=== PATIENT | female | born 1965 | race Caucasian/White ===

== ENCOUNTER → 2024-09-19 | Outpatient (CLI) | payer OTHER, SELFPAY ==
[2024-09-19 18:44] LABS: Mono Screen Negative (Negative)
[2024-09-20 13:54] LABS: Cocci Serology, IgM Negative (Negative)
[2024-09-21 14:43] LABS: Cocci Serology, IgG Negative (Negative)
[2024-09-27 19:48] LABS: West Nile Virus Ab. IgG, Serum <1.30
[2024-09-28 06:30] LABS: West Nile Virus Ab. IgM, Serum <0.90
== END | disposition home or self-care (01) ==
LOC: CDIM 13:59 → COPL 14:27
PROVIDERS: PCP Family Medicine; Referring Provider Registered Nurse; Visit Provider Registered Nurse
DX: R06.02 Shortness of breath (principal)
CPT/HCPCS: 36415; 86308; 86331; 86635; 86788; 86789

== ENCOUNTER → 2024-10-24 | Outpatient (CLI) | payer OTHER, SELFPAY ==
--- NOTE | 2024-10-24 10:30 | XR_ITS ---
Examination: Renal arteriography, renal Doppler sonographic evaluation renal arteries Exam date and time: October 24, 2024 1040 hours INDICATIONS: Hypertension 31 years TECHNIQUE AND FINDINGS: Right kidney 10.0 x 5.6 x 5.7 cm No elevation of peak systolic velocities No significant elevation resistive indices Normal renal aortic ratio Left kidney 10.7 x 4.7 x 5.4 cm No elevation of peak systolic velocities No significant elevation resistive indices Normal renal aortic ratios IMPRESSION: No sonographic Doppler findings of renal artery stenosis
== END | disposition home or self-care (01) ==
LOC: CDIM 10:17
PROVIDERS: PCP Family Medicine; Referring Provider Family Medicine; Visit Provider Family Medicine
DX: I10 Essential (primary) hypertension (principal)
CPT/HCPCS: 93975

== ENCOUNTER → 2024-11-22 | Outpatient (CLI) | payer OTHER, SELFPAY ==
--- NOTE | 2024-11-22 15:45 | XR_ITS ---
Examination: Screening digital mammography, bilateral Computer aided detection 3-D breast Tomosynthesis, bilateral Date and time of exam: November 22, 2024 1543 hours Compared to February 22, 2016 Indication: Screening Technique: Nonmagnified MLO, CC views of the breasts to been obtained, reconstructed from 3-D Tomosynthesis images. R2 computer aided detection program utilized for evaluation of suspicious masses and/or abnormal calcifications. 3-D Tomosynthesis images obtained. Findings: The breasts are heterogeneously dense, which may obscure small masses Benign calcifications. No interval suspicious masses Impression: BI-RADS category II: Benign Findings. Recommend 1 year follow-up mammogram.
== END | disposition home or self-care (01) ==
LOC: CDIM 15:23
PROVIDERS: PCP Registered Nurse; Referring Provider Registered Nurse; Visit Provider Registered Nurse
DX: Z12.31 Encounter for screening mammogram for malignant neoplasm of breast (principal); R92.323 Mammographic fibroglandular density, bilateral breasts; R92.1 Mammographic calcification found on diagnostic imaging of breast
CPT/HCPCS: 77063; 77067

== ENCOUNTER → 2025-02-14 | Outpatient (CLI) | payer OTHER, SELFPAY ==
[2025-02-14 17:35] LABS: Basophils # (Auto) 0.1 Thou/mm3 (0.0-0.2); Basophils % (Auto) 1 % (0-2.5); Eosinophils # (Auto) 0.1 Thou/mm3 (0.0-0.5); Eosinophils % (Auto) 1 % (0-10); Hematocrit 42.8 % (36.0-46.0); Hemoglobin 13.6 g/dL (12.0-16.0); Immature Granulocytes % (Auto) 1 % (0-0); Immature Granulocytes Auto 0.06 Thou/mm3 (0.00-0.00); Lymphocytes # (Auto) 2.4 Thou/mm3 (1.0-4.8); Lymphocytes % (Auto) 18 % (10-50); Mean Corpuscular HGB Conc 31.8 g/dl (31.0-37.0); Mean Corpuscular Hemoglobin 25.9 pg (25.0-35.0); Mean Corpuscular Volume 81 fL (80-100); Monocytes % (Auto) 7 % (0-12); Neutrophils # (Auto) 9.5 Thou/mm3 (1.8-7.7); Neutrophils % (Auto) 73 % (37-80); Nucleated Red Blood Cell % 0 /100 WBC (0); Platelet Count 209 Thou/mm3 (140-440); RDW Standard Deviation 44.1 fL (36.4-46.3); Red Blood Count 5.26 Miln/mm3 (4.00-5.20); White Blood Count 13.1 Thou/mm3 (3.6-11.0)
[2025-02-14 17:54] LABS: Parathyroid Hormone Intact 62.9 pg/ml (18.5-88.0)
[2025-02-14 17:55] LABS: Sed Rate (ESR) 17 mm/hr (0-30)
[2025-02-14 17:56] LABS: Alanine Aminotransferase 19 U/L (10-49); Albumin, Serum 4.1 gm/dL (3.5-5.0); Alkaline Phosphatase 107 U/L (46-116); Anion Gap 8 (7-16); Aspartate Amino Transferase 19 U/L (0-34); BUN/Creatinine Ratio 13 Ratio (12-20); Bilirubin,Direct 0.2 mg/dL (0.0-0.3); Bilirubin,Total 0.8 mg/dL (0.3-1.2); Blood Urea Nitrogen 10 mg/dL (9-23); C-Reactive Protein 0.8 mg/dL (0.0-0.9); Calcium 9.1 mg/dL (8.3-10.6); Carbon Dioxide 32.4 mMol/L (20.0-31.0); Chloride 101 mMol/L (98-107); Creatinine (Component) 0.8 mg/dL (0.6-1.3); Glucose 84 mg/dL (74-106); Magnesium 1.9 mg/dL (1.6-2.6); Osmolality,Calculated 279 (275-295); Phosphorous 5.2 mg/dL (2.4-5.1); Potassium 3.6 mMol/L (3.4-5.1); Sodium 141 mMol/L (136-145); eGFR > 60 See Note
[2025-02-14 17:57] LABS: Ferritin 14 ng/mL (7.3-270.7)
[2025-02-14 18:05] LABS: Vitamin B12 > 2000 pg/mL (211-911)
[2025-02-14 21:20] LABS: RA Screen Negative (Negative)
== END | disposition home or self-care (01) ==
LOC: COPL 16:18
PROVIDERS: PCP Family Medicine; Referring Provider Anesthesiology Pain Medicine; Visit Provider Anesthesiology Pain Medicine
DX: M79.7 Fibromyalgia (principal)
CPT/HCPCS: 36415; 80048; 80076; 82525; 82607; 82728; 83735; 83970; 84100; 84425; 84590; 84630; 85025; 85652; 86038; 86140; 86200; 86430

== ENCOUNTER → 2025-03-20 | Outpatient (CLI) | payer OTHER, SELFPAY ==
--- NOTE | 2025-03-20 12:00 | XR_ITS ---
Examination: MRI brain without intravenous contrast. Date and time of exam: March 20, 2025 1227 hours COMPARISON: 08/04/2019 INDICATIONS: Episodes of slurred speech tremors in the left hand beginning 3 months ago Technique: Multiple axial and sagittal images of the brain obtained. Siemens high-resolution 1.5 [place] short bore scanners utilized. Sagittal sections, T1-weighted, TR 500, TE 14, are performed. Axial sections proton-density and T2-weighted have been obtained. Inversion recovery axial images, TR 9, 260, TE 111, TI 2500. Diffusion weighted images, axial sections, TR 4800, TE 128, B value 1000 Axial sections, ADC map, TR 4800, TE 128 Findings: Enlargement of the sella turcica is not present. The optic chiasm and infundibular are not remarkable. Prepontine and interpeduncular cisterns are not enlarged. There is no localized enlargement of the medulla or hollie. Fourth ventricle and cerebellar tonsils appear normal in position. No subacute area of hemorrhage density is seen. Mass in the cerebellopontine angle region is not evident. Globes symmetrical. Orbital musculature including medial lateral rectus muscles do not exhibit abnormality. Diffusion-weighted images demonstrate no focus of restricted diffusion. Increased white matter signal scattered punctate foci increased signal in the white matter, including right parietal lobe FLAIR image 15 and 16 Mass effect upon the ventricular system is not identified. Impression: Scattered punctate foci increased signal in the cerebral white matter, consider demyelinating disease
== END | disposition home or self-care (01) ==
PROVIDERS: PCP Registered Nurse; Referring Provider Registered Nurse; Visit Provider Registered Nurse
DX: R90.82 White matter disease, unspecified (principal)
CPT/HCPCS: 70551

== ENCOUNTER → 2025-06-14 | Outpatient (CLI) | payer OTHER, SELFPAY ==
[2025-06-14 16:25] LABS: Amphetamine/Methamp Scrn,U Negative (Negative); Barbiturate Screen,Urine Negative (Negative); Benzodiazepines Screen,Urine Negative (Negative); Benzoylecgonine Screen, Ur Negative (Negative); Fentanyl Screen,Urine Negative (Negative); Opiate Screen,Urine Negative (Negative); THC Screen,Urine Negative (Negative)
== END | disposition home or self-care (01) ==
LOC: SLDO 15:04
PROVIDERS: PCP Registered Nurse; Referring Provider Registered Nurse; Visit Provider Registered Nurse
DX: Z02.89 Encounter for other administrative examinations (principal); M54.15 Radiculopathy, thoracolumbar region
CPT/HCPCS: 80307

== ENCOUNTER → 2025-08-08 | Outpatient (CLI) | payer OTHER, SELFPAY ==
--- NOTE | 2025-08-08 14:50 | XR_ITS ---
Examination: PA lateral chest 2 views TECHNIQUE: Upright PA lateral chest 2 views Date and time: August 08, 2025 1515 hours, comparison August 15, 2024 INDICATIONS: History pneumonia 10 days FINDINGS: Normal heart size Mild elevation right hemidiaphragm. No current lobar pneumonia or pulmonary edema IMPRESSION: No current lobar pneumonia or pulmonary edema
[2025-08-08 15:32] LABS: Coccid Serology, CF (UCD)* See Sep Rpt
[2025-08-08 16:34] LABS: Basophils # (Auto) 0.1 Thou/mm3 (0.0-0.2); Basophils % (Auto) 1 % (0-2.5); Eosinophils # (Auto) 0.1 Thou/mm3 (0.0-0.5); Eosinophils % (Auto) 2 % (0-10); Hematocrit 48.6 % (36.0-46.0); Hemoglobin 15.1 g/dL (12.0-16.0); Immature Granulocytes Auto 0.02 Thou/mm3 (0.00-0.00); Lymphocytes # (Auto) 3.1 Thou/mm3 (1.0-4.8); Lymphocytes % (Auto) 39 % (10-50); Mean Corpuscular HGB Conc 31.1 g/dl (31.0-37.0); Mean Corpuscular Hemoglobin 24.6 pg (25.0-35.0); Mean Corpuscular Volume 79 fL (80-100); Monocytes # (Auto) 0.6 Thou/mm3 (0.0-0.8); Monocytes % (Auto) 8 % (0-12); Neutrophils # (Auto) 4.2 Thou/mm3 (1.8-7.7); Neutrophils % (Auto) 51 % (37-80); Nucleated Red Blood Cell # 0.00 Thou/mm3 (0.00-0.00); Nucleated Red Blood Cell % 0 /100 WBC (0); Platelet Count 446 Thou/mm3 (140-440); RDW Standard Deviation 44.5 fL (36.4-46.3); Red Blood Count 6.15 Miln/mm3 (4.00-5.20); White Blood Count 8.2 Thou/mm3 (3.6-11.0)
[2025-08-08 17:15] LABS: Alanine Aminotransferase 24 U/L (10-49); Albumin, Serum 4.5 gm/dL (3.5-5.0); Albumin/Globulin Ratio 2.1 (1.2-2.2); Alkaline Phosphatase 98 U/L (46-116); Anion Gap 12 (7-16); Aspartate Amino Transferase 25 U/L (0-34); BUN/Creatinine Ratio 10 Ratio (12-20); Bilirubin,Total 0.4 mg/dL (0.3-1.2); Blood Urea Nitrogen 12 mg/dL (9-23); Calcium 10.1 mg/dL (8.3-10.6); Calcium (Corrected) 10.1 mg/dL (8.5-10.1); Carbon Dioxide 28.9 mMol/L (20.0-31.0); Chloride 100 mMol/L (98-107); Creatinine (Component) 1.2 mg/dL (0.6-1.3); Globulin 2.1 gm/dL (2.3-3.5); Glucose 111 mg/dL (74-106); Osmolality,Calculated 281 (275-295); Potassium 4.2 mMol/L (3.4-5.1); Sodium 141 mMol/L (136-145); Total Protein 6.6 gm/dL (5.7-8.2); eGFR 52 See Note
== END | disposition home or self-care (01) ==
LOC: COPL 14:26
PROVIDERS: PCP Nurse Practitioner Family; Referring Provider Nurse Practitioner Family; Visit Provider Radiology Diagnostic Radiology
DX: J20.9 Acute bronchitis, unspecified (principal); R04.2 Hemoptysis
CPT/HCPCS: 36415; 71046; 80053; 85025; 86171

== ENCOUNTER → 2025-08-29 | Outpatient (CLI) | payer OTHER, SELFPAY ==
[2025-08-29 16:45] LABS: B-Type Natriuretic Peptide 142 pg/mL (0-100)
[2025-08-30 09:36] LABS: Mono Screen Negative (Negative)
[2025-09-02 17:51] LABS: West Nile Virus Ab. IgG, Serum <1.30
[2025-09-04 06:38] LABS: West Nile Virus Ab. IgM, Serum <0.90
== END | disposition home or self-care (01) ==
LOC: COPL 15:41
PROVIDERS: PCP Registered Nurse; Referring Provider Registered Nurse; Visit Provider Registered Nurse
DX: R50.9 Fever, unspecified (principal)
CPT/HCPCS: 36415; 83880; 86308; 86788; 86789

== ENCOUNTER → 2025-09-06 | Outpatient (CLI) | payer OTHER, SELFPAY ==
--- NOTE | 2025-09-06 14:38 | XR_ITS ---
Examination: CT chest, without intravenous contrast. Sagittal and coronal 2-D reconstructions. Exam date and time: September 06, 2025, 1446 hours INDICATIONS: Chronic coughing chest pain fever 2 months COMPARISON: December 07, 2023 CTDI:vol (mGy) 14.2 DLP: (mGycm) 512 Technique: Multiple 3.0 mm axial sections of the chest to been obtained. Bone and lung density settings are obtained. Sagittal and coronal 2-D reconstructions have been obtained. Low dose protocols were performed. One or more of the following dose reduction techniques were used; automated exposure control, adjustment of the mA and/or KV according to patient size, use of iterative reconstruction technique. Findings: No thoracic aortic aneurysm dilatation Pulmonary artery segments are not enlarged Mild enlargement cardiac contour No paratracheal or tracheobronchial or bronchopulmonary adenopathy. No pneumonia or pulmonary edema or pleural disease No visualized liver or splenic lesion Gastric sutures Absent gallbladder No pancreatic or adrenal mass No hydronephrosis IMPRESSION: No mediastinal lymphadenopathy No pneumonia, pulmonary edema, pleural disease or pulmonary nodules
== END | disposition home or self-care (01) ==
PROVIDERS: PCP Family Medicine; Referring Provider Registered Nurse; Visit Provider Registered Nurse
DX: R05.3 Chronic cough (principal)
CPT/HCPCS: 71250

== ENCOUNTER 2025-09-19 13:57 | Emergency (ER) | payer MEDICAID, SELFPAY ==
[2025-09-19] VITALS (7 sets, daily range): BP systolic 172–210; BP diastolic 93–126; PULSE 57–100; RESP 16–20; TEMP 36.8–37.1; O2SAT 94–99; BMI 36.6
--- NOTE | 2025-09-19 14:13 | EKG_ITS ---
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
--- NOTE | 2025-09-19 14:14 | XR_ITS ---
CLINICAL INDICATION: SOB TECHNIQUE: XR chest 1V portable Exam date and time: 09/19/2025, 2:19 p.m. COMPARISON: Chest radiographs 08/08/2025 FINDINGS: The cardiomediastinal silhouette is within normal limits. Redemonstration of very mildly elevated right hemidiaphragm. No airspace opacities suggestive of pneumonia. No mass detected. No pleural effusion or pneumothorax. Degenerative changes of the skeletal structures. No apparent acute osseous abnormality. IMPRESSION: No radiographic evidence for acute cardiopulmonary abnormality. No significant interval change since the comparison study. - This report was generated utilizing speech recognition software. -
--- NOTE | 2025-09-19 15:03 | EDNOTE_ITS ---
<Statement entered by Nadine Piedra MD - 09/20/25 09:34> As co-signing physician, I was present and available for consult prn. I concur with the plan and care as documented by the midlevel provider. ED Weakness RME/HPI General Chief complaint: Weakness Stated complaint: SHAKING Arrival date/time: 09/19/25 13:57 RME / HPI RME / HPI Narrative: cc: Dizziness Patient is a 53-year-old female with a past medical history of hypertension, hyperlipidemia, possible history of fibromyalgia history of kidney stone, previous catheter in [address] Mireles showed nonobstructive coronary artery disease who presented to the emergency room. Patient presented via EMS with a chief complaints increased respiration and dizziness, denied syncope. Patient reports difficulties controlling blood pressure medication despite multiple antihypertensive medication. Patient denied any recent sick contacts. Patient denied history of seizures or seizure-like activity. Denied recent sick contacts. Patient's follows with Dr. Mireles and Dr. Santos as primary care. CBC, CMP, EKG, Tropoinin, flu and covid Patient requesting Metoprolol succinate refill Related Data Home Medications ?Medication ?Instructions ?Recorded ?Confirmed amlodipine 5 mg tablet 5 mg PO QDAY 08/05/19 gabapentin 400 mg capsule 400 mg PO BID 08/05/1908/31 hydrocodone 7.5 mg-acetaminophen 1 tab PO Q6H PRN Pain (Scale Score 08/05/19 08/31/23 325 mg tablet 7-10) meclizine 12.5 mg tablet 12.5 mg PO BID PRN Vertigo 0 08/05/19 08/31/23 metoprolol succinate 100 mg 100 mg PO BID 08/05/19 tablet,extended release 24 hr amitriptyline 25 mg tablet 150 mg PO HS 08/31/2308/31 aspirin 81 mg tablet,delayed 81 mg PO QDAY 08/31/23 release clonidine HCl 0.2 mg tablet 0.2 mg PO QDAY 08/31/23 duloxetine 60 mg capsule,delayed 60 mg PO QDAY 3 08/31/23 release (Cymbalta) estradiol 0.5 mg tablet 0.5 mg PO QDAY 08/31/2308/16 ibuprofen 600 mg tablet 200 mg PO Q6H pain 08/31/23 08/31/23 metformin 500 mg tablet 500 mg PO QDAY 08/31/2308/16 Held on 08/31/23. Instructions: Resume on 09/03/23. please hold metformin for 48 hrs. may resume 09/03/2023 omeprazole 20 mg capsule,delayed 20 mg PO QDAY 3 08/31/23 release Previous Rx's ?Medication ?Instructions ?Recorded enalapril maleate 2.5 mg tablet 2.5 mg PO QDAY #30 tab s 01/08/23 (Vasotec) Allergies Allergy/AdvReac Type Severity Reaction Status Date / Time bupropion (From Wellbutrin) Allergy Severe Swelling Verified 08/31/23 11:17 of Lip/Tongue/Throat sumatriptan (From Imitrex) Allergy Severe Swelling Verified 08/31/23 11:17 of Lip/Tongue/Throat atenolol Allergy Intermediate Rash Verified 08/31/23 11:17 latex Allergy Rash Verified 08/31/23 11:17 Review of Systems Review of Systems Narrative Review of Systems: General appearance: NO weight change, NO fatigue, NO weakness, NO fever, Yes chills, Yes perspiration, NO night sweats, No cough, Increased fatigue Skin: NO rash, NO itching, NO sores, NO moles HEENT: NO Trauma, NO nausea, NO vomiting, NO visual changes, NO blurry vision, NO double vision, NO tinnitus, NO vertigo, NO ear discharge, NO rhinorrhea, NO stuffiness, NO sneezing, NO allergy, NO epistaxis. NO Hoarseness, NO sore throat, NO swollen neck. Cardiac: NO Palpitations, NO dyspnea on exertion, NO orthopnea, NO paroxysmal nocturnal dyspnea, NO edema Respiratory: NO Shortness of Breath, NO Wheezing, NO Cough, NO Sputum, NO hemoptysis GI:NO appetite, NO nausea, NO vomiting, NO dysphagia, NO changes in bowel frequency, NO stool color, NO diarrhea, NO constipation, NO hemetemesis, NO hemorrhoids, NO melena, NO hematechezia, NO abdominal pain, NO jaundice Renal: NO frequency, NO hesitancy, NO urgency, NO hematuria, NO nocturia, NO incontinence MSK: NO muscle weakness, NO gout, NO arthritis, NO muscle stiffness Neuro: NO headaches, NO tremors, Yes weakness, NO paralysis, NO seizures, NO loss of consciousness, NO numbness. Hem: NO anemia, NO easy bruising/bleeding, NO petechiae, NO purpura Endo: NO heat/cold intolerance, NO excessive sweating, NO polyuria, NO po lydipsia, NO polyphagia, NO thyroid problems, yes diabetes Pysch: NO mood, NO anxiety, NO depression ED Exam Narrative Physical exam: General Appearance: Alert & Oriented X3, well-nourished female who is lying in bed in mild distress HEENT: Skull symmetrical and atraumatic. Conjunctivae pink and moist. Pupils equal, round, reactive to light and accommodation (PERRL). External ear without lesion or discharge. Straight, nares patient, mucosa pink, no discharge. Cardio: Normal Rate and Rhythm with S1 and S2 heart sounds. No murmurs or extra heart sounds auscultated. No bruits on carotid auscultation. No peripheral edema or cyanosis. Lungs: Symmetric with good expansion. Chest and back non-tender. Breath sounds vesicular without crackles, wheezing or rhonchi Abdomen: Non-tender, Non-distended, Normal Reactive Bowel Sounds Neuro: Alert, cooperative, oriented to person, place, and time. Speech clear. CN grossly intact. Upper motor strength 5/5 and Lower motor strength 5/5. Sensation intact. NO facial drop. Course Course Course Narrative: Patient has a past medical history of HTN, HLD, fibromyalgia, and hx of kidney stones with chief complain shaking and increase perspiration and noted to have uncontrolled hypertension. Patient denied chest pain or pyrexia. CBC unremarkable, no leukocytosis. Generalized fatigue unlikely secondary to infectious process as UA, flu, covid, and chest x-ray all negative. No focal deficits on physical exam. Patient stated she ran out of her metoprolol and requires refill. Goal reduction of SBP by 15%. Quality Measures none Orders Category Date Time Status Bedside Blood Glucose NOW Care 09/19/25 14:13 Active Bedside COVID-19 Antigen Test NOW Care 09/19/25 16:21 Active Bedside Influenza A&B Antigen Test NOW Care 09/19/25 16:22 Completed [facility] Q4H START 00 Care 09/19/25 14:13 Active Continuous Pulse Oximetry NOW Care 09/19/25 14:13 Active EKG (ED ONLY) *Do not use* NOW Care 09/19/25 14:14 Completed Orthostatic Vitals X1 Care 09/19/25 14:13 Active EKG (ED Only) Stat Exams 09/19/25 14:13 Draft XR chest 1V portable Stat Exams 09/19/25 14:14 Completed Alcohol, Urine Stat Lab 09/19/25 16:30 Completed CBC Stat Lab 09/19/25 14:40 Completed CMP [Comprehensive Metabolic Panel] Stat Lab 09/19/25 14:40 Completed Drug Screen,Urine Stat Lab 09/19/25 16:30 Completed Troponin I Stat Lab 09/19/25 14:40 Completed Urinalysis, C/S if Indicated Stat Lab 09/19/25 16:30 Completed Labetalol IV [Trandate IV] Med 09/19/25 14:16 Discontinued 10 mg IVP X1 ONE POTASSIUM CHL 10% Liq 15 ML Med 09/19/25 16:02 Discontinued 40 meq PO X1 ONE cloNIDine HCL [Catapres] Med 09/19/25 14:46 Discontinued 0.2 mg PO X1 ONE cloNIDine HCL [Catapres] Med 09/19/25 16:04 Discontinued 0.2 mg PO X1 ONE same as above Vital Signs Vital signs: Vital Signs Temperature 98.7 F 09/19/25 14:05 Pulse Rate 70 09/19/25 14:05 Respiratory Rate 18 09/19/25 14:05 Blood Pressure 193/114 H 09/19/25 14:05 Pulse Oximetry (%) 99 09/19/25 14:05 Oxygen Delivery Method Room Air 09/19/25 14:05 Weakness Patient data External records reviewed:: [facility] previous records Clinical information provided by:: patient and EMS Social determinants that could affect healthcare access:: none Patient has the following chronic illnesses:: HTN and HLD How is presenting disease/condition affected by chronic disease/condition?: exacerbated by (HTN ) Evaluation data The following diagnostics were reviewed and interpreted by me:: lab results, radiology exam(s) and EKG tracing(s) Lab and/or radiology exams considered but not ordered:: none Interpretation Summary: Patient has a past medical history of HTN, HLD, fibromyalgia, and hx of kidney stones with chief complain shaking and increase perspiration and noted to have uncontrolled hypertension. Patient denied chest pain or pyrexia. CBC unremarkable, no leukocytosis. Generalized fatigue unlikely secondary to infecti ous process as UA, flu, covid, and chest x-ray all negative. No focal deficits on physical exam. Patient stated she ran out of her metoprolol and requires refill. Goal reduction of SBP by 15%. - The patient's plan was discussed with attending Dr. Dorothea Uriarte MD PGY2 Internal Medicine Medications / Prescriptions Medications or Prescriptions considered but not ordered:: none Medication administrations:: Medication Administration History Discontinued Medications Clonidine (Clonidine Hcl 0.1 Mg Tablet) 0.2 mg PO X1 ONE Stop: 09/19/25 14:47 Last Admin: 09/19/25 15:12 Dose: 0.2 mg Documented By: Clonidine (Clonidine Hcl 0.1 Mg Tablet) 0.2 mg PO X1 ONE Stop: 09/19/25 16:05 Last Admin: 09/19/25 18:44 Dose: 0.2 mg Documented By: VG Labetalol HCl (Labetalol Inj 5 Mg/Ml Vial 20 Ml) 10 mg IVP X1 ONE Stop: 09/19/25 14:17 Last Admin: 09/19/25 15:13 Dose: Not Given Documented By: Non-Admin Reason: Cancelled by Provider Potassium Chloride (Potassium Chloride 10% 20 Meq/15 Ml Udc) 40 meq PO X1 ONE Stop: 09/19/25 16:03 Last Admin: 09/19/25 17:36 Dose: 40 meq Documented By: same as above Consultations Consultation(s) initiated? (list below): No Diagnosis Weakness Differential Diagnosis: acute myocardial infarction, dehydration and other (uncontrolled HTN ) Most likely diagnosis given after review of the tests above:: Uncontrolled HTN Admission Indicated Admission indicated?: not indicated Explain why admission is indicated or not indicated:: Likely uncontrolled htn as other labs unremarkable Admission Request Was there a request for admission?: No Disposition Plan Disposition Plan: other (specify) (Patient signed off to night team ) Discharge Plan Plan Patient Disposition: HOME (Self Care) Prescriptions/Referrals Prescriptions/Med Rec: No Action metoprolol succinate 100 mg Tablet Extended Release 24 Hr 100 mg PO BID meclizine 12.5 mg Tablet 12.5 mg PO BID PRN (Reason: Vertigo) hydrocodone-acetaminophen 7.5-325 mg Tablet 1 tab PO Q6H PRN (Reason: Pain (Scale Score 7-10)) gabapentin 400 mg Capsule 400 mg PO BID amlodipine 5 mg Tablet 5 mg PO QDAY enalapril maleate [Vasotec] 2.5 mg tablet 2.5 mg PO QDAY Qty: 30 0RF metformin 500 mg Tablet 500 mg PO QDAY aspirin 81 mg Tablet,Delayed Release (Dr/Ec) 81 mg PO QDAY clonidine HCl 0.2 mg tablet 0.2 mg PO QDAY omeprazole 20 mg Capsule,Delayed Release(Dr/Ec) 20 mg PO QDAY estradiol 0.5 mg Tablet 0.5 mg PO QDAY Rx Instructions: off 5 days; repeat cycle duloxetine [Cymbalta] 60 mg Capsule,Delayed Release(Dr/Ec) 60 mg PO QDAY amitriptyline 25 mg tablet 150 mg PO HS ibuprofen 600 mg tablet 200 mg PO Q6H Referrals: Ara Bal MD [Primary Care Provider, Family Practice] - In 1 week Problem List Clinical Impression: Hypertension, uncontrolled Patient/Caregiver Discharge Instructions Print Language: Hebrew Stand Alone Forms: Janay Award Info., Patient Portal Info Letter
[2025-09-19 15:07] LABS: Basophils # (Auto) 0.1 Thou/mm3 (0.0-0.2); Basophils % (Auto) 1 % (0-2.5); Eosinophils # (Auto) 0.1 Thou/mm3 (0.0-0.5); Eosinophils % (Auto) 2 % (0-10); Hematocrit 46.3 % (36.0-46.0); Hemoglobin 15.2 g/dL (12.0-16.0); Immature Granulocytes Auto 0.02 Thou/mm3 (0.00-0.00); Lymphocytes # (Auto) 2.5 Thou/mm3 (1.0-4.8); Lymphocytes % (Auto) 28 % (10-50); Mean Corpuscular HGB Conc 32.8 g/dl (31.0-37.0); Mean Corpuscular Hemoglobin 26.1 pg (25.0-35.0); Mean Corpuscular Volume 80 fL (80-100); Monocytes # (Auto) 0.6 Thou/mm3 (0.0-0.8); Monocytes % (Auto) 6 % (0-12); Neutrophils # (Auto) 5.7 Thou/mm3 (1.8-7.7); Neutrophils % (Auto) 64 % (37-80); Nucleated Red Blood Cell # 0.00 Thou/mm3 (0.00-0.00); Nucleated Red Blood Cell % 0 /100 WBC (0); Platelet Count 227 Thou/mm3 (140-440); RDW Standard Deviation 48.6 fL (36.4-46.3); Red Blood Count 5.82 Miln/mm3 (4.00-5.20); White Blood Count 8.9 Thou/mm3 (3.6-11.0)
[2025-09-19 15:26] LABS: Alanine Aminotransferase 15 U/L (10-49); Albumin, Serum 4.9 gm/dL (3.5-5.0); Albumin/Globulin Ratio 2.6 (1.2-2.2); Alkaline Phosphatase 113 U/L (46-116); Anion Gap 11 (7-16); Aspartate Amino Transferase 22 U/L (0-34); BUN/Creatinine Ratio 14 Ratio (12-20); Bilirubin,Total 0.7 mg/dL (0.3-1.2); Blood Urea Nitrogen 14 mg/dL (9-23); Calcium 10.2 mg/dL (8.3-10.6); Calcium (Corrected) 10.2 mg/dL (8.5-10.1); Carbon Dioxide 33.8 mMol/L (20.0-31.0); Chloride 95 mMol/L (98-107); Creatinine (Component) 1.0 mg/dL (0.6-1.3); Estimated Creatinine Clearance 63.4 mL/min (>60); Globulin 1.9 gm/dL (2.3-3.5); Glucose 139 mg/dL (74-106); Osmolality,Calculated 281 (275-295); Potassium 2.8 mMol/L (3.4-5.1); Sodium 140 mMol/L (136-145); Total Protein 6.8 gm/dL (5.7-8.2); Troponin I < 0.020 ng/mL (0.0-0.045); eGFR > 60 See Note
[2025-09-19 17:02] LABS: Collection Type, Urine Clean Catch
[2025-09-19 17:13] LABS: Bacteria,Urine Rare; Bilirubin,Urine 1+ (Negative); Blood,Urine Negative (Negative); Clarity,Urine Clear (Clear/Hazy); Color,Urine Yellow (Lt Yel-Yel); Culture Indicated,Urine Not Indicated; Glucose, Urine Negative (Negative); Hyaline Casts,Urine 1 /hpf (0-1); Ketones,Urine Trace (Negative); Leukocyte Esterase,Urine Negative (Negative); Nitrite,Urine Negative (Negative); PH,Urine 7.0 (5.0-7.0); Protein,Urine 1+ (Neg - Trace); RBC,Urine 5 /hpf (0-3); Specific Gravity,Urine 1.033 (1.001-1.035); Squamous Epithelial Cell,Urine 3 /hpf (0-5); Urobilinogen,Urine 2.0 mg/dL (0.0-1.0); WBC,Urine 1 /hpf (0-5)
[2025-09-19 17:26] LABS: Alcohol, Urine Negative (Negative); Amphetamine/Methamp Scrn,U Negative (Negative); Barbiturate Screen,Urine Negative (Negative); Benzodiazepines Screen,Urine Negative (Negative); Benzoylecgonine Screen, Ur Negative (Negative); Fentanyl Screen,Urine Negative (Negative); Opiate Screen,Urine Positive (Negative); THC Screen,Urine Negative (Negative)
[2025-09-19] MEDS: POTASSIUM CHLORIDE 10% 20 MEQ/15 ML UDC 40 MEQ PO (17:36)
--- NOTE | 2025-09-19 18:39 | PD.EDADDENDU ---
Emergency Room Addendum <Binta Linares - Last Filed: 09/19/25 18:39> Addendum Narrative: 1800: Care assumed from Dr. Uriarte, attending Dr. Piedra. Past medical, surgical, social and family history reviewed. Vitals and home medications reviewed. Results and treatment plan discussed. I will assume the care of the patient at this time and will follow the patient. Please refer to the emergency department record for history and examination from initial visit. <Ra Jami DO Jesús - Last Filed: 09/19/25 21:30> Addendum Narrative: 1800: Care assumed from Dr. Uriarte, attending Dr. Piedra. Past medical, surgical, social and family history reviewed. Vitals and home medications reviewed. Results and treatment plan discussed. I will assume the care of the patient at this time and will follow the patient. Please refer to the emergency department record for history and examination from initial visit. Patient was signed out to me awaiting workup. I reviewed the workup which was essentially unremarkable with the exception of a potassium of 2.8. Patient received potassium chloride 60 mill equivalents p.o. Patient is on multiple blood pressure lowering agents and does have a primary care physician taking care of those medications. At this time she feels better and wishes to go home. Blood pressure has come down spontaneously. She denies any headache chest pain or shortness of breath. EKG was nonischemic. Kidney function was normal. Patient will be discharged in stable condition to follow-up with primary care for further treatment and evaluation.
== END 2025-09-19 21:55 | disposition home or self-care (01) ==
PROVIDERS: Emergency Provider Emergency Medicine; PCP Family Medicine
DX: E86.0 Dehydration (principal); I10 Essential (primary) hypertension; I25.10 Atherosclerotic heart disease of native coronary artery without angina pectoris; E78.5 Hyperlipidemia, unspecified; Z91.148 Patient's other noncompliance with medication regimen for other reason
CPT/HCPCS: 36415; 71045; 80053; 80307; 80320; 81001; 84484; 85025; 87502; 87635; 93005; 99283; A9270; G0480

== ENCOUNTER 2025-09-23 22:15 | Inpatient (IN) | payer MEDICAID, SELFPAY ==
[2025-09-23] VITALS (9 sets, daily range): BP systolic 139–148; BP diastolic 78–111; PULSE 107–160; RESP 18–39; TEMP 37.2; O2SAT 75–97; BMI 34.7
--- NOTE | 2025-09-23 22:30 | PD.EDSYNC ---
ED Syncope RME/HPI General Chief Complaint: Weakness Stated Complaint: WEAKNESS Time Seen by Provider: 09/23/25 22:22 Arrival date/time: 09/23/25 22:15 RME / HPI RME / HPI narrative: DR. HARO MAIN ED EVALUATION: Patient with Hx of HTN, Non-obstructive CAD, HLD, and Fibromyalgia recently seen for episode of HTN now presenting after collapse at home, remained on floor for approximately 3 hours. Paramedics were summoned and patient was found to be initially in sinus tachycardia with rate in the 130's, hypoxic with O2 saturation of 84% corrected on high-flow non-rebreather mask. Patient reports ongoing diarrhea in excess of 10 episodes throughout the day with diffuse lower abdominal pain. No recent fever or chills, vomiting, chest pain or SOB. PMH: Transient Ischemic Attacks, Migraine, Heart Murmur, Coronary Artery Disease, Hypercholesterolemia, Hypertension, Gastroesophageal Reflux Disease, Obesity, Kidney Stones, Osteoporosis, Fibromyalgia, Diabetes Mellitus Type 2, Depression and Anxiety PSH: Tonsillectomy, Adenoidectomy, Gastric Bypass Surgery, and Hysterectomy Allergies: Bupropion, Sumatriptan, Atenolol, Latex Social: Non-smoker, Non-drinker, No illicit drug abuse Related Data Home Medications ?Medication ?Instructions ?Recorded ?Confirmed amlodipine 5 mg tablet 5 mg PO QDAY 08/05/19 08/31/23 gabapentin 400 mg capsule 400 mg PO BID 08/05/19 08/31/23 hydrocodone 7.5 mg-acetaminophen 1 tab PO Q6H PRN Pain (Scale Score 08/05/19 08/31/23 325 mg tablet 7-10) meclizine 12.5 mg tablet 12.5 mg PO BID PRN Vertigo 08/05/19 08/31/23 metoprolol succinate 100 mg 100 mg PO BID 08/05/19 08/31/23 tablet,extended release 24 hr amitriptyline 25 mg tablet 150 mg PO HS 08/31/23 08/31/23 aspirin 81 mg tablet,delayed 81 mg PO QDAY 08/31/23 08/31/23 release clonidine HCl 0.2 mg tablet 0.2 mg PO QDAY 08/31/23 08/31/23 duloxetine 60 mg capsule,delayed 60 mg PO QDAY 08/31/23 08/31/23 release (Cymbalta) estradiol 0.5 mg tablet 0.5 mg PO QDAY 08/31/23 08/31/23 ibuprofen 600 mg tablet 200 mg PO Q6H pain 08/31/23 08/31/23 metformin 500 mg tablet 500 mg PO QDAY 08/31/23 08/31/23 Held on 08/31/23. Instructions: Resume on 09/03/23. please hold metformin for 48 hrs. may resume 09/03/2023 omeprazole 20 mg capsule,delayed 20 mg PO QDAY 08/31/23 08/31/23 release Previous Rx's ?Medication ?Instructions ?Recorded enalapril maleate 2.5 mg tablet 2.5 mg PO QDAY #30 tabs 01/08/23 (Vasotec) Allergies Allergy/AdvReac Type Severity Reaction Status Date / Time bupropion (From Wellbutrin) Allergy Severe Swelling Verified 08/31/23 11:17 of Lip/Tongue/Throat sumatriptan (From Imitrex) Allergy Severe Swelling Verified 08/31/23 11:17 of Lip/Tongue/Throat atenolol Allergy Intermediate Rash Verified 08/31/23 11:17 latex Allergy Rash Verified 08/31/23 11:17 Review of Systems Review of Systems Systems Reviewed: All systems reviewed, normal except as documented Past Medical History Past Medical History NEUROLOGIC: Positive Neurological Disorders, Transient Ischemic Attacks (TIA) and Migraine CARDIAC: Positive Cardiac Disorders, Heart Murmur, Coronary Artery Disease, Hypercholesterolemia and Hypertension GASTROINTESTINAL: Positive Gastrointestinal Disorders, Gastroesophageal Reflux Disease and Obesity GENITOURINARY: Positive Genitourinary Disorders and Kidney Stones MUSCULOSKELETAL: Positive Musculoskeletal Disorders, Osteoporosis and Fibromyalgia ENDOCRINE: Positive Endocrine Disorders and Diabetes Mellitus Type 2 PSYCHO/SOCIAL: Positive Depression and Anxiety OTHER HISTORY: Positive Chicken Pox and Mumps Family History FAMILY HISTORY: Positive Family Neurologic Problems (patient's mother had hx of seizures.) and Family Cardiac Disorders Surgical History SURGICAL: Positive Tonsillectomy, Adenoidectomy, Throat Surgery, Abdominal Surgery, Gastric Bypass Surgery and Hysterectomy ED Exam Narrative Physical exam: GEN. APPEARANCE: The patient is alert awake oriented X-3 notably tachycardic, tremulous, appears quite anxious, lying down comfortably, does not look ill/toxic. Patient has good eye contact. Patient is cooperative. VITALS: All vitals were reviewed and the pulse ox is 96% on 10 L/min via oxygen mask, which is normal according to my interpretation HEENT: Normocephalic, atraumatic and nontender. Pupils are equal and reactive. Oral mucosa is moist. NECK: Supple, nontender, no meningismus, no JVD. There is no thyromegaly and no lymphadenopathy. CHEST: Nontender on palpation no deformity and no crepitus. CARDIOVASCULAR: Rapid irregular irregular, no murmur or gallop rub or extra beats. LUNGS: Clear to auscultation bilaterally with symmetrical chest rise. No laboring tachypnea or wheezing. No intercostal subcostal retraction. No rales and no rhonchi. ABDOMEN: Soft, flat, diffusely tender at lower abdominal region with slight guarding, no rebound tenderness. There are no abnormal masses palpated. No pulsatile masses or bruits. Active and normal bowel sounds. EXTREMITIES: Normal inspection and palpation. Trace edema. No cyanosis. Patient is able to move all 4 extremities well SKIN: Warm and dry, no rashes noted. MUSCULOSKELETAL: No lumbar or midline bony tenderness. There is no CVA tenderness. No paraspinal muscle spasm or tenderness. NEURO: Cranial nerves II through XII grossly intact. There are no focal neurologic deficits noted. GCS is 15 PSYCHIATRIC: Patient is in normal mood and affect, cooperative. LYMPHATICS: No major lymphadenopathy noted. Course Quality Measures none Orders Category Date Time Status EKG (ED ONLY) *Do not use* NOW Care 09/23/25 22:46 Completed CA echo doppler complete Stat Exams 09/24/25 02:[address] abdomen pelvis wo con Stat Exams 09/23/25 23:47 Taken EKG (ED Only) Stat Exams 09/23/25 22:46 Ordered XR chest 1V portable Stat Exams 09/23/25 22:46 Taken B-Type Natriuretic Peptide Stat Lab 09/23/25 22:50 Completed Blood Culture (Lab) Stat Lab 09/23/25 22:50 Received CBC Stat Lab 09/23/25 22:50 Completed Clostridium Difficile PCR Routine Lab 09/24/25 Ordered Comprehensive Metabolic Panel Stat Lab 09/23/25 23:38 Completed Creatine Kinase Stat Lab 09/23/25 23:38 Completed Drug Screen,Urine Stat Lab 09/23/25 22:50 Completed LDH (Lactate Dehydrogenase) Stat Lab 09/23/25 23:38 Completed Lactic Acid [Lactate (Lactic Acid)] Stat Lab 09/24/25 00:00 Completed Magnesium Stat Lab 09/23/25 23:38 Completed Partial Thromboplastin Time Stat Lab 09/23/25 23:38 Completed Prothrombin Time with INR Stat Lab 09/23/25 23:38 Completed Stool Culture Stat Lab 09/23/25 23:47 Ordered Troponin I Stat Lab 09/23/25 23:38 Completed Urinalysis, C/S if Indicated Stat Lab 09/23/25 22:50 Completed Urinalysis, C/S if Indicated Stat Lab 09/23/25 23:45 Ordered Urine Culture Stat Lab 09/24/25 02:45 Ordered Apixaban [Eliquis] Med 09/24/25 09:00 Active 5 mg PO BID Apixaban [Eliquis] Med 09/24/25 00:27 Discontinued 5 mg PO X1 ONE DILTIAZEM in NS 100 MG Med 09/24/25 00:28 Active 100 mg in 100 ml IV 5 mg/hr Diltiazem Inj [Cardizem Inj] Med 09/23/25 23:10 Discontinued 10 mg IV Q15MIN PRN Doxycycline Inj [Vibramycin Inj] 100 mg Med 09/24/25 09:00 Pending Sodium Chloride 0.9% (Pop) [NS 0.9% mini bag] 100 ml IV BID Magnesium Sulfate 2 GM Ivpb [Magnesium Sulfate Ivpb] Med 09/24/25 02:34 Active 2 gm in 50 ml IV X1 Metoclopramide Inj [Reglan Inj] Med 09/24/25 02:34 Discontinued 5 mg IVP X1 ONE Morphine* Inj Med 09/23/25 23:53 Discontinued 4 mg IVP X1 ONE Ondansetron Inj [Zofran Inj] Med 09/23/25 23:53 Discontinued 4 mg IVP X1 ONE POTASSIUM CHL 10 mEq IVPB [Kcl Ivpb] Med 09/24/25 02:45 Active 10 meq in 100 ml IV Q1H Sodium Chloride 0.9% 1000 ml [Ns] 1,000 ml Med 09/23/25 22:47 Discontinued IV 999 mls/hr Sodium Chloride 0.9% 1000 ml [Ns] 1,000 ml Med 09/24/25 02:41 Discontinued IV 999 mls/hr Sodium Chloride 0.9% 1000 ml [Ns] 1,000 ml Med 09/24/25 02:42 Discontinued IV 999 mls/hr Sodium Chloride 0.9% 500 ml [Ns] 500 ml Med 09/24/25 02:43 Discontinued IV 999 mls/hr cefTRIAXone/D5w 1gm IV premix [Rocephin/D5w 1gm IV Med 09/24/25 09:00 Pending premix] 1 gm in 50 ml IV QDAY cefTRIAXone/D5w 1gm IV premix [Rocephin/D5w 1gm IV Med 09/23/25 23:57 Discontinued premix] 1 gm in 50 ml IV X1 fentaNYL INJ [Sublimaze Inj] Med 09/23/25 23:56 Discontinued 25 mcg IVP X1 ONE metroNIDAZOLE/NS 500 MG IVPB [Flagyl 500 mg IV] Med 09/24/25 02:40 Pending 500 mg in 100 ml IV Q8HR metroNIDAZOLE/NS 500 MG IVPB [Flagyl 500 mg IV] Med 09/23/25 23:57 Discontinued 500 mg in 100 ml IV X1 EKG (RT) Routine RT 09/24/25 07:00 Ordered Vital Signs Vital signs: Vital Signs Pulse Rate 129 H 09/23/25 22:23 Respiratory Rate 39 H 09/23/25 22:23 Pulse Oximetry (%) 96 09/23/25 22:23 Oxygen Delivery Method Oxy Mask 09/23/25 22:23 Oxygen Flow Rate 10 09/23/25 22:23 Syncope MDM Narrative MDM Narrative:: Scribe Attestation: Iona Dyer am scribing for and in the presence of Dr. Wallace. Provider Notation: Although this document has been carefully reviewed, there may still be some phonetic and other typographical errors. These errors are purely grammatical due to imperfections in the software program and should not be construed in any way to compromise the substance of the patient's medical care during this visit. Patient with Hx of HTN, Non-obstructive CAD, HLD, and Fibromyalgia recently seen for episode of HTN now presenting after collapse at home, remained on floor for approximately 3 hours. Paramedics were summoned and patient was found to be initially in sinus tachycardia with rate in the 130's, hypoxic with O2 saturation of 84% corrected on high-flow non-rebreather mask. Please see PE findings. Laboratory markers, including CBC demonstrated markedly elevated WBC of 21.9 and hemoconcentration with hemoglobin of 19. Elevated platelet count of 417 with no left shift or associated bandemia. Serum chemistries demonstrated low Potassium of 2.5 and mildly diminished renal function. Troponin I at 0.600. Elevated transaminases, Total bilirubin of 3.5 and CK of 981. CXR without evidence of infiltrates. Abdomen/pelvis CT suggests possible colitis. Patient was hydrated with NS to correct volume deficit and administered incremental doses of channel rahul with gradual reduction in HR and BP. Began on Cardizem infusion and also received dual-antibiotics for colitis. Eliquis administered to prevent CVA. Hospitalist consulted and agrees to admit. Final new onset A Fib RVR, near-syncope, colitis, and dehydration. Patient data External records reviewed:: [facility] previous records (Reviewed prior ED records from 09/19/25. Patient was seen for Hypertension, uncontrolled.) and EMS form Clinical information provided by:: patient and EMS Social determinants that could affect healthcare access:: none Patient has the following chronic illnesses:: Transient Ischemic Attacks, Migraine, Heart Murmur, Coronary Artery Disease, Hypercholesterolemia, Hypertension, Gastroesophageal Reflux Disease, Obesity, Kidney Stones, Osteoporosis, Fibromyalgia, Diabetes Mellitus Type 2, Depression and Anxiety How is presenting disease/condition affected by chronic disease/condition?: exacerbated by Evaluation data The following diagnostics were reviewed and interpreted by me:: lab results, radiology exam(s) and EKG tracing(s) (EKG demonstrates Atrial fibrillation with RVR and rate of 148 bpm, ST segment lateral depressions, axis leftward, per my interpretation.) Lab and/or radiology exams considered but not ordered:: None Interpretation Summary: RADIOLOGY Chest X-Ray: Pending official radiology report. Abdomen/Pelvis CT: Findings: The lung bases are clear. Fatty infiltration of the liver is noted. There is a calcification in the left lobe of liver, likely benign. The gallbladder is surgically absent. There is a 2 mm left nonobstructing renal calculus. Fatty replacement/atrophy of the pancreas is noted. The spleen adrenals are unremarkable on this noncontrast study. There are postoperative changes of gastric bypass. No evidence of bowel obstruction. The appendix is within normal limits. There is thickening versus underdistention of the ascending colon, transverse colon and descending colon. The urinary bladder is unremarkable. There is no free fluid or free air. Mild degenerative changes are identified in the spine. There is a small central disc osteophyte complex at T8-T9 with mild to moderate spinal canal narrowing. Impression: Thickening versus underdistention of the ascending colon, transverse colon and descending colon, mild colitis cannot be excluded. Other findings as described above. Medications / Prescriptions Medications or Prescriptions considered but not ordered:: None Medication administrations:: Medication Administration History Acetaminophen (Acetaminophen 325 Mg Tablet) 650 mg PO Q6H PRN PRN Reason: PAIN SCALE 1-3 (mild Stop: 10/24/25 02:44 Acetaminophen (Acetaminophen 325 Mg Tablet) 650 mg PO Q6H PRN PRN Reason: Fever >100.4 Stop: 10/24/25 02:44 Hydrocodone Bitart/Acetaminophen (Hydrocodone/Apap 10/325 Tab) 1 tab PO Q4HR PRN PRN Reason: PAIN SCALE 7-10 (Severe Stop: 09/29/25 02:44 Amlodipine Besylate (Amlodipine Besylate 5 Mg Tablet) 5 mg PO QDAY [facility] Stop: 10/24/25 08:59 Apixaban (Apixaban 2.5 Mg Tablet) 5 mg PO BID [facility] Stop: 10/24/25 08:59 Aspirin (Aspirin Ec 81 Mg Tabec) 81 mg PO QDAY [facility] Stop: 10/24/25 08:59 Clonidine (Clonidine Hcl 0.1 Mg Tablet) 0.2 mg PO QDAY [facility] Stop: 10/24/25 08:59 Dextrose (Dextrose 50%-Water Inj 50 Ml Syringe) 25 ml IV Q15MIN PRN PRN Reason: BG 50-70 responsive npo pt Stop: 10/24/25 02:48 Dextrose (Dextrose 50%-Water Inj 50 Ml Syringe) 50 ml IV Q15MIN PRN PRN Reason: BG <50 OR BG <70 & pt unresponsive Stop: 10/24/25 02:48 Diltiazem HCl (Diltiazem Er 90 Mg Er Capsule) 120 mg PO X1 ONE Stop: 09/24/25 02:52 Duloxetine HCl (Duloxetine Hcl 30 Mg Capsule) 60 mg PO QDAY [facility] Stop: 10/24/25 08:59 Enalapril Maleate (Enalapril Maleate 2.5 Mg Tablet) 2.5 mg PO QDAY [facility] Stop: 10/24/25 08:59 Gabapentin (Gabapentin 100 Mg Capsule) 400 mg PO BID [facility] Stop: 10/24/25 08:59 Glucagon (Glucagon Inj 1 Mg Vial) 1 mg IM Q15MIN PRN PRN Reason: BG <70, and no IV access Diltiazem/Sodium Chloride (Diltiazem In Ns 100 Mg) 100 mg in 100 mls @ 5 mls/hr IV .Q20H [facility] Stop: 10/24/25 04:00 Last Admin: 09/24/25 01:34 Dose: 5 mg/hr, 5 mls/hr Documented By: EE Potassium Chloride (Kcl Ivpb) 10 meq in 100 mls @ 100 mls/hr IV Q1H [facility] Stop: 09/24/25 06:44 Magnesium Sulfate (Magnesium Sulfate Ivpb) 2 gm in 50 mls @ 25 mls/hr IV X1 ONE Stop: 09/24/25 04:33 Last Admin: 09/24/25 03:29 Dose: 25 mls/hr Documented By: CCT Ceftriaxone Sodium/Dextrose (Rocephin/D5w 1gm Iv Premix) 1 gm in 50 mls @ 100 mls/hr IV QDAY [facility] Stop: 10/01/25 08:59 Doxycycline Hyclate 100 mg/ (Sodium Chloride) 100 mls @ 100 mls/hr IV BID [facility] Stop: 10/01/25 08:59 Metronidazole (Flagyl 500 Mg Iv) 500 mg in 100 mls @ 200 mls/hr IV Q8HR [facility] Stop: 10/01/25 02:39 Sodium Chloride (Ns) 1,000 mls @ 250 mls/hr IV .Q4H [facility] Stop: 10/24/25 02:59 Insulin Human Lispro (Insulin Lispro (Admelog) 1 Unit/0.01 Ml Unit) 0 unit SC ACHS [facility]; Protocol Stop: 10/24/25 07:29 Meclizine HCl (Meclizine Hcl 25 Mg Tablet) 12.5 mg PO BID PRN PRN Reason: Vertigo Stop: 10/24/25 03:00 Metoprolol Succinate (Metoprolol Succinate Xl 25 Mg Tabcr) 100 mg PO BID [facility] Stop: 10/24/25 08:59 Ondansetron HCl (Ondansetron Inj 2 Mg/Ml Inj 2 Ml) 4 mg IVP Q6HR PRN; Protocol PRN Reason: NAUSEA OR VOMITING Stop: 10/24/25 02:44 Oxycodone/Acetaminophen (Oxycodone/Apap 5/325 Tablet) 1 tab PO Q6H PRN PRN Reason: PAIN SCALE 4-6 (Moderate Stop: 09/29/25 02:44 Pantoprazole Sodium (Pantoprazole Inj 40 Mg Vial) 40 mg IVP QDAY [facility] Stop: 10/24/25 08:59 Discontinued Medications Apixaban (Apixaban 2.5 Mg Tablet) 5 mg PO X1 ONE Stop: 09/24/25 00:28 Last Admin: 09/24/25 01:33 Dose: 5 mg Documented By: HASMUKH Diltiazem HCl (Diltiazem Inj 5 Mg/Ml Vial 5 Ml) 10 mg IV Q15MIN PRN PRN Reason: A fib RVR Stop: 10/23/25 23:09 Last Admin: 09/24/25 01:33 Dose: 10 mg Documented By: Admin: 09/23/25 23:49 Dose: 10 mg Documented By: HAYDEE Fentanyl Citrate (Fentanyl Cit Inj 50 Mcg/Ml Amp 2ml) 25 mcg IVP X1 ONE Stop: 09/23/25 23:57 Last Admin: 09/24/25 00:24 Dose: 25 mcg Documented By: HASMUKH Sodium Chloride (Ns) 1,000 mls @ 999 mls/hr IV .Q1H1M ONE Stop: 09/23/25 23:47 Last Infusion: 09/24/25 00:11 Dose: Infused Documented By: Admin: 09/23/25 22:53 Dose: 999 mls/hr Documented By: HASMUKH Ceftriaxone Sodium/Dextrose (Rocephin/D5w 1gm Iv Premix) 1 gm in 50 mls @ 100 mls/hr IV X1 ONE Stop: 09/24/25 00:26 Last Infusion: 09/24/25 00:54 Dose: Infused Documented By: Admin: 09/24/25 00:24 Dose: 100 mls/hr Documented By: EE Metronidazole (Flagyl 500 Mg Iv) 500 mg in 100 mls @ 100 mls/hr IV X1 ONE Stop: 09/24/25 00:56 Last Infusion: 09/24/25 01:43 Dose: Infused Documented By: Admin: 09/24/25 00:33 Dose: 100 mls/hr Documented By: EE Sodium Chloride (Ns) 1,000 mls @ 999 mls/hr IV .Q1H1M ONE Stop: 09/24/25 03:41 Sodium Chloride (Ns) 1,000 mls @ 999 mls/hr IV .Q1H1M ONE Stop: 09/24/25 03:42 Sodium Chloride (Ns) 500 mls @ 999 mls/hr IV .Q31M ONE Stop: 09/24/25 03:13 Metoclopramide HCl (Metoclopramide Inj 5 Mg/Ml Vial 2 Ml) 5 mg IVP X1 ONE; Protocol Stop: 09/24/25 02:35 Last Admin: 09/24/25 03:28 Dose: 5 mg Documented By: MONICA Morphine Sulfate (Morphine Sulf Inj 4 Mg/Ml Vial) 4 mg IVP X1 ONE Stop: 09/23/25 23:54 Last Admin: 09/23/25 23:57 Dose: Not Given Documented By: HASMUKH Non-Admin Reason: Cancelled by Provider Ondansetron HCl (Ondansetron Inj 2 Mg/Ml Inj 2 Ml) 4 mg IVP X1 ONE; Protocol Stop: 09/23/25 23:54 Last Admin: 09/24/25 00:30 Dose: 4 mg Documented By: HASMUKH See above if any Consultations Consultation(s) initiated? (list below): Yes Consultation #1 (Physician, Specialty, Details): Discussed with resident physician Dr. Loomis for admission. Reviewed the patient?s HPI, PMHx, lab and/or radiology results. Discussed treatment plan. Will consult an admission to the hospitalist. Time: 02:30 Diagnosis Syncope Differential Diagnosis: syncope due to orthostatic hypotension, vasovagal syncope, complete atrioventricular block, subarachnoid hemorrhage, pulmonary embolism and dehydration Most likely diagnosis given after review of the tests above:: New onset A Fib RVR, near-syncope, colitis, and dehydration. Admission Indicated Admission indicated?: indicated Explain why admission is indicated or not indicated:: New onset A Fib RVR, near-syncope, colitis, and dehydration. Admission Request Was there a request for admission?: Yes Admission Attestation Admission request attestation: Discussed case with [] from Hospitalist service regarding admission. Discussed patients ED course, exam findings, labs, and radiology results. The Hospitalist [agrees,declines] to accept the patient for admission. Disposition Plan Disposition Plan: Admit Critical Care Time Critical Care Time Critical Care Time: Yes Total Critical Care Time (min.): 45 Attestation: The high probability of sudden, clinically significant deterioration in the patient?s condition required the highest level of my preparedness to intervene urgently. The services I provided to this patient were to treat and/or prevent clinically significant deterioration. Services included the following: chart data review, reviewing nursing notes and/or old charts, documentation time, mainframe consultant collaboration regarding findings and treatment options, medication orders and management, direct patient care, vital sign assessments and ordering, interpreting and reviewing diagnostic studies and lab tests. Aggregate critical care time includes only time during which I was engaged in work directly related to the patient?s care, as described above, whether at bedside or elsewhere in the Emergency Department. It did not include time spent performing other reported procedures or the services of residents, students, nurses or physician assistants. Discharge Plan Plan Patient Disposition: Admit Acute Care w/in Hospital Problem List Clinical Impression: Atrial fibrillation with RVR, Near syncope, Colitis, Dehydration
--- NOTE | 2025-09-23 22:46 | XR_ITS ---
EXAMINATION: AP chest single view TECHNIQUE: AP portable semiupright chest single view Date and time: September 23, 2025, 11:04 p.m., comparison September 19, 2025 INDICATIONS: Chest pain shortness of breath today. FINDINGS: Normal heart size The lungs are clear. The osseous structures are intact IMPRESSION: No pneumonia or pulmonary edema
[2025-09-23] MEDS: SODIUM CHLORIDE 0.9% 1000 ML 1,000 ML 999 ML IV (22:53)
[2025-09-23 22:58] LABS: Collection Type, Urine Clean Catch
[2025-09-23 23:05] LABS: Basophils # (Auto) 0.1 Thou/mm3 (0.0-0.2); Basophils % (Auto) 0 % (0-2.5); Eosinophils # (Auto) 0.0 Thou/mm3 (0.0-0.5); Eosinophils % (Auto) 0 % (0-10); Hematocrit 57.1 % (36.0-46.0); Hemoglobin 19.9 g/dL (12.0-16.0); Immature Granulocytes Auto 0.35 Thou/mm3 (0.00-0.00); Lymphocytes # (Auto) 2.4 Thou/mm3 (1.0-4.8); Lymphocytes % (Auto) 11 % (10-50); Mean Corpuscular HGB Conc 34.9 g/dl (31.0-37.0); Mean Corpuscular Hemoglobin 26.6 pg (25.0-35.0); Mean Corpuscular Volume 76 fL (80-100); Monocytes # (Auto) 2.1 Thou/mm3 (0.0-0.8); Monocytes % (Auto) 9 % (0-12); Neutrophils # (Auto) 17.0 Thou/mm3 (1.8-7.7); Neutrophils % (Auto) 78 % (37-80); Nucleated Red Blood Cell # 0.00 Thou/mm3 (0.00-0.00); Nucleated Red Blood Cell % 0 /100 WBC (0); Platelet Count 417 Thou/mm3 (140-440); RDW Standard Deviation 48.5 fL (36.4-46.3); Red Blood Count 7.47 Miln/mm3 (4.00-5.20); White Blood Count 21.9 Thou/mm3 (3.6-11.0)
[2025-09-23 23:12] LABS: Bilirubin,Urine Negative (Negative); Blood,Urine 1+ (Negative); Clarity,Urine Turbid (Clear/Hazy); Color,Urine Yellow (Lt Yel-Yel); Culture Indicated,Urine Not Indicated; Glucose, Urine Negative (Negative); Ketones,Urine 1+ (Negative); Leukocyte Esterase,Urine Negative (Negative); Nitrite,Urine Negative (Negative); PH,Urine 6.0 (5.0-7.0); Protein,Urine 2+ (Neg - Trace); RBC,Urine < 1 /hpf (0-3); Specific Gravity,Urine 1.010 (1.001-1.035); Squamous Epithelial Cell,Urine 57 /hpf (0-5); Urobilinogen,Urine Negative mg/dL (0.0-1.0); WBC,Urine 1 /hpf (0-5)
[2025-09-23 23:29] LABS: B-Type Natriuretic Peptide 351 pg/mL (0-100)
--- NOTE | 2025-09-23 23:47 | XR_ITS ---
Examination: CT abdomen and pelvis without contrast. Coronal 3-D reconstructions. Sagittal 2-D reconstructions. Date and time of exam: September 24, 2025, 0044 hours INDICATIONS: Weakness abdominal pain beginning 3 days ago CTDI: vol (mGy): 10.21 DLP: (mGycm): 585 Technique: Axial images of the abdomen have been obtained, 3 mm slice thickness Intravenous contrast material has not been administered. Low dose protocols were performed. One or more of the following dose reduction techniques were used; automated exposure control, adjustment of the mA and/or KV according to patient size, use of iterative reconstruction technique. Findings: Fatty infiltration throughout the liver no focal liver or splenic lesions Gastric sutures Absent gallbladder No pancreatic or adrenal mass Moderate renal scar formation, 2 mm lower pole left renal calculus, no hydronephrosis or ureteral calculi No pericecal inflammatory change No bowel obstruction Absent uterus Urinary bladder intact No pericecal inflammatory change IMPRESSION: Limited noncontrast study which limits assessment for colitis 2 mm nonobstructing left renal calculus
[2025-09-23] MEDS: DILTIAZEM INJ 5 MG/ML VIAL 5 ML 10 MG IV (23:49)
[2025-09-23 23:51] LABS: Amphetamine/Methamp Scrn,U Negative (Negative); Barbiturate Screen,Urine Negative (Negative); Benzodiazepines Screen,Urine Negative (Negative); Benzoylecgonine Screen, Ur Negative (Negative); Fentanyl Screen,Urine Negative (Negative); Opiate Screen,Urine Positive (Negative); THC Screen,Urine Negative (Negative)
[2025-09-24] VITALS (41 sets, daily range): BP systolic 119–186; BP diastolic 68–130; PULSE 68–115; RESP 0–36; TEMP 35.7–36.7; O2SAT 93–100
[2025-09-24 00:05] LABS: INR 1.2 (0.9-1.3); Partial Thromboplastin Time 27.0 Seconds (22.0-36.0); Prothrombin Time 12.2 Seconds (9.0-12.2)
[2025-09-24] MEDS: fentaNYL CIT INJ 50 mCg/ML AMP 2ML 25 MCG IVP (00:24)
[2025-09-24] MEDS: cefTRIAXone/D5w 1gm IV premix 1 GM/50 ML BAG IV ×2 (00:24→20:40)
[2025-09-24 00:30] LABS: Alanine Aminotransferase 41 U/L (10-49); Albumin, Serum 5.0 gm/dL (3.5-5.0); Albumin/Globulin Ratio 2.4 (1.2-2.2); Alkaline Phosphatase 123 U/L (46-116); Anion Gap 18 (7-16); Aspartate Amino Transferase 121 U/L (0-34); BUN/Creatinine Ratio 28 Ratio (12-20); Bilirubin,Total 3.5 mg/dL (0.3-1.2); Blood Urea Nitrogen 39 mg/dL (9-23); Calcium 9.8 mg/dL (8.3-10.6); Calcium (Corrected) 9.8 mg/dL (8.5-10.1); Carbon Dioxide 17.9 mMol/L (20.0-31.0); Chloride 86 mMol/L (98-107); Creatine Kinase 981 U/L (34-171); Creatinine (Component) 1.4 mg/dL (0.6-1.3); Estimated Creatinine Clearance 44.1 mL/min (>60); Globulin 2.1 gm/dL (2.3-3.5); Glucose 222 mg/dL (74-106); Magnesium 1.9 mg/dL (1.6-2.6); Osmolality,Calculated 262 (275-295); Sodium 122 mMol/L (136-145); Total Protein 7.1 gm/dL (5.7-8.2); eGFR 43 See Note
[2025-09-24] MEDS: ONDANSETRON INJ 2 MG/ML INJ 2 ML 4 MG IVP ×3 (00:30→17:58)
[2025-09-24 00:31] LABS: Lactate (Lactic Acid) 3.9 mMol/L (0.4-2.0)
[2025-09-24] MEDS: metroNIDAZOLE/NS 500 MG IVPB 500 MG/100 ML BAG 100 MG IV (00:33)
[2025-09-24 00:39] LABS: Potassium 2.5 mMol/L (3.4-5.1); Troponin I 0.600 ng/mL (0.0-0.045)
[2025-09-24 00:49] LABS: LDH (Lactate Dehydrogenase) 492 U/L (120-246)
[2025-09-24] MEDS: APIXABAN 2.5 MG TABLET 5 MG PO (01:33)
[2025-09-24] MEDS: DILTIAZEM INJ 5 MG/ML VIAL 5 ML 10 MG IV (01:33)
--- NOTE | 2025-09-24 01:33 | PRELIM_ITS ---
CT scan of the abdomen and pelvis without intravenous contrast (axial sections with sagittal and coronal reformats) September 24, 2025 0044 hours Clinical History: r/o colitis No prior study is available for comparison. Findings: The lung bases are clear. Fatty infiltration of the liver is noted. There is a calcification in the left lobe of liver, likely benign. The gallbladder is surgically absent. There is a 2 mm left nonobstructing renal calculus. Fatty replacement/atrophy of the pancreas is noted. The spleen adrenals are unremarkable on this noncontrast study. There are postoperative changes of gastric bypass. No evidence of bowel obstruction. The appendix is within normal limits. There is thickening versus underdistention of the ascending colon, transverse colon and descending colon. The urinary bladder is unremarkable. There is no free fluid or free air. Mild degenerative changes are identified in the spine. There is a small central disc osteophyte complex at T8-T9 with mild to moderate spinal canal narrowing. Impression: Thickening versus underdistention of the ascending colon, transverse colon and descending colon, mild colitis cannot be excluded. Other findings as described above. Report Electronically Signed By: Alexis Henson 09/24/2025 1:33:27 AM [EST]
[2025-09-24] MEDS: DILTIAZEM in NS 100 MG 100 MG/100 ML BAG IV (01:34)
--- NOTE | 2025-09-24 02:36 | PD.RESHP ---
Documentation for date of: 09/24/25 HPI History of Present Illness History of present illness: This is a 53-year-old female PMHx of HTN, HLD, CVA, and fibromyalgia presents to the ED following a syncopal episode. 3 days ago, she began experiencing diffuse abdominal pain associated with chills and fever as well as profuse watery, nonbloody diarrhea (more than 5 episodes). Diarrhea appears to have subsided on the following day, but she continued to have abdominal pain. Earlier this morning she began having worsening chills and sweats and multiple episodes of vomiting mainly stomach content. Reports unable to keep food or liquids down. Importantly, she reports losing balance while she was walking to the restroom. States she felt dizzy and couldn't stand up and remembers getting herself down to the ground safely, and reports no significant fall or head trauma. She believes she was down for more than 5 hours after which she was too weak to get herself up however was able to call ambulance for help. She also reported episode of palpitation preceding her fall. On further questioning, appears that she has been having above abdominal symptoms for over a year, and reports no changes in her medications or dietary habits. Reports no food allergies currently or in the past, including lactose intolerance. However, she states her symptoms are usually milder than this and often don't last as long. As further dizziness and lightheadedness, this also appears to be a chronic problem, preceded her CVA 3 years ago for which she has overall generalized weakness, dizziness and slight vision problem in her right eye. She does follow-up with Dr. Flowers in [facility] and currently she is on ASPIRIN therapy which she takes daily. She has chronic poorly controlled hypertension and follows up with Dr. Mireles regularly. She had extensive workup for hypertensive which has been presumably negative. She had an EKG done recently without evidence of arrhythmias. 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, reports no recent travel or sick exposure. She mainly eats at home, reports no fast food or dining out recently. Denies headaches, chest pain, shortness of breath, cough, dysuria, hematuria, urinary urgency or frequency. Past Medical History: As above. Past Surgical History: Gastric bypass 20 years ago. Medications: METOPROLOL succinate 100 mg BID, AMLODIPINE 5 mg, CLONIDINE 0.2 mg, ENALAPRIL 2.5 mg, ASPIRIN 81 mg, DULOXETINE 60 mg, OMEPRAZOLE, GABAPENTIN 400 mg BID, METFORMIN 500 mg daily. Allergies: BUPROPION, SUMATRIPTAN, TYLENOL, latex. Family History: None relevant. Social History: Denies alcohol, drug, or tobacco use. ED Course: On presentation, afebrile, BP 186/12, HR 129, RR in the 30s, satting 96% on room air. Subsequently, she was found tachycardic and confirmed A-fib with RVR, HR 148 on EKG for which DILTIAZEM drip was started with improvement in heart rate. Her labs showed WBC 21.9, Hgb 19.9, MCV 76, PLT 417, normal coag studies, sodium 122, potassium 2.5, chloride 86, CO2 17.9, anion gap 18, GLUCOSE 222, BUN 39, creatinine 1.4, GFR 43, LA 3.9, TB 3.5, AST 121, ALT 41, ALP 123, LD 492, CK 981, Troponin 0.600. UA negative for UTI. CXR no evidence of active cardiopulmonary disease. Prelim CT abdomen suggested proctitis. Head CT pending. Reason for admission: New onset AFIB in setting of sepsis. Exam Vital Signs Pulse Resp BP Pulse Ox O2 Del Method O2 Flow Rate 112 H 12 179/130 H 99 Oxy Mask 10 09/24/25 01:33 09/24/25 00:00 09/24/25 01:33 09/24/25 00:00 09/24/25 00:00 09/24/25 00:00 Narrative Exam GENERAL Ill-appearing female, appears in mild distress secondary to abdominal pain and nausea. HEENT NCAT.?SHELBIE. Oral mucosa is dry. Patent Nares NECK Supple, nontender, no JVD. CHEST Irregular rhythm, no m/g/r CTAB, no w/r/r, symmetrical expansion. ABDOMEN Soft, mildly distended, mildly tender throughout. Guarding present, no rebound tenderness or mass noted. Bowel sounds presents EXTREMITIES No edema/cyanosis.? SKIN Warm and dry, no jaundice/rashes. NEUROMUSCULAR No lumbar or midline, no CVA, no paraspinal muscle spasm or tenderness. Moves all 4 extremities well, with full ROM and good CSM. RIOS x4, CN II-XII grossly intact. No focal neurologic deficits. PSYCHIATRY Normal mood and affect, cooperative, no SI or HI or hallucinations. Results: Labs 09/25/25 04:56 09/25/25 04:56 Labs: Short CBC 09/23/25 Range/Units 22:50 WBC 21.9 H D (3.6-11.0) Thou/mm3 Hgb 19.9 H D (12.0-16.0) g/dL Hct 57.1 H D (36.0-46.0) % Plt Count 417 D (140-440) Thou/mm3 BMP 09/23/25 23:38 Sodium 122 L Potassium 2.5 L* Chloride 86 L Carbon Dioxide 17.9 L BUN 39 H Creatinine 1.4 H Glucose 222 H Calcium 9.8 Cardiac Enzymes 09/23/25 Range/Units 23:38 Total Creatine Kinase 981 H (34-171) U/L Troponin I 0.600 H* (0.0-0.045) ng/mL Liver Function 09/23/25 Range/Units 23:38 Total Bilirubin 3.5 H (0.3-1.2) mg/dL AST 121 H (0-34) U/L ALT 41 (10-49) U/L Alkaline Phosphatase 123 H (46-116) U/L Albumin 5.0 (3.5-5.0) gm/dL Urine 09/23/25 Range/Units 22:50 Urine Color Yellow (Lt Yel-Yel) Urine Clarity Turbid A (Clear/Hazy) Urine pH 6.0 (5.0-7.0) Ur Specific [place] 1.010 (1.001-1.035) Urine Protein 2+ A (Neg - Trace) Urine Glucose (UA) Negative (Negative) Quality Measures Quality Measures VTE prophylaxis Medications Home Medications and Allergies Home Medications ?Medication ?Instructions ?Recorded ?Confirmed ?Type amlodipine 5 mg tablet 10 mg PO QDAY 08/05/19 09/24/25 History hydrocodone 7.5 mg-acetaminophen 1 tab PO Q6H PRN Pain (Scale Score 08/05/19 09/24/25 History 325 mg tablet 7-10) meclizine 12.5 mg tablet 25 mg PO BID PRN Vertigo 08/05/19 09/24/25 History metoprolol succinate 100 mg 100 mg PO BID 08/05/19 09/24/25 History tablet,extended release 24 hr aspirin 81 mg tablet,delayed 81 mg PO QDAY 08/31/23 09/24/25 History release clonidine HCl 0.2 mg tablet 0.2 mg PO Q12H 08/31/23 09/24/25 History duloxetine 60 mg capsule,delayed 60 mg PO QDAY 08/31/23 09/24/25 History release (Cymbalta) estradiol 0.5 mg tablet 1 mg PO QDAY 08/31/23 09/24/25 History metformin 500 mg tablet 500 mg PO QDAY 08/31/23 09/24/25 History omeprazole 20 mg capsule,delayed 20 mg PO QDAY 08/31/23 09/24/25 History release chlorthalidone 12.5 mg tablet 12.5 mg PO QDAY 09/24/25 09/24/25 History (Hemiclor) hydralazine 50 mg tablet 50 mg PO 4XD 09/24/25 09/24/25 History multivitamin (Daily Multi-Vitamin 1 tab PO QDAY 09/24/25 09/24/25 History tablet) tizanidine 4 mg tablet 4 mg PO TID 09/24/25 09/24/25 History zolpidem 10 mg tablet 10 mg PO QHSPRN PRN insomnia 09/24/25 09/24/25 History Allergies Allergy/AdvReac Type Severity Reaction Status Date / Time bupropion (From Wellbutrin) Allergy Severe Swelling Verified 08/31/23 11:17 of Lip/Tongue/Throat sumatriptan (From Imitrex) Allergy Severe Swelling Verified 08/31/23 11:17 of Lip/Tongue/Throat atenolol Allergy Intermediate Rash Verified 08/31/23 11:17 latex Allergy Rash Verified 08/31/23 11:17 Visit Medications Diltiazem HCl (Diltiazem Inj 5 Mg/Ml Vial 5 Ml) 10 mg IV Q15MIN PRN PRN Reason: A fib RVR Stop: 10/23/25 23:09 Last Admin: 09/24/25 01:33 Dose: 10 mg Diltiazem/Sodium Chloride (Diltiazem In Ns 100 Mg) 100 mg in 100 mls @ 5 mls/hr IV .Q20H AMITA Stop: 10/24/25 00:27 Last Admin: 09/24/25 01:34 Dose: 5 mg/hr, 5 mls/hr Potassium Chloride (Kcl Ivpb) 10 meq in 100 mls @ 100 mls/hr IV Q1H AMITA Stop: 09/24/25 06:44 Magnesium Sulfate (Magnesium Sulfate Ivpb) 2 gm in 50 mls @ 25 mls/hr IV X1 ONE Stop: 09/24/25 04:33 Metoclopramide HCl (Metoclopramide Inj 5 Mg/Ml Vial 2 Ml) 5 mg IVP X1 ONE; Protocol Stop: 09/24/25 02:35 Discontinued Medications Apixaban (Apixaban 2.5 Mg Tablet) 5 mg PO X1 ONE Stop: 09/24/25 00:28 Last Admin: 09/24/25 01:33 Dose: 5 mg Fentanyl Citrate (Fentanyl Cit Inj 50 Mcg/Ml Amp 2ml) 25 mcg IVP X1 ONE Stop: 09/23/25 23:57 Last Admin: 09/24/25 00:24 Dose: 25 mcg Sodium Chloride (Ns) 1,000 mls @ 999 mls/hr IV .Q1H1M ONE Stop: 09/23/25 23:47 Last Infusion: 09/24/25 00:11 Dose: Infused Ceftriaxone Sodium/Dextrose (Rocephin/D5w 1gm Iv Premix) 1 gm in 50 mls @ 100 mls/hr IV X1 ONE Stop: 09/24/25 00:26 Last Infusion: 09/24/25 00:54 Dose: Infused Metronidazole (Flagyl 500 Mg Iv) 500 mg in 100 mls @ 100 mls/hr IV X1 ONE Stop: 09/24/25 00:56 Last Infusion: 09/24/25 01:43 Dose: Infused Morphine Sulfate (Morphine Sulf Inj 4 Mg/Ml Vial) 4 mg IVP X1 ONE Stop: 09/23/25 23:54 Last Admin: 09/23/25 23:57 Dose: Not Given Ondansetron HCl (Ondansetron Inj 2 Mg/Ml Inj 2 Ml) 4 mg IVP X1 ONE; Protocol Stop: 09/23/25 23:54 Last Admin: 09/24/25 00:30 Dose: 4 mg Assessment & Plan Plan This is a 53-year-old female PMHx HTN, HLD, CVA, fibromyalgia, admitted for syncopal episode, new onset A-fib with RVR likely in settings of sepsis. Syncope New Onset AFIB W/RVR Presented with a syncopal episode that occurred on the morning admission. She reports symptoms of palpitations are true with the episode, evidently she was out for more than 6 hours and was unable to pick her self up. She also endorses chronic dizziness and lightheadedness which has worsened over the last several days, given her diarrhea/vomiting and decreased oral intake. She denied head trauma. She follows up with Dr. Mireles, she is unaware of having any sort of arrhythmia in the past. She is on multiple ANTIHYPERTENSIVE for resistant hypertension as listed below as well as METOPROLOL XL which she takes regularly. She had a normal cath showing nonischemic findings recently. EKG on admission shows A-fib with RVR, HR 148 for which DILTIAZEM was started with improvement in heart rate. A-fib likely in settings of acute illness, electrolyte abnormalities, and fluid losses as described elsewhere. ? Discontinued DILTIAZEM ? Continue METOPROLOL 100 mg XL ? Continue ELIQUIS 5 mg BID ? Pending echocardiogram ? Pending cardiology recommendations ? Pending orthostatics ? Treating underlying cause ? Pending lipid panel ? Consider carotid ultrasound if symptoms persist or worsen ? Pending TSH Sepsis Proctitis versus colitis Lactic acidosis (resolved) She has complained of 3 days of severe watery diarrhea and abdominal pain, followed by persistent/intractable nausea and vomiting of mainly stomach content. Also reported symptoms of fever and chills over the last [address] abdomen showed possible mild colitis, and she had significant abdominal tenderness to palpation on exam throughout. No history of recent ANTIBIOTICS use, no history of C. difficile. No recent travel or sick exposure, no known food allergies or triggers. She met sepsis criteria with tachycardia, tachypnea, significant leukocytosis and presence of endorgan damage i.e. NHUNG, lactic acidosis, troponinemia, and others. Received adequate fluid resuscitation, lactic acid resolved, tachycardia resolved. ? Pending stool cultures, ova, parasite, C. difficile ? Continue CEFTRIAXONE, FLAGYL, and DOXYCYCLINE ? Continue IV hydration ? Continue ANTIEMETICS PRN Erythrocytosis Hyperbilirubinemia, likely transient Acute transaminitis, likely transient Admission Hgb 19.9, improved to 16.6 with IVF's. TB 3.5.5, AST 121, likely in settings of dehydration, low suspicion for biliary pathology, but will keep monitoring and consider ultrasound if needed. ? Daily labs ? Continue IV fluids NHUNG, likely prerenal Elevated creatinine kinase Mild hyponatremia Hypokalemia Anion gap metabolic acidosis, likely 2/2 lactic acid Creatinine 1.4, GFR 43, BUN 39 with previously normal renal function. Likely she had NHUNG in settings of hypoperfusion. CK elevated in setting of her fall, low the threshold for rhabdomyolysis. Hyponatremia of 122 and potassium 2.5, likely in settings of GI losses and poor oral intake. She also had an anion gap of 18, likely in setting of lactic acidosis above. ? Anticipate AG improvement with correction of lactic acid ? Repleted potassium 40 mEq and magnesium 2 mg ? Renally dose meds, avoid overdiuresis and NEPHROTOXINS ? Daily CMP ? Continue NS maintenance ? Replete electrolyte as needed NSTEMI Type I vs type II Troponin 0.600 on admission, likely demand ischemia. She denies chest pain. No relevant EKG changes. ? Trending troponin ? Treating underlying cause Resistant hypertension On multiple medications including AMLODIPINE, CLONIDINE, ENALAPRIL and METOPROLOL. BP elevated on presentation, however she hasn't been able to take her pills given her nausea and vomiting. Reports her blood pressure overall not greatly controlled. ? Continue home meds ? Adjust medications as needed History of CVA 2021 She had a history of CVA with residual right-sided deafness and unsteady gait. Currently she is on ASPIRIN daily and follows up with Dr. Flowers. ? Pending head CT to rule out intracranial bleed given ASPIRIN therapy Fibromyalgia ? Continue home DULOXETINE ? Continue home GABAPENTIN 40 mg BID Health maintenance Diet: NPO GI prophylaxis: PROTONIX DVT prophylaxis: ELIQUIS Antibiotics: CEFTRIAXONE, FLAGYL, DOXYCYCLINE CODE STATUS: DNR Disposition: Admitted for new onset A-fib Case was discussed with attending physician. Malaika Loomis DO PGY II This document was transcribed using voice recognition technology. Minor inaccuracies may be present. Attending Provider Attestation/Addendum After examination of the patient and review of the clinical data I feel that this patient needs admission to the hospital for further treatment/evaluation. Plan of care discussed with patient and is in agreement. I Tuan Riddle MD, attest that I was physically present for boone portions of evaluation, and examined patient, labs and imagings and plan of care were discussed with IM residents team, and I agree with the findings and plans documented above.
--- NOTE | 2025-09-24 02:43 | ECHO_ITS ---
Patient Info Name: Domenica Alexis Age: 59 years : 1965 Gender: Female Ht: 157 cm Wt: 86 kg BSA: 1.98 m2 BP: 161 / 89 mmHg Heart Rhythm: Sinus Rhythm Exam Date: 09/24/2025 8:19 AM Admit Date: 09/24/2025 Site: [facility] Patient Status: I Technical Quality: Fair Exam Type: CA echo doppler complete Agronomist: Qi Renteria Ordering Physician: Malaika Loomis Study Info Indications New onset AFIB - Primary Location: [id number] Left Ventricular Outflow Tract Name Value Normal LVOT 2D LVOT Diameter 1.7 cm LVOT Doppler LVOT Peak Velocity 144 cm/s LVOT Mean Gradient 4 mmHg LVOT VTI 27 cm LVOT VTI/AV VTI Ratio 1.0 LVOT Stroke Volume 61 ml Pulmonic Valve Name Value Normal PV Doppler PV Peak Velocity 134 cm/s Mitral Valve Name Value Normal MV Doppler MV Decel [place] 351 cm/s2 MV PHT 50 ms MV Area (PHT) 4.4 cm2 4.0-5.0 MV Diastolic Function MV E Peak Velocity 61 cm/s MV A Peak Velocity 79 cm/s MV E/A 0.8 MV Annular TDI MV Septal e' Velocity 6.4 cm/s MV E/e' (Septal) 9.4 MV Lateral e' Velocity 6.4 cm/s MV E/e' (Lateral) 9.4 MV e' Average 6.42 cm/s MV E/e' (Average) 9.4 Tricuspid Valve Name Value Normal Estimated PAP/RSVP RA Pressure 5 mmHg <=5 TV Annular TDI TV Lateral Genoveva s' Velocity 17.1 cm/s >=9.5 Aorta Name Value Normal Ascending Aorta Ao Root Diameter (MM) 2.7 cm Ao Root Diam Index (MM) 1.4 cm/m2 Aortic Valve Name Value Normal AV 2D/MM AV Cusp Sep (MM) 2.0 cm AV Doppler AV Peak Velocity 176 cm/s AV Mean Gradient 6 mmHg AV VTI 28 cm AV Area (Cont Eq VTI) 2.2 cm2 >=3.0 AV Area (Cont Eq Caesar) 1.9 cm2 AV DI (Caesar) 0.82 AV Regurgitation 2D LVOT Area 2.3 cm2 Ventricles Name Value Normal LV Dimensions 2D/MM IVS Diastolic Thickness (2D) 0.9 cm 0.6-0.9 LVID Diastole (2D) 4.3 cm 3.8-5.2 LVIW Diastolic Thickness (2D) 1.1 cm 0.6-0.9 LVID Systole (2D) 2.5 cm 2.2-3.5 LVOT Diameter 1.7 cm LV Mass (2D Cubed) 142.49 g 67.00-162.00 LV Mass Index (2D Cubed) 72 g/m2 43-95 Relative Wall Thickness (2D) 0.51 <=0.42 IVS/LVIW Diastolic Thickness (2D) 0.82 0.00-1.50 LV Fractional Shortening/Ejection Fraction 2D/MM LV Fractional Shortening (2D) 42 % 27-45 LV EF (2D Teichholz) 73 % LV Diastolic Volume (4C MOD) 98 ml LV EF (4C MOD) 64 % LV Diastolic Volume (2C MOD) 109 ml LV EF (2C MOD) 65 % LV Diastolic Volume (BP MOD) 104 ml 46-106 LV Diastolic Volume Index (BP MOD) 53 ml/m2 29-61 LV Systolic Volume (BP MOD) 38 ml 14-42 LV Systolic Volume Index (BP MOD) 19 ml/m2 8-24 LV EF (BP MOD) 64 % 54-74 LV Diastolic Length (4C) 7.7 cm LV Systolic Length (4C) 6.2 cm LV Stroke Volume (4C MOD) 63 ml RV Dimensions 2D/MM TV Lateral Genoveva s' Velocity 17.1 cm/s >=9.5 Atria Name Value Normal LA Dimensions LA Dimension (MM) 3.5 cm 2.7-3.8 LA Volume (4C A-L) 40 ml LA Volume (BP A-L) 47 ml Left Ventricle Left ventricular chamber dimension is normal. Left ventricular systolic function is normal with an ejection fraction by Biplane Method of Discs of 64 %. There is mild concentric hypertrophy noted in the left ventricle. Left ventricular segmental wall motion is normal. There is grade I diastolic dysfunction in the left ventricle. Right Ventricle Right ventricular chamber dimension is normal. Right ventricular systolic function is normal. Left Atrium Left atrial chamber dimension is normal. Right Atrium Right atrial chamber dimension is normal. Aortic Valve The aortic valve is trileaflet. There is no aortic valve sclerosis. There is no aortic valve stenosis with a peak velocity of 176 cm/s, mean gradient of 6 mmHg, and aortic valve area of 2.2 cm2. There is no aortic valve regurgitation. Pulmonic Valve The pulmonic valve is normal. There is no pulmonic valve stenosis. There is no pulmonic regurgitation. Mitral Valve The mitral valve has normal leaflets. There is no mitral valve stenosis. There is no mitral valve regurgitation. Tricuspid Valve The tricuspid valve leaflets are normal. There is no tricuspid valve stenosis. There is trace tricuspid valve regurgitation. Unable to estimate pulmonary artery systolic pressure due to inadequate tricuspid regurgitant envelope. Pericardium/Pleural The pericardium appears normal. There is no pericardial effusion. No pleural effusion visualized. Inferior Vena Cava Normal inferior vena cava with >50% collapse upon inspiration consistent with normal right atrial pressure, 5 mmHg. Aorta The aortic measurements are indexed to age and body surface area. Summary 1. Left ventricle size is normal and systolic function is normal. Estimated ejection fraction is 65-70%. There is grade I diastolic dysfunction. There is mild concentric hypertrophy noted. 2. Right ventricle chamber size is normal and systolic function is normal. 3. There is trace tricuspid valve regurgitation. Report Signatures Finalized by Benjamin Mireles on 09/24/2025 10:55 AM
--- NOTE | 2025-09-24 02:57 | XR_ITS ---
Examination: CT brain head without contrast. 2-D sagittal coronal reconstructions Date and time of exam: September 24, 2025, 0348 hours Weakness head pain beginning 3 days ago COMPARISON: 08/15/2024 CTDI: vol (mGy): 45.90 DLP: (mGycm): 903 Technique: Multiple CT axial sections of the brain have been obtained, 5 mm slice thickness. Contrast has not been administered. 2-D sagittal, coronal reconstructions have been obtained Low dose protocols were performed. One or more of the following dose reduction techniques were used; automated exposure control, adjustment of the mA and/or KV according to patient size, use of iterative reconstruction technique. Findings: No significant ventricular enlargement. Intra-axial or extra-axial hemorrhage density is not seen. No mass effect or midline shift Basal cisterns are not remarkable. Fourth ventricle is midline. Cranial vault intact. Impression: Negative for acute hemorrhage, mass effect or midline shift
[2025-09-24] MEDS: METOCLOPRAMIDE INJ 5 MG/ML VIAL 2 ML IVP (03:28)
[2025-09-24] MEDS: Magnesium Sulfate 2 GM Ivpb 2 GM/50 ML BAG IV (03:29)
[2025-09-24 03:30] LABS: Reflex Lactate? Y
[2025-09-24] MEDS: POTASSIUM CHL 10 mEq IVPB 10 MEQ/100 ML BAG 100 MEQ IV ×3 (04:00→06:26)
[2025-09-24] MEDS: SODIUM CHLORIDE 0.9% 1000 ML 1,000 ML 999 ML IV (04:21)
[2025-09-24] MEDS: SODIUM CHLORIDE 0.9% 500 ML 500 ML 999 ML IV (04:24)
[2025-09-24 05:47] LABS: Lactic Acid, 3 HR 1.5 mMol/L (0.4-2.0)
[2025-09-24 05:49] LABS: Basophils # (Auto) 0.1 Thou/mm3 (0.0-0.2); Basophils % (Auto) 0 % (0-2.5); Eosinophils # (Auto) 0.0 Thou/mm3 (0.0-0.5); Eosinophils % (Auto) 0 % (0-10); Hematocrit 48.3 % (36.0-46.0); Hemoglobin 16.6 g/dL (12.0-16.0); Immature Granulocytes Auto 0.16 Thou/mm3 (0.00-0.00); Lymphocytes # (Auto) 2.2 Thou/mm3 (1.0-4.8); Lymphocytes % (Auto) 9 % (10-50); Mean Corpuscular HGB Conc 34.4 g/dl (31.0-37.0); Mean Corpuscular Hemoglobin 26.9 pg (25.0-35.0); Mean Corpuscular Volume 78 fL (80-100); Monocytes # (Auto) 2.1 Thou/mm3 (0.0-0.8); Monocytes % (Auto) 8 % (0-12); Neutrophils # (Auto) 20.6 Thou/mm3 (1.8-7.7); Neutrophils % (Auto) 82 % (37-80); Nucleated Red Blood Cell # 0.00 Thou/mm3 (0.00-0.00); Nucleated Red Blood Cell % 0 /100 WBC (0); Platelet Count 319 Thou/mm3 (140-440); RDW Standard Deviation 49.0 fL (36.4-46.3); Red Blood Count 6.18 Miln/mm3 (4.00-5.20); White Blood Count 25.1 Thou/mm3 (3.6-11.0)
[2025-09-24] MEDS: DOXYCYCLINE INJ 100 MG in SODIUM CHLORIDE 0.9% (POP) 100 ML IV (06:32)
[2025-09-24] MEDS: SODIUM CHLORIDE 0.9% 1000 ML 1,000 ML 250 ML IV ×4 (07:30→21:01)
[2025-09-24] MEDS: DILTIAZEM ER 90 MG ER CAPSULE PO (07:49)
[2025-09-24 08:06] LABS: Alanine Aminotransferase 36 U/L (10-49); Albumin, Serum 4.5 gm/dL (3.5-5.0); Albumin/Globulin Ratio 2.6 (1.2-2.2); Alkaline Phosphatase 97 U/L (46-116); Anion Gap 15 (7-16); Aspartate Amino Transferase 111 U/L (0-34); BUN/Creatinine Ratio 23 Ratio (12-20); Bilirubin,Total 1.6 mg/dL (0.3-1.2); Blood Urea Nitrogen 32 mg/dL (9-23); Calcium 8.8 mg/dL (8.3-10.6); Calcium (Corrected) 8.8 mg/dL (8.5-10.1); Carbon Dioxide 26.4 mMol/L (20.0-31.0); Cardiac Risk Estimate 4.0 RATIO (3.7-5.6); Chloride 95 mMol/L (98-107); Cholesterol 188 mg/dL (132-200); Creatinine (Component) 1.4 mg/dL (0.6-1.3); Estimated Creatinine Clearance 44.1 mL/min (>60); Globulin 1.7 gm/dL (2.3-3.5); Glucose 159 mg/dL (74-106); HDL Cholesterol 47 mg/dL (40-60); LDL Cholesterol,Calculated 107 mg/dL (0-130); Magnesium 2.8 mg/dL (1.6-2.6); Osmolality,Calculated 281 (275-295); Phosphorous 3.1 mg/dL (2.4-5.1); Sodium 136 mMol/L (136-145); Total Protein 6.2 gm/dL (5.7-8.2); Triglycerides 169 mg/dL (30-150); eGFR 43 See Note
[2025-09-24 08:10] LABS: Potassium 2.4 mMol/L (3.4-5.1); Troponin I 4.826 ng/mL (0.0-0.045)
[2025-09-24] MEDS: POTASSIUM CHL 10 mEq IVPB 10 MEQ/100 ML BAG 60 MEQ IV ×5 (08:28→15:48)
[2025-09-24] MEDS: metroNIDAZOLE/NS 500 MG IVPB 500 MG/100 ML BAG 200 MG IV ×3 (08:34→21:00)
[2025-09-24] MEDS: ASPIRIN EC 81 MG TABEC PO (08:35)
[2025-09-24] MEDS: GABAPENTIN 100 MG CAPSULE 400 MG PO ×2 (08:36→20:40)
[2025-09-24] MEDS: METOPROLOL SUCCINATE XL 25 MG TABCR 100 MG PO ×2 (08:36→20:40)
[2025-09-24] MEDS: DULoxetine HCL 30 MG CAPSULE 60 MG PO (08:36)
--- NOTE | 2025-09-24 08:47 | ESCONSULT_ITS ---
<Statement entered by Benjamin Mireles MD - 09/26/25 17:17> I personally examined evaluated the patient with resident physician PGY 1 Dr. Luis Enrique Coffey, patient is known to me has a history of negative cardiac workup including negative coronary angiogram came to the hospital with sepsis atrial fibrillation rapid rates mild troponin elevation type II troponin not have any chest pain mostly nausea vomiting GI symptoms. Evaluation resident physician A- fib is now controlled well back to normal sinus rhythm 1 episode only electrolyte imbalance severe hypokalemia secondary to above being corrected. The patient to be treated as one-time episode of A-fib no need for anticoagulation. Will continue to monitor the patient closely. Agree with treatment plan recommendation as documented by resident physician will monitor the patient closely HPI Data of Consult Patient: known to practice within the last 3 years Consult date: 09/24/25 Requesting Physician: Tuan Riddle MD Admitting Provider: Tuan Riddle MD Attending Provider: Tuan Riddle MD Primary Care Provider: Physician No Primary/Family Consult Narrative Reason for consult: New-onset Afib in the setting of sepsis History of present illness: History of present illness: Had severe nausea/vomiting/abdominal pain for past 3 days, to the point of vomiting blood due to retching. Yesterday, got up to go to bathroom, felt dizzy and fell to the ground; had to crawl to bed to call ambulance. Still having nausea/vomiting, but less; abdominal discomfort the same. Having subjective fever episodes that occur about every [address] Mireles for hypertension, which is poorly controlled. 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 Exam Vital Signs Temp Pulse Resp BP Pulse Ox O2 Del Method O2 Flow Rate 98.1 F 105 H 10 L 161/89 H 97 Oxy Mask 6 09/24/25 04:00 09/24/25 08:36 09/24/25 04:00 09/24/25 08:36 09/24/25 04:00 09/24/25 04:00 09/24/25 04:00 Narrative Exam General: A/O x3, no acute distress, well-nourished, well-developed Eyes: PERRL, EOMI. Anicteric, vision grossly intact. Ears: No ear pain, no ear discharge, Hearing grossly intact. Nose: No nasal discharge. Mouth/Throat: Moist mucous membranes, no redness, no lesions. Neck: Neck supple, non-tender, no cervical lymphadenopathy. Lungs: Clear BAO to auscultation and percussion, No accessory muscle use. Cardio: Normal S1/S2, regular rhythm, no murmurs, no JVD or carotid bruits. Abdomen: abdomen tender to palpation, no palpable masses, peristalsis present, no guarding or rebound. Extremities: Symmetrical, no significant deformities, no peripheral edema , non-tender, peripheral pulses present. Skin: No rashes, no lesions, warm to touch. Neuro: No focal neurological deficits. Psych: Cooperative, appropriate mood and effect. Results Labs 09/24/25 05:35 09/24/25 14:17 Labs: Short CBC 09/23/25 09/24/25 Range/Units 22:50 05:35 WBC 21.9 H D 25.1 H (3.6-11.0) Thou/mm3 Hgb 19.9 H D 16.6 H D (12.0-16.0) g/dL Hct 57.1 H D 48.3 H (36.0-46.0) % Plt Count 417 D 319 D (140-440) Thou/mm3 BMP 09/23/25 09/24/25 23:38 05:35 Sodium 122 L 136 D Potassium 2.5 L* 2.4 L* Chloride 86 L 95 L Carbon Dioxide 17.9 L 26.4 BUN 39 H 32 H Creatinine 1.4 H 1.4 H Glucose 222 H 159 H D Calcium 9.8 8.8 Cardiac Enzymes 09/23/25 09/24/25 Range/Units 23:38 05:35 Total Creatine Kinase 981 H (34-171) U/L Troponin I 0.600 H* 4.826 H* D (0.0-0.045) ng/mL Liver Function 09/23/25 09/24/25 Range/Units 23:38 05:35 Total Bilirubin 3.5 H 1.6 H D (0.3-1.2) mg/dL AST 121 H 111 H (0-34) U/L ALT 41 36 (10-49) U/L Alkaline Phosphatase 123 H 97 D (46-116) U/L Albumin 5.0 4.5 D (3.5-5.0) gm/dL Urine 09/23/25 Range/Units 22:50 Urine Color Yellow (Lt Yel-Yel) Urine Clarity Turbid A (Clear/Hazy) Urine pH 6.0 (5.0-7.0) Ur Specific [place] 1.010 (1.001-1.035) Urine Protein 2+ A (Neg - Trace) Urine Glucose (UA) Negative (Negative) Quality Measures Quality Measures none Medications Home Medications and Allergies Home Medications ?Medication ?Instructions ?Recorded ?Confirmed ?Type amlodipine 5 mg tablet 10 mg PO QDAY 08/05/1909/24 History hydrocodone 7.5 mg-acetaminophen 1 tab PO Q6H PRN Pain (Scale Score 08/05/19 09/24/25 History 325 mg tablet 7-10) meclizine 12.5 mg tablet 25 mg PO BID PRN Vertigo 09/24/25 History metoprolol succinate 100 mg 100 mg PO BID 08/05/1908/10 History tablet,extended release 24 hr aspirin 81 mg tablet,delayed 81 mg PO QDAY 08/31/23 History release clonidine HCl 0.2 mg tablet 0.2 mg PO Q12H 08/31/23 History duloxetine 60 mg capsule,delayed 60 mg PO QDAY 3 09/24/25 History release (Cymbalta) estradiol 0.5 mg tablet 1 mg PO QDAY 08/31/23 History metformin 500 mg tablet 500 mg PO QDAY 08/31/2308/10 History omeprazole 20 mg capsule,delayed 20 mg PO QDAY 3 09/24/25 History release chlorthalidone 12.5 mg tablet 12.5 mg PO QDAY 09/24/25 09/24/25 History (Hemiclor) hydralazine 50 mg tablet 50 mg PO 4XD 09/24/25 History multivitamin (Daily Multi-Vitamin 1 tab PO QDAY 09/24/25 History tablet) tizanidine 4 mg tablet 4 mg PO TID 09/24/25 5 History zolpidem 10 mg tablet 10 mg PO QHSPRN PRN insomnia 09/24/25 09/24/25 History Allergies Allergy/AdvReac Type Severity Reaction Status Date / Time bupropion (From Wellbutrin) Allergy Severe Swelling Verified 08/31/23 11:17 of Lip/Tongue/Throat sumatriptan (From Imitrex) Allergy Severe Swelling Verified 08/31/23 11:17 of Lip/Tongue/Throat atenolol Allergy Intermediate Rash Verified 08/31/23 11:17 latex Allergy Rash Verified 08/31/23 11:17 Visit Medications Acetaminophen (Acetaminophen 325 Mg Tablet) 650 mg PO Q6H PRN PRN Reason: PAIN SCALE 1-3 (mild Stop: 10/24/25 02:44 Acetaminophen (Acetaminophen 325 Mg Tablet) 650 mg PO Q6H PRN PRN Reason: Fever >100.4 Stop: 10/24/25 02:44 Hydrocodone Bitart/Acetaminophen (Hydrocodone/Apap 10/325 Tab) 1 tab PO Q4HR PRN PRN Reason: PAIN SCALE 7-10 (Severe Stop: 09/29/25 02:44 Last Admin: 09/24/25 08:37 Dose: 1 tab Amlodipine Besylate (Amlodipine Besylate 5 Mg Tablet) 5 mg PO QDAY [facility] Stop: 10/24/25 08:59 Last Admin: 09/24/25 08:35 Dose: 5 mg Aspirin (Aspirin Ec 81 Mg Tabec) 81 mg PO QDAY [facility] Stop: 10/24/25 08:59 Last Admin: 09/24/25 08:35 Dose: 81 mg Clonidine (Clonidine Hcl 0.1 Mg Tablet) 0.2 mg PO QDAY [facility] Stop: 10/24/25 08:59 Last Admin: 09/24/25 08:35 Dose: 0.2 mg Dextrose (Dextrose 50%-Water Inj 50 Ml Syringe) 25 ml IV Q15MIN PRN PRN Reason: BG 50-70 responsive npo pt Stop: 10/24/25 02:48 Dextrose (Dextrose 50%-Water Inj 50 Ml Syringe) 50 ml IV Q15MIN PRN PRN Reason: BG <50 OR BG <70 & pt unresponsive Stop: 10/24/25 02:48 Duloxetine HCl (Duloxetine Hcl 30 Mg Capsule) 60 mg PO QDAY [facility] Stop: 10/24/25 08:59 Last Admin: 09/24/25 08:36 Dose: 60 mg Gabapentin (Gabapentin 100 Mg Capsule) 400 mg PO BID [facility] Stop: 10/24/25 08:59 Last Admin: 09/24/25 08:36 Dose: 400 mg Glucagon (Glucagon Inj 1 Mg Vial) 1 mg IM Q15MIN PRN PRN Reason: BG <70, and no IV access Heparin Sodium (Porcine) (Heparin Sod Inj 5000 Unit/Ml Vial) 4,000 unit IV X1 ONE Stop: 09/24/25 09:01 Diltiazem/Sodium Chloride (Diltiazem In Ns 100 Mg) 100 mg in 100 mls @ 5 mls/hr IV .Q20H [facility] Last Admin: 09/24/25 01:34 Dose: 5 mg/hr, 5 mls/hr Ceftriaxone Sodium/Dextrose (Rocephin/D5w 1gm Iv Premix) 1 gm in 50 mls @ 100 mls/hr IV QPM [facility] Stop: 10/01/25 20:59 Doxycycline Hyclate 100 mg/ (Sodium Chloride) 100 mls @ 100 mls/hr IV BID [facility] Stop: 10/01/25 06:14 Last Admin: 09/24/25 06:32 Dose: 100 mls/hr Metronidazole (Flagyl 500 Mg Iv) 500 mg in 100 mls @ 200 mls/hr IV Q8HR [facility] Stop: 10/01/25 06:14 Last Admin: 09/24/25 08:34 Dose: 200 mls/hr Sodium Chloride (Ns) 1,000 mls @ 250 mls/hr IV .Q4H [facility] Stop: 10/24/25 02:59 Last Admin: 09/24/25 07:30 Dose: 250 mls/hr Potassium Chloride (Kcl Ivpb) 10 meq in 100 mls @ 100 mls/hr IV Q1H [facility] Stop: 09/24/25 12:12 Heparin Sodium/Dextrose (Heparin In D5w Ivpb) 25,000 unit in 250 mls @ 10 mls/hr IV .Q24H [facility]; Protocol Stop: 10/08/25 08:14 Insulin Human Lispro (Insulin Lispro (Admelog) 1 Unit/0.01 Ml Unit) 0 unit SC Q6HR [facility]; Protocol Stop: 10/24/25 06:14 Last Admin: 09/24/25 06:38 Dose: Not Given Meclizine HCl (Meclizine Hcl 25 Mg Tablet) 12.5 mg PO BID PRN PRN Reason: Vertigo Stop: 10/24/25 03:00 Metoprolol Succinate (Metoprolol Succinate Xl 25 Mg Tabcr) 100 mg PO BID [facility] Stop: 10/24/25 08:59 Last Admin: 09/24/25 08:36 Dose: 100 mg Ondansetron HCl (Ondansetron Inj 2 Mg/Ml Inj 2 Ml) 4 mg IVP Q6HR PRN; Protocol PRN Reason: NAUSEA OR VOMITING Stop: 10/24/25 02:44 Last Admin: 09/24/25 08:37 Dose: 4 mg Oxycodone/Acetaminophen (Oxycodone/Apap 5/325 Tablet) 1 tab PO Q6H PRN PRN Reason: PAIN SCALE 4-6 (Moderate Stop: 09/29/25 02:44 Last Admin: 09/24/25 05:03 Dose: 1 tab Pantoprazole Sodium (Pantoprazole Inj 40 Mg Vial) 40 mg IVP QDAY [facility] Stop: 10/24/25 08:59 Last Admin: 09/24/25 08:36 Dose: 40 mg Discontinued Medications Apixaban (Apixaban 2.5 Mg Tablet) 5 mg PO X1 ONE Stop: 09/24/25 00:28 Last Admin: 09/24/25 01:33 Dose: 5 mg Apixaban (Apixaban 2.5 Mg Tablet) 5 mg PO BID [facility] Stop: 10/24/25 08:59 Diltiazem HCl (Diltiazem Inj 5 Mg/Ml Vial 5 Ml) 10 mg IV Q15MIN PRN PRN Reason: A fib RVR Stop: 10/23/25 23:09 Last Admin: 09/24/25 01:33 Dose: 10 mg Diltiazem HCl (Diltiazem Er 90 Mg Er Capsule) 120 mg PO X1 ONE Stop: 09/24/25 02:52 Last Admin: 09/24/25 04:30 Dose: Not Given Diltiazem HCl (Diltiazem Er 90 Mg Er Capsule) 90 mg PO X1 ONE Stop: 09/24/25 02:52 Last Admin: 09/24/25 07:49 Dose: 90 mg Enalapril Maleate (Enalapril Maleate 2.5 Mg Tablet) 2.5 mg PO QDAY [facility] Stop: 10/24/25 08:59 Fentanyl Citrate (Fentanyl Cit Inj 50 Mcg/Ml Amp 2ml) 25 mcg IVP X1 ONE Stop: 09/23/25 23:57 Last Admin: 09/24/25 00:24 Dose: 25 mcg Glucagon (Glucagon Inj 1 Mg Vial) 1 mg IM Q15MIN PRN PRN Reason: BG <70, and no IV access Sodium Chloride (Ns) 1,000 mls @ 999 mls/hr IV .Q1H1M ONE Stop: 09/23/25 23:47 Last Infusion: 09/24/25 00:11 Dose: Infused Ceftriaxone Sodium/Dextrose (Rocephin/D5w 1gm Iv Premix) 1 gm in 50 mls @ 100 mls/hr IV X1 ONE Stop: 09/24/25 00:26 Last Infusion: 09/24/25 00:54 Dose: Infused Metronidazole (Flagyl 500 Mg Iv) 500 mg in 100 mls @ 100 mls/hr IV X1 ONE Stop: 09/24/25 00:56 Last Infusion: 09/24/25 01:43 Dose: Infused Potassium Chloride (Kcl Ivpb) 10 meq in 100 mls @ 100 mls/hr IV Q1H [facility] Stop: 09/24/25 06:44 Last Admin: 09/24/25 08:28 Dose: 60 mls/hr Magnesium Sulfate (Magnesium Sulfate Ivpb) 2 gm in 50 mls @ 25 mls/hr IV X1 ONE Stop: 09/24/25 04:33 Last Admin: 09/24/25 03:29 Dose: 25 mls/hr Sodium Chloride (Ns) 1,000 mls @ 999 mls/hr IV .Q1H1M ONE Stop: 09/24/25 03:41 Last Admin: 09/24/25 04:22 Dose: Not Given Sodium Chloride (Ns) 1,000 mls @ 999 mls/hr IV .Q1H1M ONE Stop: 09/24/25 03:42 Last Admin: 09/24/25 04:21 Dose: 999 mls/hr Sodium Chloride (Ns) 500 mls @ 999 mls/hr IV .Q31M ONE Stop: 09/24/25 03:13 Last Admin: 09/24/25 04:24 Dose: 999 mls/hr Influenza Virus Vaccine Quadrival (Influenza Virus 0.5 Ml Syringe ) 0.5 ml IMi .ONCE ONE Stop: 09/24/25 04:57 Insulin Human Lispro (Insulin Lispro (Admelog) 1 Unit/0.01 Ml Unit) 0 unit SC ACHS [facility]; Protocol Stop: 10/24/25 07:29 Metoclopramide HCl (Metoclopramide Inj 5 Mg/Ml Vial 2 Ml) 5 mg IVP X1 ONE; Protocol Stop: 09/24/25 02:35 Last Admin: 09/24/25 03:28 Dose: 5 mg Morphine Sulfate (Morphine Sulf Inj 4 Mg/Ml Vial) 4 mg IVP X1 ONE Stop: 09/23/25 23:54 Last Admin: 09/23/25 23:57 Dose: Not Given Ondansetron HCl (Ondansetron Inj 2 Mg/Ml Inj 2 Ml) 4 mg IVP X1 ONE; Protocol Stop: 09/23/25 23:54 Last Admin: 09/24/25 00:30 Dose: 4 mg Potassium Chloride (Potassium Chloride 10% 20 Meq/15 Ml Udc) 40 meq PO X1 ONE Stop: 09/24/25 08:13 Assessment & Plan Plan Patient is a 53-year-old female PMHx HTN, HLD, CVA, fibromyalgia, admitted for syncopal episode, new onset A-fib with RVR likely in settings of sepsis. #New Onset AFIB W/RVR causing #NSTEMI type II Afib most likely due to sepsis picture; resolved after diltiazem. Troponin elevation likely due to Afib. Plan: - Stop heparin - No anticoagulation needed #Hypertension Plan: ? Continue home meds, adjust as needed #Syncope #Sepsis #Proctitis versus colitis #Lactic acidosis (resolved) #Erythrocytosis #Hyperbilirubinemia #Acute transaminitis #NHUNG, likely prerenal #Elevated creatinine kinase #hyponatremia #Hypokalemia #Anion gap metabolic acidosis, likely 2/2 lactic acid #Fibromyalgia #History of CVA Per primary team. This case was discussed with my attending physician, Dr. Mireles.. Duy Coffey, PGY1
[2025-09-24] MEDS: POTASSIUM CHLORIDE 10% 20 MEQ/15 ML UDC 40 MEQ PO (08:58)
--- NOTE | 2025-09-24 10:45 | PD.RESPRO ---
Documentation for date of: 09/24/25 Subjective Subjective Interval history: No overnight events. Patient was examined at bedside; they appear A&Ox3 and in NAD. Vitals/labs today significant for . Physical exam notable for but was otherwise benign and unremarkable. has resulted and showed . Current plan is to . Plan Updates: - Exam Vital Signs Temp Pulse Resp BP Pulse Ox O2 Del Method O2 Flow Rate 97.3 F 107 H 24 H 144/91 H 95 Oxy Mask 10 09/24/25 08:00 09/24/25 09:25 09/24/25 08:00 09/24/25 09:25 09/24/25 08:00 09/24/25 08:00 09/24/25 08:00 Narrative Exam GENERAL Ill-appearing female, appears in mild distress secondary to abdominal pain and nausea. HEENT NCAT.?SHELBIE. Oral mucosa is dry. Patent Nares NECK Supple, nontender, no JVD. CHEST Irregular rhythm, no m/g/r CTAB, no w/r/r, symmetrical expansion. ABDOMEN Soft, mildly distended, mildly tender throughout. Guarding present, no rebound tenderness or mass noted. Bowel sounds presents EXTREMITIES No edema/cyanosis.? SKIN Warm and dry, no jaundice/rashes. NEUROMUSCULAR No lumbar or midline, no CVA, no paraspinal muscle spasm or tenderness. Moves all 4 extremities well, with full ROM and good CSM. RIOS x4, CN II-XII grossly intact. No focal neurologic deficits. PSYCHIATRY Normal mood and affect, cooperative, no SI or HI or hallucinations. Objective Labs 09/24/25 05:35 09/24/25 05:35 Labs: Laboratory Results - last 24 hr 09/23/25 09/23/25 09/24/25 22:50 23:38 00:00 WBC 21.9 H D RBC 7.47 H Hgb 19.9 H D Hct 57.1 H D MCV 76 L MCH 26.6 MCHC 34.9 RDW Std Deviation 48.5 H Plt Count 417 D Neut % (Auto) 78 Lymph % (Auto) 11 [place] % (Auto) 9 Eos % (Auto) 0 Baso % (Auto) 0 Neut # (Auto) 17.0 H Lymph # (Auto) 2.4 [place] # (Auto) 2.1 H Eos # (Auto) 0.0 Baso # (Auto) 0.1 Immature Gran # (Auto) 0.35 H Absolute Nucleated RBC 0.00 Immature Gran % 2 H Nucleated RBC % 0 PT 12.2 INR 1.2 APTT 27.0 Sodium 122 L Potassium 2.5 L* Chloride 86 L Carbon Dioxide 17.9 L Anion Gap 18 H BUN 39 H Creatinine 1.4 H Estim Creat Clear Calc 44.1 L eGFR 43 L BUN/Creatinine Ratio 28 H Glucose 222 H Calculated Osmolality 262 L Lactic Acid 3.9 H Calcium 9.8 Corrected Calcium 9.8 Phosphorus Magnesium 1.9 Total Bilirubin 3.5 H AST 121 H ALT 41 Alkaline Phosphatase 123 H Lactate Dehydrogenase 492 H Total Creatine Kinase 981 H Troponin I 0.600 H* B-Natriuretic Peptide 351 H Total Protein 7.1 Albumin 5.0 Globulin 2.1 L Albumin/Globulin Ratio 2.4 H Triglycerides Cholesterol LDL Cholesterol, Calc HDL Cholesterol Cholesterol/HDL Ratio Ur Collection Type Clean Catch Urine Color Yellow Urine Clarity Turbid A Urine pH 6.0 Ur Specific [place] 1.010 Urine Protein 2+ A Urine Glucose (UA) Negative Urine Ketones 1+ A Urine Blood 1+ A Urine Nitrite Negative Urine Bilirubin Negative Urine Urobilinogen (Auto) Negative Ur Leukocyte Esterase Negative Urine RBC < 1 Urine WBC 1 Ur Squamous Epith Cells 57 H Urine Bacteria None Ur Culture Indicated? Not Indicated Urine Opiates Screen Positive A Urine Fentanyl Screen Negative Ur Barbiturates Screen Negative U Amphetamin/Meth Scrn Negative U Benzodiazepines Scrn Negative U Cocaine Metab Screen Negative U Marijuana (THC) Screen Negative 09/24/25 05:35 WBC 25.1 H RBC 6.18 H Hgb 16.6 H D Hct 48.3 H MCV 78 L MCH 26.9 MCHC 34.4 RDW Std Deviation 49.0 H Plt Count 319 D Neut % (Auto) 82 H Lymph % (Auto) 9 L [place] % (Auto) 8 Eos % (Auto) 0 Baso % (Auto) 0 Neut # (Auto) 20.6 H Lymph # (Auto) 2.2 [place] # (Auto) 2.1 H Eos # (Auto) 0.0 Baso # (Auto) 0.1 Immature Gran # (Auto) 0.16 H Absolute Nucleated RBC 0.00 Immature Gran % 1 H Nucleated RBC % 0 PT INR APTT Sodium 136 D Potassium 2.4 L* Chloride 95 L Carbon Dioxide 26.4 Anion Gap 15 BUN 32 H Creatinine 1.4 H Estim Creat Clear Calc 44.1 L eGFR 43 L BUN/Creatinine Ratio 23 H Glucose 159 H D Calculated Osmolality 281 Lactic Acid 1.5 Calcium 8.8 Corrected Calcium 8.8 Phosphorus 3.1 Magnesium 2.8 H Total Bilirubin 1.6 H D AST 111 H ALT 36 Alkaline Phosphatase 97 D Lactate Dehydrogenase Total Creatine Kinase Troponin I 4.826 H* D B-Natriuretic Peptide Total Protein 6.2 Albumin 4.5 D Globulin 1.7 L Albumin/Globulin Ratio 2.6 H Triglycerides 169 H Cholesterol 188 LDL Cholesterol, Calc 107 HDL Cholesterol 47 Cholesterol/HDL Ratio 4.0 Ur Collection Type Urine Color Urine Clarity Urine pH Ur Specific [place] Urine Protein Urine Glucose (UA) Urine Ketones Urine Blood Urine Nitrite Urine Bilirubin Urine Urobilinogen (Auto) Ur Leukocyte Esterase Urine RBC Urine WBC Ur Squamous Epith Cells Urine Bacteria Ur Culture Indicated? Urine Opiates Screen Urine Fentanyl Screen Ur Barbiturates Screen U Amphetamin/Meth Scrn U Benzodiazepines Scrn U Cocaine Metab Screen U Marijuana (THC) Screen Quality Measures Quality Measures none Assessment & Plan Assessment Current Active Medications: Generic Name Dose Route Start Last Admin Trade Name Freq PRN Reason Stop Dose Admin Acetaminophen 650 mg 09/24/25 02:45 Acetaminophen 325 Mg Tablet PO 10/24/25 02:44 Q6H PRN PAIN SCALE 1-3 (mild Acetaminophen 650 mg 09/24/25 02:45 Acetaminophen 325 Mg Tablet PO 10/24/25 02:44 Q6H PRN Fever >100.4 Hydrocodone Bitart/Acetaminophen 1 tab 09/24/25 02:45 09/24/25 08:37 Hydrocodone/Apap 10/325 Tab PO 09/29/25 02:44 1 tab Q4HR PRN Administration PAIN SCALE 7-10 (Severe Amlodipine Besylate 5 mg 09/24/25 09:00 09/24/25 08:35 Amlodipine Besylate 5 Mg Tablet PO 10/24/25 08:59 5 mg QDAY AMITA Administration Aspirin 81 mg 09/24/25 09:00 09/24/25 08:35 Aspirin Ec 81 Mg Tabec PO 10/24/25 08:59 81 mg QDAY AMITA Administration Clonidine 0.2 mg 09/24/25 09:00 09/24/25 08:35 Clonidine Hcl 0.1 Mg Tablet PO 10/24/25 08:59 0.2 mg QDAY AMITA Administration Dextrose 25 ml 09/24/25 02:49 Dextrose 50%-Water Inj 50 Ml Syringe IV 10/24/25 02:48 Q15MIN PRN BG 50-70 responsive npo pt Dextrose 50 ml 09/24/25 02:49 Dextrose 50%-Water Inj 50 Ml Syringe IV 10/24/25 02:48 Q15MIN PRN BG <50 OR BG <70 & pt unresponsive Duloxetine HCl 60 mg 09/24/25 09:00 09/24/25 08:36 Duloxetine Hcl 30 Mg Capsule PO 10/24/25 08:59 60 mg QDAY AMITA Administration Gabapentin 400 mg 09/24/25 09:00 09/24/25 08:36 Gabapentin 100 Mg Capsule PO 10/24/25 08:59 400 mg BID AMITA Administration Glucagon 1 mg 09/24/25 02:49 Glucagon Inj 1 Mg Vial IM Q15MIN PRN BG <70, and no IV access Diltiazem/Sodium Chloride 100 mg in 100 mls @ 5 mls/hr 09/24/25 00:28 09/24/25 01:34 Diltiazem In Ns 100 Mg IV 5 mg/hr .Q20H AMITA 5 mls/hr 5 MG/HR Administration Ceftriaxone Sodium/Dextrose 1 gm in 50 mls @ 100 mls/hr 09/24/25 21:00 Rocephin/D5w 1gm Iv Premix IV 10/01/25 20:59 QPM AMITA Metronidazole 500 mg in 100 mls @ 200 mls/hr 09/24/25 06:15 09/24/25 08:34 Flagyl 500 Mg Iv IV 10/01/25 06:14 200 mls/hr Q8HR AMITA Administration Sodium Chloride 1,000 mls @ 250 mls/hr 09/24/25 03:00 09/24/25 07:30 Ns IV 10/24/25 02:59 250 mls/hr .Q4H AMITA Administration Potassium Chloride 10 meq in 100 mls @ 100 mls/hr 09/24/25 08:13 09/24/25 10:35 Kcl Ivpb IV 09/24/25 12:12 60 mls/hr Q1H AMITA Administration Heparin Sodium/Dextrose 25,000 unit in 250 mls @ 10 mls/hr 09/24/25 08:15 Heparin In D5w Ivpb IV 10/08/25 08:14 .Q24H AMITA Protocol 11.603 UNITS/KG/HR Insulin Human Lispro 0 unit 09/24/25 06:15 09/24/25 06:38 Insulin Lispro (Admelog) 1 Unit/0.01 Ml Unit SC 10/24/25 06:14 Not Given Q6HR AMITA Protocol Meclizine HCl 12.5 mg 09/24/25 03:01 Meclizine Hcl 25 Mg Tablet PO 10/24/25 03:00 BID PRN Vertigo Metoprolol Succinate 100 mg 09/24/25 09:00 09/24/25 08:36 Metoprolol Succinate Xl 25 Mg Tabcr PO 10/24/25 08:59 100 mg BID AMITA Administration Ondansetron HCl 4 mg 09/24/25 02:45 09/24/25 08:37 Ondansetron Inj 2 Mg/Ml Inj 2 Ml IVP 10/24/25 02:44 4 mg Q6HR PRN Administration NAUSEA OR VOMITING Protocol Oxycodone/Acetaminophen 1 tab 09/24/25 02:45 09/24/25 05:03 Oxycodone/Apap 5/325 Tablet PO 09/29/25 02:44 1 tab Q6H PRN Administration PAIN SCALE 4-6 (Moderate Pantoprazole Sodium 40 mg 09/24/25 09:00 09/24/25 08:36 Pantoprazole Inj 40 Mg Vial IVP 10/24/25 08:59 40 mg QDAY AMITA Administration Plan This is a 53-year-old female PMHx HTN, HLD, CVA, fibromyalgia, admitted for syncopal episode, new onset A-fib with RVR likely in settings of sepsis. Syncope New Onset AFIB W/RVR Presented with a syncopal episode that occurred on the morning admission. She reports symptoms of palpitations are true with the episode, evidently she was out for more than 6 hours and was unable to pick her self up. She also endorses chronic dizziness and lightheadedness which has worsened over the last several days, given her diarrhea/vomiting and decreased oral intake. She denied head trauma. She follows up with Dr. Mireles, she is unaware of having any sort of arrhythmia in the past. She is on multiple ANTIHYPERTENSIVE for resistant hypertension as listed below as well as METOPROLOL XL which she takes regularly. She had a normal cath showing nonischemic findings recently. EKG on admission shows A-fib with RVR, HR 148 for which DILTIAZEM was started with improvement in heart rate. A-fib likely in settings of acute illness, electrolyte abnormalities, and fluid losses as described elsewhere. ? Discontinued DILTIAZEM ? Continue METOPROLOL 100 mg XL ? Continue ELIQUIS 5 mg BID ? Pending echocardiogram ? Pending cardiology recommendations ? Pending orthostatics ? Treating underlying cause ? Pending lipid panel ? Consider carotid ultrasound if symptoms persist or worsen ? Pending TSH Sepsis Proctitis versus colitis Lactic acidosis (resolved) She has complained of 3 days of severe watery diarrhea and abdominal pain, followed by persistent/intractable nausea and vomiting of mainly stomach content. Also reported symptoms of fever and chills over the last [address] abdomen showed possible mild colitis, and she had significant abdominal tenderness to palpation on exam throughout. No history of recent ANTIBIOTICS use, no history of C. difficile. No recent travel or sick exposure, no known food allergies or triggers. She met sepsis criteria with tachycardia, tachypnea, significant leukocytosis and presence of endorgan damage i.e. NHUNG, lactic acidosis, troponinemia, and others. Received adequate fluid resuscitation, lactic acid resolved, tachycardia resolved. ? Pending stool cultures, ova, parasite, C. difficile ? Continue CEFTRIAXONE, FLAGYL, and DOXYCYCLINE ? Continue IV hydration ? Continue ANTIEMETICS PRN Erythrocytosis Hyperbilirubinemia, likely transient Acute transaminitis, likely transient Admission Hgb 19.9, improved to 16.6 with IVF's. TB 3.5.5, AST 121, likely in settings of dehydration, low suspicion for biliary pathology, but will keep monitoring and consider ultrasound if needed. ? Daily labs ? Continue IV fluids NHUNG, likely prerenal Elevated creatinine kinase Mild hyponatremia Hypokalemia Anion gap metabolic acidosis, likely 2/2 lactic acid Creatinine 1.4, GFR 43, BUN 39 with previously normal renal function. Likely she had NHUNG in settings of hypoperfusion. CK elevated in setting of her fall, low the threshold for rhabdomyolysis. Hyponatremia of 122 and potassium 2.5, likely in settings of GI losses and poor oral intake. She also had an anion gap of 18, likely in setting of lactic acidosis above. ? Anticipate AG improvement with correction of lactic acid ? Repleted potassium 40 mEq and magnesium 2 mg ? Renally dose meds, avoid overdiuresis and NEPHROTOXINS ? Daily CMP ? Continue NS maintenance ? Replete electrolyte as needed NSTEMI type II Troponin 0.600 on admission, likely demand ischemia. She denies chest pain. No relevant EKG changes. ? Trending troponin ? Treating underlying cause Resistant hypertension On multiple medications including AMLODIPINE, CLONIDINE, ENALAPRIL and METOPROLOL. BP elevated on presentation, however she hasn't been able to take her pills given her nausea and vomiting. Reports her blood pressure overall not greatly controlled. ? Continue home meds ? Adjust medications as needed History of CVA 2021 She had a history of CVA with residual right-sided deafness and unsteady gait. Currently she is on ASPIRIN daily and follows up with Dr. Flowers. ? Pending head CT to rule out intracranial bleed given ASPIRIN therapy Fibromyalgia ? Continue home DULOXETINE ? Continue home GABAPENTIN 40 mg BID Health maintenance Diet: NPO GI prophylaxis: PROTONIX DVT prophylaxis: ELIQUIS Antibiotics: CEFTRIAXONE, FLAGYL, DOXYCYCLINE CODE STATUS: DNR Disposition: Admitted for new onset A-fib Case was discussed with attending physician. Malaika Loomis, DO PGY II
--- NOTE | 2025-09-24 11:00 | XR_ITS ---
Examination: Abdomen sonogram, Limited Date and time of exam: September 24, 2025, 11:14 a.m. INDICATIONS: Elevated liver function tests on laboratory examination September 24, 2025. Generalized abdominal pain beginning 3 days ago. Technique: Real-time fr[place] scale transabdominal sonographic images of the upper abdomen obtained. Findings: Minimal fluid in the gallbladder fossa Common bile duct normal 0.4 cm no stones Pancreatic head 2.2 cm Liver 15.9 cm fatty infiltration no focal liver lesions Normal hepatopetal portal venous send Patent IVC IMPRESSION: Normal common bile duct Liver normal size fatty infiltration no focal liver lesions
[2025-09-24 11:04] LABS: Partial Thromboplastin Time 31.1 Seconds (22.0-36.0)
[2025-09-24] MEDS: HEPARIN SOD INJ 5000 UNIT/ML VIAL 4000 UNIT IV (11:18)
[2025-09-24] MEDS: Heparin/D5w 25K 250 ML Ivpb 25,000 UNIT/250 ML BAG 10 UNIT IV (11:20)
--- NOTE | 2025-09-24 11:45 | PC.SS ---
Dog Obedience Instructor (RICK Harris met with the patient at the bedside to complete an initial assessment and discuss a discharge plan. Patient is alert and oriented to person, place, time, and situation; patient provided verbal consent to participate in the assessment. The patient has a past medical hx of HTN, HLD, CVA, and fibromyalgia; the patient presented to the ED following a syncopal episode. Patient is Domenica Alexis, [address], [facility] [address], [place], [place]. Patient designated her uncle, Silvestre Cheney, , as his surrogate medical decision maker. Patient is employed by [employer], currently on medical leave. Patient reports that at baseline, she is independent with no DME. The patient goes to [facility]. Surrogate medical decision maker: Uncle, Silvestre Cheney, Discharge plan: Home
--- NOTE | 2025-09-24 13:37 | ESPR_ITS ---
<Statement entered by Daniel Malone MD - 10/05/25 08:05> I reviewed above note and agree with findings and plans. I have also personally examined the patient with medicine team and went over assessment and plan with medical team including hospitality internship and resident physician. Documentation for date of: 09/24/25 Subjective Subjective Interval history: Patient is seen and examined at bedside. Admitted as the patient is noted to have continuous vomiting since 2 days and on the day of admission, patient was trying to get up from the toilet seat and felt dizziness following which she had a syncopal episode and fell on the floor. She lied down on the floor for couple of hours as she lives alone and later somehow managed to crawl on the floor and called the EMS following which she was brought to the hospital. Denies fever, diarrheal episodes, recent sick contacts, travel. In the hospital, patient is noted to be tested positive for orthostatic vitals and noted to have new onset A-fib with RVR secondary to severe electrolyte imbalances. Patient denies any other complaints as of today. Labs done this morning showed improvement in the list except for low potassium for which potassium was repleted. Will continue IV fluids for now. Acid Bleacher, Dr. iMreles is following the patient and recommended no need of heparin drip and diltiazem drip as patient likely had A-fib with RVR and NSTEMI in the setting of severe electrolyte imbalance. Exam Vital Signs Temp Pulse Resp BP Pulse Ox O2 Del Method O2 Flow Rate 96.2 F L 81 22 H 169/88 H 95 Oxy Mask 10 09/24/25 12:30 09/24/25 12:30 09/24/25 12:30 09/24/25 12:30 09/24/25 12:30 09/24/25 12:30 09/24/25 12:30 Narrative Exam General: Awake. HEENT: Normocephalic, atraumatic, mucous membranes moist. Heart: Regular rate and rhythm, no murmurs. Lungs: Clear to auscultation with no wheezing or crackles. Abdomen: Soft, nondistended, nontender, positive bowel sounds. ?No guarding or rebound tenderness. Neurologic: Alert and oriented x3, no gross neurological deficit, and patient able to move all 4 extremities. Extremities: Noted 1+ pitting bilateral pedal edema and redness on right lower extremity. Skin: No rash or ecchymoses. Objective Labs 09/24/25 05:35 09/24/25 05:35 Labs: Laboratory Results - last 24 hr 09/23/25 09/23/25 09/24/25 22:50 23:38 00:00 WBC 21.9 H D RBC 7.47 H Hgb 19.9 H D Hct 57.1 H D MCV 76 L MCH 26.6 MCHC 34.9 RDW Std Deviation 48.5 H Plt Count 417 D Neut % (Auto) 78 Lymph % (Auto) 11 [place] % (Auto) 9 Eos % (Auto) 0 Baso % (Auto) 0 Neut # (Auto) 17.0 H Lymph # (Auto) 2.4 [place] # (Auto) 2.1 H Eos # (Auto) 0.0 Baso # (Auto) 0.1 Immature Gran # (Auto) 0.35 H Absolute Nucleated RBC 0.00 Immature Gran % 2 H Nucleated RBC % 0 PT 12.2 INR 1.2 APTT 27.0 Sodium 122 L Potassium 2.5 L* Chloride 86 L Carbon Dioxide 17.9 L Anion Gap 18 H BUN 39 H Creatinine 1.4 H Estim Creat Clear Calc 44.1 L eGFR 43 L BUN/Creatinine Ratio 28 H Glucose 222 H Calculated Osmolality 262 L Lactic Acid 3.9 H Calcium 9.8 Corrected Calcium 9.8 Phosphorus Magnesium 1.9 Total Bilirubin 3.5 H AST 121 H ALT 41 Alkaline Phosphatase 123 H Lactate Dehydrogenase 492 H Total Creatine Kinase 981 H Troponin I 0.600 H* B-Natriuretic Peptide 351 H Total Protein 7.1 Albumin 5.0 Globulin 2.1 L Albumin/Globulin Ratio 2.4 H Triglycerides Cholesterol LDL Cholesterol, Calc HDL Cholesterol Cholesterol/HDL Ratio Ur Collection Type Clean Catch Urine Color Yellow Urine Clarity Turbid A Urine pH 6.0 Ur Specific [place] 1.010 Urine Protein 2+ A Urine Glucose (UA) Negative Urine Ketones 1+ A Urine Blood 1+ A Urine Nitrite Negative Urine Bilirubin Negative Urine Urobilinogen (Auto) Negative Ur Leukocyte Esterase Negative Urine RBC < 1 Urine WBC 1 Ur Squamous Epith Cells 57 H Urine Bacteria None Ur Culture Indicated? Not Indicated Urine Opiates Screen Positive A Urine Fentanyl Screen Negative Ur Barbiturates Screen Negative U Amphetamin/Meth Scrn Negative U Benzodiazepines Scrn Negative U Cocaine Metab Screen Negative U Marijuana (THC) Screen Negative 09/24/25 09/24/25 05:33 05:35 WBC 25.1 H RBC 6.18 H Hgb 16.6 H D Hct 48.3 H MCV 78 L MCH 26.9 MCHC 34.4 RDW Std Deviation 49.0 H Plt Count 319 D Neut % (Auto) 82 H Lymph % (Auto) 9 L [place] % (Auto) 8 Eos % (Auto) 0 Baso % (Auto) 0 Neut # (Auto) 20.6 H Lymph # (Auto) 2.2 [place] # (Auto) 2.1 H Eos # (Auto) 0.0 Baso # (Auto) 0.1 Immature Gran # (Auto) 0.16 H Absolute Nucleated RBC 0.00 Immature Gran % 1 H Nucleated RBC % 0 PT INR APTT 31.1 Sodium 136 D Potassium 2.4 L* Chloride 95 L Carbon Dioxide 26.4 Anion Gap 15 BUN 32 H Creatinine 1.4 H Estim Creat Clear Calc 44.1 L eGFR 43 L BUN/Creatinine Ratio 23 H Glucose 159 H D Calculated Osmolality 281 Lactic Acid 1.5 Calcium 8.8 Corrected Calcium 8.8 Phosphorus 3.1 Magnesium 2.8 H Total Bilirubin 1.6 H D AST 111 H ALT 36 Alkaline Phosphatase 97 D Lactate Dehydrogenase Total Creatine Kinase Troponin I 4.826 H* D B-Natriuretic Peptide Total Protein 6.2 Albumin 4.5 D Globulin 1.7 L Albumin/Globulin Ratio 2.6 H Triglycerides 169 H Cholesterol 188 LDL Cholesterol, Calc 107 HDL Cholesterol 47 Cholesterol/HDL Ratio 4.0 Ur Collection Type Urine Color Urine Clarity Urine pH Ur Specific [place] Urine Protein Urine Glucose (UA) Urine Ketones Urine Blood Urine Nitrite Urine Bilirubin Urine Urobilinogen (Auto) Ur Leukocyte Esterase Urine RBC Urine WBC Ur Squamous Epith Cells Urine Bacteria Ur Culture Indicated? Urine Opiates Screen Urine Fentanyl Screen Ur Barbiturates Screen U Amphetamin/Meth Scrn U Benzodiazepines Scrn U Cocaine Metab Screen U Marijuana (THC) Screen Quality Measures Quality Measures none Assessment & Plan Assessment Current Active Medications: Generic Name Dose Route Start Last Admin Trade Name Freq PRN Reason Stop Dose Admin Acetaminophen 650 mg 09/24/25 02:45 Acetaminophen 325 Mg Tablet PO 10/24/25 02:44 Q6H PRN PAIN SCALE 1-3 (mild Acetaminophen 650 mg 09/24/25 02:45 Acetaminophen 325 Mg Tablet PO 10/24/25 02:44 Q6H PRN Fever >100.4 Hydrocodone Bitart/Acetaminophen 1 tab 09/24/25 02:45 09/24/25 08:37 Hydrocodone/Apap 10/325 Tab PO 09/29/25 02:44 1 tab Q4HR PRN Administration PAIN SCALE 7-10 (Severe Amlodipine Besylate 5 mg 09/24/25 09:00 09/24/25 08:35 Amlodipine Besylate 5 Mg Tablet PO 10/24/25 08:59 5 mg QDAY AMITA Administration Aspirin 81 mg 09/24/25 09:00 09/24/25 08:35 Aspirin Ec 81 Mg Tabec PO 10/24/25 08:59 81 mg QDAY AMITA Administration Clonidine 0.2 mg 09/24/25 09:00 09/24/25 08:35 Clonidine Hcl 0.1 Mg Tablet PO 10/24/25 08:59 0.2 mg QDAY AMITA Administration Dextrose 25 ml 09/24/25 02:49 Dextrose 50%-Water Inj 50 Ml Syringe IV 10/24/25 02:48 Q15MIN PRN BG 50-70 responsive npo pt Dextrose 50 ml 09/24/25 02:49 Dextrose 50%-Water Inj 50 Ml Syringe IV 10/24/25 02:48 Q15MIN PRN BG <50 OR BG <70 & pt unresponsive Duloxetine HCl 60 mg 09/24/25 09:00 09/24/25 08:36 Duloxetine Hcl 30 Mg Capsule PO 10/24/25 08:59 60 mg QDAY AMITA Administration Gabapentin 400 mg 09/24/25 09:00 09/24/25 08:36 Gabapentin 100 Mg Capsule PO 10/24/25 08:59 400 mg BID AMITA Administration Glucagon 1 mg 09/24/25 02:49 Glucagon Inj 1 Mg Vial IM Q15MIN PRN BG <70, and no IV access Diltiazem/Sodium Chloride 100 mg in 100 mls @ 5 mls/hr 09/24/25 00:28 09/24/25 01:34 Diltiazem In Ns 100 Mg IV 5 mg/hr .Q20H AMITA 5 mls/hr 5 MG/HR Administration Ceftriaxone Sodium/Dextrose 1 gm in 50 mls @ 100 mls/hr 09/24/25 21:00 Rocephin/D5w 1gm Iv Premix IV 10/01/25 20:59 QPM AMITA Metronidazole 500 mg in 100 mls @ 200 mls/hr 09/24/25 06:15 09/24/25 08:34 Flagyl 500 Mg Iv IV 10/01/25 06:14 200 mls/hr Q8HR AMITA Administration Sodium Chloride 1,000 mls @ 250 mls/hr 09/24/25 03:00 09/24/25 12:14 Ns IV 10/24/25 02:59 250 mls/hr .Q4H AMITA Administration Heparin Sodium/Dextrose 25,000 unit in 250 mls @ 10 mls/hr 09/24/25 08:15 09/24/25 11:20 Heparin In D5w Ivpb IV 10/08/25 08:14 11.603 units/kg/hr .Q24H AMITA 10 mls/hr Protocol Administration 11.603 UNITS/KG/HR Insulin Human Lispro 0 unit 09/24/25 17:00 Insulin Lispro (Admelog) 1 Unit/0.01 Ml Unit SC 10/24/25 16:59 ACHS AMITA Protocol Meclizine HCl 12.5 mg 09/24/25 03:01 Meclizine Hcl 25 Mg Tablet PO 10/24/25 03:00 BID PRN Vertigo Metoprolol Succinate 100 mg 09/24/25 09:00 09/24/25 08:36 Metoprolol Succinate Xl 25 Mg Tabcr PO 10/24/25 08:59 100 mg BID AMITA Administration Ondansetron HCl 4 mg 09/24/25 02:45 09/24/25 08:37 Ondansetron Inj 2 Mg/Ml Inj 2 Ml IVP 10/24/25 02:44 4 mg Q6HR PRN Administration NAUSEA OR VOMITING Protocol Oxycodone/Acetaminophen 1 tab 09/24/25 02:45 09/24/25 05:03 Oxycodone/Apap 5/325 Tablet PO 09/29/25 02:44 1 tab Q6H PRN Administration PAIN SCALE 4-6 (Moderate Pantoprazole Sodium 40 mg 09/24/25 09:00 09/24/25 08:36 Pantoprazole Inj 40 Mg Vial IVP 10/24/25 08:59 40 mg QDAY AMITA Administration Plan This is a 53-year-old female PMHx HTN, HLD, CVA, fibromyalgia, admitted for syncopal episode, new onset A-fib with RVR likely in settings of sepsis. #Syncope and Fall - Orthostatic Hypotension #New Onset Paroxysmal AFIB W/RVR in the setting of severe electrolyte imbalance, Hypokalemia - resolved -Presented with a syncopal episode that occurred on the day of admission. -She reports symptoms of palpitations are true with the episode, evidently she was out for more than 6 hours and was unable to pick her self up. -She also endorses chronic dizziness and lightheadedness which has worsened over the last several days, given her vomiting and decreased oral intake. She denied head trauma. -She follows up with Dr. Mireles, she is unaware of having any sort of arrhythmia in the past. She is on multiple ANTIHYPERTENSIVE for resistant hypertension as listed below as well as METOPROLOL XL which she takes regularly. -She had a normal cath showing nonischemic findings recently. -Potassium at the time of admission is 2.4 -EKG on admission shows A-fib with RVR, HR 148 for which DILTIAZEM was started with improvement in heart rate. A-fib likely in settings of acute illness, electrolyte abnormalities, and fluid losses as described elsewhere. -ECHO - Left ventricle size is normal and systolic function is normal. Estimated ejection fraction is 65-70%. There is grade I diastolic dysfunction. There is mild concentric hypertrophy noted. Right ventricle chamber size is normal and systolic function is normal. There is trace tricuspid valve regurgitation. Plan - Discontinued DILTIAZEM - Continue METOPROLOL 100 mg XL BID, home medication - Will continue IV fluids - Will monitor renal functions and electrolytes - Replete as needed - Will repeat orthostatic vitals as needed - Acid Bleacher, Dr. Mireles is consulted and will appreciate his recommendations - Telemetry monitoring #NSTEMI, likely type II Troponin 0.600 on admission, likely demand ischemia. She denies chest pain. No relevant EKG changes. Repeat troponin up trended to 4.826 ? Trending troponin ? Treating underlying cause - Acid Bleacher, Dr. Mireles is consulted and recommended to discontinue Heparin drip as it is likely Type II and patient underwent extensive cardiac workup in the last three months #NHUNG, likely prerenal vs ATN #Elevated creatinine kinase #Mild hyponatremia, resolved #Hypokalemia #Anion gap metabolic acidosis, likely 2/2 lactic acid, resolved At the time of admission, Creatinine 1.4, GFR 43, BUN 39 with previously normal renal function. Likely she had NHUNG in settings of hypoperfusion. CK elevated in setting of her fall, low the threshold for rhabdomyolysis. At the time of admission, Hyponatremia of 122 and potassium 2.5, likely in settings of GI losses and poor oral intake. She also had an anion gap of 18, likely in setting of lactic acidosis above. 09/24, Potassium is 2.5 and Na 136, Lactate 1.5 Plan ? Repleted potassium 40 mEq of oral and IV potassium ? Renally dose meds, avoid overdiuresis and NEPHROTOXINS ? Daily CMP ? Continue NS maintenance ? Replete electrolyte as needed #Lactic acidosis (resolved) -Lactate at the time of admission is 3.9, after giving fluids downtrending to 1.5 #Erythrocytosis #Hyperbilirubinemia, likely transient #Acute transaminitis, likely transient Admission Hgb 19.9, improved to 16.6 with IVF's. TB 3.5.5, AST 121, likely in settings of dehydration, low suspicion for biliary pathology Liver USD did not show any significant abnormality ? Daily labs ? Continue IV fluids #Resistant hypertension On multiple medications including AMLODIPINE, CLONIDINE, ENALAPRIL and METOPROLOL. BP elevated on presentation, however she hasn't been able to take her pills given her nausea and vomiting. Reports her blood pressure overall not greatly controlled. ? Continue home meds ? 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 Currently she is on ASPIRIN daily and follows up with Dr. Flowers. ? Head CT - No e/o acute infarct or bleed #Fibromyalgia ? Continue home DULOXETINE ? Continue home GABAPENTIN 40 mg BID Health maintenance Diet: Cardiac GI prophylaxis: PROTONIX DVT prophylaxis: Lovenox Antibiotics: CEFTRIAXONE, FLAGYL CODE STATUS: DNR Disposition: Admitted for new onset A-fib, NHUNG Patient plan of care was discussed with the attending physician, Dr. Kira Romano, PGY2
[2025-09-24 14:24] LABS: Collection Type, Urine Clean Catch
--- NOTE | 2025-09-24 14:31 | PC.SS ---
Discharge rounds: Patient is on IV fluids.
[2025-09-24 14:40] LABS: Bilirubin,Urine Negative (Negative); Blood,Urine Trace (Negative); Clarity,Urine Clear (Clear/Hazy); Color,Urine Lt-Yellow (Lt Yel-Yel); Culture Indicated,Urine Not Indicated; Glucose, Urine Negative (Negative); Hyaline Casts,Urine < 1 /hpf (0-1); Ketones,Urine Negative (Negative); Leukocyte Esterase,Urine Negative (Negative); Nitrite,Urine Negative (Negative); PH,Urine 6.0 (5.0-7.0); Protein,Urine Negative (Neg - Trace); RBC,Urine 1 /hpf (0-3); Specific Gravity,Urine 1.007 (1.001-1.035); Squamous Epithelial Cell,Urine 5 /hpf (0-5); Urobilinogen,Urine Negative mg/dL (0.0-1.0); WBC,Urine 1 /hpf (0-5)
[2025-09-24 14:51] LABS: Albumin, Serum 3.4 gm/dL (3.5-5.0); Anion Gap 9 (7-16); BUN/Creatinine Ratio 20 Ratio (12-20); Blood Urea Nitrogen 20 mg/dL (9-23); Calcium (Corrected) 7.3 mg/dL (8.5-10.1); Carbon Dioxide 22.8 mMol/L (20.0-31.0); Chloride 106 mMol/L (98-107); Creatinine (Component) 1.0 mg/dL (0.6-1.3); Estimated Creatinine Clearance 61.7 mL/min (>60); Glucose 149 mg/dL (74-106); Osmolality,Calculated 281 (275-295); Phosphorous 3.2 mg/dL (2.4-5.1); Sodium 138 mMol/L (136-145); eGFR > 60 See Note
[2025-09-24 14:55] LABS: Potassium 2.6 mMol/L (3.4-5.1)
[2025-09-24 14:56] LABS: Calcium 6.8 mg/dL (8.3-10.6); Troponin I 2.991 ng/mL (0.0-0.045)
[2025-09-24] MEDS: hydrALAZINE INJ 20 MG/ML VIAL 10 MG IVP (15:48)
[2025-09-24 18:08] LABS: Troponin I 2.834 ng/mL (0.0-0.045)
[2025-09-24 19:13] LABS: Anion Gap 9 (7-16); Carbon Dioxide 23.8 mMol/L (20.0-31.0); Chloride 104 mMol/L (98-107); Potassium 3.3 mMol/L (3.4-5.1); Sodium 137 mMol/L (136-145)
[2025-09-24] MEDS: CALCIUM CARBONATE 600 MG TABLET PO (20:40)
[2025-09-24] MEDS: INSULIN LISPRO (AdmeLOG) 1 UNIT/0.01 ML UNIT SC (21:00)
[2025-09-24] MEDS: ZOLPIDEM 5 MG TABLET 10 MG PO (22:17)
[2025-09-24] MEDS: SCOPOLAMINE 1 MG TDSY TOP (22:21)
[2025-09-25] VITALS (13 sets, daily range): BP systolic 143–183; BP diastolic 68–96; PULSE 73–98; RESP 14–25; TEMP 36.1–36.7; O2SAT 92–97; BMI 37.0
[2025-09-25] MEDS: SODIUM CHLORIDE 0.9% 1000 ML 1,000 ML 250 ML IV ×2 (00:50→05:04)
[2025-09-25] MEDS: metroNIDAZOLE/NS 500 MG IVPB 500 MG/100 ML BAG 200 MG IV ×3 (05:01→21:21)
[2025-09-25 05:59] LABS: Basophils # (Auto) 0.0 Thou/mm3 (0.0-0.2); Basophils % (Auto) 0 % (0-2.5); Eosinophils # (Auto) 0.0 Thou/mm3 (0.0-0.5); Eosinophils % (Auto) 0 % (0-10); Hematocrit 43.1 % (36.0-46.0); Hemoglobin 14.3 g/dL (12.0-16.0); Immature Granulocytes Auto 0.07 Thou/mm3 (0.00-0.00); Lymphocytes # (Auto) 2.8 Thou/mm3 (1.0-4.8); Lymphocytes % (Auto) 21 % (10-50); Mean Corpuscular HGB Conc 33.2 g/dl (31.0-37.0); Mean Corpuscular Hemoglobin 26.7 pg (25.0-35.0); Mean Corpuscular Volume 81 fL (80-100); Monocytes # (Auto) 1.1 Thou/mm3 (0.0-0.8); Monocytes % (Auto) 8 % (0-12); Neutrophils # (Auto) 9.3 Thou/mm3 (1.8-7.7); Neutrophils % (Auto) 70 % (37-80); Nucleated Red Blood Cell # 0.00 Thou/mm3 (0.00-0.00); Nucleated Red Blood Cell % 0 /100 WBC (0); Platelet Count 288 Thou/mm3 (140-440); RDW Standard Deviation 53.2 fL (36.4-46.3); Red Blood Count 5.35 Miln/mm3 (4.00-5.20); White Blood Count 13.3 Thou/mm3 (3.6-11.0)
[2025-09-25 06:49] LABS: Alanine Aminotransferase 32 U/L (10-49); Albumin, Serum 3.9 gm/dL (3.5-5.0); Albumin/Globulin Ratio 2.8 (1.2-2.2); Alkaline Phosphatase 75 U/L (46-116); Anion Gap 10 (7-16); Aspartate Amino Transferase 56 U/L (0-34); BUN/Creatinine Ratio 20 Ratio (12-20); Bilirubin,Total 0.7 mg/dL (0.3-1.2); Blood Urea Nitrogen 16 mg/dL (9-23); Calcium 8.2 mg/dL (8.3-10.6); Calcium (Corrected) 8.3 mg/dL (8.5-10.1); Carbon Dioxide 26.4 mMol/L (20.0-31.0); Chloride 106 mMol/L (98-107); Creatinine (Component) 0.8 mg/dL (0.6-1.3); Estimated Creatinine Clearance 79.5 mL/min (>60); Free T4 (Free Thyroxine) 1.22 ng/dL (0.89-1.76); Globulin 1.4 gm/dL (2.3-3.5); Glucose 133 mg/dL (74-106); Magnesium 2.0 mg/dL (1.6-2.6); Osmolality,Calculated 286 (275-295); Phosphorous 1.5 mg/dL (2.4-5.1); Potassium 3.2 mMol/L (3.4-5.1); Sodium 142 mMol/L (136-145); Thyroid Stimulating Hormone 0.91 uIU/mL (0.55-4.78); Total Protein 5.3 gm/dL (5.7-8.2); eGFR > 60 See Note
[2025-09-25] MEDS: ONDANSETRON INJ 2 MG/ML INJ 2 ML 4 MG IVP ×2 (08:17→20:49)
--- NOTE | 2025-09-25 08:35 | ESPR_ITS ---
<Statement entered by Benjamin Mireles MD - 09/26/25 17:29> Patient examined and evaluated by me and telemetry floor patient remains in sinus rhythm initially relatively A-fib RVR electrolyte imbalance due to nausea vomiting and other issues patient's clinically doing well blood pressure still elevated started back on her medications. Not have any further episodes of A- fib evaluated patient with resident physician PGY [address] DR[address] GORDON, agree with the treatment plan and agrees as documented Documentation for date of: 09/25/25 Subjective Subjective Interval history: Patient seen and assessed in hospital bed denies having any concerning cardiac symptoms such as chest pain, shortness of breath, palpitations, orthopnea or PND. Patient is currently sinus rhythm and likely spontaneously converted back with treatment of her underlying metabolic derangements which are much improved. Will continue monitoring the patient on telemetry but she will likely not require any medications for atrial fibrillation. Stop trending patient's troponin as elevated troponins likely secondary to acutely ill status, NSTEMI type II. Exam Vital Signs Temp Pulse Resp BP Pulse Ox O2 Del Method O2 Flow Rate 97.8 F 80 25 H 170/85 H 92 L Room Air 6 09/25/25 07:47 09/25/25 07:47 09/25/25 07:47 09/25/25 07:47 09/25/25 07:47 09/25/25 07:47 09/24/25 04:00 Narrative Exam General: Awake, answering questions appropriately, appears stated age Eyes: PERRL, EOMI. Anicteric, vision grossly intact. Ears: No ear pain, no ear discharge, Hearing grossly intact. Nose: No nasal discharge. Mouth/Throat: Moist mucous membranes, no redness, no lesions. Neck: Neck supple, non-tender, no cervical lymphadenopathy. Lungs: Clear BAO to auscultation and percussion, No accessory muscle use. Cardio: Normal S1/S2, regular rhythm, no murmurs, no JVD or carotid bruits. Abdomen: abdomen tender to palpation, no palpable masses, peristalsis present, no guarding or rebound. Extremities: Symmetrical, no significant deformities, no peripheral edema , non-tender, peripheral pulses present. Neuro: A/O x3, No focal neurological deficits. Objective Labs 09/25/25 04:56 09/25/25 04:56 Labs: Laboratory Results - last 24 hr 09/24/25 09/24/25 09/24/25 05:33 14:12 14:17 WBC RBC Hgb Hct MCV MCH MCHC RDW Std Deviation Plt Count Neut % (Auto) Lymph % (Auto) [place] % (Auto) Eos % (Auto) Baso % (Auto) Neut # (Auto) Lymph # (Auto) [place] # (Auto) Eos # (Auto) Baso # (Auto) Immature Gran # (Auto) Absolute Nucleated RBC Immature Gran % Nucleated RBC % APTT 31.1 Sodium 138 Potassium 2.6 L* Chloride 106 Carbon Dioxide 22.8 Anion Gap 9 BUN 20 Creatinine 1.0 Estim Creat Clear Calc 61.7 eGFR > 60 BUN/Creatinine Ratio 20 Glucose 149 H Calculated Osmolality 281 Calcium 6.8 L* D Corrected Calcium 7.3 L D Phosphorus 3.2 Magnesium Total Bilirubin AST ALT Alkaline Phosphatase Troponin I 2.991 H* D Total Protein Albumin 3.4 L D Globulin Albumin/Globulin Ratio TSH Free T4 Ur Collection Type Clean Catch Urine Color Lt-Yellow Urine Clarity Clear Urine pH 6.0 Ur Specific [place] 1.007 Urine Protein Negative Urine Glucose (UA) Negative Urine Ketones Negative Urine Blood Trace Urine Nitrite Negative Urine Bilirubin Negative Urine Urobilinogen (Auto) Negative Ur Leukocyte Esterase Negative Urine RBC 1 Urine WBC 1 Ur Squamous Epith Cells 5 Urine Bacteria None Hyaline Casts < 1 Ur Culture Indicated? Not Indicated 09/24/25 09/24/25 09/25/25 17:00 18:40 04:56 WBC 13.3 H D RBC 5.35 H Hgb 14.3 D Hct 43.1 MCV 81 MCH 26.7 MCHC 33.2 RDW Std Deviation 53.2 H Plt Count 288 D Neut % (Auto) 70 Lymph % (Auto) 21 [place] % (Auto) 8 Eos % (Auto) 0 Baso % (Auto) 0 Neut # (Auto) 9.3 H Lymph # (Auto) 2.8 [place] # (Auto) 1.1 H Eos # (Auto) 0.0 Baso # (Auto) 0.0 Immature Gran # (Auto) 0.07 H Absolute Nucleated RBC 0.00 Immature Gran % 1 H Nucleated RBC % 0 APTT Sodium 137 142 Potassium 3.3 L D 3.2 L Chloride 104 106 Carbon Dioxide 23.8 26.4 Anion Gap 9 10 BUN 16 Creatinine 0.8 Estim Creat Clear Calc 79.5 eGFR > 60 BUN/Creatinine Ratio 20 Glucose 133 H Calculated Osmolality 286 Calcium 8.2 L Corrected Calcium 8.3 L Phosphorus 1.5 L Magnesium 2.0 Total Bilirubin 0.7 D AST 56 H ALT 32 Alkaline Phosphatase 75 D Troponin I 2.834 H* Total Protein 5.3 L Albumin 3.9 D Globulin 1.4 L Albumin/Globulin Ratio 2.8 H TSH 0.91 Free T4 1.22 Ur Collection Type Urine Color Urine Clarity Urine pH Ur Specific [place] Urine Protein Urine Glucose (UA) Urine Ketones Urine Blood Urine Nitrite Urine Bilirubin Urine Urobilinogen (Auto) Ur Leukocyte Esterase Urine RBC Urine WBC Ur Squamous Epith Cells Urine Bacteria Hyaline Casts Ur Culture Indicated? Quality Measures Quality Measures none Assessment & Plan Assessment Current Active Medications: Generic Name Dose Route Start Last Admin Trade Name Freq PRN Reason Stop Dose Admin Acetaminophen 650 mg 09/24/25 02:45 Acetaminophen 325 Mg Tablet PO 10/24/25 02:44 Q6H PRN PAIN SCALE 1-3 (mild Acetaminophen 650 mg 09/24/25 02:45 Acetaminophen 325 Mg Tablet PO 10/24/25 02:44 Q6H PRN Fever >100.4 Hydrocodone Bitart/Acetaminophen 1 tab 09/24/25 02:45 09/25/25 04:57 Hydrocodone/Apap 10/325 Tab PO 09/29/25 02:44 1 tab Q4HR PRN Administration PAIN SCALE 7-10 (Severe Amlodipine Besylate 10 mg 09/25/25 09:00 Amlodipine Besylate 5 Mg Tablet PO 10/25/25 08:59 QDAY AMITA Aspirin 81 mg 09/24/25 09:00 09/24/25 08:35 Aspirin Ec 81 Mg Tabec PO 10/24/25 08:59 81 mg QDAY AMITA Administration Clonidine 0.2 mg 09/24/25 09:00 09/24/25 08:35 Clonidine Hcl 0.1 Mg Tablet PO 10/24/25 08:59 0.2 mg QDAY AMITA Administration Dextrose 25 ml 09/24/25 02:49 Dextrose 50%-Water Inj 50 Ml Syringe IV 10/24/25 02:48 Q15MIN PRN BG 50-70 responsive npo pt Dextrose 50 ml 09/24/25 02:49 Dextrose 50%-Water Inj 50 Ml Syringe IV 10/24/25 02:48 Q15MIN PRN BG <50 OR BG <70 & pt unresponsive Duloxetine HCl 60 mg 09/24/25 09:00 09/24/25 08:36 Duloxetine Hcl 30 Mg Capsule PO 10/24/25 08:59 60 mg QDAY AMITA Administration Gabapentin 400 mg 09/24/25 09:00 09/24/25 20:40 Gabapentin 100 Mg Capsule PO 10/24/25 08:59 400 mg BID AMITA Administration Glucagon 1 mg 09/24/25 02:49 Glucagon Inj 1 Mg Vial IM Q15MIN PRN BG <70, and no IV access Hydralazine HCl 50 mg 09/24/25 17:00 09/25/25 05:00 Hydralazine Hcl 25 Mg Tablet PO 10/24/25 16:59 50 mg QID AMITA Administration Ceftriaxone Sodium/Dextrose 1 gm in 50 mls @ 100 mls/hr 09/24/25 21:00 09/24/25 20:40 Rocephin/D5w 1gm Iv Premix IV 10/01/25 20:59 100 mls/hr QPM AMITA Administration Metronidazole 500 mg in 100 mls @ 200 mls/hr 09/24/25 06:15 09/25/25 05:01 Flagyl 500 Mg Iv IV 10/01/25 06:14 200 mls/hr Q8HR AMITA Administration Insulin Human Lispro 0 unit 09/24/25 17:00 09/25/25 07:45 Insulin Lispro (Admelog) 1 Unit/0.01 Ml Unit SC 10/24/25 16:59 Not Given ACHS AMITA Protocol Meclizine HCl 12.5 mg 09/24/25 03:01 Meclizine Hcl 25 Mg Tablet PO 10/24/25 03:00 BID PRN Vertigo Metoprolol Succinate 100 mg 09/24/25 09:00 09/24/25 20:40 Metoprolol Succinate Xl 25 Mg Tabcr PO 10/24/25 08:59 100 mg BID AMITA Administration Ondansetron HCl 4 mg 09/24/25 02:45 09/25/25 08:17 Ondansetron Inj 2 Mg/Ml Inj 2 Ml IVP 10/24/25 02:44 4 mg Q6HR PRN Administration NAUSEA OR VOMITING Protocol Oxycodone/Acetaminophen 1 tab 09/24/25 02:45 09/24/25 16:48 Oxycodone/Apap 5/325 Tablet PO 09/29/25 02:44 1 tab Q6H PRN Administration PAIN SCALE 4-6 (Moderate Pantoprazole Sodium 40 mg 09/24/25 09:00 09/24/25 08:36 Pantoprazole Inj 40 Mg Vial IVP 10/24/25 08:59 40 mg QDAY AMITA Administration Zolpidem Tartrate 10 mg 09/24/25 22:01 09/24/25 22:17 Zolpidem 5 Mg Tablet PO 10/24/25 22:00 10 mg HS PRN Administration INSOMNIA Plan 53-year-old female PMHx HTN, HLD, CVA, fibromyalgia, admitted for syncopal episode, new onset A-fib with RVR likely in settings of metabolic and infectious derangements. #New Onset AFIB W/RVR, resolved #NSTEMI type II, peaked and downtrending 2?points (hypertension, DM) [id number] Score HAS-BLED score of 1 (hypertension) Atrial fibrillation likely secondary to metabolic derangements Minor elevation in troponin likely secondary to atrial fibrillation ECHO 09/24/25 shows: Left ventricle size is normal and systolic function is normal. Estimated ejection fraction is 65-70%. There is grade I diastolic dysfunction. There is mild concentric hypertrophy noted. Right ventricle chamber size is normal and systolic function is normal. There is trace tricuspid valve regurgitation. Plan: Treat underlying cause No need for anticoagulation or rate/rhythm control medications Monitor patient's electrolytes and replete as necessary Telemetry monitoring for any recurrent A-fib Follow-up with outpatient cardiology clinic if symptoms of shortness of breath, palpitations or chest pain arise #Hypertension, resistant Longstanding history of hypertension Patient on home amlodipine 10 mg p.o. daily, chlorthalidone 12.5 mg p.o. daily, clonidine 0.2 mg p.o. twice daily, hydralazine 50 mg p.o. 4 times daily and metoprolol succinate 100 mg p.o. twice daily Plan: Continue home meds, adjust as needed #Syncope #Sepsis #Proctitis versus colitis #Lactic acidosis (resolved) #Erythrocytosis #Hyperbilirubinemia #Acute transaminitis #NHUNG, likely prerenal #Elevated creatinine kinase #hyponatremia #Hypokalemia #Anion gap metabolic acidosis, likely 2/2 lactic acid #Fibromyalgia #History of CVA Rest of medical problems to be managed by hospitalist team Patient seen and assessed with attending Dr. Chi Gordon, DO PGY-2 Internal Medicine - [facility]
[2025-09-25] MEDS: NAPH,KPH MBDB 1 PACKET (1.5 GM) PO (09:32)
[2025-09-25] MEDS: METOPROLOL SUCCINATE XL 25 MG TABCR 100 MG PO ×2 (09:35→20:36)
[2025-09-25] MEDS: ASPIRIN EC 81 MG TABEC PO (09:36)
[2025-09-25] MEDS: GABAPENTIN 100 MG CAPSULE 400 MG PO ×2 (09:36→20:36)
[2025-09-25] MEDS: DULoxetine HCL 30 MG CAPSULE 60 MG PO (09:37)
--- NOTE | 2025-09-25 09:39 | PC.SS ---
Rounding: On IV ABX, DC plan home when stable
[2025-09-25] MEDS: INSULIN LISPRO (AdmeLOG) 1 UNIT/0.01 ML UNIT SC (11:59)
[2025-09-25] MEDS: POTASSIUM CHLORIDE 10% 20 MEQ/15 ML UDC 40 MEQ PO (12:00)
--- NOTE | 2025-09-25 14:12 | PD.RESCONSUL ---
HPI Data of Consult Consult date: 09/25/25 Requesting Physician: Daniel Malone MD Admitting Provider: Tuan Riddle MD Attending Provider: Daniel Malone MD Primary Care Provider: Physician No Primary/Family Consult Narrative Reason for consult: chronic diarrhea History of present illness: The patient is a 59-year-old female with a past medical history of hypertension, cerebrovascular accident (CVA), hyperlipidemia, and fibromyalgia, who presented to the ED on 09/23/2025 following a syncopal episode. She was admitted with a diagnosis of a syncopal event, new-onset atrial fibrillation with RVR, and sepsis. The patient has a one-year history of chronic diarrhea, which is characterized by one episode of diarrhea per week, with the remaining days marked by constipation. She reports that her last bowel movement was today, which was diarrhea and foamy in nature. Prior to admission, she had not had a bowel movement for approximately one week. Yesterday, she experienced diarrhea associated with diffuse crampy abdominal pain, more pronounced in the lower quadrants. She noted minimal improvement in her abdominal discomfort after bowel movements. Additionally, the patient reports nausea, but no vomiting prior to admission. When vomiting did occur, it consisted of regular food contents. The patient states that she generally adheres to a regular diet but prefers softer, soupy meals. She has difficulty tolerating spicy foods and hard meals. She denies any history of celiac disease, lactose intolerance, irritable bowel syndrome (IBS), or inflammatory bowel disease (IBD). Her most recent colonoscopy, performed approximately 8 years ago, was reported as normal. She denies any history of fever, chills, recent sick contacts, recent antibiotic use, or NSAID use. Review of Systems: Gastrointestinal: Chronic diarrhea, crampy lower abdominal pain, nausea, no vomiting prior to admission. Denies arthritis, rashes, fever, chills, weight loss, or blood in stools. Denies any recent changes in diet or travel history. Family History: Mother breast cancer Surgical History: Hysterectomy, gastric bypass 20 years ago, cholecystectomy. cc:: cc: Daniel Malone MD Exam Vital Signs Temp Pulse Resp BP Pulse Ox O2 Del Method O2 Flow Rate 98.1 F 79 20 149/76 H 97 Room Air 6 09/25/25 12:00 09/25/25 12:00 09/25/25 12:00 09/25/25 12:00 09/25/25 12:00 09/25/25 12:00 09/24/25 04:00 Narrative Exam General: Alert, no acute distress.Conversational and non-toxic appearing. Skin: Warm, dry, intact. No rash or ecchymoses. Head: Normocephalic, atraumatic. Eye: Normal conjunctiva, PERRL. Throat: Oral mucosa moist. No obvious lesions in oropharynx. Cardiovascular: Regular rate and rhythm, no murmur, +S1/S2. Respiratory: Lungs are clear to auscultation, respirations unlabored, no crackles, no wheezing. Gastrointestinal: Soft, nontender, distended. Bowel sound present no guarding or rebound tenderness. Extremities: trace edema, no cyanosis, no clubbing. Neuro: Alert and oriented x3.No focal deficits observed. Conversant, moving all extremities. No overt cerebellar signs/incoordination. Psychiatric: Cooperative, appropriate affect Results Labs 09/26/25 05:38 09/26/25 05:38 Labs: Short CBC 09/25/25 Range/Units 04:56 WBC 13.3 H D (3.6-11.0) Thou/mm3 Hgb 14.3 D (12.0-16.0) g/dL Hct 43.1 (36.0-46.0) % Plt Count 288 D (140-440) Thou/mm3 BMP 09/24/25 09/24/25 09/25/25 14:17 18:40 04:56 Sodium 138 137 142 Potassium 2.6 L* 3.3 L D 3.2 L Chloride 106 104 106 Carbon Dioxide 22.8 23.8 26.4 BUN 20 16 Creatinine 1.0 0.8 Glucose 149 H 133 H Calcium 6.8 L* D 8.2 L Cardiac Enzymes 09/24/25 09/24/25 Range/Units 14:17 17:00 Troponin I 2.991 H* D 2.834 H* (0.0-0.045) ng/mL Liver Function 09/24/25 09/25/25 Range/Units 14:17 04:56 Total Bilirubin 0.7 D (0.3-1.2) mg/dL AST 56 H (0-34) U/L ALT 32 (10-49) U/L Alkaline Phosphatase 75 D (46-116) U/L Albumin 3.4 L D 3.9 D (3.5-5.0) gm/dL Urine 09/24/25 Range/Units 14:12 Urine Color Lt-Yellow (Lt Yel-Yel) Urine Clarity Clear (Clear/Hazy) Urine pH 6.0 (5.0-7.0) Ur Specific Alder 1.007 (1.001-1.035) Urine Protein Negative (Neg - Trace) Urine Glucose (UA) Negative (Negative) Quality Measures Quality Measures none Medications Home Medications and Allergies Home Medications ?Medication ?Instructions ?Recorded ?Confirmed ?Type amlodipine 5 mg tablet 10 mg PO QDAY 08/05/19 09/24/25 History hydrocodone 7.5 mg-acetaminophen 1 tab PO Q6H PRN Pain (Scale Score 08/05/19 09/24/25 History 325 mg tablet 7-10) meclizine 12.5 mg tablet 25 mg PO BID PRN Vertigo 08/05/19 09/24/25 History metoprolol succinate 100 mg 100 mg PO BID 08/05/19 09/24/25 History tablet,extended release 24 hr aspirin 81 mg tablet,delayed 81 mg PO QDAY 08/31/23 09/24/25 History release clonidine HCl 0.2 mg tablet 0.2 mg PO Q12H 08/31/23 09/24/25 History duloxetine 60 mg capsule,delayed 60 mg PO QDAY 08/31/23 09/24/25 History release (Cymbalta) estradiol 0.5 mg tablet 1 mg PO QDAY 08/31/23 09/24/25 History metformin 500 mg tablet 500 mg PO QDAY 08/31/23 09/24/25 History omeprazole 20 mg capsule,delayed 20 mg PO QDAY 08/31/23 09/24/25 History release chlorthalidone 12.5 mg tablet 12.5 mg PO QDAY 09/24/25 09/24/25 History (Hemiclor) hydralazine 50 mg tablet 50 mg PO 4XD 09/24/25 09/24/25 History multivitamin (Daily Multi-Vitamin 1 tab PO QDAY 09/24/25 09/24/25 History tablet) tizanidine 4 mg tablet 4 mg PO TID 09/24/25 09/24/25 History zolpidem 10 mg tablet 10 mg PO QHSPRN PRN insomnia 09/24/25 09/24/25 History Allergies Allergy/AdvReac Type Severity Reaction Status Date / Time bupropion (From Wellbutrin) Allergy Severe Swelling Verified 08/31/23 11:17 of Lip/Tongue/Throat sumatriptan (From Imitrex) Allergy Severe Swelling Verified 08/31/23 11:17 of Lip/Tongue/Throat atenolol Allergy Intermediate Rash Verified 08/31/23 11:17 latex Allergy Rash Verified 08/31/23 11:17 Visit Medications Acetaminophen (Acetaminophen 325 Mg Tablet) 650 mg PO Q6H PRN PRN Reason: PAIN SCALE 1-3 (mild Stop: 10/24/25 02:44 Acetaminophen (Acetaminophen 325 Mg Tablet) 650 mg PO Q6H PRN PRN Reason: Fever >100.4 Stop: 10/24/25 02:44 Hydrocodone Bitart/Acetaminophen (Hydrocodone/Apap 10/325 Tab) 1 tab PO Q4HR PRN PRN Reason: PAIN SCALE 7-10 (Severe Stop: 09/29/25 02:44 Last Admin: 09/25/25 04:57 Dose: 1 tab Amlodipine Besylate (Amlodipine Besylate 5 Mg Tablet) 10 mg PO QDAY [facility] Stop: 10/25/25 08:59 Last Admin: 09/25/25 09:36 Dose: 10 mg Aspirin (Aspirin Ec 81 Mg Tabec) 81 mg PO QDAY [facility] Stop: 10/24/25 08:59 Last Admin: 09/25/25 09:36 Dose: 81 mg Clonidine (Clonidine Hcl 0.1 Mg Tablet) 0.2 mg PO QDAY [facility] Stop: 10/24/25 08:59 Last Admin: 09/25/25 09:36 Dose: 0.2 mg Dextrose (Dextrose 50%-Water Inj 50 Ml Syringe) 25 ml IV Q15MIN PRN PRN Reason: BG 50-70 responsive npo pt Stop: 10/24/25 02:48 Dextrose (Dextrose 50%-Water Inj 50 Ml Syringe) 50 ml IV Q15MIN PRN PRN Reason: BG <50 OR BG <70 & pt unresponsive Stop: 10/24/25 02:48 Duloxetine HCl (Duloxetine Hcl 30 Mg Capsule) 60 mg PO QDAY [facility] Stop: 10/24/25 08:59 Last Admin: 09/25/25 09:37 Dose: 60 mg Gabapentin (Gabapentin 100 Mg Capsule) 400 mg PO BID [facility] Stop: 10/24/25 08:59 Last Admin: 09/25/25 09:36 Dose: 400 mg Glucagon (Glucagon Inj 1 Mg Vial) 1 mg IM Q15MIN PRN PRN Reason: BG <70, and no IV access Hydralazine HCl (Hydralazine Hcl 25 Mg Tablet) 50 mg PO QID [facility] Stop: 10/24/25 16:59 Last Admin: 09/25/25 12:00 Dose: 50 mg Ceftriaxone Sodium/Dextrose (Rocephin/D5w 1gm Iv Premix) 1 gm in 50 mls @ 100 mls/hr IV QPM [facility] Stop: 10/01/25 20:59 Last Admin: 09/24/25 20:40 Dose: 100 mls/hr Metronidazole (Flagyl 500 Mg Iv) 500 mg in 100 mls @ 200 mls/hr IV Q8HR [facility] Stop: 10/01/25 06:14 Last Admin: 09/25/25 13:55 Dose: 200 mls/hr Insulin Human Lispro (Insulin Lispro (Admelog) 1 Unit/0.01 Ml Unit) 0 unit SC [facility]; Protocol Stop: 10/24/25 16:59 Last Admin: 09/25/25 11:59 Dose: 1 unit Meclizine HCl (Meclizine Hcl 25 Mg Tablet) 12.5 mg PO BID PRN PRN Reason: Vertigo Stop: 10/24/25 03:00 Metoprolol Succinate (Metoprolol Succinate Xl 25 Mg Tabcr) 100 mg PO BID [facility] Stop: 10/24/25 08:59 Last Admin: 09/25/25 09:35 Dose: 100 mg Ondansetron HCl (Ondansetron Inj 2 Mg/Ml Inj 2 Ml) 4 mg IVP Q6HR PRN; Protocol PRN Reason: NAUSEA OR VOMITING Stop: 10/24/25 02:44 Last Admin: 09/25/25 08:17 Dose: 4 mg Oxycodone/Acetaminophen (Oxycodone/Apap 5/325 Tablet) 1 tab PO Q6H PRN PRN Reason: PAIN SCALE 4-6 (Moderate Stop: 09/29/25 02:44 Last Admin: 09/24/25 16:48 Dose: 1 tab Pantoprazole Sodium (Pantoprazole 40 Mg Tablet) 40 mg PO QDAY [facility] Stop: 10/26/25 08:59 Zolpidem Tartrate (Zolpidem 5 Mg Tablet) 10 mg PO HS PRN PRN Reason: INSOMNIA Stop: 10/24/25 22:00 Last Admin: 09/24/25 22:17 Dose: 10 mg Discontinued Medications Amlodipine Besylate (Amlodipine Besylate 5 Mg Tablet) 5 mg PO QDAY [facility] Stop: 10/24/25 08:59 Last Admin: 09/24/25 08:35 Dose: 5 mg Apixaban (Apixaban 2.5 Mg Tablet) 5 mg PO X1 ONE Stop: 09/24/25 00:28 Last Admin: 09/24/25 01:33 Dose: 5 mg Apixaban (Apixaban 2.5 Mg Tablet) 5 mg PO BID [facility] Stop: 10/24/25 08:59 Calcium Carbonate (Calcium Carbonate 600 Mg Tablet) 600 mg PO BID [facility] Stop: 10/24/25 20:59 Last Admin: 09/24/25 20:40 Dose: 600 mg Diltiazem HCl (Diltiazem Inj 5 Mg/Ml Vial 5 Ml) 10 mg IV Q15MIN PRN PRN Reason: A fib RVR Stop: 10/23/25 23:09 Last Admin: 09/24/25 01:33 Dose: 10 mg Diltiazem HCl (Diltiazem Er 90 Mg Er Capsule) 120 mg PO X1 ONE Stop: 09/24/25 02:52 Last Admin: 09/24/25 04:30 Dose: Not Given Diltiazem HCl (Diltiazem Er 90 Mg Er Capsule) 90 mg PO X1 ONE Stop: 09/24/25 02:52 Last Admin: 09/24/25 07:49 Dose: 90 mg Enalapril Maleate (Enalapril Maleate 2.5 Mg Tablet) 2.5 mg PO QDAY [facility] Stop: 10/24/25 08:59 Fentanyl Citrate (Fentanyl Cit Inj 50 Mcg/Ml Amp 2ml) 25 mcg IVP X1 ONE Stop: 09/23/25 23:57 Last Admin: 09/24/25 00:24 Dose: 25 mcg Glucagon (Glucagon Inj 1 Mg Vial) 1 mg IM Q15MIN PRN PRN Reason: BG <70, and no IV access Heparin Sodium (Porcine) (Heparin Sod Inj 5000 Unit/Ml Vial) 4,000 unit IV X1 ONE Stop: 09/24/25 09:01 Last Admin: 09/24/25 11:18 Dose: 4,000 unit Hydralazine HCl (Hydralazine Inj 20 Mg/Ml Vial) 10 mg IVP X1 ONE Stop: 09/24/25 15:29 Last Admin: 09/24/25 15:48 Dose: 10 mg Sodium Chloride (Ns) 1,000 mls @ 999 mls/hr IV .Q1H1M ONE Stop: 09/23/25 23:47 Last Infusion: 09/24/25 00:11 Dose: Infused Ceftriaxone Sodium/Dextrose (Rocephin/D5w 1gm Iv Premix) 1 gm in 50 mls @ 100 mls/hr IV X1 ONE Stop: 09/24/25 00:26 Last Infusion: 09/24/25 00:54 Dose: Infused Metronidazole (Flagyl 500 Mg Iv) 500 mg in 100 mls @ 100 mls/hr IV X1 ONE Stop: 09/24/25 00:56 Last Infusion: 09/24/25 01:43 Dose: Infused Diltiazem/Sodium Chloride (Diltiazem In Ns 100 Mg) 100 mg in 100 mls @ 5 mls/hr IV .Q20H [facility] Last Admin: 09/24/25 01:34 Dose: 5 mg/hr, 5 mls/hr Potassium Chloride (Kcl Ivpb) 10 meq in 100 mls @ 100 mls/hr IV Q1H [facility] Stop: 09/24/25 06:44 Last Admin: 09/24/25 08:28 Dose: 60 mls/hr Magnesium Sulfate (Magnesium Sulfate Ivpb) 2 gm in 50 mls @ 25 mls/hr IV X1 ONE Stop: 09/24/25 04:33 Last Admin: 09/24/25 03:29 Dose: 25 mls/hr Doxycycline Hyclate 100 mg/ (Sodium Chloride) 100 mls @ 100 mls/hr IV BID [facility] Stop: 10/01/25 06:14 Last Admin: 09/24/25 06:32 Dose: 100 mls/hr Sodium Chloride (Ns) 1,000 mls @ 999 mls/hr IV .Q1H1M ONE Stop: 09/24/25 03:41 Last Admin: 09/24/25 04:22 Dose: Not Given Sodium Chloride (Ns) 1,000 mls @ 999 mls/hr IV .Q1H1M ONE Stop: 09/24/25 03:42 Last Admin: 09/24/25 04:21 Dose: 999 mls/hr Sodium Chloride (Ns) 500 mls @ 999 mls/hr IV .Q31M ONE Stop: 09/24/25 03:13 Last Admin: 09/24/25 04:24 Dose: 999 mls/hr Sodium Chloride (Ns) 1,000 mls @ 250 mls/hr IV .Q4H [facility] Stop: 10/24/25 02:59 Last Admin: 09/25/25 05:04 Dose: 250 mls/hr Potassium Chloride (Kcl Ivpb) 10 meq in 100 mls @ 100 mls/hr IV Q1H [facility] Stop: 09/24/25 12:12 Last Admin: 09/24/25 15:48 Dose: 60 mls/hr Heparin Sodium/Dextrose (Heparin In D5w Ivpb) 25,000 unit in 250 mls @ 10 mls/hr IV .Q24H [facility]; Protocol Stop: 10/08/25 08:14 Last Titration: 09/24/25 14:00 Dose: 0 units/kg/hr, 0 mls/hr Influenza Virus Vaccine Quadrival (Influenza Virus 0.5 Ml Syringe 5-) 0.5 ml IMi .ONCE ONE Stop: 09/24/25 04:57 Insulin Human Lispro (Insulin Lispro (Admelog) 1 Unit/0.01 Ml Unit) 0 unit SC [facility]; Protocol Stop: 10/24/25 07:29 Insulin Human Lispro (Insulin Lispro (Admelog) 1 Unit/0.01 Ml Unit) 0 unit SC Q6HR [facility]; Protocol Stop: 10/24/25 06:14 Last Admin: 09/24/25 06:38 Dose: Not Given Metoclopramide HCl (Metoclopramide Inj 5 Mg/Ml Vial 2 Ml) 5 mg IVP X1 ONE; Protocol Stop: 09/24/25 02:35 Last Admin: 09/24/25 03:28 Dose: 5 mg Morphine Sulfate (Morphine Sulf Inj 4 Mg/Ml Vial) 4 mg IVP X1 ONE Stop: 09/23/25 23:54 Last Admin: 09/23/25 23:57 Dose: Not Given Ondansetron HCl (Ondansetron Inj 2 Mg/Ml Inj 2 Ml) 4 mg IVP X1 ONE; Protocol Stop: 09/23/25 23:54 Last Admin: 09/24/25 00:30 Dose: 4 mg Pantoprazole Sodium (Pantoprazole Inj 40 Mg Vial) 40 mg IVP QDAY [facility] Stop: 10/24/25 08:59 Last Admin: 09/25/25 09:33 Dose: 40 mg Potassium Chloride (Potassium Chloride 10% 20 Meq/15 Ml Udc) 40 meq PO X1 ONE Stop: 09/24/25 08:13 Last Admin: 09/24/25 08:58 Dose: 40 meq Potassium Chloride (Potassium Chloride 20 Meq Tabcr) 40 meq PO X1 ONE Stop: 09/24/25 16:47 Last Admin: 09/24/25 17:31 Dose: 40 meq Potassium Chloride (Potassium Chloride 20 Meq Tabcr) 40 meq PO X1 ONE Stop: 09/24/25 19:51 Last Admin: 09/24/25 21:01 Dose: 40 meq Potassium Chloride (Potassium Chloride 20 Meq Tabcr) 40 meq PO X1 ONE Stop: 09/25/25 07:58 Last Admin: 09/25/25 09:36 Dose: 40 meq Potassium Chloride (Potassium Chloride 10% 20 Meq/15 Ml Udc) 40 meq PO X1 ONE Stop: 09/25/25 12:01 Last Admin: 09/25/25 12:00 Dose: 40 meq Potassium Phos/Sodium Phos ([facility] Mbdb 1 Packet (1.5 Gm)) 1 packet PO X1 ONE Stop: 09/25/25 07:59 Last Admin: 09/25/25 09:32 Dose: 1 packet Scopolamine (Scopolamine 1.5 Mg Patch.Td.3) 1.5 mg TD X1 ONE Stop: 09/24/25 21:47 Scopolamine (Scopolamine 1 Mg Tdsy) 1 mg TOP Q3D ONE Stop: 09/24/25 22:16 Last Admin: 09/24/25 22:21 Dose: 1 mg Assessment & Plan Plan This is a 53-year-old female PMHx HTN, HLD, CVA, fibromyalgia, admitted for syncopal episode, new onset A-fib with RVR likely in settings of sepsis. GI consulted for evaluation chronic diarrhea Chronic diarrhea with alternating constipation Overflow incontinence ?Inflammatory bowel syndrome, mixed DDX: IBD vs celiac disease vs lactose intolerance vs Patient presented with a 1 year history of chronic diarrhea once per week and the remainder of the days constipation. Suspicion for mixed inflammatory bowel syndrome given the abdominal pain described as crampy lower quadrant discomfort with alternating bowel habits of diarrhea (loose stools with mucus per pt) and constipation, and worsening trigger with spicy food. Patient denies autoimmune disorder and history of lactose intolerance, she says she can tolerate milk and dairy food, for which it does not exacerbate her symptoms - KUB ordered, pending result - Consider further stool studies if symptoms persist or worsen - Plan for colonoscopy outpatient, however depending on KUB findings colonoscopy may be done inpatient - Recommend low FODMAP soft easy digestible diet given the preference for supplements and intolerance to spicy/hard foods #Syncope and Fall - Orthostatic Hypotension #New Onset Paroxysmal AFIB W/RVR in the setting of severe electrolyte imbalance, Hypokalemia - resolved #NSTEMI, likely type II #NHUNG, likely prerenal vs ATN #Elevated creatinine kinase #Mild hyponatremia, resolved #Hypokalemia #Anion gap metabolic acidosis, likely 2/2 lactic acid, resolved #Erythrocytosis #Hyperbilirubinemia, likely transient #Acute transaminitis, likely transient #History of CVA 2021 #Resistant hypertension #Fibromyalgia -Continue management per primary team recommendation Patient seen and assessed under supervision of attending physician Dr.Kumar Marilu Cabezas MD PGY-1, Internal Medicine Please note: this document was transcribed using voice recognition technology; minor inaccuracies may be present. Attending Provider Attestation/Addendum Patient personally examined by me went over laboratory data as well as the imaging studies Case discussed in detail with the internal medicine resident Care plan formulated And the plan is to get a KUB to make sure there is no stool impaction We will consider doing a fiberoptic colonoscopy prior to discharge once the cardiac status is stabilized Thank you for the opportunity to participate in the care of this patient
--- NOTE | 2025-09-25 14:28 | XR_ITS ---
Examination: Abdomen AP single view Technique: AP portable supine abdomen, single view Exam date and time: September 25, 2025, 1435 hours INDICATIONS: Chronic diarrhea FINDINGS: Nonobstructive bowel gas pattern Surgical clips central upper abdomen No free air The osseous structures intact IMPRESSION: Nonobstructive bowel gas pattern
--- NOTE | 2025-09-25 15:47 | ESPR_ITS ---
<Statement entered by Daniel Malone MD - 10/09/25 15:17> I reviewed above note and agree with findings and plans. I have also personally examined the patient with medicine team and went over assessment and plan with medical team including hospitality internship and resident physician. Documentation for date of: 09/25/25 Subjective Subjective Interval history: Patient is seen and examined at bedside. No acute overnight event. No further episodes of A-fib noted. Patient reported that she is feeling more weak as of today otherwise complaining of nausea and dry heaves without any vomitings as of now Labs done this morning showed potassium of 3.2 which was repleted with 40 mill equivalents of potassium in the morning and 40 more milliequivalents of potassium in the afternoon Consulted developer relations manager, Dr. Galdamez for intractable nausea and vomiting Exam Vital Signs Temp Pulse Resp BP Pulse Ox O2 Del Method O2 Flow Rate 98.1 F 79 20 149/76 H 97 Room Air 6 09/25/25 12:00 09/25/25 12:00 09/25/25 12:00 09/25/25 12:00 09/25/25 12:00 09/25/25 12:00 09/24/25 04:00 Narrative Exam General: Awake. HEENT: Normocephalic, atraumatic, mucous membranes moist. Heart: Regular rate and rhythm, no murmurs. Lungs: Clear to auscultation with no wheezing or crackles. Abdomen: Soft, nondistended, nontender, positive bowel sounds. ?No guarding or rebound tenderness. Neurologic: Alert and oriented x3, no gross neurological deficit, and patient able to move all 4 extremities. Extremities: Noted 1+ pitting bilateral pedal edema and redness on right lower extremity. Skin: No rash or ecchymoses. Objective Labs 09/25/25 04:56 09/25/25 04:56 Labs: Laboratory Results - last 24 hr 09/24/25 09/24/25 09/25/25 17:00 18:40 04:56 WBC 13.3 H D RBC 5.35 H Hgb 14.3 D Hct 43.1 MCV 81 MCH 26.7 MCHC 33.2 RDW Std Deviation 53.2 H Plt Count 288 D Neut % (Auto) 70 Lymph % (Auto) 21 [place] % (Auto) 8 Eos % (Auto) 0 Baso % (Auto) 0 Neut # (Auto) 9.3 H Lymph # (Auto) 2.8 [place] # (Auto) 1.1 H Eos # (Auto) 0.0 Baso # (Auto) 0.0 Immature Gran # (Auto) 0.07 H Absolute Nucleated RBC 0.00 Immature Gran % 1 H Nucleated RBC % 0 Sodium 137 142 Potassium 3.3 L D 3.2 L Chloride 104 106 Carbon Dioxide 23.8 26.4 Anion Gap 9 10 BUN 16 Creatinine 0.8 Estim Creat Clear Calc 79.5 eGFR > 60 BUN/Creatinine Ratio 20 Glucose 133 H Calculated Osmolality 286 Calcium 8.2 L Corrected Calcium 8.3 L Phosphorus 1.5 L Magnesium 2.0 Total Bilirubin 0.7 D AST 56 H ALT 32 Alkaline Phosphatase 75 D Troponin I 2.834 H* Total Protein 5.3 L Albumin 3.9 D Globulin 1.4 L Albumin/Globulin Ratio 2.8 H TSH 0.91 Free T4 1.22 Quality Measures Quality Measures none Assessment & Plan Assessment Current Active Medications: Generic Name Dose Route Start Last Admin Trade Name Freq PRN Reason Stop Dose Admin Acetaminophen 650 mg 09/24/25 02:45 Acetaminophen 325 Mg Tablet PO 10/24/25 02:44 Q6H PRN PAIN SCALE 1-3 (mild Acetaminophen 650 mg 09/24/25 02:45 Acetaminophen 325 Mg Tablet PO 10/24/25 02:44 Q6H PRN Fever >100.4 Hydrocodone Bitart/Acetaminophen 1 tab 09/24/25 02:45 09/25/25 04:57 Hydrocodone/Apap 10/325 Tab PO 09/29/25 02:44 1 tab Q4HR PRN Administration PAIN SCALE 7-10 (Severe Amlodipine Besylate 10 mg 09/25/25 09:00 09/25/25 09:36 Amlodipine Besylate 5 Mg Tablet PO 10/25/25 08:59 10 mg QDAY AMITA Administration Aspirin 81 mg 09/24/25 09:00 09/25/25 09:36 Aspirin Ec 81 Mg Tabec PO 10/24/25 08:59 81 mg QDAY AMITA Administration Clonidine 0.2 mg 09/24/25 09:00 09/25/25 09:36 Clonidine Hcl 0.1 Mg Tablet PO 10/24/25 08:59 0.2 mg QDAY AMITA Administration Dextrose 25 ml 09/24/25 02:49 Dextrose 50%-Water Inj 50 Ml Syringe IV 10/24/25 02:48 Q15MIN PRN BG 50-70 responsive npo pt Dextrose 50 ml 09/24/25 02:49 Dextrose 50%-Water Inj 50 Ml Syringe IV 10/24/25 02:48 Q15MIN PRN BG <50 OR BG <70 & pt unresponsive Duloxetine HCl 60 mg 09/24/25 09:00 09/25/25 09:37 Duloxetine Hcl 30 Mg Capsule PO 10/24/25 08:59 60 mg QDAY AMITA Administration Gabapentin 400 mg 09/24/25 09:00 09/25/25 09:36 Gabapentin 100 Mg Capsule PO 10/24/25 08:59 400 mg BID AMITA Administration Glucagon 1 mg 09/24/25 02:49 Glucagon Inj 1 Mg Vial IM Q15MIN PRN BG <70, and no IV access Hydralazine HCl 50 mg 09/24/25 17:00 09/25/25 12:00 Hydralazine Hcl 25 Mg Tablet PO 10/24/25 16:59 50 mg QID AMITA Administration Ceftriaxone Sodium/Dextrose 1 gm in 50 mls @ 100 mls/hr 09/24/25 21:00 09/24/25 20:40 Rocephin/D5w 1gm Iv Premix IV 10/01/25 20:59 100 mls/hr QPM AMITA Administration Metronidazole 500 mg in 100 mls @ 200 mls/hr 09/24/25 06:15 09/25/25 13:55 Flagyl 500 Mg Iv IV 10/01/25 06:14 200 mls/hr Q8HR AMITA Administration Insulin Human Lispro 0 unit 09/24/25 17:00 09/25/25 11:59 Insulin Lispro (Admelog) 1 Unit/0.01 Ml Unit SC 10/24/25 16:59 1 unit ACHS AMITA Administration Protocol Meclizine HCl 12.5 mg 09/24/25 03:01 Meclizine Hcl 25 Mg Tablet PO 10/24/25 03:00 BID PRN Vertigo Metoprolol Succinate 100 mg 09/24/25 09:00 09/25/25 09:35 Metoprolol Succinate Xl 25 Mg Tabcr PO 10/24/25 08:59 100 mg BID AMITA Administration Ondansetron HCl 4 mg 09/24/25 02:45 09/25/25 08:17 Ondansetron Inj 2 Mg/Ml Inj 2 Ml IVP 10/24/25 02:44 4 mg Q6HR PRN Administration NAUSEA OR VOMITING Protocol Oxycodone/Acetaminophen 1 tab 09/24/25 02:45 09/24/25 16:48 Oxycodone/Apap 5/325 Tablet PO 09/29/25 02:44 1 tab Q6H PRN Administration PAIN SCALE 4-6 (Moderate Pantoprazole Sodium 40 mg 09/26/25 09:00 Pantoprazole 40 Mg Tablet PO 10/26/25 08:59 QDAY AMITA Zolpidem Tartrate 10 mg 09/24/25 22:01 09/24/25 22:17 Zolpidem 5 Mg Tablet PO 10/24/25 22:00 10 mg HS PRN Administration INSOMNIA Plan This is a 53-year-old female PMHx HTN, HLD, CVA, fibromyalgia, admitted for syncopal episode, new onset A-fib with RVR likely in settings of sepsis. #Syncope and Fall - Orthostatic Hypotension #New Onset Paroxysmal AFIB W/RVR in the setting of severe electrolyte imbalance, Hypokalemia - resolved #2/2 Intractable nausea and vomiting -Presented with a syncopal episode that occurred on the day of admission. -She reports symptoms of palpitations are true with the episode, evidently she was out for more than 6 hours and was unable to pick her self up. -She also endorses chronic dizziness and lightheadedness which has worsened over the last several days, given her vomiting and decreased oral intake. She denied head trauma. -She follows up with Dr. Mireles, she is unaware of having any sort of arrhythmia in the past. She is on multiple ANTIHYPERTENSIVE for resistant hypertension as listed below as well as METOPROLOL XL which she takes regularly. -She had a normal cath showing nonischemic findings recently. -Potassium at the time of admission is 2.4 -EKG on admission shows A-fib with RVR, HR 148 for which DILTIAZEM was started with improvement in heart rate. A-fib likely in settings of acute illness, electrolyte abnormalities, and fluid losses as described elsewhere. -ECHO - Left ventricle size is normal and systolic function is normal. Estimated ejection fraction is 65-70%. There is grade I diastolic dysfunction. There is mild concentric hypertrophy noted. Right ventricle chamber size is normal and systolic function is normal. There is trace tricuspid valve regurgitation. Plan - Discontinued DILTIAZEM - Continue METOPROLOL 100 mg XL BID, home medication - Will monitor renal functions and electrolytes - Replete as needed - Will repeat orthostatic vitals as needed - Chief Of Internal Medicine, Dr. Mireles is consulted and will appreciate his recommendations - Telemetry monitoring #NSTEMI, likely type II Troponin 0.600 on admission, likely demand ischemia. She denies chest pain. No relevant EKG changes. Repeat troponin up trended to 4.826 ? Trending troponin ? Treating underlying cause - Chief Of Internal Medicine, Dr. Mireles is consulted and recommended to discontinue Heparin drip as it is likely Type II and patient underwent extensive cardiac workup in the last three months #NHUNG, likely prerenal in the setting of Dehydration due to vomitings, resolved #Elevated creatinine kinase #Mild hyponatremia, resolved #Hypokalemia, resolving #Anion gap metabolic acidosis, likely 2/2 lactic acid, resolved At the time of admission, Creatinine 1.4, GFR 43, BUN 39 with previously normal renal function. Likely she had NHUNG in settings of hypoperfusion. CK elevated in setting of her fall, low the threshold for rhabdomyolysis. At the time of admission, Hyponatremia of 122 and potassium 2.5, likely in settings of GI losses and poor oral intake. She also had an anion gap of 18, likely in setting of lactic acidosis above. 09/24, Potassium is 2.5 and Na 136, Lactate 1.5 ---> 11/10, K is 3.2, Na 142 Plan ? Repleted with potassium 80 mEq of oral potassium ? Renally dose meds, avoid overdiuresis and NEPHROTOXINS ? Daily CMP ? Continue NS maintenance ? Replete electrolyte as needed #Lactic acidosis (resolved) -Lactate at the time of admission is 3.9, after giving fluids downtrended to 1.5 #Hyperbilirubinemia, likely transient #Acute transaminitis, likely transient Admission Hgb 19.9, improved to 16.6 with IVF's. TB 3.5.5, AST 121, likely in settings of dehydration, low suspicion for biliary pathology Liver USD did not show any significant abnormality ? Daily labs #Resistant hypertension On multiple medications including AMLODIPINE, CLONIDINE, ENALAPRIL and METOPROLOL. BP elevated on presentation, however she hasn't been able to take her pills given her nausea and vomiting. Reports her blood pressure overall not greatly controlled. ? Continue home meds ? 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 Currently she is on ASPIRIN daily and follows up with Dr. Flowers. ? Head CT - No e/o acute infarct or bleed #Fibromyalgia ? Continue home DULOXETINE ? Continue home GABAPENTIN 40 mg BID Health maintenance Diet: Cardiac GI prophylaxis: PROTONIX DVT prophylaxis: Lovenox Antibiotics: CEFTRIAXONE, FLAGYL CODE STATUS: DNR Disposition: Admitted for new onset A-fib, NHUNG Patient plan of care was discussed with the attending physician, Dr. Kira Romano, PGY2
[2025-09-25] MEDS: cefTRIAXone/D5w 1gm IV premix 1 GM/50 ML BAG IV (20:37)
[2025-09-25] MEDS: ZOLPIDEM 5 MG TABLET 10 MG PO (23:49)
[2025-09-26] VITALS (14 sets, daily range): BP systolic 151–177; BP diastolic 70–98; PULSE 67–91; RESP 14–24; TEMP 36.1–37.1; O2SAT 94–98; BMI 37.9
[2025-09-26] MEDS: metroNIDAZOLE/NS 500 MG IVPB 500 MG/100 ML BAG 200 MG IV ×2 (05:33→13:50)
[2025-09-26 06:27] LABS: Basophils # (Auto) 0.0 Thou/mm3 (0.0-0.2); Basophils % (Auto) 0 % (0-2.5); Eosinophils # (Auto) 0.2 Thou/mm3 (0.0-0.5); Eosinophils % (Auto) 2 % (0-10); Hematocrit 40.2 % (36.0-46.0); Hemoglobin 13.4 g/dL (12.0-16.0); Immature Granulocytes Auto 0.05 Thou/mm3 (0.00-0.00); Lymphocytes # (Auto) 3.8 Thou/mm3 (1.0-4.8); Lymphocytes % (Auto) 35 % (10-50); Mean Corpuscular HGB Conc 33.3 g/dl (31.0-37.0); Mean Corpuscular Hemoglobin 26.9 pg (25.0-35.0); Mean Corpuscular Volume 81 fL (80-100); Monocytes # (Auto) 1.1 Thou/mm3 (0.0-0.8); Monocytes % (Auto) 10 % (0-12); Neutrophils # (Auto) 5.7 Thou/mm3 (1.8-7.7); Neutrophils % (Auto) 52 % (37-80); Nucleated Red Blood Cell # 0.00 Thou/mm3 (0.00-0.00); Nucleated Red Blood Cell % 0 /100 WBC (0); Platelet Count 306 Thou/mm3 (140-440); RDW Standard Deviation 53.1 fL (36.4-46.3); Red Blood Count 4.99 Miln/mm3 (4.00-5.20); White Blood Count 10.9 Thou/mm3 (3.6-11.0)
[2025-09-26 06:41] LABS: INR 1.0 (0.9-1.3); Partial Thromboplastin Time 25.3 Seconds (22.0-36.0); Prothrombin Time 10.3 Seconds (9.0-12.2)
[2025-09-26 06:46] LABS: Alanine Aminotransferase 27 U/L (10-49); Albumin, Serum 3.8 gm/dL (3.5-5.0); Albumin/Globulin Ratio 2.9 (1.2-2.2); Alkaline Phosphatase 67 U/L (46-116); Anion Gap 7 (7-16); Aspartate Amino Transferase 35 U/L (0-34); BUN/Creatinine Ratio 23 Ratio (12-20); Bilirubin,Total 0.5 mg/dL (0.3-1.2); Blood Urea Nitrogen 16 mg/dL (9-23); Calcium 8.9 mg/dL (8.3-10.6); Calcium (Corrected) 9.1 mg/dL (8.5-10.1); Carbon Dioxide 31.7 mMol/L (20.0-31.0); Chloride 101 mMol/L (98-107); Creatinine (Component) 0.7 mg/dL (0.6-1.3); Estimated Creatinine Clearance 90.2 mL/min (>60); Globulin 1.3 gm/dL (2.3-3.5); Glucose 133 mg/dL (74-106); Magnesium 1.4 mg/dL (1.6-2.6); Osmolality,Calculated 282 (275-295); Phosphorous 1.5 mg/dL (2.4-5.1); Potassium 3.8 mMol/L (3.4-5.1); Sodium 140 mMol/L (136-145); Total Protein 5.1 gm/dL (5.7-8.2); eGFR > 60 See Note
--- NOTE | 2025-09-26 08:22 | ESPR_ITS ---
<Statement entered by Benjamin Mireles MD - 09/26/25 17:10> I personally examined evaluated this patient who is admitted to hospital with multiple problems A-fib RVR due to sepsis and infection patient's had one-time episode A-fib RVR back to normal sinus rhythm no need for anticoagulation patient continues to feel well except blood pressure is slightly high multiple medications given except no MYKEL ARB patient would recommend continue medical management will continue to monitor for A-fib started on valsartan 160 mg twice daily for ARB no contraindication for this. Agree with the treatment plan recommendation as documented by PGY 1 Dr. Luis Enrique Coffey Documentation for date of: 09/26/25 Subjective Subjective Interval history: Patient seen and examined at bedside today; no acute events overnight. Still having nausea and abdominal pain. BP 177/87 today; not on MYKEL/ARB/ARNI currently. Exam Vital Signs Temp Pulse Resp BP Pulse Ox O2 Del Method O2 Flow Rate 98.7 F 80 14 177/87 H 95 Room Air 6 09/26/25 08:00 09/26/25 08:00 09/26/25 08:00 09/26/25 08:00 09/26/25 08:00 09/26/25 08:00 09/24/25 04:00 Narrative Exam General: Awake, answering questions appropriately, appears stated age Eyes: PERRL, EOMI. Anicteric, vision grossly intact. Ears: No ear pain, no ear discharge, Hearing grossly intact. Nose: No nasal discharge. Mouth/Throat: Moist mucous membranes, no redness, no lesions. Neck: Neck supple, non-tender, no cervical lymphadenopathy. Lungs: Clear BAO to auscultation and percussion, No accessory muscle use. Cardio: Normal S1/S2, regular rhythm, no murmurs, no JVD or carotid bruits. Abdomen: abdomen tender to palpation, no palpable masses, peristalsis present, no guarding or rebound. Extremities: Symmetrical, no significant deformities, no peripheral edema , non-tender, peripheral pulses present. Neuro: A/O x3, No focal neurological deficits. Objective Labs 09/26/25 05:38 09/26/25 05:38 Labs: Laboratory Results - last 24 hr 09/26/25 05:38 WBC 10.9 RBC 4.99 Hgb 13.4 Hct 40.2 MCV 81 MCH 26.9 MCHC 33.3 RDW Std Deviation 53.1 H Plt Count 306 Neut % (Auto) 52 Lymph % (Auto) 35 [place] % (Auto) 10 Eos % (Auto) 2 Baso % (Auto) 0 Neut # (Auto) 5.7 Lymph # (Auto) 3.8 [place] # (Auto) 1.1 H Eos # (Auto) 0.2 Baso # (Auto) 0.0 Immature Gran # (Auto) 0.05 H Absolute Nucleated RBC 0.00 Immature Gran % 1 H Nucleated RBC % 0 PT 10.3 INR 1.0 APTT 25.3 Sodium 140 Potassium 3.8 D Chloride 101 Carbon Dioxide 31.7 H Anion Gap 7 BUN 16 Creatinine 0.7 Estim Creat Clear Calc 90.2 eGFR > 60 BUN/Creatinine Ratio 23 H Glucose 133 H Calculated Osmolality 282 Calcium 8.9 Corrected Calcium 9.1 Phosphorus 1.5 L Magnesium 1.4 L Total Bilirubin 0.5 AST 35 H ALT 27 Alkaline Phosphatase 67 Total Protein 5.1 L Albumin 3.8 Globulin 1.3 L Albumin/Globulin Ratio 2.9 H Quality Measures Quality Measures VTE prophylaxis Assessment & Plan Assessment Current Active Medications: Generic Name Dose Route Start Last Admin Trade Name Freq PRN Reason Stop Dose Admin Acetaminophen 650 mg 09/24/25 02:45 Acetaminophen 325 Mg Tablet PO 10/24/25 02:44 Q6H PRN PAIN SCALE 1-3 (mild Acetaminophen 650 mg 09/24/25 02:45 Acetaminophen 325 Mg Tablet PO 10/24/25 02:44 Q6H PRN Fever >100.4 Hydrocodone Bitart/Acetaminophen 1 tab 09/24/25 02:45 09/26/25 06:15 Hydrocodone/Apap 10/325 Tab PO 09/29/25 02:44 1 tab Q4HR PRN Administration PAIN SCALE 7-10 (Severe Amlodipine Besylate 10 mg 09/25/25 09:00 09/25/25 09:36 Amlodipine Besylate 5 Mg Tablet PO 10/25/25 08:59 10 mg QDAY AMITA Administration Aspirin 81 mg 09/24/25 09:00 09/25/25 09:36 Aspirin Ec 81 Mg Tabec PO 10/24/25 08:59 81 mg QDAY AMITA Administration Clonidine 0.2 mg 09/26/25 09:00 Clonidine Hcl 0.1 Mg Tablet PO 10/26/25 08:59 BID AMITA Dextrose 25 ml 09/24/25 02:49 Dextrose 50%-Water Inj 50 Ml Syringe IV 10/24/25 02:48 Q15MIN PRN BG 50-70 responsive npo pt Dextrose 50 ml 09/24/25 02:49 Dextrose 50%-Water Inj 50 Ml Syringe IV 10/24/25 02:48 Q15MIN PRN BG <50 OR BG <70 & pt unresponsive Duloxetine HCl 60 mg 09/24/25 09:00 09/25/25 09:37 Duloxetine Hcl 30 Mg Capsule PO 10/24/25 08:59 60 mg QDAY AMITA Administration Gabapentin 400 mg 09/24/25 09:00 09/25/25 20:36 Gabapentin 100 Mg Capsule PO 10/24/25 08:59 400 mg BID AMITA Administration Glucagon 1 mg 09/24/25 02:49 Glucagon Inj 1 Mg Vial IM Q15MIN PRN BG <70, and no IV access Hydralazine HCl 50 mg 09/24/25 17:00 09/26/25 05:33 Hydralazine Hcl 25 Mg Tablet PO 10/24/25 16:59 50 mg QID AMITA Administration Ceftriaxone Sodium/Dextrose 1 gm in 50 mls @ 100 mls/hr 09/24/25 21:00 09/25/25 20:37 Rocephin/D5w 1gm Iv Premix IV 10/01/25 20:59 100 mls/hr QPM AMITA Administration Metronidazole 500 mg in 100 mls @ 200 mls/hr 09/24/25 06:15 09/26/25 05:33 Flagyl 500 Mg Iv IV 10/01/25 06:14 200 mls/hr Q8HR AMITA Administration Magnesium Sulfate 4 gm in 50 mls @ 12.5 mls/hr 09/26/25 07:32 Magnesium Sulfate Ivpb IV 09/26/25 11:31 X1 ONE Insulin Human Lispro 0 unit 09/24/25 17:00 09/25/25 20:37 Insulin Lispro (Admelog) 1 Unit/0.01 Ml Unit SC 10/24/25 16:59 Not Given ACHS AMITA Protocol Meclizine HCl 12.5 mg 09/24/25 03:01 Meclizine Hcl 25 Mg Tablet PO 10/24/25 03:00 BID PRN Vertigo Metoprolol Succinate 100 mg 09/24/25 09:00 09/25/25 20:36 Metoprolol Succinate Xl 25 Mg Tabcr PO 10/24/25 08:59 100 mg BID AMITA Administration Ondansetron HCl 4 mg 09/24/25 02:45 09/25/25 20:49 Ondansetron Inj 2 Mg/Ml Inj 2 Ml IVP 10/24/25 02:44 4 mg Q6HR PRN Administration NAUSEA OR VOMITING Protocol Oxycodone/Acetaminophen 1 tab 09/24/25 02:45 09/25/25 20:48 Oxycodone/Apap 5/325 Tablet PO 09/29/25 02:44 1 tab Q6H PRN Administration PAIN SCALE 4-6 (Moderate Pantoprazole Sodium 40 mg 09/26/25 09:00 Pantoprazole 40 Mg Tablet PO 10/26/25 08:59 QDAY AMITA Phenol/Menthol 1 ml 09/25/25 18:24 Phenol/Na Phenolate (Chloraseptic) [place] 180 Ml Btl PO 10/25/25 18:23 Q4H PRN SORE THROAT Potassium Phos/Sodium Phos 1 packet 09/26/25 09:00 [facility] 1 Packet (1.5 Gm) PO 09/27/25 21:01 BID AMITA Zolpidem Tartrate 10 mg 09/24/25 22:01 09/25/25 23:49 Zolpidem 5 Mg Tablet PO 10/24/25 22:00 10 mg HS PRN Administration INSOMNIA Plan 53-year-old female PMHx HTN, HLD, CVA, fibromyalgia, admitted for syncopal episode, new onset A-fib with RVR likely in settings of metabolic and infectious derangements. #New Onset AFIB W/RVR, resolved #NSTEMI type II, peaked and downtrending 2?points (hypertension, DM) [id number] Score HAS-BLED score of 1 (hypertension) Atrial fibrillation likely secondary to metabolic derangements Minor elevation in troponin likely secondary to atrial fibrillation ECHO 09/24/25 shows: Left ventricle size is normal and systolic function is normal. Estimated ejection fraction is 65-70%. There is grade I diastolic dysfunction. There is mild concentric hypertrophy noted. Right ventricle chamber size is normal and systolic function is normal. There is trace tricuspid valve regurgitation. Plan: Treat underlying cause No need for anticoagulation or rate/rhythm control medications Monitor patient's electrolytes and replete as necessary Telemetry monitoring for any recurrent A-fib Follow-up with outpatient cardiology clinic if symptoms of shortness of breath, palpitations or chest pain arise #Hypertension, resistant Longstanding history of hypertension Patient on home amlodipine 10 mg p.o. daily, chlorthalidone 12.5 mg p.o. daily, clonidine 0.2 mg p.o. twice daily, hydralazine 50 mg p.o. 4 times daily and metoprolol succinate 100 mg p.o. twice daily Plan: Continue home meds, adjust as needed Added valsartan 160 BID #Syncope #Sepsis #Proctitis versus colitis #Lactic acidosis (resolved) #Erythrocytosis #Hyperbilirubinemia #Acute transaminitis #NHUNG, likely prerenal #Elevated creatinine kinase #hyponatremia #Hypokalemia #Anion gap metabolic acidosis, likely 2/2 lactic acid #Fibromyalgia #History of CVA Rest of medical problems to be managed by hospitalist team Patient seen and assessed with attending Dr. Chi Coffey, PGY1
[2025-09-26] MEDS: INSULIN LISPRO (AdmeLOG) 1 UNIT/0.01 ML UNIT SC (09:09)
[2025-09-26] MEDS: ASPIRIN EC 81 MG TABEC PO (09:10)
[2025-09-26] MEDS: METOPROLOL SUCCINATE XL 25 MG TABCR 100 MG PO ×2 (09:10→20:33)
[2025-09-26] MEDS: Magnesium Sulfate 4 GM Ivpb 4 GM/50 ML BAG IV (09:10)
[2025-09-26] MEDS: GABAPENTIN 100 MG CAPSULE 400 MG PO ×2 (09:10→20:32)
[2025-09-26] MEDS: NAPH,KPH MBDB 1 PACKET (1.5 GM) PO ×2 (09:11→20:32)
[2025-09-26] MEDS: PANTOPRAZOLE 40 MG TABLET PO (09:11)
[2025-09-26] MEDS: DULoxetine HCL 30 MG CAPSULE 60 MG PO (09:12)
[2025-09-26] MEDS: ACETAMINOPHEN 325 MG TABLET 650 MG PO (09:20)
[2025-09-26] MEDS: MECLIZINE HCL 25 MG TABLET 12.5 MG PO (11:25)
[2025-09-26] MEDS: RINGERS LACTATED 500 ML 500 ML 999 ML IV (13:58)
[2025-09-26] MEDS: ONDANSETRON INJ 2 MG/ML INJ 2 ML 4 MG IVP (16:04)
--- NOTE | 2025-09-26 16:04 | PD.RESPRO ---
Documentation for date of: 09/26/25 Subjective Subjective Interval history: Patient is seen and examined at bedside. No acute overnight events. Still complaining of dizziness especially when standing up. Otherwise potassium is normal. Still noted to have mildly elevated blood pressures. Outreach Assistant, Dr. Mireles is following the patient and recommended to switch clonidine 0.2 mg twice daily to valsartan 160 mg twice daily. Repeat orthostatic vitals are ordered, will follow-up with that Exam Vital Signs Temp Pulse Resp BP Pulse Ox O2 Del Method O2 Flow Rate 97.8 F 86 20 151/83 H 96 Room Air 6 09/26/25 12:00 09/26/25 12:00 09/26/25 12:00 09/26/25 12:00 09/26/25 12:00 09/26/25 12:00 09/24/25 04:00 Narrative Exam General: Awake. HEENT: Normocephalic, atraumatic, mucous membranes moist. Heart: Regular rate and rhythm, no murmurs. Lungs: Clear to auscultation with no wheezing or crackles. Abdomen: Soft, nondistended, nontender, positive bowel sounds. ?No guarding or rebound tenderness. Neurologic: Alert and oriented x3, no gross neurological deficit, and patient able to move all 4 extremities. Extremities: No edema. Skin: No rash or ecchymoses. Objective Labs 09/27/25 04:40 09/27/25 04:40 Labs: Laboratory Results - last 24 hr 09/26/25 05:38 WBC 10.9 RBC 4.99 Hgb 13.4 Hct 40.2 MCV 81 MCH 26.9 MCHC 33.3 RDW Std Deviation 53.1 H Plt Count 306 Neut % (Auto) 52 Lymph % (Auto) 35 [place] % (Auto) 10 Eos % (Auto) 2 Baso % (Auto) 0 Neut # (Auto) 5.7 Lymph # (Auto) 3.8 [place] # (Auto) 1.1 H Eos # (Auto) 0.2 Baso # (Auto) 0.0 Immature Gran # (Auto) 0.05 H Absolute Nucleated RBC 0.00 Immature Gran % 1 H Nucleated RBC % 0 PT 10.3 INR 1.0 APTT 25.3 Sodium 140 Potassium 3.8 D Chloride 101 Carbon Dioxide 31.7 H Anion Gap 7 BUN 16 Creatinine 0.7 Estim Creat Clear Calc 90.2 eGFR > 60 BUN/Creatinine Ratio 23 H Glucose 133 H Calculated Osmolality 282 Calcium 8.9 Corrected Calcium 9.1 Phosphorus 1.5 L Magnesium 1.4 L Total Bilirubin 0.5 AST 35 H ALT 27 Alkaline Phosphatase 67 Total Protein 5.1 L Albumin 3.8 Globulin 1.3 L Albumin/Globulin Ratio 2.9 H Quality Measures Quality Measures VTE prophylaxis Assessment & Plan Assessment Current Active Medications: Generic Name Dose Route Start Last Admin Trade Name Freq PRN Reason Stop Dose Admin Acetaminophen 650 mg 09/24/25 02:45 09/26/25 09:20 Acetaminophen 325 Mg Tablet PO 10/24/25 02:44 650 mg Q6H PRN Administration PAIN SCALE 1-3 (mild Acetaminophen 650 mg 09/24/25 02:45 Acetaminophen 325 Mg Tablet PO 10/24/25 02:44 Q6H PRN Fever >100.4 Hydrocodone Bitart/Acetaminophen 1 tab 09/24/25 02:45 09/26/25 16:04 Hydrocodone/Apap 10/325 Tab PO 09/29/25 02:44 1 tab Q4HR PRN Administration PAIN SCALE 7-10 (Severe Amlodipine Besylate 10 mg 09/25/25 09:00 09/26/25 09:11 Amlodipine Besylate 5 Mg Tablet PO 10/25/25 08:59 10 mg QDAY AMITA Administration Aspirin 81 mg 09/24/25 09:00 09/26/25 09:10 Aspirin Ec 81 Mg Tabec PO 10/24/25 08:59 81 mg QDAY AMITA Administration Dextrose 25 ml 09/24/25 02:49 Dextrose 50%-Water Inj 50 Ml Syringe IV 10/24/25 02:48 Q15MIN PRN BG 50-70 responsive npo pt Dextrose 50 ml 09/24/25 02:49 Dextrose 50%-Water Inj 50 Ml Syringe IV 10/24/25 02:48 Q15MIN PRN BG <50 OR BG <70 & pt unresponsive Duloxetine HCl 60 mg 09/24/25 09:00 09/26/25 09:12 Duloxetine Hcl 30 Mg Capsule PO 10/24/25 08:59 60 mg QDAY AMITA Administration Gabapentin 400 mg 09/24/25 09:00 09/26/25 09:10 Gabapentin 100 Mg Capsule PO 10/24/25 08:59 400 mg BID AMITA Administration Glucagon 1 mg 09/24/25 02:49 Glucagon Inj 1 Mg Vial IM Q15MIN PRN BG <70, and no IV access Hydralazine HCl 50 mg 09/24/25 17:00 09/26/25 11:25 Hydralazine Hcl 25 Mg Tablet PO 10/24/25 16:59 50 mg QID AMITA Administration Ceftriaxone Sodium/Dextrose 1 gm in 50 mls @ 100 mls/hr 09/24/25 21:00 09/25/25 20:37 Rocephin/D5w 1gm Iv Premix IV 10/01/25 20:59 100 mls/hr QPM AMITA Administration Metronidazole 500 mg in 100 mls @ 200 mls/hr 09/24/25 06:15 09/26/25 13:50 Flagyl 500 Mg Iv IV 10/01/25 06:14 200 mls/hr Q8HR AMITA Administration Insulin Human Lispro 0 unit 09/24/25 17:00 09/26/25 11:24 Insulin Lispro (Admelog) 1 Unit/0.01 Ml Unit SC 10/24/25 16:59 Not Given ACHS AMITA Protocol Meclizine HCl 12.5 mg 09/24/25 03:01 09/26/25 11:25 Meclizine Hcl 25 Mg Tablet PO 10/24/25 03:00 12.5 mg BID PRN Administration Vertigo Metoprolol Succinate 100 mg 09/24/25 09:00 09/26/25 09:10 Metoprolol Succinate Xl 25 Mg Tabcr PO 10/24/25 08:59 100 mg BID AMITA Administration Ondansetron HCl 4 mg 09/24/25 02:45 09/26/25 16:04 Ondansetron Inj 2 Mg/Ml Inj 2 Ml IVP 10/24/25 02:44 4 mg Q6HR PRN Administration NAUSEA OR VOMITING Protocol Oxycodone/Acetaminophen 1 tab 09/24/25 02:45 09/25/25 20:48 Oxycodone/Apap 5/325 Tablet PO 09/29/25 02:44 1 tab Q6H PRN Administration PAIN SCALE 4-6 (Moderate Pantoprazole Sodium 40 mg 09/26/25 09:00 09/26/25 09:11 Pantoprazole 40 Mg Tablet PO 10/26/25 08:59 40 mg QDAY AMITA Administration Phenol/Menthol 1 ml 09/25/25 18:24 Phenol/Na Phenolate (Chloraseptic) [place] 180 Ml Btl PO 10/25/25 18:23 Q4H PRN SORE THROAT Potassium Phos/Sodium Phos 1 packet 09/26/25 09:00 09/26/25 09:11 Naph,[facility] Mbdb 1 Packet (1.5 Gm) PO 09/27/25 21:01 1 packet BID AMITA Administration Valsartan 160 mg 09/26/25 21:00 Valsartan 80 Mg Tablet PO 10/26/25 20:59 BID AMITA Zolpidem Tartrate 10 mg 09/24/25 22:01 09/25/25 23:49 Zolpidem 5 Mg Tablet PO 10/24/25 22:00 10 mg HS PRN Administration INSOMNIA Plan This is a 53-year-old female PMHx HTN, HLD, CVA, fibromyalgia, admitted for syncopal episode, new onset A-fib with RVR likely in settings of sepsis. #Syncope and Fall - Orthostatic Hypotension #New Onset Paroxysmal AFIB W/RVR in the setting of severe electrolyte imbalance, Hypokalemia - resolved #2/2 Intractable nausea and vomiting -Presented with a syncopal episode that occurred on the day of admission. -She reports symptoms of palpitations are true with the episode, evidently she was out for more than 6 hours and was unable to pick her self up. -She also endorses chronic dizziness and lightheadedness which has worsened over the last several days, given her vomiting and decreased oral intake. She denied head trauma. -She follows up with Dr. Mireles, she is unaware of having any sort of arrhythmia in the past. She is on multiple ANTIHYPERTENSIVE for resistant hypertension as listed below as well as METOPROLOL XL which she takes regularly. -She had a normal cath showing nonischemic findings recently. -Potassium at the time of admission is 2.4 -EKG on admission shows A-fib with RVR, HR 148 for which DILTIAZEM was started with improvement in heart rate. A-fib likely in settings of acute illness, electrolyte abnormalities, and fluid losses as described elsewhere. -ECHO - Left ventricle size is normal and systolic function is normal. Estimated ejection fraction is 65-70%. There is grade I diastolic dysfunction. There is mild concentric hypertrophy noted. Right ventricle chamber size is normal and systolic function is normal. There is trace tricuspid valve regurgitation. Plan - Discontinued DILTIAZEM - Continue METOPROLOL 100 mg XL BID, home medication - Will monitor renal functions and electrolytes - Replete as needed - Will repeat orthostatic vitals as needed - Outreach Assistant, Dr. Mireles is consulted and will appreciate his recommendations - Telemetry monitoring #NSTEMI, likely type II Troponin 0.600 on admission, likely demand ischemia. She denies chest pain. No relevant EKG changes. Repeat troponin up trended to 4.826 ? Trending troponin ? Treating underlying cause - Outreach Assistant, Dr. Mireles is consulted and recommended to discontinue Heparin drip as it is likely Type II and patient underwent extensive cardiac workup in the last three months #NHUNG, likely prerenal in the setting of Dehydration due to vomitings, resolved #Mild hyponatremia, resolved #Hypokalemia, resolved #Anion gap metabolic acidosis, likely 2/2 lactic acid, resolved At the time of admission, Creatinine 1.4, GFR 43, BUN 39 with previously normal renal function. Likely she had NHUNG in settings of hypoperfusion. CK elevated in setting of her fall, low the threshold for rhabdomyolysis. At the time of admission, Hyponatremia of 122 and potassium 2.5, likely in settings of GI losses and poor oral intake. She also had an anion gap of 18, likely in setting of lactic acidosis above. 09/24, Potassium is 2.5 and Na 136, Lactate 1.5 ---> 11/, K is 3.2, Na 142 Plan ? Repleted with potassium 80 mEq of oral potassium ? Renally dose meds, avoid overdiuresis and NEPHROTOXINS ? Daily CMP ? Continue NS maintenance ? Replete electrolyte as needed #Lactic acidosis (resolved) -Lactate at the time of admission is 3.9, after giving fluids downtrended to 1.5 #Hyperbilirubinemia, resolved #Acute transaminitis, resolved Admission Hgb 19.9, improved to 16.6 with IVF's. TB 3.5.5, AST 121, likely in settings of dehydration, low suspicion for biliary pathology Liver USD did not show any significant abnormality ? Daily labs #Resistant hypertension On multiple medications including AMLODIPINE, CLONIDINE, ENALAPRIL and METOPROLOL. BP elevated on presentation, however she hasn't been able to take her pills given her nausea and vomiting. Reports her blood pressure overall not greatly controlled. ? Continue home meds ? 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 Currently she is on ASPIRIN daily and follows up with Dr. Flowers. ? Head CT - No e/o acute infarct or bleed #Fibromyalgia ? Continue home DULOXETINE ? Continue home GABAPENTIN 40 mg BID Health maintenance Diet: Cardiac GI prophylaxis: PROTONIX DVT prophylaxis: Lovenox Antibiotics: CEFTRIAXONE, FLAGYL CODE STATUS: DNR Disposition: Admitted for new onset A-fib, NHUNG Patient plan of care was discussed with the attending physician, Dr. Juli Romano, PGY2 Attending Provider Attestation/Addendum I have examined the patient, reviewed labs and imaging findings, discussed the case with the resident(s), and reviewed entered orders. I agree with the plan of care as outlined in this note. Dr. Juli MD
[2025-09-26] MEDS: ACETAMIN/CAFF/BUTAL (Fioricet) 1 TAB PO (17:27)
--- NOTE | 2025-09-26 18:14 | PD.IMPROG ---
Documentation for date of: 09/26/25 Subjective Subjective Interval history: KUB shows KUB shows stool impaction the diarrhea abdominal cramping may be related to that Her diarrhea has actually resolved Will consider doing a GoLytely flush once patient's orthostatic hypotension and dizziness improves Exam Vital Signs Temp Pulse Resp BP Pulse Ox O2 Del Method O2 Flow Rate 98.7 F 88 24 H 160/88 H 94 L Room Air 6 09/26/25 16:00 09/26/25 16:14 09/26/25 16:00 09/26/25 16:14 09/26/25 16:00 09/26/25 16:00 09/24/25 04:00 Objective Labs 09/26/25 05:38 09/26/25 05:38 Labs: Laboratory Results - last 24 hr 09/26/25 05:38 WBC 10.9 RBC 4.99 Hgb 13.4 Hct 40.2 MCV 81 MCH 26.9 MCHC 33.3 RDW Std Deviation 53.1 H Plt Count 306 Neut % (Auto) 52 Lymph % (Auto) 35 [place] % (Auto) 10 Eos % (Auto) 2 Baso % (Auto) 0 Neut # (Auto) 5.7 Lymph # (Auto) 3.8 [place] # (Auto) 1.1 H Eos # (Auto) 0.2 Baso # (Auto) 0.0 Immature Gran # (Auto) 0.05 H Absolute Nucleated RBC 0.00 Immature Gran % 1 H Nucleated RBC % 0 PT 10.3 INR 1.0 APTT 25.3 Sodium 140 Potassium 3.8 D Chloride 101 Carbon Dioxide 31.7 H Anion Gap 7 BUN 16 Creatinine 0.7 Estim Creat Clear Calc 90.2 eGFR > 60 BUN/Creatinine Ratio 23 H Glucose 133 H Calculated Osmolality 282 Calcium 8.9 Corrected Calcium 9.1 Phosphorus 1.5 L Magnesium 1.4 L Total Bilirubin 0.5 AST 35 H ALT 27 Alkaline Phosphatase 67 Total Protein 5.1 L Albumin 3.8 Globulin 1.3 L Albumin/Globulin Ratio 2.9 H Impressions Impression: # Resolution of diarrhea due to stool impaction Once her cardiac issues are improved will like to flush the colon with GoLytely and do a colonoscopy prior to discharge Assessment & Plan Time Spent With Patient Time: Total time spent is greater than 50% in coordination of care (as documented) at patient's floor/unit and/or counseling patient:
[2025-09-26] MEDS: VALSARTAN 80 MG TABLET 160 MG PO (20:32)
[2025-09-26] MEDS: ZOLPIDEM 5 MG TABLET 10 MG PO (22:12)
[2025-09-27] VITALS (10 sets, daily range): BP systolic 128–186; BP diastolic 63–102; PULSE 67–88; RESP 16–23; TEMP 36.2–36.7; O2SAT 95–96
[2025-09-27 05:43] LABS: Basophils # (Auto) 0.1 Thou/mm3 (0.0-0.2); Basophils % (Auto) 1 % (0-2.5); Eosinophils # (Auto) 0.4 Thou/mm3 (0.0-0.5); Eosinophils % (Auto) 4 % (0-10); Hematocrit 42.0 % (36.0-46.0); Hemoglobin 13.8 g/dL (12.0-16.0); Immature Granulocytes Auto 0.04 Thou/mm3 (0.00-0.00); Lymphocytes # (Auto) 3.4 Thou/mm3 (1.0-4.8); Lymphocytes % (Auto) 32 % (10-50); Mean Corpuscular HGB Conc 32.9 g/dl (31.0-37.0); Mean Corpuscular Hemoglobin 26.6 pg (25.0-35.0); Mean Corpuscular Volume 81 fL (80-100); Monocytes # (Auto) 1.0 Thou/mm3 (0.0-0.8); Monocytes % (Auto) 10 % (0-12); Neutrophils # (Auto) 5.7 Thou/mm3 (1.8-7.7); Neutrophils % (Auto) 53 % (37-80); Nucleated Red Blood Cell # 0.00 Thou/mm3 (0.00-0.00); Nucleated Red Blood Cell % 0 /100 WBC (0); Platelet Count 312 Thou/mm3 (140-440); RDW Standard Deviation 52.9 fL (36.4-46.3); Red Blood Count 5.18 Miln/mm3 (4.00-5.20); White Blood Count 10.6 Thou/mm3 (3.6-11.0)
[2025-09-27 06:08] LABS: Alanine Aminotransferase 30 U/L (10-49); Albumin, Serum 4.0 gm/dL (3.5-5.0); Albumin/Globulin Ratio 3.3 (1.2-2.2); Alkaline Phosphatase 66 U/L (46-116); Anion Gap 10 (7-16); Aspartate Amino Transferase 35 U/L (0-34); BUN/Creatinine Ratio 21 Ratio (12-20); Bilirubin,Total 0.4 mg/dL (0.3-1.2); Blood Urea Nitrogen 15 mg/dL (9-23); Calcium 9.0 mg/dL (8.3-10.6); Calcium (Corrected) 9.0 mg/dL (8.5-10.1); Carbon Dioxide 32.4 mMol/L (20.0-31.0); Chloride 99 mMol/L (98-107); Creatinine (Component) 0.7 mg/dL (0.6-1.3); Estimated Creatinine Clearance 90.2 mL/min (>60); Globulin 1.2 gm/dL (2.3-3.5); Glucose 135 mg/dL (74-106); Magnesium 1.6 mg/dL (1.6-2.6); Osmolality,Calculated 284 (275-295); Phosphorous 3.3 mg/dL (2.4-5.1); Potassium 4.1 mMol/L (3.4-5.1); Sodium 141 mMol/L (136-145); Total Protein 5.2 gm/dL (5.7-8.2); eGFR > 60 See Note
[2025-09-27] MEDS: VALSARTAN 80 MG TABLET 160 MG PO (08:24)
[2025-09-27] MEDS: DULoxetine HCL 30 MG CAPSULE 60 MG PO (08:24)
[2025-09-27] MEDS: Magnesium Sulfate 4 GM Ivpb 4 GM/50 ML BAG IV (08:24)
[2025-09-27] MEDS: METOPROLOL SUCCINATE XL 25 MG TABCR 100 MG PO (08:24)
[2025-09-27] MEDS: PANTOPRAZOLE 40 MG TABLET PO (08:25)
[2025-09-27] MEDS: MECLIZINE HCL 25 MG TABLET 12.5 MG PO (08:25)
[2025-09-27] MEDS: NAPH,KPH MBDB 1 PACKET (1.5 GM) PO (08:25)
[2025-09-27] MEDS: GABAPENTIN 100 MG CAPSULE 400 MG PO (08:25)
[2025-09-27] MEDS: ASPIRIN EC 81 MG TABEC PO (08:26)
[2025-09-27] MEDS: NIFEdipine XL 30 MG TABCR 60 MG PO (08:30)
--- NOTE | 2025-09-27 09:00 | ESPR_ITS ---
<Statement entered by Benjamin Mireles MD - 09/30/25 18:16> The patient is evaluated personally examined the patient telemetry floor appears to be maintaining sinus rhythm not having shortness of breath chest pain slight troponin elevation initially was possibly type II troponin not due to myocardial infarction did have coronary angiogram in the past negative no further workup is necessary will sign off the case patient can be discharged patient when she is stable evaluated patient with resident physician PGY 1 and agree with treatment and recommendations as documented Documentation for date of: 09/27/25 Subjective Subjective Interval history: Patient seen and examined today; no acute events overnight. Reports improved nausea and abdominal pain, but it is still present. Exam Vital Signs Temp Pulse Resp BP Pulse Ox O2 Del Method O2 Flow Rate 98.1 F 88 19 186/102 H 95 Room Air 6 09/27/25 08:00 09/27/25 08:30 09/27/25 08:00 09/27/25 08:30 09/27/25 08:00 09/27/25 08:00 09/24/25 04:00 Narrative Exam General: Awake, answering questions appropriately, appears stated age Eyes: PERRL, EOMI. Anicteric, vision grossly intact. Ears: No ear pain, no ear discharge, Hearing grossly intact. Nose: No nasal discharge. Mouth/Throat: Moist mucous membranes, no redness, no lesions. Neck: Neck supple, non-tender, no cervical lymphadenopathy. Lungs: Clear BAO to auscultation and percussion, No accessory muscle use. Cardio: Normal S1/S2, regular rhythm, no murmurs, no JVD or carotid bruits. Abdomen: abdomen tender to palpation, no palpable masses, peristalsis present, no guarding or rebound. Extremities: Symmetrical, no significant deformities, no peripheral edema , non-tender, peripheral pulses present. Neuro: A/O x3, No focal neurological deficits. Objective Labs 09/27/25 04:40 09/27/25 04:40 Labs: Laboratory Results - last 24 hr 09/27/25 04:40 WBC 10.6 RBC 5.18 Hgb 13.8 Hct 42.0 MCV 81 MCH 26.6 MCHC 32.9 RDW Std Deviation 52.9 H Plt Count 312 Neut % (Auto) 53 Lymph % (Auto) 32 [place] % (Auto) 10 Eos % (Auto) 4 Baso % (Auto) 1 Neut # (Auto) 5.7 Lymph # (Auto) 3.4 [place] # (Auto) 1.0 H Eos # (Auto) 0.4 Baso # (Auto) 0.1 Immature Gran # (Auto) 0.04 H Absolute Nucleated RBC 0.00 Immature Gran % 0 Nucleated RBC % 0 Sodium 141 Potassium 4.1 Chloride 99 Carbon Dioxide 32.4 H Anion Gap 10 BUN 15 Creatinine 0.7 Estim Creat Clear Calc 90.2 eGFR > 60 BUN/Creatinine Ratio 21 H Glucose 135 H Calculated Osmolality 284 Calcium 9.0 Corrected Calcium 9.0 Phosphorus 3.3 Magnesium 1.6 Total Bilirubin 0.4 AST 35 H ALT 30 Alkaline Phosphatase 66 Total Protein 5.2 L Albumin 4.0 Globulin 1.2 L Albumin/Globulin Ratio 3.3 H Quality Measures Quality Measures VTE prophylaxis Assessment & Plan Assessment Current Active Medications: Generic Name Dose Route Start Last Admin Trade Name Freq PRN Reason Stop Dose Admin Acetaminophen 650 mg 09/24/25 02:45 09/26/25 09:20 Acetaminophen 325 Mg Tablet PO 10/24/25 02:44 650 mg Q6H PRN Administration PAIN SCALE 1-3 (mild Acetaminophen 650 mg 09/24/25 02:45 Acetaminophen 325 Mg Tablet PO 10/24/25 02:44 Q6H PRN Fever >100.4 Hydrocodone Bitart/Acetaminophen 1 tab 09/24/25 02:45 09/27/25 08:25 Hydrocodone/Apap 10/325 Tab PO 09/29/25 02:44 1 tab Q4HR PRN Administration PAIN SCALE 7-10 (Severe Aspirin 81 mg 09/24/25 09:00 09/27/25 08:26 Aspirin Ec 81 Mg Tabec PO 10/24/25 08:59 81 mg QDAY AMITA Administration Dextrose 25 ml 09/24/25 02:49 Dextrose 50%-Water Inj 50 Ml Syringe IV 10/24/25 02:48 Q15MIN PRN BG 50-70 responsive npo pt Dextrose 50 ml 09/24/25 02:49 Dextrose 50%-Water Inj 50 Ml Syringe IV 10/24/25 02:48 Q15MIN PRN BG <50 OR BG <70 & pt unresponsive Duloxetine HCl 60 mg 09/24/25 09:00 09/27/25 08:24 Duloxetine Hcl 30 Mg Capsule PO 10/24/25 08:59 60 mg QDAY AMITA Administration Gabapentin 400 mg 09/24/25 09:00 09/27/25 08:25 Gabapentin 100 Mg Capsule PO 10/24/25 08:59 400 mg BID AMITA Administration Glucagon 1 mg 09/24/25 02:49 Glucagon Inj 1 Mg Vial IM Q15MIN PRN BG <70, and no IV access Hydralazine HCl 100 mg 09/27/25 08:00 09/27/25 08:24 Hydralazine Hcl 25 Mg Tablet PO 10/27/25 07:59 100 mg TID AMITA Administration Magnesium Sulfate 4 gm in 50 mls @ 12.5 mls/hr 09/27/25 07:56 09/27/25 08:24 Magnesium Sulfate Ivpb IV 09/27/25 11:55 12.5 mls/hr X1 ONE Administration Insulin Human Lispro 0 unit 09/24/25 17:00 09/27/25 07:46 Insulin Lispro (Admelog) 1 Unit/0.01 Ml Unit SC 10/24/25 16:59 Not Given ACHS [facility] Protocol Meclizine HCl 12.5 mg 09/24/25 03:01 09/27/25 08:25 Meclizine Hcl 25 Mg Tablet PO 10/24/25 03:00 12.5 mg BID PRN Administration Vertigo Metoprolol Succinate 100 mg 09/24/25 09:00 09/27/25 08:24 Metoprolol Succinate Xl 25 Mg Tabcr PO 10/24/25 08:59 100 mg BID AMITA Administration Ondansetron HCl 4 mg 09/24/25 02:45 09/26/25 16:04 Ondansetron Inj 2 Mg/Ml Inj 2 Ml IVP 10/24/25 02:44 4 mg Q6HR PRN Administration NAUSEA OR VOMITING Protocol Oxycodone/Acetaminophen 1 tab 09/24/25 02:45 09/25/25 20:48 Oxycodone/Apap 5/325 Tablet PO 09/29/25 02:44 1 tab Q6H PRN Administration PAIN SCALE 4-6 (Moderate Pantoprazole Sodium 40 mg 09/26/25 09:00 09/27/25 08:25 Pantoprazole 40 Mg Tablet PO 10/26/25 08:59 40 mg QDAY AMITA Administration Phenol/Menthol 1 ml 09/25/25 18:24 Phenol/Na Phenolate (Chloraseptic) [place] 180 Ml Btl PO 10/25/25 18:23 Q4H PRN SORE THROAT Potassium Phos/Sodium Phos 1 packet 09/26/25 09:00 09/27/25 08:25 Naph,[facility] Mbdb 1 Packet (1.5 Gm) PO 09/27/25 21:01 1 packet BID AMITA Administration Valsartan 160 mg 09/26/25 21:00 09/27/25 08:24 Valsartan 80 Mg Tablet PO 10/26/25 20:59 160 mg BID AMITA Administration Zolpidem Tartrate 10 mg 09/24/25 22:01 09/26/25 22:12 Zolpidem 5 Mg Tablet PO 10/24/25 22:00 10 mg HS PRN Administration INSOMNIA Plan 53-year-old female PMHx HTN, HLD, CVA, fibromyalgia, admitted for syncopal episode, new onset A-fib with RVR likely in settings of metabolic and infectious derangements. #New Onset AFIB W/RVR, resolved #NSTEMI type II, peaked and downtrending 2?points (hypertension, DM) [id number] Score HAS-BLED score of 1 (hypertension) Atrial fibrillation likely secondary to metabolic derangements Minor elevation in troponin likely secondary to atrial fibrillation ECHO 09/24/25 shows: Left ventricle size is normal and systolic function is normal. Estimated ejection fraction is 65-70%. There is grade I diastolic dysfunction. There is mild concentric hypertrophy noted. Right ventricle chamber size is normal and systolic function is normal. There is trace tricuspid valve regurgitation. Plan: Treat underlying cause No need for anticoagulation or rate/rhythm control medications Monitor patient's electrolytes and replete as necessary Telemetry monitoring for any recurrent A-fib Follow-up with outpatient cardiology clinic if symptoms of shortness of breath, palpitations or chest pain arise #Hypertension, resistant Longstanding history of hypertension Patient on home amlodipine 10 mg p.o. daily, chlorthalidone 12.5 mg p.o. daily, clonidine 0.2 mg p.o. twice daily, hydralazine 50 mg p.o. 4 times daily and metoprolol succinate 100 mg p.o. twice daily Plan: Added valsartan 160 BID, hydralazine 100 TID, nifedipine 60 daily #Syncope #Sepsis #Proctitis versus colitis #Lactic acidosis (resolved) #Erythrocytosis #Hyperbilirubinemia #Acute transaminitis #NHUNG, likely prerenal #Elevated creatinine kinase #hyponatremia #Hypokalemia #Anion gap metabolic acidosis, likely 2/2 lactic acid #Fibromyalgia #History of CVA Rest of medical problems to be managed by hospitalist team Patient seen and assessed with attending Dr. Chi Coffey, PGY1
[2025-09-27] MEDS: guaiFENesin/DM TABLET 1 EACH PO (10:30)
--- NOTE | 2025-09-27 10:40 | ESDS_ITS ---
<Statement entered by Ricarda Benavides MD - 09/28/25 07:39> Patient was seen and examined by me personally. I have reviewed the below documentation by the team resident and agree with its findings with any exceptions as below. Discharge plan was discussed with the attending, Dr. Bustos. Ricarda Benavides, PGY-3 Planned Discharge Date 09/27/25 DS: Providers Provider Date of admission: 09/24/25 02:45 Primary care physician: Physician No Primary/Family Admitting Provider: Tuan Riddle MD Attending Provider on Admission: Daniel Malone MD Consults: 09/24/25 02:47 Consult to Cardiology Routine Comment: New Onset AFIB RVR Consulting Provider: Benjamin Mireles 09/24/25 05:19 Referral Infection Control Routine Comment: Reason for Infection Control Referral: Admitted with Diarrhea 09/24/25 05:20 Referral Registered Dietitian Routine Comment: 09/25/25 09:25 Consult to Gastroenterology Routine Comment: intractable vomiting Consulting Provider: Rivera Galdamez 09/26/25 09:31 Referral Physical Therapy Urgent Comment: Physician Instructions: Attending Provider on DC: Luis Bustos MD Discharging Provider: Kemar Young MD DS: Diagnosis Problem List Completed Was Problem List Reviewed/Reconciled?: Yes Hospital Course Hospital Course Hospital course: Summary: This is a 53-year-old female PMHx of HTN, HLD, CVA, and fibromyalgia presents to the ED following a syncopal episode. Hospital: During patient's hospital course, she was treated with metoprolol succinate XL PO and Eliquis PO for her new-onset AFib w/ RVR in the setting of severe electrolyte derangements thought to be 2/2 intractable vomiting. 09/24 echo showed EF 65-70% and grade I diastolic dysfunction. She was also treated with Rocephin IV, Flagyl IV (discontinued early on), doxycycline IV, and IV fluids for suspected sepsis (later ruled out) 2/2 proctitis. Orthostatic vitals were obtained due to patient's report of syncope and fall but these were negative. Patient was noted to have hypertension refractory to multiple antihypertensives including amlodipine, metoprolol, hydralazine, valsartan, and nifedipine. However, by 09/27, patient's BP was better controlled and she was deemed clinically stabilized for discharge home. Patient is safe to discharge. Further discharge instructions below. -Follow-up with PCP within 1 week of discharge. If you do not have appointment, please follow-up with the [facility] with Dr. Romano. Call [phone] to make an appointment. -Recommended to see meat and poultry inspector, Dr. Mireles within 1 week of discharge -Recommended to get workup for causes of resistant hypertension on outpatient basis -Recommended to repeat renal panel with electrolytes within 1 week of discharge to look for potassium levels. -Recommended to start nifedipine ER 60mg once daily, hydralazine 100 mg twice daily, valsartan 160 mg twice daily. -Recommended low-salt diet and regular physical activity -Recommended to stop amlodipine, hydralazine 4 times daily, clonidine. -Recommended to continue rest of the home medication -Return to ED if symptoms persist or return #Syncope #New Onset AFIB W/RVR #Sepsis #Proctitis versus colitis #Lactic acidosis (resolved) #Erythrocytosis #Hyperbilirubinemia, likely transient #Acute transaminitis, likely transient #NHUNG, likely prerenal #Elevated creatinine kinase #Mild hyponatremia #Hypokalemia #Anion gap metabolic acidosis, likely 2/2 lactic acid #NSTEMI Type I vs type II #Resistant hypertension #History of CVA 2021 #Fibromyalgia Status at Discharge Cognitive/Behavioral Status at Discharge: stable Functional Status at Discharge: independent ambulation Overall Status at Discharge: patient is back to baseline Patient's care plan was discussed with my attending, Dr. Bustos, and senior resident, Dr. Benavides. Kemar Young, DO Internal Medicine, PGY-1 Time Spent with Patient Time attestation: Total time spent providing and/or coordinating discharge services: Time spent: Greater than 30 minutes Exam Vital Signs Temp Pulse Resp BP Pulse Ox O2 Del Method O2 Flow Rate 98.1 F 88 19 186/102 H 95 Room Air 6 09/27/25 08:00 09/27/25 08:30 09/27/25 08:00 09/27/25 08:30 09/27/25 08:00 09/27/25 08:00 09/24/25 04:00 Narrative Exam General: Awake. HEENT: Normocephalic, atraumatic, mucous membranes moist. Heart: Regular rate and rhythm, no murmurs. Lungs: Clear to auscultation with no wheezing or crackles. Abdomen: Soft, nondistended, nontender, positive bowel sounds. ?No guarding or rebound tenderness. Neurologic: Alert and oriented x3, no gross neurological deficit, and patient able to move all 4 extremities. Extremities: No edema. Skin: No rash or ecchymoses. Discharge Plan Plan Patient Disposition: HOME (Self Care) Patient condition on transfer: Stable Care Plan Goals: -Follow-up with PCP within 1 week of discharge. If you do not have appointment, please follow-up with the [facility] with Dr. Romano. Call [phone] to make an appointment. -Recommended to see meat and poultry inspector, Dr. Mireles within 1 week of discharge -Recommended to get workup for causes of resistant hypertension on outpatient basis -Recommended to repeat renal panel with electrolytes within 1 week of discharge to look for potassium levels. -Recommended to start nifedipine ER 60mg once daily, hydralazine 100 mg twice daily, valsartan 160 mg twice daily. -Recommended low-salt diet and regular physical activity -Recommended to stop amlodipine, hydralazine 4 times daily, clonidine. -Recommended to continue rest of the home medication -Return to ED if symptoms persist or return Prescriptions/Referrals Prescriptions/Med Rec: New valsartan 160 mg tablet 160 mg PO BID Qty: 30 2RF nifedipine 60 mg tablet extended release 60 mg PO QDAY Qty: 30 2RF hydralazine 100 mg tablet 100 mg PO TID Qty: 30 2RF Continued metoprolol succinate 100 mg Tablet Extended Release 24 Hr 100 mg PO BID meclizine 12.5 mg Tablet 25 mg PO BID PRN (Reason: Vertigo) hydrocodone-acetaminophen 7.5-325 mg Tablet 1 tab PO Q6H PRN (Reason: Pain (Scale Score 7-10)) zolpidem 10 mg tablet 10 mg PO QHSPRN PRN (Reason: insomnia) Patient Comments: TAKE 1 TABLET BY MOUTH NIGHTLY AT BEDTIME NEEDED Hemiclor 12.5 mg tablet 12.5 mg PO QDAY multivitamin [Daily Multi-Vitamin] Tablet 1 tab PO QDAY tizanidine 4 mg tablet 4 mg PO TID Patient Comments: TAKE 1 TABLET BY MOUTH 3 TIMES A DAY metformin 500 mg Tablet 500 mg PO QDAY aspirin 81 mg Tablet,Delayed Release (/Ec) 81 mg PO QDAY omeprazole 20 mg Capsule,Delayed Release(Dr/Ec) 20 mg PO QDAY estradiol 0.5 mg Tablet 1 mg PO QDAY Rx Instructions: off 5 days; repeat cycle duloxetine [Cymbalta] 60 mg Capsule,Delayed Release(Dr/Ec) 60 mg PO QDAY Discontinued amlodipine 5 mg Tablet 10 mg PO QDAY hydralazine 50 mg tablet 50 mg PO 4XD Patient Comments: TAKE 1 TABLET BY MOUTH 4 TIMES A DAY clonidine HCl 0.2 mg tablet 0.2 mg PO Q12H Referrals: No Primary/Family,Physician [Primary Care Provider] Patient/Caregiver Discharge Instructions Education Materials: Controlling High Blood Pressure, Calcium Channel Blockers Dc, Blood Pressure Check Steps Print Language: Stateless Stand Alone Forms: Janay Award Info., Patient Portal Info Letter Discharge Order Discharge Orders: Discharge (Routine); Ordered 09/27/25 Ordered By: Daniel Romano Quality Discharge Quality Measures VTE prophylaxis MD Attestestation MD Attestation I have examined the patient, reviewed labs and imaging findings, discussed the case with the resident(s), and reviewed entered orders. I agree with the plan of care as outlined in this note. Time Spent: [address] Juli MD
[2025-09-27] MEDS: INSULIN LISPRO (AdmeLOG) 1 UNIT/0.01 ML UNIT SC (11:47)
--- NOTE | 2025-09-27 17:42 | ESPR_ITS ---
Documentation for date of: 09/27/25 Subjective Subjective Interval history: Patient being discharged She will go see her PCP and get a referral for a outpatient colonoscopy Exam Vital Signs Temp Pulse Resp BP Pulse Ox O2 Del Method O2 Flow Rate 97.1 F 71 23 H 128/91 H 95 Room Air 6 09/27/25 16:00 09/27/25 16:00 09/27/25 16:00 09/27/25 16:00 09/27/25 16:00 09/27/25 12:00 09/24/25 04:00 Objective Labs 09/27/25 04:40 09/27/25 04:40 Labs: Laboratory Results - last 24 hr 09/27/25 04:40 WBC 10.6 RBC 5.18 Hgb 13.8 Hct 42.0 MCV 81 MCH 26.6 MCHC 32.9 RDW Std Deviation 52.9 H Plt Count 312 Neut % (Auto) 53 Lymph % (Auto) 32 [place] % (Auto) 10 Eos % (Auto) 4 Baso % (Auto) 1 Neut # (Auto) 5.7 Lymph # (Auto) 3.4 [place] # (Auto) 1.0 H Eos # (Auto) 0.4 Baso # (Auto) 0.1 Immature Gran # (Auto) 0.04 H Absolute Nucleated RBC 0.00 Immature Gran % 0 Nucleated RBC % 0 Sodium 141 Potassium 4.1 Chloride 99 Carbon Dioxide 32.4 H Anion Gap 10 BUN 15 Creatinine 0.7 Estim Creat Clear Calc 90.2 eGFR > 60 BUN/Creatinine Ratio 21 H Glucose 135 H Calculated Osmolality 284 Calcium 9.0 Corrected Calcium 9.0 Phosphorus 3.3 Magnesium 1.6 Total Bilirubin 0.4 AST 35 H ALT 30 Alkaline Phosphatase 66 Total Protein 5.2 L Albumin 4.0 Globulin 1.2 L Albumin/Globulin Ratio 3.3 H Impressions Impression: Pain abdomen Stool impaction Overflow incontinent diarrhea Outpatient colonoscopy Assessment & Plan Time Spent With Patient Time: Total time spent is greater than 50% in coordination of care (as documented) at patient's floor/unit and/or counseling patient:
== END 2025-09-27 17:30 | disposition home or self-care (01) | DRG 720 ==
LOC: SERX 23:56 → SERHOLD 09-24 03:02 → S2NX 09-24 04:34
PROVIDERS: Admitting Provider Student in an Organized Health Care Education/Training Program; Emergency Provider Emergency Medicine; Visit Provider Student in an Organized Health Care Education/Training Program
DX: A41.9 Sepsis, unspecified organism (principal); I10 Essential (primary) hypertension; I48.0 Paroxysmal atrial fibrillation; N17.9 Acute kidney failure, unspecified; D75.1 Secondary polycythemia; R74.01 Elevation of levels of liver transaminase levels; E87.1 Hypo-osmolality and hyponatremia; E87.6 Hypokalemia; I21.A1 Myocardial infarction type 2; M79.7 Fibromyalgia; E87.20 Acidosis, unspecified; E86.0 Dehydration; Z66 Do not resuscitate; I95.1 Orthostatic hypotension; Z98.84 Bariatric surgery status; Z79.01 Long term (current) use of anticoagulants; Z88.8 Allergy status to other drugs, medicaments and biological substances; Z79.82 Long term (current) use of aspirin; K52.9 Noninfective gastroenteritis and colitis, unspecified; E80.6 Other disorders of bilirubin metabolism; I69.30 Unspecified sequelae of cerebral infarction; E11.9 Type 2 diabetes mellitus without complications; H91.91 Unspecified hearing loss, right ear; R09.02 Hypoxemia; I1A.0 Resistant hypertension; M62.82 Rhabdomyolysis; Z79.84 Long term (current) use of oral hypoglycemic drugs; K56.41 Fecal impaction; Z79.899 Other long term (current) drug therapy; Z90.710 Acquired absence of both cervix and uterus
CPT/HCPCS: 36415; 70450; 71045; 74018; 74176; 76705; 80051; 80053; 80061; 80069; 80307; 81001; 82550; 82705; 83605; 83615; 83735; 83880; 84100; 84439; 84443; 84484; 85025; 85610; 85730; 87015; 87040; 87045; 87046; 87077; 87086; 87177; 87186; 87209; 87493; 87899; 93005; 93306; 94762; 96361; 96365; 96366; 96375; 96376; 97162; 99284; J0360; J0696; J1644; J1815; J2405; J2470; J2765; J3010; J3475; J3480; J3490; J7030; J7120; J7999; A9270; J1836

== ENCOUNTER 2025-09-28 16:03 | Inpatient (IN) | payer MEDICAID, SELFPAY ==
[2025-09-28] VITALS (15 sets, daily range): BP systolic 146–260; BP diastolic 63–157; PULSE 91–111; RESP 18–28; TEMP 37–37.7; O2SAT 90–99; BMI 34.6
--- NOTE | 2025-09-28 16:15 | XR_ITS ---
Examination: CT brain head without contrast. 2-D sagittal coronal reconstructions Date and time of exam: October 15, 2025, 1909 hours, comparison September 24, 2025 INDICATIONS: Altered mental status beginning 2 days ago CTDI: vol (mGy): 45.4 DLP: (mGycm): 885 Technique: Multiple CT axial sections of the brain have been obtained, 5 mm slice thickness. Contrast has not been administered. 2-D sagittal, coronal reconstructions have been obtained Low dose protocols were performed. One or more of the following dose reduction techniques were used; automated exposure control, adjustment of the mA and/or KV according to patient size, use of iterative reconstruction technique. Findings: No significant ventricular enlargement. Intra-axial or extra-axial hemorrhage density is not seen. No mass effect or midline shift Basal cisterns are not remarkable. Fourth ventricle is midline. Cranial vault intact. Impression: Negative for acute hemorrhage, mass effect or midline shift As clinically warranted, brain MRI follow-up would best assess for acute ischemic change
--- NOTE | 2025-09-28 16:15 | XR_ITS ---
Examination: CT abdomen with intravenous contrast CT pelvis with intravenous contrast 2-D coronal reconstructions 2-D sagittal reconstructions Date and time of exam: September 28, 2025, 1908 hours INDICATIONS: Lower abdominal pain nausea vomiting beginning 2 days ago, 2 mm nonobstructing left renal calculus on CT study September 24, 2025 COMPARISON: September 24, 2025. CTDI: vol (mGy) 25.8 DLP: (mGycm) 1537 Technique: Multiple axial sections of the abdomen and pelvis have been obtained. 64 slice high-resolution scanner used. 3 mm axial sections have been obtained, post intravenous injection 60 cc [id number] 2-D sagittal, coronal reconstructions obtained. Low dose protocols were performed. One or more of the following dose reduction techniques were used; automated exposure control, adjustment of the mA and/or KV according to patient size, use of iterative reconstruction technique. Findings: No visualized liver or splenic lesion Absent gallbladder Gastric sutures No pancreatic or adrenal mass Moderate renal scar formation 2 mm nonobstructing left renal calculus No pericecal inflammatory change Mild wall thickening involving the left pelvicalyceal system and left ureter, urinary tract infection pattern Aorta normal size No bowel obstruction No bladder mass or bladder calculi Moderate disc narrowing L2-L3 IMPRESSION: 2 mm nonobstructing left renal calculus Left pyelonephritis pattern
--- NOTE | 2025-09-28 16:16 | XR_ITS ---
EXAMINATION: AP chest single view TECHNIQUE: AP portable upright chest single view Date and time: September 28, 2025, 1646 hours, comparison September 23, 2025 INDICATIONS: Sepsis chest pain today. FINDINGS: Minor prominence left ventricle No pneumonia or pulmonary edema. Moderate osteopenia IMPRESSION: No pneumonia identified
--- NOTE | 2025-09-28 16:16 | EKG_ITS ---
[facility] Test Date: 2025-09-28 Pat Name: SHASHA BUCKLEY Department: Room: - Gender: Female Fashion Intern: : 1965 Requested By: Marco Corral Order Number: [id number] Reading MD: Marco Corral Measurements Intervals [place] Rate: 97 P: 56 [place]: 163 QRS: -18 QRSD: 92 T: 54 QT: 380 QTc: 483 Interpretive Statements SINUS RHYTHM RIGHT ATRIAL ENLARGEMENT [0.3mV P-WAVE] Compared to ECG 09/19/2025 14:35:47 Sinus bradycardia no longer present T-wave abnormality no longer present /store/[id number]
--- NOTE | 2025-09-28 16:18 | PD.EDABDPN ---
ED Abdominal Pain RME/HPI General Chief Complaint: Abdominal Pain Stated complaint: AMS Time seen by provider: 09/28/25 16:06 Arrival date/time: 09/28/25 16:03 59-year-old female patient with significant history of hypertension, new diagnosis of A-fib with RVR, was recently discharged from this hospital last night, went home okay last well-known time 7 PM today today family went to visit her, this afternoon, and was noted to be laying in the bed confused. When the EMS arrived patient was noted to be GCS 13, and gagging a lot. On my initial evaluation patient is alert oriented x 2, complaining of lower abdominal pain. Patient told me that he been having constipation for the last 5 days, last poop was more than 5 days ago. Patient denies any other complaints. Patient was noted to be tachycardic having fever, sepsis alert was initiated right away. Related Data Home Medications ?Medication ?Instructions ?Recorded ?Confirmed hydrocodone 7.5 mg-acetaminophen 1 tab PO Q6H PRN Pain (Scale Score 08/05/19 09/24/25 325 mg tablet 7-10) meclizine 12.5 mg tablet 25 mg PO BID PRN Vertigo 08/05/19 09/24/25 metoprolol succinate 100 mg 100 mg PO BID 08/05/19 09/24/25 tablet,extended release 24 hr aspirin 81 mg tablet,delayed 81 mg PO QDAY 08/31/23 09/24/25 release duloxetine 60 mg capsule,delayed 60 mg PO QDAY 08/31/23 09/24/25 release (Cymbalta) estradiol 0.5 mg tablet 1 mg PO QDAY 08/31/23 09/24/25 metformin 500 mg tablet 500 mg PO QDAY 08/31/23 09/24/25 omeprazole 20 mg capsule,delayed 20 mg PO QDAY 08/31/23 09/24/25 release chlorthalidone 12.5 mg tablet 12.5 mg PO QDAY 09/24/25 09/24/25 (Hemiclor) multivitamin (Daily Multi-Vitamin 1 tab PO QDAY 09/24/25 09/24/25 tablet) tizanidine 4 mg tablet 4 mg PO TID 09/24/25 09/24/25 zolpidem 10 mg tablet 10 mg PO QHSPRN PRN insomnia 09/24/25 09/24/25 Previous Rx's ?Medication ?Instructions ?Recorded hydralazine 100 mg tablet 100 mg PO TID #30 tabs 09/27/25 nifedipine 60 mg tablet,extended 60 mg PO QDAY #30 tabs 09/27/25 release valsartan 160 mg tablet 160 mg PO BID #30 tabs 09/27/25 Allergies Allergy/AdvReac Type Severity Reaction Status Date / Time bupropion (From Wellbutrin) Allergy Severe Swelling Verified 08/31/23 11:17 of Lip/Tongue/Throat sumatriptan (From Imitrex) Allergy Severe Swelling Verified 08/31/23 11:17 of Lip/Tongue/Throat atenolol Allergy Intermediate Rash Verified 08/31/23 11:17 latex Allergy Rash Verified 08/31/23 11:17 Review of Systems Review of Systems Narrative Review of Systems: Review of system reviewed and within normal limits except mentioned in HPI ED Exam Narrative Physical exam: VITAL SIGNS: Reviewed. GENERAL APPEARANCE: Alert and interactive, follows commands, no acute distress, febrile, GCS 13 HEAD AND FACE: Non-traumatic. ENT: PERRL, pink conjunctivitis, eyelid no trauma, Mucous membrane moist. NECK: Supple, nontender, no nuchal rigidity. CHEST: No tenderness, no crepitus, no paradoxical movement, no retractions. LUNGS: Clear, well ventilated, symmetric, no rales, no wheezing, no ronchi, no stridor, good breath sounds bilaterally. HEART: Regular rate, regular rhythm, no murmur, no gallops. ABDOMEN: Soft, positive bowel sounds, nondistended, no guarding, lower abdominal tenderness, no rebound, no masses, RECTAL: Deferred. GENITAL: Deferred. NEUROLOGICAL: Gross motor function intact sensory function intact, Appropriate for age. MUSCULOSKELETAL: low back nontender, full range of motion. EXTREMITIES: Nontender, full range of motion. SKIN: Color pink, dry, no rash, no lacerations, no abrasions, no contusions. LYMPHATICS: Deferred. Course Quality Measures none Orders Category Date Time Status Admit to Inpatient Status Routine Admission 09/28/25 20:44 Active Patient Condition Routine Admission 09/28/25 20:44 Ordered Activity as Tolerated Routine Care 09/28/25 20:45 Ordered Bedside COVID-19 Antigen Test NOW Care 09/28/25 16:20 Active COVID-19 Screening Questionnaire NOW Care 09/28/25 20:[address] Screening NOW Care 09/28/25 16:15 Active Decision to Admit X1 Care 09/28/25 20:16 Active EKG (ED ONLY) *Do not use* NOW Care 09/28/25 16:16 Completed Jordan [Urinary Catheter] QS Care 09/28/25 19:29 Active Notify provider NEEDED Care 09/28/25 20:44 Active Obtain weight X1 Care 09/28/25 20:44 Active Strict Intake and Output Routine Care 09/28/25 20:45 Ordered Water [Enema Administration] NOW Care 09/28/25 20:[address] abdomen pelvis w con Stat Exams 09/28/25 16:[address] head/brain wo con Stat Exams 09/28/25 16:15 Completed EKG (ED Only) Stat Exams 09/28/25 16:16 Draft XR chest 1V Stat Exams 09/28/25 16:16 Completed Ammonia Stat Lab 09/28/25 19:57 Completed B-Type Natriuretic Peptide Stat Lab 09/28/25 16:15 Completed Blood Culture (Lab) Stat Lab 09/28/25 17:56 Received CBC AM DRAW Lab 09/29/25 05:00 Ordered CBC AM DRAW Lab 09/30/25 05:00 Ordered CBC AM DRAW Lab 10/01/25 05:00 Ordered CBC Stat Lab 09/28/25 16:15 Completed Comprehensive Metabolic Panel AM DRAW Lab 09/29/25 05:00 Ordered Comprehensive Metabolic Panel AM DRAW Lab 09/30/25 05:00 Ordered Comprehensive Metabolic Panel AM DRAW Lab 10/01/25 05:00 Ordered Comprehensive Metabolic Panel Stat Lab 09/28/25 16:15 Completed Drug Screen,Urine Stat Lab 09/28/25 16:41 Completed Lactate (Lactic Acid) Routine Lab 09/29/25 00:00 Ordered Lactic Acid [Lactate (Lactic Acid)] Stat Lab 09/28/25 16:15 Completed Lactic Acid, 3 HR Stat Lab 09/28/25 19:57 Completed Lipase Stat Lab 09/28/25 16:15 Completed Mag [Magnesium] AM DRAW Lab 09/29/25 05:00 Ordered Mag [Magnesium] AM DRAW Lab 09/30/25 05:00 Ordered Mag [Magnesium] AM DRAW Lab 10/01/25 05:00 Ordered Partial Thromboplastin Time Stat Lab 09/28/25 16:15 Completed Phosphorous AM DRAW Lab 09/29/25 05:00 Ordered Phosphorous AM DRAW Lab 09/30/25 05:00 Ordered Phosphorous AM DRAW Lab 10/01/25 05:00 Ordered Procalcitonin Stat Lab 09/28/25 16:15 Completed Prothrombin Time with INR Stat Lab 09/28/25 16:15 Completed Troponin I Stat Lab 09/28/25 16:15 Completed Urinalysis, C/S if Indicated Stat Lab 09/28/25 16:30 Completed Acetaminophen Ivpb [Ofirmev Inj] Med 09/28/25 16:20 Discontinued 1,000 mg in 100 ml IV X1 Famotidine Inj [Pepcid Inj] Med 09/28/25 17:25 Discontinued 20 mg IVP X1 ONE Heparin Inj Med 09/28/25 22:00 Ordered 5,000 unit SC Q8HR Labetalol IV [Trandate IV] Med 09/28/25 20:12 Discontinued 10 mg IVP X1 ONE Labetalol IV [Trandate IV] Med 09/28/25 18:24 Discontinued 20 mg IVP X1 ONE Metoclopramide Inj [Reglan Inj] Med 09/28/25 17:25 Discontinued 10 mg IVP X1 ONE Morphine* Inj Med 09/28/25 17:26 Discontinued 4 mg IVP X1 ONE Morphine* Inj Med 09/28/25 20:16 Discontinued 4 mg IVP X1 ONE Nicardipine/Ns 20Mg Ivpb [Cardene Ivpb] Med 09/28/25 20:07 Active 20 mg in 200 ml IV 5 mg/hr Ondansetron Inj [Zofran Inj] Med 09/28/25 16:17 Discontinued 4 mg IVP X1 ONE Ondansetron Inj [Zofran Inj] Med 09/28/25 20:16 Discontinued 4 mg IVP X1 ONE Ringers Lactated 1000 ml [Lactated Ringers] 1,000 ml Med 09/28/25 16:17 Discontinued IV 999 mls/hr Senna [Senokot] Med 09/28/25 20:44 Ordered 1 tab PO QDAY PRN cefTRIAXone [Rocephin] 2 gm Med 09/28/25 20:47 Ordered SODIUM CHLORIDE 0.9% (Popper) [Ns 0.9% (P)] 50 ml IV QDAY hydrALAZINE INJ [Apresoline Inj] Med 09/28/25 16:20 Discontinued 20 mg IVP X1 ONE Code Status Routine Oth 09/28/25 20:44 Ordered Vital Signs Vital signs: Vital Signs Pulse Rate 99 09/28/25 16:24 Blood Pressure 225/157 H 09/28/25 16:24 Abdominal Pain MDM MDM Narrative MDM Narrative:: 59-year-old female patient with significant history of hypertension, new diagnosis of A-fib with RVR, was recently discharged from this hospital last night, went home okay last well-known time 7 PM today today family went to visit her, this afternoon, and was noted to be laying in the bed confused. When the EMS arrived patient was noted to be GCS 13, and gagging a lot. On my initial evaluation patient is alert oriented x 2, complaining of lower abdominal pain. Patient told me that he been having constipation for the last 5 days, last poop was more than 5 days ago. Patient denies any other complaints. Patient was noted to be tachycardic having fever, sepsis alert was initiated right away. Patient's workup today came back with no leukocytosis, except for lactic acid that was 2.9 initially, after 1 L fluid went down to 2.5. Patient's troponin 0.143, which is lower than a few days ago. Urinalysis no UTI. Tested positive for opioids and barbiturates. Chest x-ray came back with no acute pathology, CT scan of the head also came back with no acute pathology, CT scan of the abdomen pelvis showed 2 mm nonobstructing left renal calculus Left pyelonephritis pattern Patient received IV fluids, hydralazine 20 mg IV, morphine, Zofran, Reglan, I added labetalol since blood pressure still elevated, latest blood pressure was noted to be 224/122 heart rate 105. 10 mg of labetalol IV was added. Jordan catheter was also inserted since patient is having urinary retention on CT scan of the abdomen. Ammonia is normal Discussed case with hospitalist, who admitted the patient. Currently prior to admission, patient was noted to be answering question appropriately. She is now back to a GCS of 15 Patient data External records reviewed:: Other (specify) Clinical information provided by:: none Social determinants that could affect healthcare access:: none Patient has the following chronic illnesses:: New diagnosis of A-fib with RVR, hypertension, How is presenting disease/condition affected by chronic disease/condition?: exacerbated by Evaluation data The following diagnostics were reviewed and interpreted by me:: lab results, radiology exam(s) and EKG tracing(s) Lab and/or radiology exams considered but not ordered:: None Interpretation Summary: EKG showed normal sinus rhythm, ventricular rate of 97 bpm, no ST segment elevation or depression noted. Medications / Prescriptions Medications or Prescriptions considered but not ordered:: None Medication administrations:: Medication Administration History Heparin Sodium (Porcine) (Heparin Sod Inj 5000 Unit/Ml Vial) 5,000 unit SC Q8HR [facility] Stop: 10/12/25 21:59 Nicardipine/Sodium Chloride (Cardene Ivpb) 20 mg in 200 mls @ 50 mls/hr IV .Q4H PRN; Protocol PRN Reason: PER PROTOCOL Stop: 10/28/25 20:06 Ceftriaxone Sodium 2 gm/ (Sodium Chloride) 50 mls @ 100 mls/hr IV QDAY [facility] Stop: 10/05/25 20:46 Sennosides (Senna Tablet) 1 tab PO QDAY PRN; Protocol PRN Reason: constipation Stop: 10/28/25 20:43 Discontinued Medications Famotidine (Famotidine Inj 10 Mg/Ml Vial 2 Ml) 20 mg IVP X1 ONE Stop: 09/28/25 17:26 Last Admin: 09/28/25 17:36 Dose: 20 mg Documented By: VG Hydralazine HCl (Hydralazine Inj 20 Mg/Ml Vial) 20 mg IVP X1 ONE Stop: 09/28/25 16:21 Last Admin: 09/28/25 16:24 Dose: 20 mg Documented By: BY Lactated Ringer's (Lactated Ringers) 1,000 mls @ 999 mls/hr IV .Q1H1M ONE Stop: 09/28/25 17:17 Last Infusion: 09/28/25 17:38 Dose: Infused Documented By: Admin: 09/28/25 16:37 Dose: 999 mls/hr Documented By: BY Acetaminophen (Ofirmev Inj) 1,000 mg in 100 mls @ 250 mls/hr IV X1 ONE Stop: 09/28/25 16:43 Last Infusion: 09/28/25 17:36 Dose: Infused Documented By: Admin: 09/28/25 16:26 Dose: 250 mls/hr Documented By: BY Labetalol HCl (Labetalol Inj 5 Mg/Ml Vial 20 Ml) 20 mg IVP X1 ONE Stop: 09/28/25 18:25 Last Admin: 09/28/25 18:29 Dose: 20 mg Documented By: BY Labetalol HCl (Labetalol Inj 5 Mg/Ml Vial 20 Ml) 10 mg IVP X1 ONE Stop: 09/28/25 20:13 Last Admin: 09/28/25 20:29 Dose: 10 mg Documented By: RC Metoclopramide HCl (Metoclopramide Inj 5 Mg/Ml Vial 2 Ml) 10 mg IVP X1 ONE; Protocol Stop: 09/28/25 17:26 Last Admin: 09/28/25 17:33 Dose: 10 mg Documented By: VG Morphine Sulfate (Morphine Sulf Inj 4 Mg/Ml Vial) 4 mg IVP X1 ONE Stop: 09/28/25 17:27 Last Admin: 09/28/25 17:34 Dose: 4 mg Documented By: VG Morphine Sulfate (Morphine Sulf Inj 4 Mg/Ml Vial) 4 mg IVP X1 ONE Stop: 09/28/25 20:17 Last Admin: 09/28/25 20:41 Dose: 4 mg Documented By: RAMSES Ondansetron HCl (Ondansetron Inj 2 Mg/Ml Inj 2 Ml) 4 mg IVP X1 ONE; Protocol Stop: 09/28/25 16:18 Last Admin: 09/28/25 16:20 Dose: 4 mg Documented By: BY Ondansetron HCl (Ondansetron Inj 2 Mg/Ml Inj 2 Ml) 4 mg IVP X1 ONE; Protocol Stop: 09/28/25 20:17 Last Admin: 09/28/25 20:37 Dose: 4 mg Documented By: RC See [facility] Consultations Consultation(s) initiated? (list below): No Diagnosis Differential diagnosis abdominal pain: abdominal pain, constipation and other (Nausea, vomiting, hypertensive emergency, altered mental status) Most likely diagnosis given after review of the tests above:: Altered mental status, hypertensive emergency, nausea vomiting, Admission Indicated Admission indicated?: indicated Admission Request Was there a request for admission?: Yes Admission Attestation Admission request attestation: Discussed case with [Dr. Bernstein] from Hospitalist service regarding admission. Discussed patients ED course, exam findings, labs, and radiology results. The Hospitalist [agrees] to accept the patient for admission. Disposition Plan Disposition Plan: Admit Discharge Plan Plan Patient Disposition: Admit Acute Care w/in Hospital Prescriptions/Referrals Prescriptions/Med Rec: No Action metoprolol succinate 100 mg Tablet Extended Release 24 Hr 100 mg PO BID meclizine 12.5 mg Tablet 25 mg PO BID PRN (Reason: Vertigo) hydrocodone-acetaminophen 7.5-325 mg Tablet 1 tab PO Q6H PRN (Reason: Pain (Scale Score 7-10)) zolpidem 10 mg tablet 10 mg PO QHSPRN PRN (Reason: insomnia) Patient Comments: TAKE 1 TABLET BY MOUTH NIGHTLY AT BEDTIME NEEDED Hemiclor 12.5 mg tablet 12.5 mg PO QDAY multivitamin [Daily Multi-Vitamin] Tablet 1 tab PO QDAY tizanidine 4 mg tablet 4 mg PO TID Patient Comments: TAKE 1 TABLET BY MOUTH 3 TIMES A DAY valsartan 160 mg tablet 160 mg PO BID Qty: 30 2RF nifedipine 60 mg tablet extended release 60 mg PO QDAY Qty: 30 2RF hydralazine 100 mg tablet 100 mg PO TID Qty: 30 2RF metformin 500 mg Tablet 500 mg PO QDAY aspirin 81 mg Tablet,Delayed Release (Dr/Ec) 81 mg PO QDAY omeprazole 20 mg Capsule,Delayed Release(Dr/Ec) 20 mg PO QDAY estradiol 0.5 mg Tablet 1 mg PO QDAY Rx Instructions: off 5 days; repeat cycle duloxetine [Cymbalta] 60 mg Capsule,Delayed Release(Dr/Ec) 60 mg PO QDAY Referrals: Ara Bal MD [Primary Care Provider, Family Practice] - In 1 week Problem List Clinical Impression: Hypertensive emergency, AMS (altered mental status), Nausea & vomiting Patient/Caregiver Discharge Instructions Print Language: Russian Stand Alone Forms: Janay Award Info., Patient Portal Info Letter
[2025-09-28] MEDS: ONDANSETRON INJ 2 MG/ML INJ 2 ML 4 MG IVP ×3 (16:20→23:59)
[2025-09-28] MEDS: hydrALAZINE INJ 20 MG/ML VIAL IVP (16:24)
[2025-09-28] MEDS: ACETAMINOPHEN IVPB 1,000 MG/100 ML VIAL 250 MG IV (16:26)
[2025-09-28 16:37] LABS: Lactate (Lactic Acid) 2.9 mMol/L (0.4-2.0)
[2025-09-28] MEDS: RINGERS LACTATED 1000 ML 1,000 ML 999 ML IV (16:37)
[2025-09-28 16:41] LABS: Basophils # (Auto) 0.0 Thou/mm3 (0.0-0.2); Basophils % (Auto) 0 % (0-2.5); Eosinophils # (Auto) 0.0 Thou/mm3 (0.0-0.5); Eosinophils % (Auto) 0 % (0-10); Hematocrit 42.1 % (36.0-46.0); Hemoglobin 14.5 g/dL (12.0-16.0); Immature Granulocytes Auto 0.03 Thou/mm3 (0.00-0.00); Lymphocytes # (Auto) 1.6 Thou/mm3 (1.0-4.8); Lymphocytes % (Auto) 22 % (10-50); Mean Corpuscular HGB Conc 34.4 g/dl (31.0-37.0); Mean Corpuscular Hemoglobin 27.0 pg (25.0-35.0); Mean Corpuscular Volume 78 fL (80-100); Monocytes # (Auto) 0.4 Thou/mm3 (0.0-0.8); Monocytes % (Auto) 5 % (0-12); Neutrophils # (Auto) 5.5 Thou/mm3 (1.8-7.7); Neutrophils % (Auto) 72 % (37-80); Nucleated Red Blood Cell # 0.00 Thou/mm3 (0.00-0.00); Nucleated Red Blood Cell % 0 /100 WBC (0); Platelet Count 138 Thou/mm3 (140-440); RDW Standard Deviation 49.8 fL (36.4-46.3); Red Blood Count 5.38 Miln/mm3 (4.00-5.20); White Blood Count 7.6 Thou/mm3 (3.6-11.0)
[2025-09-28 16:56] LABS: INR 1.0 (0.9-1.3); Partial Thromboplastin Time 22.2 Seconds (22.0-36.0); Prothrombin Time 10.3 Seconds (9.0-12.2)
[2025-09-28 17:05] LABS: Collection Type, Urine Clean Catch
[2025-09-28 17:09] LABS: B-Type Natriuretic Peptide 34 pg/mL (0-100)
[2025-09-28 17:21] LABS: Bilirubin,Urine Negative (Negative); Blood,Urine Negative (Negative); Clarity,Urine Clear (Clear/Hazy); Color,Urine Lt-Yellow (Lt Yel-Yel); Culture Indicated,Urine Not Indicated; Glucose, Urine Negative (Negative); Ketones,Urine 1+ (Negative); Leukocyte Esterase,Urine Negative (Negative); Nitrite,Urine Negative (Negative); PH,Urine 8.5 (5.0-7.0); Protein,Urine Negative (Neg - Trace); RBC,Urine 1 /hpf (0-3); Specific Gravity,Urine 1.013 (1.001-1.035); Squamous Epithelial Cell,Urine 1 /hpf (0-5); Urobilinogen,Urine Negative mg/dL (0.0-1.0); WBC,Urine 1 /hpf (0-5)
[2025-09-28 17:21] LABS: Alanine Aminotransferase 32 U/L (10-49); Albumin, Serum 4.6 gm/dL (3.5-5.0); Albumin/Globulin Ratio 2.6 (1.2-2.2); Alkaline Phosphatase 84 U/L (46-116); Anion Gap 14 (7-16); Aspartate Amino Transferase 32 U/L (0-34); BUN/Creatinine Ratio 13 Ratio (12-20); Bilirubin,Total 0.8 mg/dL (0.3-1.2); Blood Urea Nitrogen 12 mg/dL (9-23); Calcium 9.3 mg/dL (8.3-10.6); Calcium (Corrected) 9.3 mg/dL (8.5-10.1); Carbon Dioxide 22.9 mMol/L (20.0-31.0); Chloride 98 mMol/L (98-107); Creatinine (Component) 0.9 mg/dL (0.6-1.3); Estimated Creatinine Clearance 76.4 mL/min (>60); Globulin 1.8 gm/dL (2.3-3.5); Glucose 177 mg/dL (74-106); Lipase 33 U/L (12-53); Osmolality,Calculated 273 (275-295); Potassium 3.8 mMol/L (3.4-5.1); Procalcitonin 0.07 ng/ml (0.0-0.49); Sodium 135 mMol/L (136-145); Total Protein 6.4 gm/dL (5.7-8.2); eGFR > 60 See Note
[2025-09-28 17:23] LABS: Troponin I 0.143 ng/mL (0.0-0.045)
[2025-09-28 17:26] LABS: Amphetamine/Methamp Scrn,U Negative (Negative); Barbiturate Screen,Urine Positive (Negative); Benzodiazepines Screen,Urine Negative (Negative); Benzoylecgonine Screen, Ur Negative (Negative); Fentanyl Screen,Urine Negative (Negative); Opiate Screen,Urine Positive (Negative); THC Screen,Urine Negative (Negative)
[2025-09-28] MEDS: METOCLOPRAMIDE INJ 5 MG/ML VIAL 2 ML 10 MG IVP (17:33)
[2025-09-28] MEDS: MORPHINE SULF INJ 4 MG/ML VIAL IVP ×2 (17:34→20:41)
[2025-09-28] MEDS: FAMOTIDINE INJ 10 MG/ML VIAL 2 ML 20 MG IVP (17:36)
[2025-09-28] MEDS: LABETALOL INJ 5 MG/ML VIAL 20 ML 20 MG IVP (18:29)
--- NOTE | 2025-09-28 18:55 | PC.NURSE ---
MD NOTIFIED OF PATIENT CURRENT BP AND NO NEW ORDERS AT THIS TIME, PT BP TO BE BROUGHT DOWN SLOWLY , PT TAKEN TO CT
[2025-09-28 19:32] LABS: Reflex Lactate? Y
[2025-09-28 20:01] LABS: Lactic Acid, 3 HR 2.5 mMol/L (0.4-2.0)
[2025-09-28] MEDS: LABETALOL INJ 5 MG/ML VIAL 20 ML 10 MG IVP (20:29)
[2025-09-28 20:35] LABS: Ammonia < 10 uMol/L (11-32)
--- NOTE | 2025-09-28 20:57 | ESHP_ITS ---
<Statement entered by Liane Garcia MD - 09/29/25 03:38> Patient is 59 yr female with PMH of HTN, HLD, CVA, and fibromyalgia who was just discharged from hospital on morning of 09/27 for A-fib with RVR and hypertension. After getting discharged and arriving at home, friend was attempting to contact patient. Noticed that she was not answering phone. Found patient to be laying in bed confused. She has been feeling feverish with chills, nausea, dry heaving, and left flank abdominal pain. No shortness of breath, chest pain. Significant vitals noted in ED for blood pressure 225/157, rate 99, respiratory rate 24 saturating 99% on room air. CT Abdo/pelvis shows possible left pyelonephritis. CT head was negative, no active disease seen on chest x-ray. Patient was eventually started on nicardipine drip while in the ED for blood pressure control. Proved to 168/99. Admitting patient for hypertensive emergency with encephalopathy. Start home medications as blood pressure permissible. Urine cultures pending, started ceftriaxone 2 g daily for pyelonephritis she also did exhibit CVA tenderness on exam. The patient's management plan was discussed with my attending physician Dr. Riddle. Liane Garcia, PGY-2 Documentation for date of: 09/28/25 HPI History of Present Illness History of present illness: 59-year-old female with a history of HTN, HLD, CVA, and fibromyalgia, discharged from the hospital last night, presents with confusion and lower abdominal pain. Her last well-known time was 9:30 AM today. She has been feeling feverish with chills, nausea, dry heaving, and left flank abdominal pain. The patient denies chest pain, shortness of breath, or blurry vision. Her family visited this afternoon and found her confused in bed. EMS noted her GCS was 13, and she was gagging. During her prior hospitalization (09/24-09/27), her hypertension was refractory to multiple antihypertensives, including amlodipine, metoprolol, hydralazine, valsartan, and nifedipine. However, by 09/27, her blood pressure had improved, and she was deemed clinically stable for discharge. The patient took her blood pressure medications this morning but vomited shortly thereafter. ED course: Initial vitals include T 98.6, BP 225/157 (highest BP recorded 260/144), HR 99, RR 24, 99% on room air. CT Abdo/pelvis shows possible left pyelonephritis. UA clear. Head CT negative. Chest x-ray shows no pneumonia. EKG shows sinus rhythm with QTc 483. CBC unremarkable except platelet 138. CMP shows lactic acid 2.9 with improvement to 2.5. Troponin 0.143. Ammonia negative. Lipase negative. Pro-Efrem negative. In ED patient received labetalol 20 mg IV, followed by 10 mg IV, and ultimately started on nicardipine drip for blood pressure control. Blood pressure improved to 168/99. Past medical history: As stated above. Allergies: Bupropion, sumatriptan, atenolol, latex Family history: Noncontributory. Social history: No alcohol use, no smoking, no illicit drug use. Patient admitted for hypertensive emergency and possible pyelonephritis. Review of Systems Review of Systems Narrative Review of Systems: All systems reviewed negative unless stated otherwise above. Exam Vital Signs Temp Pulse Resp BP Pulse Ox O2 Del Method 99.2 F 105 H 18 224/122 H 96 Room Air 09/28/25 20:12 09/28/25 20:29 09/28/25 20:12 09/28/25 20:29 09/28/25 20:12 09/28/25 20:12 Narrative Exam General: AOx3, mild acute distress, able to speak full sentences, Yoruba speaking HEENT: NC/AT, mucous membranes moist, bilateral sclera anicteric Cardiovascular: regular rate and rhythm, S1/S2 present, no murmurs appreciated Pulmonary: clear to auscultation bilaterally, no rales/rhonchi/wheezes Abdominal: soft, moderate tenderness centrally and to the left flank, non- distended, no rebound/guarding, bowel sounds present, CVA tenderness to the left Musculoskeletal: normal ROM, no peripheral edema Skin: warm and dry, intact, no rashes, Neuro: CN II-XII intact, no focal deficits Results: Labs 09/29/25 05:27 09/29/25 05:27 Labs: Short CBC 09/28/25 Range/Units 16:15 WBC 7.6 (3.6-11.0) Thou/mm3 Hgb 14.5 (12.0-16.0) g/dL Hct 42.1 (36.0-46.0) % Plt Count 138 L D (140-440) Thou/mm3 BMP 09/28/25 16:15 Sodium 135 L Potassium 3.8 Chloride 98 Carbon Dioxide 22.9 BUN 12 Creatinine 0.9 Glucose 177 H Calcium 9.3 Cardiac Enzymes 09/28/25 Range/Units 16:15 Troponin I 0.143 H* (0.0-0.045) ng/mL Liver Function 09/28/25 Range/Units 16:15 Total Bilirubin 0.8 (0.3-1.2) mg/dL AST 32 (0-34) U/L ALT 32 (10-49) U/L Alkaline Phosphatase 84 D (46-116) U/L Albumin 4.6 D (3.5-5.0) gm/dL Urine 09/28/25 Range/Units 16:30 Urine Color Lt-Yellow (Lt Yel-Yel) Urine Clarity Clear (Clear/Hazy) Urine pH 8.5 H (5.0-7.0) Ur Specific [place] 1.013 (1.001-1.035) Urine Protein Negative (Neg - Trace) Urine Glucose (UA) Negative (Negative) Quality Measures Quality Measures VTE prophylaxis Medications Home Medications and Allergies Home Medications ?Medication ?Instructions ?Recorded ?Confirmed ?Type hydrocodone 7.5 mg-acetaminophen 1 tab PO Q6H PRN Pain (Scale Score 08/05/19 09/29/25 History 325 mg tablet 7-10) metoprolol succinate 100 mg 100 mg PO BID 08/05/19 History tablet,extended release 24 hr aspirin 81 mg tablet,delayed 81 mg PO QDAY 08/31/23 History release duloxetine 60 mg capsule,delayed 60 mg PO QDAY 3 09/29/25 History release (Cymbalta) estradiol 0.5 mg tablet 1 mg PO QDAY 08/31/23 History metformin 500 mg tablet 500 mg PO QDAY 08/31/2309/16 History chlorthalidone 12.5 mg tablet 12.5 mg PO QDAY 09/24/25 09/29/25 History (Hemiclor) multivitamin (Daily Multi-Vitamin 1 tab PO QDAY 09/29/25 History tablet) tizanidine 4 mg tablet 4 mg PO TID 09/24/25 5 History zolpidem 10 mg tablet 10 mg PO QHSPRN PRN insomnia 09/24/25 09/29/25 History amlodipine 10 mg tablet 10 mg PO QDAY 09/29/2509/29 History chlorthalidone 25 mg tablet 25 mg PO BID hypertension 09/29/25 09/29/25 History clonidine HCl 0.2 mg tablet 0.2 mg PO BID 09/29/25 History hydralazine 100 mg tablet 100 mg PO Q12H hypertension 09/29/25 09/29/25 History hydroxyzine HCl 10 mg tablet 10 mg PO BID hypertension 09/29/25 09/29/25 History meclizine 25 mg tablet 25 mg PO BID PRN dizziness o r 09/29/25 09/29/25 History vertigo nifedipine 60 mg tablet,extended 60 mg PO BID hyperten bobo 09/29/25 09/29/25 History release ondansetron HCl 8 mg tablet 8 mg PO Q8H PRN nausea and vomiting 09/29/25 09/29/25 History telmisartan 80 mg tablet 80 mg PO QDAY 09/29/2509/29 History trazodone 100 mg tablet 100 mg PO HS PRN sleep 09/2909/29/25 History valsartan 160 mg tablet 160 mg PO QDAY hypertension 09/29/25 09/29/25 History Allergies Allergy/AdvReac Type Severity Reaction Status Date / Time bupropion (From Wellbutrin) Allergy Severe Swelling Verified 08/31/23 11:17 of Lip/Tongue/Throat sumatriptan (From Imitrex) Allergy Severe Swelling Verified 08/31/23 11:17 of Lip/Tongue/Throat atenolol Allergy Intermediate Rash Verified 08/31/23 11:17 latex Allergy Rash Verified 08/31/23 11:17 Visit Medications Heparin Sodium (Porcine) (Heparin Sod Inj 5000 Unit/Ml Vial) 5,000 unit SC Q8HR [facility] Stop: 10/12/25 21:59 Nicardipine/Sodium Chloride (Cardene Ivpb) 20 mg in 200 mls @ 50 mls/hr IV .Q4H PRN; Protocol PRN Reason: PER PROTOCOL Stop: 10/28/25 20:06 Ceftriaxone Sodium 2 gm/ (Sodium Chloride) 50 mls @ 100 mls/hr IV QDAY AMITA Stop: 10/05/25 20:46 Ondansetron HCl (Ondansetron Inj 2 Mg/Ml Inj 2 Ml) 4 mg IVP Q6H PRN; Protocol PRN Reason: nausea Stop: 10/28/25 20:59 Oxybutynin Chloride (Oxybutynin Chlor Xl 5 Mg Tati) 5 mg PO QDAY AMITA Stop: 10/28/25 20:59 Sennosides (Senna Tablet) 1 tab PO QDAY PRN; Protocol PRN Reason: constipation Stop: 10/28/25 20:43 Discontinued Medications Famotidine (Famotidine Inj 10 Mg/Ml Vial 2 Ml) 20 mg IVP X1 ONE Stop: 09/28/25 17:26 Last Admin: 09/28/25 17:36 Dose: 20 mg Hydralazine HCl (Hydralazine Inj 20 Mg/Ml Vial) 20 mg IVP X1 ONE Stop: 09/28/25 16:21 Last Admin: 09/28/25 16:24 Dose: 20 mg Lactated Ringer's (Lactated Ringers) 1,000 mls @ 999 mls/hr IV .Q1H1M ONE Stop: 09/28/25 17:17 Last Infusion: 09/28/25 17:38 Dose: Infused Acetaminophen (Ofirmev Inj) 1,000 mg in 100 mls @ 250 mls/hr IV X1 ONE Stop: 09/28/25 16:43 Last Infusion: 09/28/25 17:36 Dose: Infused Labetalol HCl (Labetalol Inj 5 Mg/Ml Vial 20 Ml) 20 mg IVP X1 ONE Stop: 09/28/25 18:25 Last Admin: 09/28/25 18:29 Dose: 20 mg Labetalol HCl (Labetalol Inj 5 Mg/Ml Vial 20 Ml) 10 mg IVP X1 ONE Stop: 09/28/25 20:13 Last Admin: 09/28/25 20:29 Dose: 10 mg Metoclopramide HCl (Metoclopramide Inj 5 Mg/Ml Vial 2 Ml) 10 mg IVP X1 ONE; Protocol Stop: 09/28/25 17:26 Last Admin: 09/28/25 17:33 Dose: 10 mg Morphine Sulfate (Morphine Sulf Inj 4 Mg/Ml Vial) 4 mg IVP X1 ONE Stop: 09/28/25 17:27 Last Admin: 09/28/25 17:34 Dose: 4 mg Morphine Sulfate (Morphine Sulf Inj 4 Mg/Ml Vial) 4 mg IVP X1 ONE Stop: 09/28/25 20:17 Last Admin: 09/28/25 20:41 Dose: 4 mg Ondansetron HCl (Ondansetron Inj 2 Mg/Ml Inj 2 Ml) 4 mg IVP X1 ONE; Protocol Stop: 09/28/25 16:18 Last Admin: 09/28/25 16:20 Dose: 4 mg Ondansetron HCl (Ondansetron Inj 2 Mg/Ml Inj 2 Ml) 4 mg IVP X1 ONE; Protocol Stop: 09/28/25 20:17 Last Admin: 09/28/25 20:37 Dose: 4 mg Assessment & Plan Plan 59-year-old female with a history of HTN, HLD, CVA, and fibromyalgia, discharged from the hospital last night, presents with confusion and lower abdominal pain. Patient admitted for hypertensive emergency and possible pyelonephritis. #Acute encephalopathy 2/2, improving #Hypertensive emergency #History of hypertension Alert and oriented x 3 Patient complains of dizziness, no headache, blurry vision, chest pain, shortness of breath Patient was discharged on the following blood pressure medications yesterday: valsartan 160 mg PO BID, nifedipine 60 mg PO QDAY, hydralazine 100 mg PO TID In ED patient received labetalol 20 mg IV, followed by 10 mg IV, and ultimately started on nicardipine drip for blood pressure control. Blood pressure improved to 168/99. Lactic acid 2.9 with improvement to 2 after blood pressure was well-controlled Plan ? Discontinue nicardipine drip ? Added hydralazine 100 mg p.o. every 8 hours and nifedipine 60 mg daily ? Continue to closely monitor blood pressure and add patient's home medications as tolerated #Left pyelonephritis Afebrile No WBC elevation CVA tenderness on physical exam, particularly on the left UA clear Plan ? Started on ceftriaxone 2 g IV daily empirically ? Follow-up on urine culture, if negative may discontinue antibiotics #Constipation Patient reported last bowel movement was 10 days ago, unsure if that is true or not given that patient was discharged from hospital yesterday Plan ? Water enema order placed ? Senna + MiraLAX scheduled DAILY #NSTEMI, likely type II Troponin 0.143 on admission, likely downtrending troponin from previous discharge 2 days earlier which was caused by demand ischemia. She denies chest pain. No relevant EKG changes, no symptoms or signs of CAD Plan ? On previous admission, Dr. Mireles (cardiology) was consulted and believed the event was Type II, patient underwent extensive cardiac workup in the last three months - No need to trend troponin #Urinary retention CT abdomen showing urinary retention Plan ? Jordan catheter inserted ? Consider starting patient on Tamsulosin if condition persists #Fibromyalgia Patient takes duloxetine 60 mg daily Plan ? Restarted home med Health Maintenance: Diet: Cardiac GI prophylaxis: Protonix 20 mg daily DVT prophylaxis: Heparin 5000u SC every 8 hours Antibiotics: Ceftriaxone 2 g IV daily CODE STATUS: DNR Disposition: Telemetry Case discussed with my attending Dr. Riddle, and senior resident, Dr. Jose Alcantara MD PGY-1 Attending Provider Attestation/Addendum After examination of the patient and review of the clinical data I feel that this patient needs admission to the hospital for further treatment/evaluation. Plan of care discussed with patient and is in agreement. I Tuan Riddle MD, attest that I was physically present for boone portions of evaluation, and examined patient, labs and imagings and plan of care were discussed with IM residents team, and I agree with the findings and plans documented above.
[2025-09-28] MEDS: cefTRIAXone 2 GM in SODIUM CHLORIDE 0.9% (Popper) 50 ML IV (21:10)
[2025-09-28] MEDS: NICARDIPINE/NS 20MG IVPB 20 MG/200 ML BAG 50 MG IV (21:10)
[2025-09-28] MEDS: HEPARIN SOD INJ 5000 UNIT/ML VIAL SC (21:12)
[2025-09-28] MEDS: OXYBUTYNIN CHLOR XL 5 MG TABER PO (21:12)
[2025-09-28] MEDS: MORPHINE SULF INJ 4 MG/ML VIAL 2 MG IVP (23:59)
[2025-09-29] VITALS (11 sets, daily range): BP systolic 141–176; BP diastolic 62–93; PULSE 81–108; RESP 15–20; TEMP 36.2–36.8; O2SAT 96–98; BMI 32.1; BMI 32.2
[2025-09-29] MEDS: DULoxetine HCL 30 MG CAPSULE 60 MG PO (00:50)
[2025-09-29 01:11] LABS: Lactate (Lactic Acid) 2.0 mMol/L (0.4-2.0)
[2025-09-29] MEDS: SCOPOLAMINE 1 MG TDSY TOP (03:59)
[2025-09-29] MEDS: MORPHINE SULF INJ 4 MG/ML VIAL 2 MG IVP ×2 (04:08→12:03)
[2025-09-29] MEDS: HEPARIN SOD INJ 5000 UNIT/ML VIAL SC ×3 (05:09→21:16)
[2025-09-29 06:36] LABS: Basophils # (Auto) 0.0 Thou/mm3 (0.0-0.2); Basophils % (Auto) 0 % (0-2.5); Eosinophils # (Auto) 0.0 Thou/mm3 (0.0-0.5); Eosinophils % (Auto) 0 % (0-10); Hematocrit 41.6 % (36.0-46.0); Hemoglobin 13.8 g/dL (12.0-16.0); Immature Granulocytes Auto 0.08 Thou/mm3 (0.00-0.00); Lymphocytes # (Auto) 3.4 Thou/mm3 (1.0-4.8); Lymphocytes % (Auto) 25 % (10-50); Mean Corpuscular HGB Conc 33.2 g/dl (31.0-37.0); Mean Corpuscular Hemoglobin 26.9 pg (25.0-35.0); Mean Corpuscular Volume 81 fL (80-100); Monocytes # (Auto) 1.3 Thou/mm3 (0.0-0.8); Monocytes % (Auto) 9 % (0-12); Neutrophils # (Auto) 8.7 Thou/mm3 (1.8-7.7); Neutrophils % (Auto) 65 % (37-80); Nucleated Red Blood Cell # 0.00 Thou/mm3 (0.00-0.00); Nucleated Red Blood Cell % 0 /100 WBC (0); Platelet Count 418 Thou/mm3 (140-440); RDW Standard Deviation 53.3 fL (36.4-46.3); Red Blood Count 5.13 Miln/mm3 (4.00-5.20); White Blood Count 13.5 Thou/mm3 (3.6-11.0)
[2025-09-29 06:52] LABS: Alanine Aminotransferase 24 U/L (10-49); Albumin, Serum 4.2 gm/dL (3.5-5.0); Albumin/Globulin Ratio 2.8 (1.2-2.2); Alkaline Phosphatase 69 U/L (46-116); Aspartate Amino Transferase 29 U/L (0-34); BUN/Creatinine Ratio 10 Ratio (12-20); Bilirubin,Total 0.5 mg/dL (0.3-1.2); Blood Urea Nitrogen 8 mg/dL (9-23); Calcium 8.5 mg/dL (8.3-10.6); Calcium (Corrected) 8.5 mg/dL (8.5-10.1); Chloride 101 mMol/L (98-107); Creatinine (Component) 0.8 mg/dL (0.6-1.3); Estimated Creatinine Clearance 82.8 mL/min (>60); Globulin 1.5 gm/dL (2.3-3.5); Glucose 149 mg/dL (74-106); Magnesium 1.7 mg/dL (1.6-2.6); Osmolality,Calculated 278 (275-295); Phosphorous 4.7 mg/dL (2.4-5.1); Potassium 3.0 mMol/L (3.4-5.1); Sodium 139 mMol/L (136-145); Total Protein 5.7 gm/dL (5.7-8.2); eGFR > 60 See Note
[2025-09-29 07:00] LABS: Carbon Dioxide 24.3 mMol/L (20.0-31.0)
[2025-09-29 07:08] LABS: Anion Gap 14 (7-16)
[2025-09-29 07:41] LABS: Glucose Estimated Average 128 mg/dL (80-131); Hemoglobin A1C 6.1 % Hgb (4.8-6.0)
[2025-09-29] MEDS: cefTRIAXone 2 GM in SODIUM CHLORIDE 0.9% (Popper) 50 ML IV (08:09)
[2025-09-29] MEDS: NIFEdipine XL 30 MG TABCR 60 MG PO (08:10)
[2025-09-29] MEDS: POLYETHYLENE GLYCOL 17 GM PACKET PO (08:11)
[2025-09-29] MEDS: PANTOPRAZOLE 20 MG TABLET PO (08:11)
[2025-09-29] MEDS: OXYBUTYNIN CHLOR XL 5 MG TABER PO (08:48)
[2025-09-29] MEDS: ACETAMINOPHEN 325 MG TABLET 650 MG PO ×2 (08:48→16:02)
--- NOTE | 2025-09-29 10:39 | ESPR_ITS ---
<Statement entered by Ricarda Benavides MD - 09/30/25 14:23> Patient was seen and examined by me personally. I have directly supervised and reviewed documentation by the team resident and agree with its findings with any exceptions or additional findings as below. Plan of care was discussed with the attending, Dr. Bustos. Ricarda Benavides, PGY-3 Documentation for date of: 09/29/25 Subjective Subjective Interval history: Patient was examined at bedside; they appear A&Ox3 and in NAD. Vitals/labs today significant for BP 170/93, HR 103, WBC 7.6->13.5, platelet 138->418, potassium 3.0, hemoglobin A1c 6.1, LA 2.5->2.0, magnesium 1.7, troponin 0.143. 09/28 CTAP showed 2 mm non-obstructing left renal calculus and left pyelonephritis pattern. 09/[address], CXR, and EKG were all unremarkable. Physical exam significant for moderate abdominal tenderness of midline regions and left CVA tenderness but was otherwise benign and noncontributory. Much like her recent admission, patient continues to have intractable nausea and vomiting. GI (Dr. Galdamez) has been consulted for the above issue and a gastric emptying study has been ordered as well. Patient's UDS was positive for barbiturates but patient denies taking any barbiturate medications. Patient is also noted to have severe refractory hypertension despite multiple antihypertensive medications being onboard; as such, work-up to rule out renal artery stenosis and pheochromocytoma have been ordered. Otherwise, patient will be treated with Rocephin IV for her possible left pyelonephritis seen on 09/28 CTAP. Exam Vital Signs Temp Pulse Resp BP Pulse Ox O2 Del Method 97.8 F 103 H 19 170/93 H 98 Room Air 09/29/25 08:00 09/29/25 08:10 09/29/25 08:00 09/29/25 08:10 09/29/25 08:00 09/29/25 08:00 Narrative Exam General: AOx3, mild acute distress, able to speak full sentences, Qatari speaking HEENT: NC/AT, mucous membranes moist, bilateral sclera anicteric Cardiovascular: regular rate and rhythm, S1/S2 present, no murmurs appreciated Pulmonary: clear to auscultation bilaterally, no rales/rhonchi/wheezes Abdominal: soft, moderate tenderness centrally and to the left flank, non- distended, no rebound/guarding, bowel sounds present, CVA tenderness to the left Musculoskeletal: normal ROM, no peripheral edema Skin: warm and dry, intact, no rashes, Neuro: CN II-XII intact, no focal deficits Objective Labs 09/30/25 05:29 09/30/25 05:29 Labs: Laboratory Results - last 24 hr 09/28/25 09/28/25 09/28/25 16:15 16:30 16:41 WBC 7.6 RBC 5.38 H Hgb 14.5 Hct 42.1 MCV 78 L MCH 27.0 MCHC 34.4 RDW Std Deviation 49.8 H Plt Count 138 L D Neut % (Auto) 72 Lymph % (Auto) 22 Hunt % (Auto) 5 Eos % (Auto) 0 Baso % (Auto) 0 Neut # (Auto) 5.5 Lymph # (Auto) 1.6 Hunt # (Auto) 0.4 Eos # (Auto) 0.0 Baso # (Auto) 0.0 Immature Gran # (Auto) 0.03 H Absolute Nucleated RBC 0.00 Immature Gran % 0 Nucleated RBC % 0 PT 10.3 INR 1.0 APTT 22.2 Sodium 135 L Potassium 3.8 Chloride 98 Carbon Dioxide 22.9 Anion Gap 14 BUN 12 Creatinine 0.9 Estim Creat Clear Calc 76.4 eGFR > 60 BUN/Creatinine Ratio [address] Glu mg/dL Hemoglobin A1c Calculated Osmolality 273 L Lactic Acid 2.9 H Calcium 9.3 Corrected Calcium 9.3 Phosphorus Magnesium Total Bilirubin 0.8 AST 32 ALT 32 Alkaline Phosphatase 84 D Ammonia Troponin I 0.143 H* B-Natriuretic Peptide 34 Total Protein 6.4 Albumin 4.6 D Globulin 1.8 L Albumin/Globulin Ratio 2.6 H Lipase 33 Procalcitonin 0.07 Ur Collection Type Clean Catch Urine Color Lt-Yellow Urine Clarity Clear Urine pH 8.5 H Ur Specific [place] 1.013 Urine Protein Negative Urine Glucose (UA) Negative Urine Ketones 1+ A Urine Blood Negative Urine Nitrite Negative Urine Bilirubin Negative Urine Urobilinogen (Auto) Negative Ur Leukocyte Esterase Negative Urine RBC 1 Urine WBC 1 Ur Squamous Epith Cells 1 Urine Bacteria None Ur Culture Indicated? Not Indicated Urine Opiates Screen Positive A Urine Fentanyl Screen Negative Ur Barbiturates Screen Positive A U Amphetamin/Meth Scrn Negative U Benzodiazepines Scrn Negative U Cocaine Metab Screen Negative U Marijuana (THC) Screen Negative 09/28/25 09/29/25 09/29/25 19:57 00:58 05:27 WBC 13.5 H D RBC 5.13 Hgb 13.8 Hct 41.6 MCV 81 MCH 26.9 MCHC 33.2 RDW Std Deviation 53.3 H Plt Count 418 D Neut % (Auto) 65 Lymph % (Auto) 25 Hunt % (Auto) 9 Eos % (Auto) 0 Baso % (Auto) 0 Neut # (Auto) 8.7 H Lymph # (Auto) 3.4 Hunt # (Auto) 1.3 H Eos # (Auto) 0.0 Baso # (Auto) 0.0 Immature Gran # (Auto) 0.08 H Absolute Nucleated RBC 0.00 Immature Gran % 1 H Nucleated RBC % 0 PT INR APTT Sodium 139 Potassium 3.0 L D Chloride 101 Carbon Dioxide 24.3 Anion Gap 14 BUN 8 L Creatinine 0.8 Estim Creat Clear Calc 82.8 eGFR > 60 BUN/Creatinine Ratio 10 L Glucose [address] Glu mg/dL 128 Hemoglobin A1c 6.1 H Calculated Osmolality 278 Lactic Acid 2.5 H 2.0 Calcium 8.5 Corrected Calcium 8.5 Phosphorus 4.7 Magnesium 1.7 Total Bilirubin 0.5 AST 29 ALT 24 Alkaline Phosphatase 69 Ammonia < 10 L Troponin I B-Natriuretic Peptide Total Protein 5.7 Albumin 4.2 Globulin 1.5 L Albumin/Globulin Ratio 2.8 H Lipase Procalcitonin Ur Collection Type Urine Color Urine Clarity Urine pH Ur Specific [place] Urine Protein Urine Glucose (UA) Urine Ketones Urine Blood Urine Nitrite Urine Bilirubin Urine Urobilinogen (Auto) Ur Leukocyte Esterase Urine RBC Urine WBC Ur Squamous Epith Cells Urine Bacteria Ur Culture Indicated? Urine Opiates Screen Urine Fentanyl Screen Ur Barbiturates Screen U Amphetamin/Meth Scrn U Benzodiazepines Scrn U Cocaine Metab Screen U Marijuana (THC) Screen Quality Measures Quality Measures none Assessment & Plan Assessment Current Active Medications: Generic Name Dose Route Start Last Admin Trade Name Freq PRN Reason Stop Dose Admin Acetaminophen 650 mg 09/29/25 08:22 09/29/25 08:48 Acetaminophen 325 Mg Tablet PO 10/29/25 08:21 650 mg Q6HR PRN Administration pain 1-3 Dextrose 25 ml 09/29/25 03:14 Dextrose 50%-Water Inj 50 Ml Syringe IV 10/29/25 03:13 Q15MIN PRN BG 50-70 responsive npo pt Dextrose 50 ml 09/29/25 03:14 Dextrose 50%-Water Inj 50 Ml Syringe IV 10/29/25 03:13 Q15MIN PRN BG <50 OR BG <70 & pt unresponsive Duloxetine HCl 60 mg 09/29/25 00:30 09/29/25 00:50 Duloxetine Hcl 30 Mg Capsule PO 10/29/25 00:29 60 mg QDAY AMITA Administration Glucagon 1 mg 09/29/25 03:14 Glucagon Inj 1 Mg Vial IM Q15MIN PRN BG <70, and no IV access Heparin Sodium (Porcine) 5,000 unit 09/28/25 22:00 09/29/25 05:09 Heparin Sod Inj 5000 Unit/Ml Vial SC 10/12/25 21:59 5,000 unit Q8HR AMITA Administration Hydralazine HCl 100 mg 09/29/25 14:00 Hydralazine Hcl 25 Mg Tablet PO 10/29/25 02:29 Q8HR [facility] Ceftriaxone Sodium 2 gm/ 50 mls @ 100 mls/hr 09/28/25 20:47 09/29/25 08:09 Sodium Chloride IV 10/05/25 20:46 100 mls/hr QDAY [facility] Administration Insulin Human Lispro 0 unit 09/29/25 07:30 09/29/25 07:56 Insulin Lispro (Admelog) 1 Unit/0.01 Ml Unit SC 10/29/25 07:29 Not Given AC [facility] Protocol Morphine Sulfate 2 mg 09/28/25 23:49 09/29/25 04:08 Morphine Sulf Inj 4 Mg/Ml Vial IVP 2 mg Q4HR PRN Administration PAIN SCALE 7-10 (Severe Nifedipine 60 mg 09/29/25 09:00 09/29/25 08:10 Nifedipine Xl 30 Mg Tabcr PO 10/29/25 08:59 60 mg QDAY AMITA Administration Ondansetron HCl 4 mg 09/28/25 20:51 09/28/25 23:59 Ondansetron Inj 2 Mg/Ml Inj 2 Ml IVP 10/28/25 20:59 4 mg Q6H PRN Administration nausea Protocol Oxybutynin Chloride 5 mg 09/28/25 21:00 09/29/25 08:48 Oxybutynin Chlor Xl 5 Mg Tati PO 10/28/25 20:59 5 mg QDAY AMITA Administration Pantoprazole Sodium 20 mg 09/29/25 09:00 09/29/25 08:11 Pantoprazole 20 Mg Tablet PO 10/29/25 08:59 20 mg QDAY AMITA Administration Polyethylene Glycol 17 gm 09/29/25 09:00 09/29/25 08:11 Polyethylene Glycol 17 Gm Packet PO 10/29/25 08:59 17 gm QDAY AMITA Administration Sennosides 1 tab 09/29/25 09:00 09/29/25 08:10 Senna Tablet PO 10/29/25 08:59 1 tab QDAY AMITA Administration Protocol Plan 59-year-old female with a history of HTN, HLD, CVA, and fibromyalgia, discharged from the hospital last night, presents with confusion and lower abdominal pain. Patient admitted for hypertensive emergency and possible pyelonephritis. #Acute encephalopathy 2/2, improving #Hypertensive emergency #History of hypertension Alert and oriented x 3 Patient complains of dizziness, no headache, blurry vision, chest pain, shortness of breath Patient was discharged on the following blood pressure medications yesterday: valsartan 160 mg PO BID, nifedipine 60 mg PO QDAY, hydralazine 100 mg PO TID In ED patient received labetalol 20 mg IV, followed by 10 mg IV, and ultimately started on nicardipine drip for blood pressure control. Blood pressure improved to 168/99 and nicardipine drip was discontinued Lactic acid 2.9 with improvement to 2 after blood pressure was well-controlled Dx: -09/29 renal artery study ordered, showed ___ -09/29 urine metanephrines ordered, showed ___ Rx: -Nifedipine 60 mg PO qD -Hydralazine 100 mg PO q8HR -Will slowly add back on home antihypertensive medications if BP continues to be refractory #Possible Left pyelonephritis Afebrile No WBC elevation CVA tenderness on physical exam, particularly on the left UA clear Plan ?Rocephin 2 g IV qD [09/29--] ?Follow-up on urine culture, if negative may discontinue antibiotics #Intractable nausea and vomiting Patient complains of nausea and vomiting that has been ongoing since last admission and has been refractory to Zofran and Reglan Dx: -09/28 gastric emptying study ordered, showed ___ Rx: -GI consulted, appreciate recommendations #Constipation Patient reported last bowel movement was 10 days ago, unsure if that is true or not given that patient was discharged from hospital yesterday Plan ? Water enema order placed ? Senna + MiraLAX scheduled DAILY #NSTEMI, likely type II Troponin 0.143 on admission, likely demand ischemia. She denies chest pain. No relevant EKG changes. Plan ? On previous admission, Dr. Mireles (cardiology) was consulted and believed the event was Type II, patient underwent extensive cardiac workup in the last three months #Urinary retention CT abdomen showing urinary retention Plan ? Jordan catheter inserted ? Oxybutynin 5 mg daily #Fibromyalgia Patient takes duloxetine 60 mg daily Plan ? Restarted home med #Barbiturate (+) on UDS Patient was positive for barbiturates on 09/28 UDS but denies taking any barbiturate medications Health Maintenance: Diet: Cardiac GI prophylaxis: Protonix 20 mg daily DVT prophylaxis: Heparin 5000u SC every 8 hours Antibiotics: Ceftriaxone 2 g IV daily CODE STATUS: DNR Disposition: Telemetry Case discussed with my attending Dr. Bustos and senior resident Dr. Makayla Young, DO PGY-1 Attending Provider Attestation/Addendum I have examined the patient, reviewed labs and imaging findings, discussed the case with the resident(s), and reviewed entered orders. I agree with the plan of care as outlined in this note, with these additional summaries/recommendations: Patient seen at bedside. Patient reports after being hospitalized she went home and was in her normal state of health. The following day her nausea and vomiting returned and she threw up her antihypertensive medicines. Patient has intractable nausea and vomiting. Suspect possible gastroparesis. She endorses postprandial nausea/vomiting. Consult gastroenterology, recommendations appreciated. We will discuss gastric emptying study and starting Reglan with gastroenterology. Continue antiemetics. Patient had hypertensive emergency on admission and received a short course of nicardipine gtt. Systolic blood pressure was into the 220s on admission. Currently we will continue hydralazine 100 mg 3 times daily and nifedipine 60 mg p.o. daily. We will continue to adjust antihypertensive regimen as needed. There was suspicion for pyelonephritis on admission and we will continue IV Rocephin for now. Follow-up culture results. Continue aggressive bowel regimen for constipation. Troponin elevated on admission most likely secondary to demand ischemia unrelated to ACS or plaque rupture. If patient develops symptoms we will consult cardiology. Patient updated on the plan and agreement. All questions answered satisfaction. Please see residents note for additional details and management. Dr. Juli MD
--- NOTE | 2025-09-29 10:40 | CHAP ---
Patient expressed gratitude for visit and prayer.
[2025-09-29] MEDS: INSULIN LISPRO (AdmeLOG) 1 UNIT/0.01 ML UNIT SC (12:02)
--- NOTE | 2025-09-29 14:09 | PC.SS ---
Domenica Alexis is a 59-year-old female admitted to [facility] for HTN Emergency. SS conducted bedside contact with the patient to complete initial assessment and to discuss discharge planning. Role and reason explained. Patient confirmed demographic information. Patient identifies uncle Silvestre Cheney [phone] as her surrogate decision maker. Pt states she is able to complete all ADL?s independently. No need for any source of DME. Pts PCP is Dr. Bal. Pharmacy of choice is [facility]. Discharge options discussed and the pt wishes to return home.? Family will provide transportation upon DC. No further intervention required at this time, social service coordinator would be available to address any further concerns. DC Plan: Home Contact: Silvestre Pratt Address: Confirmed on face sheet PCP: Mally
--- NOTE | 2025-09-29 14:32 | PC.SS ---
Rounding: Rudolph consult, gastric emptying study pending, DC plan home
--- NOTE | 2025-09-29 16:21 | PD.IMCONS ---
HPI Data of Consult Requesting Physician: Tuan Riddle MD Primary Care Provider: Ara Bal MD Consult Narrative Reason for consult: Pain abdomen nausea dry heaves History of present illness: 59-year-old female comes back to the hospital within 24 hours after discharge for left-sided and lower abdominal pain discomfort along with nausea and left flank pain CT scan of the abdomen pelvis showed left pyelonephritis pattern and a 2 mm left kidney stone nonobstructing Patient has been having lower abdominal pain and discomfort and prior to discharge she had a KUB done which showed stool impaction I gave her dietary instructions and planned an outpatient colonoscopy at the referral of her primary care physician from [facility] Her last colonoscopy was close to over 10 years ago In addition she had developed dry heaves and nausea cc:: cc: Tuan Riddle MD Review of Systems Review of Systems Systems Reviewed: All systems reviewed, normal except as documented Past Medical History Surgical History OTHER SURGICAL HX: Essential hypertension Hyperlipidemia CVA Fibromyalgia's Meds Home Medications and Allergies Home Medications ?Medication ?Instructions ?Recorded ?Confirmed ?Type hydrocodone 7.5 mg-acetaminophen 1 tab PO Q6H PRN Pain (Scale Score 08/05/19 09/29/25 History 325 mg tablet 7-10) metoprolol succinate 100 mg 100 mg PO BID 08/05/19 09/29/25 History tablet,extended release 24 hr aspirin 81 mg tablet,delayed 81 mg PO QDAY 08/31/23 09/29/25 History release duloxetine 60 mg capsule,delayed 60 mg PO QDAY 08/31/23 09/29/25 History release (Cymbalta) estradiol 0.5 mg tablet 1 mg PO QDAY 08/31/23 09/29/25 History metformin 500 mg tablet 500 mg PO QDAY 08/31/23 09/29/25 History chlorthalidone 12.5 mg tablet 12.5 mg PO QDAY 09/24/25 09/29/25 History (Hemiclor) multivitamin (Daily Multi-Vitamin 1 tab PO QDAY 09/24/25 09/29/25 History tablet) tizanidine 4 mg tablet 4 mg PO TID 09/24/25 09/29/25 History zolpidem 10 mg tablet 10 mg PO QHSPRN PRN insomnia 09/24/25 09/29/25 History amlodipine 10 mg tablet 10 mg PO QDAY 09/29/25 09/29/25 History chlorthalidone 25 mg tablet mg 09/29/25 History clonidine HCl 0.2 mg tablet 0.2 mg PO BID 09/29/25 09/29/25 History hydralazine 100 mg tablet mg 09/29/25 History hydroxyzine HCl 10 mg tablet mg 09/29/25 History meclizine 25 mg tablet 25 mg PO BID PRN dizziness or 09/29/25 09/29/25 History vertigo nifedipine 60 mg tablet,extended mg PO 09/29/25 History release ondansetron HCl 8 mg tablet mg 09/29/25 History telmisartan 80 mg tablet mg 09/29/25 History trazodone 100 mg tablet mg 09/29/25 History valsartan 160 mg tablet mg 09/29/25 History Allergies Allergy/AdvReac Type Severity Reaction Status Date / Time bupropion (From Wellbutrin) Allergy Severe Swelling Verified 08/31/23 11:17 of Lip/Tongue/Throat sumatriptan (From Imitrex) Allergy Severe Swelling Verified 08/31/23 11:17 of Lip/Tongue/Throat atenolol Allergy Intermediate Rash Verified 08/31/23 11:17 latex Allergy Rash Verified 08/31/23 11:17 Exam Vital Signs Temp Pulse Resp BP Pulse Ox O2 Del Method 97.1 F 88 19 162/83 H 98 Room Air 09/29/25 12:00 09/29/25 16:00 09/29/25 12:00 09/29/25 14:39 09/29/25 12:00 09/29/25 12:00 Constitutional Comments: Alert oriented Routine Respiratory Exam Comments: Normal to auscultation Routine Abdominal Exam Comments: Soft nontender Results Labs 09/29/25 05:27 09/29/25 05:27 Labs: Short CBC 09/28/25 09/29/25 Range/Units 16:15 05:27 WBC 7.6 13.5 H D (3.6-11.0) Thou/mm3 Hgb 14.5 13.8 (12.0-16.0) g/dL Hct 42.1 41.6 (36.0-46.0) % Plt Count 138 L D 418 D (140-440) Thou/mm3 BMP 09/28/25 09/29/25 16:15 05:27 Sodium 135 L 139 Potassium 3.8 3.0 L D Chloride 98 101 Carbon Dioxide 22.9 24.3 BUN 12 8 L Creatinine 0.9 0.8 Glucose 177 H 149 H Calcium 9.3 8.5 Cardiac Enzymes 09/28/25 Range/Units 16:15 Troponin I 0.143 H* (0.0-0.045) ng/mL Liver Function 09/28/25 09/29/25 Range/Units 16:15 05:27 Total Bilirubin 0.8 0.5 (0.3-1.2) mg/dL AST 32 29 (0-34) U/L ALT 32 24 (10-49) U/L Alkaline Phosphatase 84 D 69 (46-116) U/L Albumin 4.6 D 4.2 (3.5-5.0) gm/dL Urine 09/28/25 Range/Units 16:30 Urine Color Lt-Yellow (Lt Yel-Yel) Urine Clarity Clear (Clear/Hazy) Urine pH 8.5 H (5.0-7.0) Ur Specific [place] 1.013 (1.001-1.035) Urine Protein Negative (Neg - Trace) Urine Glucose (UA) Negative (Negative) Assessment and Plan Additional Assessment & Plan Additional Plan: # Pain abdomen left flank left mid quadrant and left lower quadrant along with lower abdominal pain Complicated by pyelonephritis pattern on the left side on his CT scan imaging but no evidence of any diverticulitis and patient is postcholecystectomy Previous imaging of the abdomen had shown stool impaction Plan Clear liquid diet GoLytely prep Consent obtained for fiberoptic colonoscopy with possible biopsy possible therapeutic intervention under intravenous moderate sedation Clear liquid diet to continue as long as the patient is drinking GoLytely Prior to discharge I might consider upper endoscopy Other medical problems include Essential hypertension difficult to control hyperlipidemia CVA Fibromyalgia Left pyelonephritis Thank you very much for the opportunity to participate in care of this patient
[2025-09-29] MEDS: NA SU/NAHCO3/KC/PEG (Golytely) 4,000 ML BTL 4000 ML PO (16:30)
--- NOTE | 2025-09-29 16:41 | XR_ITS ---
EXAMINATION: Renal sonography Renal Doppler sonographic assessment peak systolic velocities renal aorta ratios resistive indices INDICATIONS: Onset hypertension this week Date and time: 2024, 2038 hours TECHNIQUE AND FINDINGS: Grayscale sonographic images kidneys Assessment peak systolic velocities, calculation of resistive indices, Limited study, no diagnostic visualization of the left kidney No elevation peak systolic velocities right kidney There is no visualization of aortic peak systolic velocity and no calculation of resistive indices IMPRESSION: This is essentially a nondiagnostic study for renal artery stenosis Consider MRA abdomen renal arteries without contrast follow-up
[2025-09-30] VITALS (13 sets, daily range): BP systolic 141–164; BP diastolic 66–97; PULSE 74–137; RESP 17–20; TEMP 35.9–36.4; O2SAT 93–98; BMI 31.9
[2025-09-30] MEDS: ONDANSETRON INJ 2 MG/ML INJ 2 ML 4 MG IVP ×2 (02:34→10:32)
[2025-09-30] MEDS: HEPARIN SOD INJ 5000 UNIT/ML VIAL SC ×2 (05:37→14:21)
[2025-09-30 06:19] LABS: Basophils # (Auto) 0.1 Thou/mm3 (0.0-0.2); Basophils % (Auto) 1 % (0-2.5); Eosinophils # (Auto) 0.2 Thou/mm3 (0.0-0.5); Eosinophils % (Auto) 2 % (0-10); Hematocrit 44.3 % (36.0-46.0); Hemoglobin 14.8 g/dL (12.0-16.0); Immature Granulocytes Auto 0.04 Thou/mm3 (0.00-0.00); Lymphocytes # (Auto) 2.5 Thou/mm3 (1.0-4.8); Lymphocytes % (Auto) 28 % (10-50); Mean Corpuscular HGB Conc 33.4 g/dl (31.0-37.0); Mean Corpuscular Hemoglobin 27.8 pg (25.0-35.0); Mean Corpuscular Volume 83 fL (80-100); Monocytes # (Auto) 0.9 Thou/mm3 (0.0-0.8); Monocytes % (Auto) 10 % (0-12); Neutrophils # (Auto) 5.2 Thou/mm3 (1.8-7.7); Neutrophils % (Auto) 59 % (37-80); Nucleated Red Blood Cell # 0.00 Thou/mm3 (0.00-0.00); Nucleated Red Blood Cell % 0 /100 WBC (0); Platelet Count 411 Thou/mm3 (140-440); RDW Standard Deviation 54.4 fL (36.4-46.3); Red Blood Count 5.33 Miln/mm3 (4.00-5.20); White Blood Count 8.9 Thou/mm3 (3.6-11.0)
[2025-09-30] MEDS: ACETAMINOPHEN 325 MG TABLET 650 MG PO (06:22)
[2025-09-30 06:57] LABS: Alanine Aminotransferase 21 U/L (10-49); Albumin, Serum 4.2 gm/dL (3.5-5.0); Albumin/Globulin Ratio 2.6 (1.2-2.2); Alkaline Phosphatase 71 U/L (46-116); Anion Gap 11 (7-16); Aspartate Amino Transferase 21 U/L (0-34); BUN/Creatinine Ratio 14 Ratio (12-20); Bilirubin,Total 0.4 mg/dL (0.3-1.2); Blood Urea Nitrogen 10 mg/dL (9-23); Calcium 9.3 mg/dL (8.3-10.6); Calcium (Corrected) 9.3 mg/dL (8.5-10.1); Carbon Dioxide 28.8 mMol/L (20.0-31.0); Chloride 101 mMol/L (98-107); Creatinine (Component) 0.7 mg/dL (0.6-1.3); Estimated Creatinine Clearance 92.4 mL/min (>60); Globulin 1.6 gm/dL (2.3-3.5); Glucose 144 mg/dL (74-106); Magnesium 1.8 mg/dL (1.6-2.6); Osmolality,Calculated 283 (275-295); Phosphorous 3.4 mg/dL (2.4-5.1); Potassium 3.3 mMol/L (3.4-5.1); Sodium 141 mMol/L (136-145); Total Protein 5.8 gm/dL (5.7-8.2); eGFR > 60 See Note
[2025-09-30] MEDS: cefTRIAXone 2 GM in SODIUM CHLORIDE 0.9% (Popper) 50 ML IV (09:04)
[2025-09-30] MEDS: DULoxetine HCL 30 MG CAPSULE 60 MG PO (09:04)
[2025-09-30] MEDS: PANTOPRAZOLE 20 MG TABLET PO (09:04)
[2025-09-30] MEDS: NIFEdipine XL 30 MG TABCR 60 MG PO (09:04)
[2025-09-30] MEDS: POLYETHYLENE GLYCOL 17 GM PACKET PO (09:06)
--- NOTE | 2025-09-30 09:56 | EKG_ITS ---
[facility] Test Date: 2025-09-30 Pat Name: SHASHA BUCKLEY [facility] Gender: Female Hand Pleater: YESSY : 1965 Requested By: Luis Ralph Order Number: [id number] Reading MD: Luis Ralph Measurements Intervals [place] Rate: 132 P: 53 ME: 145 QRS: -16 QRSD: 94 T: 35 QT: 325 QTc: 482 Interpretive Statements SINUS TACHYCARDIA POSSIBLE ANTERIOR MYOCARDIAL INFARCTION , OF INDETERMINATE AGE INFERIOR MYOCARDIAL INFARCTION , OF INDETERMINATE AGE Compared to ECG 09/28/2025 16:26:11 Myocardial infarct finding now present Sinus rhythm no longer present Atrial abnormality no longer present /store/S0/[id number]
--- NOTE | 2025-09-30 09:57 | PC.NURSE ---
Pt sinus tach, abd pain [address] Young and Dr. Romano attempted to contact with no response. Attending Dr. Bustos contacted and orders noted.
[2025-09-30] MEDS: METOPROLOL SUCCINATE XL 25 MG TABCR 100 MG PO ×2 (10:13→20:23)
[2025-09-30] MEDS: HYDROcodone/APAP 7.5/325 TABLET 1 TAB PO ×2 (10:13→20:23)
[2025-09-30] MEDS: INSULIN LISPRO (AdmeLOG) 1 UNIT/0.01 ML UNIT SC (11:45)
--- NOTE | 2025-09-30 15:14 | PC.SS ---
Rounding: pending colonoscopy.
--- NOTE | 2025-09-30 17:30 | ESPR_ITS ---
Documentation for date of: 09/30/25 Subjective Subjective Interval history: The patient is seen and examined at bedside. No acute overnight events. Denies any other complaints. Vitals are stable. Labs this morning showed mild hypokalemia, 3.3 which was repleted with 40 mill equivalents of oral potassium Currently on GoLytely prep for colonoscopy which will be done by Dr. Galdamez Renal artery duplex was done and the findings are inconclusive, recommended MR angio which can be done on outpatient basis Exam Vital Signs Temp Pulse Resp BP Pulse Ox O2 Del Method 97.0 F 84 17 148/97 H 93 L Room Air 09/30/25 12:00 09/30/25 14:21 09/30/25 12:00 09/30/25 14:21 09/30/25 12:00 09/30/25 12:00 Narrative Exam General: Awake. HEENT: Normocephalic, atraumatic, mucous membranes moist. Heart: Regular rate and rhythm, no murmurs. Lungs: Clear to auscultation with no wheezing or crackles. Abdomen: Soft, nondistended, nontender, positive bowel sounds. ?No guarding or rebound tenderness. Neurologic: Alert and oriented x3, no gross neurological deficit, and patient able to move all 4 extremities. Extremities: No edema. Skin: No rash or ecchymoses. Objective Labs 10/01/25 04:34 10/01/25 04:34 Labs: Laboratory Results - last 24 hr 09/30/25 05:29 WBC 8.9 RBC 5.33 H Hgb 14.8 Hct 44.3 MCV 83 MCH 27.8 MCHC 33.4 RDW Std Deviation 54.4 H Plt Count 411 Neut % (Auto) 59 Lymph % (Auto) 28 [place] % (Auto) 10 Eos % (Auto) 2 Baso % (Auto) 1 Neut # (Auto) 5.2 Lymph # (Auto) 2.5 [place] # (Auto) 0.9 H Eos # (Auto) 0.2 Baso # (Auto) 0.1 Immature Gran # (Auto) 0.04 H Absolute Nucleated RBC 0.00 Immature Gran % 0 Nucleated RBC % 0 Sodium 141 Potassium 3.3 L Chloride 101 Carbon Dioxide 28.8 Anion Gap 11 BUN 10 Creatinine 0.7 Estim Creat Clear Calc 92.4 eGFR > 60 BUN/Creatinine Ratio 14 Glucose 144 H Calculated Osmolality 283 Calcium 9.3 Corrected Calcium 9.3 Phosphorus 3.4 Magnesium 1.8 Total Bilirubin 0.4 AST 21 ALT 21 Alkaline Phosphatase 71 Total Protein 5.8 Albumin 4.2 Globulin 1.6 L Albumin/Globulin Ratio 2.6 H Quality Measures Quality Measures VTE prophylaxis Assessment & Plan Assessment Current Active Medications: Generic Name Dose Route Start Last Admin Trade Name Freq PRN Reason Stop Dose Admin Acetaminophen 650 mg 09/29/25 08:22 09/30/25 06:22 Acetaminophen 325 Mg Tablet PO 10/29/25 08:21 650 mg Q6HR PRN Administration pain 1-3 Hydrocodone Bitart/Acetaminophen 1 tab 09/30/25 09:58 09/30/25 10:13 Hydrocodone/Apap 7.5/325 Tablet PO 10/05/25 09:57 1 tab Q6H PRN Administration Pain (Scale Score 7-10) Dextrose 25 ml 09/29/25 03:14 Dextrose 50%-Water Inj 50 Ml Syringe IV 10/29/25 03:13 Q15MIN PRN BG 50-70 responsive npo pt Dextrose 50 ml 09/29/25 03:14 Dextrose 50%-Water Inj 50 Ml Syringe IV 10/29/25 03:13 Q15MIN PRN BG <50 OR BG <70 & pt unresponsive Duloxetine HCl 60 mg 09/29/25 00:30 09/30/25 09:04 Duloxetine Hcl 30 Mg Capsule PO 10/29/25 00:29 60 mg QDAY AMITA Administration Estradiol 1 mg 09/30/25 10:00 09/30/25 10:56 Estradiol 1 Mg Tablet PO 10/30/25 09:59 1 mg QDAY AMITA Administration Glucagon 1 mg 09/29/25 03:14 Glucagon Inj 1 Mg Vial IM Q15MIN PRN BG <70, and no IV access Heparin Sodium (Porcine) 5,000 unit 09/28/25 22:00 09/30/25 14:21 Heparin Sod Inj 5000 Unit/Ml Vial SC 10/12/25 21:59 5,000 unit Q8HR AMITA Administration Hydralazine HCl 100 mg 09/29/25 14:00 09/30/25 14:21 Hydralazine Hcl 25 Mg Tablet PO 10/29/25 02:29 100 mg Q8HR AMITA Administration Ceftriaxone Sodium 2 gm/ 50 mls @ 100 mls/hr 09/28/25 20:47 09/30/25 09:04 Sodium Chloride IV 10/05/25 20:46 100 mls/hr QDAY AMITA Administration Insulin Human Lispro 0 unit 09/29/25 07:30 09/30/25 11:45 Insulin Lispro (Admelog) 1 Unit/0.01 Ml Unit SC 10/29/25 07:29 3 unit AC AMITA Administration Protocol Metoprolol Succinate 100 mg 09/30/25 10:00 09/30/25 10:13 Metoprolol Succinate Xl 25 Mg Tabcr PO 10/30/25 09:59 100 mg BID AMITA Administration Nifedipine 60 mg 09/29/25 09:00 09/30/25 09:04 Nifedipine Xl 30 Mg Tabcr PO 10/29/25 08:59 60 mg QDAY AMITA Administration Ondansetron HCl 4 mg 09/28/25 20:51 09/30/25 10:32 Ondansetron Inj 2 Mg/Ml Inj 2 Ml IVP 10/28/25 20:59 4 mg Q6H PRN Administration nausea Protocol Pantoprazole Sodium 20 mg 09/29/25 09:00 09/30/25 09:04 Pantoprazole 20 Mg Tablet PO 10/29/25 08:59 20 mg QDAY AMITA Administration Polyethylene Glycol 17 gm 09/29/25 09:00 09/30/25 09:06 Polyethylene Glycol 17 Gm Packet PO 10/29/25 08:59 17 gm QDAY AMITA Administration Sennosides 1 tab 09/29/25 09:00 09/30/25 09:03 Senna Tablet PO 10/29/25 08:59 1 tab QDAY AMITA Administration Protocol Plan 59-year-old female with a history of HTN, HLD, CVA, and fibromyalgia, discharged from the hospital last night, presents with confusion and lower abdominal pain. Patient admitted for hypertensive emergency and possible pyelonephritis. #Acute encephalopathy 2/2, resolved #Hypertensive emergency, resolved #History of hypertension Alert and oriented x 3 Patient complains of dizziness, no headache, blurry vision, chest pain, shortness of breath Patient was discharged on the following blood pressure medications yesterday: valsartan 160 mg PO BID, nifedipine 60 mg PO QDAY, hydralazine 100 mg PO TID In ED patient received labetalol 20 mg IV, followed by 10 mg IV, and ultimately started on nicardipine drip for blood pressure control. Blood pressure improved to 168/99 and nicardipine drip was discontinued Lactic acid 2.9 with improvement to 2 after blood pressure was well-controlled Dx: -09/29 renal artery study ordered, showed inconclusive -09/29 urine metanephrines ordered, showed ___ Rx: -Nifedipine 60 mg PO qD -Hydralazine 100 mg PO q8HR -Will slowly add back on home antihypertensive medications if BP continues to be refractory #Possible Left pyelonephritis Afebrile No WBC elevation CVA tenderness on physical exam, particularly on the left UA clear Plan ?Rocephin 2 g IV qD [09/29--] ?Follow-up on urine culture, if negative may discontinue antibiotics #Intractable nausea and vomiting Patient complains of nausea and vomiting that has been ongoing since last admission and has been refractory to Zofran and Reglan Dx: -09/28 gastric emptying study ordered, showed ___ Rx: -GI consulted, appreciate recommendations #Constipation Patient reported last bowel movement was 10 days ago, unsure if that is true or not given that patient was discharged from hospital yesterday Plan ? Water enema order placed ? Senna + MiraLAX scheduled DAILY #NSTEMI, likely type II Troponin 0.143 on admission, likely demand ischemia. She denies chest pain. No relevant EKG changes. Plan ? On previous admission, Dr. Mireles (cardiology) was consulted and believed the event was Type II, patient underwent extensive cardiac workup in the last three months #Urinary retention CT abdomen showing urinary retention Plan ? Jordan catheter inserted - discontinued as of 09/30 ? Oxybutynin 5 mg daily #Fibromyalgia Patient takes duloxetine 60 mg daily Plan ? Restarted home med #Barbiturate (+) on UDS Patient was positive for barbiturates on 09/28 UDS but denies taking any barbiturate medications Health Maintenance: Diet: Cardiac GI prophylaxis: Protonix 20 mg daily DVT prophylaxis: Heparin 5000u SC every 8 hours Antibiotics: Ceftriaxone 2 g IV daily CODE STATUS: DNR Disposition: Telemetry Patient plan of care was discussed with the attending physician, Dr. Juli Romano, PGY2 Attending Provider Attestation/Addendum I have examined the patient, reviewed labs and imaging findings, discussed the case with the resident(s), and reviewed entered orders. I agree with the plan of care as outlined in this note, with these additional summaries/recommendations: Patient seen at bedside. No acute overnight events. Patient had an episode of sinus tachycardia today that resolved with home metoprolol. Patient was started on GoLytely bowel prep in anticipation of colonoscopy. She still endorses postprandial nausea and vomiting. In-house gastroenterology following. Patient's blood pressure continues to significantly improve and SBP currently trending in the 140s 150s. Renal artery ultrasound to rule out renal artery stenosis was nondiagnostic and patient can follow-up for MRA outpatient. Patient would also benefit from additional workup for secondary hypertension outpatient. We will continue to adjust antihypertensive regimen as needed. There was suspicion for pyelonephritis on admission and we will continue IV Rocephin. Follow-up culture results when available. Troponin elevated on admission most likely secondary to demand ischemia unrelated to ACS or plaque rupture. If patient develops symptoms we will consult cardiology. Patient updated on the plan and agreement. All questions answered satisfaction. Please see residents note for additional details and management. Dr. Juli MD
[2025-09-30] MEDS: NA SU/NAHCO3/KC/PEG (Golytely) 4,000 ML BTL 4000 ML PO (17:36)
--- NOTE | 2025-09-30 20:23 | PD.IMPROG ---
Documentation for date of: 09/30/25 Subjective Subjective Interval history: Patient was scheduled for a colonoscopy today however she is not clear and the procedure is postponed Additional GoLytely Exam Vital Signs Temp Pulse Resp BP Pulse Ox O2 Del Method 97.2 F 96 20 141/83 H 94 L Room Air 09/30/25 19:59 09/30/25 19:59 09/30/25 19:59 09/30/25 19:59 09/30/25 19:59 09/30/25 19:59 Objective Labs 09/30/25 05:29 09/30/25 05:29 Labs: Laboratory Results - last 24 hr 09/30/25 05:29 WBC 8.9 RBC 5.33 H Hgb 14.8 Hct 44.3 MCV 83 MCH 27.8 MCHC 33.4 RDW Std Deviation 54.4 H Plt Count 411 Neut % (Auto) 59 Lymph % (Auto) 28 [place] % (Auto) 10 Eos % (Auto) 2 Baso % (Auto) 1 Neut # (Auto) 5.2 Lymph # (Auto) 2.5 [place] # (Auto) 0.9 H Eos # (Auto) 0.2 Baso # (Auto) 0.1 Immature Gran # (Auto) 0.04 H Absolute Nucleated RBC 0.00 Immature Gran % 0 Nucleated RBC % 0 Sodium 141 Potassium 3.3 L Chloride 101 Carbon Dioxide 28.8 Anion Gap 11 BUN 10 Creatinine 0.7 Estim Creat Clear Calc 92.4 eGFR > 60 BUN/Creatinine Ratio 14 Glucose 144 H Calculated Osmolality 283 Calcium 9.3 Corrected Calcium 9.3 Phosphorus 3.4 Magnesium 1.8 Total Bilirubin 0.4 AST 21 ALT 21 Alkaline Phosphatase 71 Total Protein 5.8 Albumin 4.2 Globulin 1.6 L Albumin/Globulin Ratio 2.6 H Impressions Impression: Pain abdomen lower Pain abdomen left lower quadrant Stool impaction Change of bowel habit Nausea with dry heaves Plan continue GoLytely prep Colonoscopy postponed to tomorrow till patient is clear Assessment & Plan A&P Narrative # Pain abdomen left flank left mid quadrant and left lower quadrant along with lower abdominal pain Complicated by pyelonephritis pattern on the left side on his CT scan imaging but no evidence of any diverticulitis and patient is postcholecystectomy Previous imaging of the abdomen had shown stool impaction Plan Clear liquid diet GoLytely prep Consent obtained for fiberoptic colonoscopy with possible biopsy possible therapeutic intervention under intravenous moderate sedation Clear liquid diet to continue as long as the patient is drinking GoLytely Prior to discharge I might consider upper endoscopy Other medical problems include Essential hypertension difficult to control hyperlipidemia CVA Fibromyalgia Left pyelonephritis Thank you very much for the opportunity to participate in care of this patient Time Spent With Patient Time: Total time spent is greater than 50% in coordination of care (as documented) at patient's floor/unit and/or counseling patient:
[2025-10-01] VITALS (20 sets, daily range): BP systolic 157–188; BP diastolic 51–102; PULSE 67–105; RESP 14–21; TEMP 35.9–36.6; O2SAT 90–99; BMI 31.9
[2025-10-01] MEDS: ONDANSETRON INJ 2 MG/ML INJ 2 ML 4 MG IVP ×2 (01:19→20:39)
[2025-10-01 05:10] LABS: Basophils # (Auto) 0.1 Thou/mm3 (0.0-0.2); Basophils % (Auto) 1 % (0-2.5); Eosinophils # (Auto) 0.2 Thou/mm3 (0.0-0.5); Eosinophils % (Auto) 2 % (0-10); Hematocrit 43.2 % (36.0-46.0); Hemoglobin 13.9 g/dL (12.0-16.0); Immature Granulocytes Auto 0.06 Thou/mm3 (0.00-0.00); Lymphocytes # (Auto) 2.3 Thou/mm3 (1.0-4.8); Lymphocytes % (Auto) 19 % (10-50); Mean Corpuscular HGB Conc 32.2 g/dl (31.0-37.0); Mean Corpuscular Hemoglobin 26.6 pg (25.0-35.0); Mean Corpuscular Volume 83 fL (80-100); Monocytes # (Auto) 1.2 Thou/mm3 (0.0-0.8); Monocytes % (Auto) 10 % (0-12); Neutrophils # (Auto) 8.3 Thou/mm3 (1.8-7.7); Neutrophils % (Auto) 68 % (37-80); Nucleated Red Blood Cell # 0.00 Thou/mm3 (0.00-0.00); Nucleated Red Blood Cell % 0 /100 WBC (0); Platelet Count 409 Thou/mm3 (140-440); RDW Standard Deviation 52.7 fL (36.4-46.3); Red Blood Count 5.23 Miln/mm3 (4.00-5.20); White Blood Count 12.1 Thou/mm3 (3.6-11.0)
[2025-10-01] MEDS: HYDROcodone/APAP 7.5/325 TABLET 1 TAB PO ×3 (05:25→19:14)
[2025-10-01 05:36] LABS: Alanine Aminotransferase 25 U/L (10-49); Albumin, Serum 4.0 gm/dL (3.5-5.0); Albumin/Globulin Ratio 2.7 (1.2-2.2); Alkaline Phosphatase 76 U/L (46-116); Anion Gap 14 (7-16); Aspartate Amino Transferase 37 U/L (0-34); BUN/Creatinine Ratio 10 Ratio (12-20); Bilirubin,Total 0.3 mg/dL (0.3-1.2); Blood Urea Nitrogen 6 mg/dL (9-23); Calcium 8.9 mg/dL (8.3-10.6); Calcium (Corrected) 8.9 mg/dL (8.5-10.1); Carbon Dioxide 26.3 mMol/L (20.0-31.0); Chloride 101 mMol/L (98-107); Creatinine (Component) 0.6 mg/dL (0.6-1.3); Estimated Creatinine Clearance 107.8 mL/min (>60); Globulin 1.5 gm/dL (2.3-3.5); Glucose 162 mg/dL (74-106); Magnesium 1.6 mg/dL (1.6-2.6); Osmolality,Calculated 282 (275-295); Phosphorous 2.3 mg/dL (2.4-5.1); Potassium 3.2 mMol/L (3.4-5.1); Sodium 141 mMol/L (136-145); Total Protein 5.5 gm/dL (5.7-8.2); eGFR > 60 See Note
--- NOTE | 2025-10-01 08:00 | XR_ITS ---
EXAMINATION: Nuclear medicine gastric emptying study Date and time: October 02, 2025, 0930 hours INDICATIONS: Abdominal discomfort and vomiting with eating lower abdominal pain months TECHNIQUE AND FINDINGS: For administration 1.9 mCi technetium sulfur colloid with gastric imaging to 120 minutes Retention of activity at 120 minutes 0.0% IMPRESSION: Normal gastric emptying study
[2025-10-01] MEDS: DULoxetine HCL 30 MG CAPSULE 60 MG PO (08:04)
[2025-10-01] MEDS: POTASSIUM CHL 10 mEq IVPB 10 MEQ/100 ML BAG 100 MEQ IV ×4 (08:04→12:30)
[2025-10-01] MEDS: METOPROLOL SUCCINATE XL 25 MG TABCR 100 MG PO ×2 (08:05→20:35)
[2025-10-01] MEDS: PANTOPRAZOLE 20 MG TABLET PO (08:05)
[2025-10-01] MEDS: NIFEdipine XL 30 MG TABCR 60 MG PO (08:05)
[2025-10-01] MEDS: cefTRIAXone 2 GM in SODIUM CHLORIDE 0.9% (Popper) 50 ML IV (09:48)
--- NOTE | 2025-10-01 11:33 | PD.RESPRO ---
Documentation for date of: 10/01/25 Subjective Subjective Interval history: No overnight events. Patient was examined at bedside; they appear A&Ox3 and in NAD. Today, she says she continues to have no episodes of vomiting this admission but does endorse ongoing symptoms of nausea and slight dysuria. She has also requested that her home Ambien be restarted to help her sleep which we have done so. Vitals/labs today significant for BP 158/70, HR 105, WBC 8.9->12.1, potassium 3.2. Physical exam non-contributory. Surprisingly, patient's blood pressure has seem more controlled than it was last admission despite her being on fewer anti-hypertensives than before. However, due to her continuous hypokalemia without any episodes of vomiting in the setting of her refractory hypotension, there is concern for primary aldosteronism (which all patients with refractory hypertension should be undergoing work-up for anyway). It is also possible patient's hypokalemia is 2/2 ongoing diarrhea from drinking GoLytely in preparation for today's scheduled colonoscopy but we have ordered 10/02 morning labs for plasma renin activity and plasma aldosterone concentration to rule out primary aldosteronism. Patient is also noted to take chlorthalidone in the outpatient setting which is also a cause of hypokalemia (and patient also reports that her nausea started around the time this medication was started) so we will plan to discontinue this medication upon discharge. Exam Vital Signs Temp Pulse Resp BP Pulse Ox O2 Del Method 97.3 F 105 H 19 158/70 H 95 Room Air 10/01/25 08:00 10/01/25 08:05 10/01/25 08:00 10/01/25 08:05 10/01/25 08:00 10/01/25 08:00 Narrative Exam General: Awake. HEENT: Normocephalic, atraumatic, mucous membranes moist. Heart: Regular rate and rhythm, no murmurs. Lungs: Clear to auscultation with no wheezing or crackles. Abdomen: Soft, nondistended, nontender, positive bowel sounds. ?No guarding or rebound tenderness. Neurologic: Alert and oriented x3, no gross neurological deficit, and patient able to move all 4 extremities. Extremities: No edema. Skin: No rash or ecchymoses. Objective Labs 10/01/25 04:34 10/01/25 04:34 Labs: Laboratory Results - last 24 hr 10/01/25 04:34 WBC 12.1 H RBC 5.23 H Hgb 13.9 Hct 43.2 MCV 83 MCH 26.6 MCHC 32.2 RDW Std Deviation 52.7 H Plt Count 409 Neut % (Auto) 68 Lymph % (Auto) 19 [place] % (Auto) 10 Eos % (Auto) 2 Baso % (Auto) 1 Neut # (Auto) 8.3 H Lymph # (Auto) 2.3 [place] # (Auto) 1.2 H Eos # (Auto) 0.2 Baso # (Auto) 0.1 Immature Gran # (Auto) 0.06 H Absolute Nucleated RBC 0.00 Immature Gran % 1 H Nucleated RBC % 0 Sodium 141 Potassium 3.2 L Chloride 101 Carbon Dioxide 26.3 Anion Gap 14 BUN 6 L Creatinine 0.6 Estim Creat Clear Calc 107.8 eGFR > 60 BUN/Creatinine Ratio 10 L Glucose 162 H Calculated Osmolality 282 Calcium 8.9 Corrected Calcium 8.9 Phosphorus 2.3 L Magnesium 1.6 Total Bilirubin 0.3 AST 37 H ALT 25 Alkaline Phosphatase 76 Total Protein 5.5 L Albumin 4.0 Globulin 1.5 L Albumin/Globulin Ratio 2.7 H Quality Measures Quality Measures VTE prophylaxis Assessment & Plan Assessment Current Active Medications: Generic Name Dose Route Start Last Admin Trade Name Chap[place]q PRN Reason Stop Dose Admin Acetaminophen 650 mg 09/29/25 08:22 09/30/25 06:22 Acetaminophen 325 Mg Tablet PO 10/29/25 08:21 650 mg Q6HR PRN Administration pain 1-3 Hydrocodone Bitart/Acetaminophen 1 tab 09/30/25 09:58 10/01/25 05:25 Hydrocodone/Apap 7.5/325 Tablet PO 10/05/25 09:57 1 tab Q6H PRN Administration Pain (Scale Score 7-10) Dextrose 25 ml 09/29/25 03:14 Dextrose 50%-Water Inj 50 Ml Syringe IV 10/29/25 03:13 Q15MIN PRN BG 50-70 responsive npo pt Dextrose 50 ml 09/29/25 03:14 Dextrose 50%-Water Inj 50 Ml Syringe IV 10/29/25 03:13 Q15MIN PRN BG <50 OR BG <70 & pt unresponsive Duloxetine HCl 60 mg 09/29/25 00:30 10/01/25 08:04 Duloxetine Hcl 30 Mg Capsule PO 10/29/25 00:29 60 mg QDAY AMITA Administration Estradiol 1 mg 09/30/25 10:00 10/01/25 08:04 Estradiol 1 Mg Tablet PO 10/30/25 09:59 1 mg QDAY AMITA Administration Glucagon 1 mg 09/29/25 03:14 Glucagon Inj 1 Mg Vial IM Q15MIN PRN BG <70, and no IV access Heparin Sodium (Porcine) 5,000 unit 09/28/25 22:00 10/01/25 05:23 Heparin Sod Inj 5000 Unit/Ml Vial SC 10/12/25 21:59 Not Given Q8HR AMITA Hydralazine HCl 100 mg 09/29/25 14:00 10/01/25 05:23 Hydralazine Hcl 25 Mg Tablet PO 10/29/25 02:29 100 mg Q8HR AMITA Administration Ceftriaxone Sodium 2 gm/ 50 mls @ 100 mls/hr 09/28/25 20:47 10/01/25 09:48 Sodium Chloride IV 10/05/25 20:46 100 mls/hr QDAY AMITA Administration Insulin Human Lispro 0 unit 09/29/25 07:30 10/01/25 07:44 Insulin Lispro (Admelog) 1 Unit/0.01 Ml Unit SC 10/29/25 07:29 Not Given AC [facility] Protocol Metoprolol Succinate 100 mg 09/30/25 10:00 10/01/25 08:05 Metoprolol Succinate Xl 25 Mg Tabcr PO 10/30/25 09:59 100 mg BID AMITA Administration Nifedipine 60 mg 09/29/25 09:00 10/01/25 08:05 Nifedipine Xl 30 Mg Tabcr PO 10/29/25 08:59 60 mg QDAY AMITA Administration Ondansetron HCl 4 mg 09/28/25 20:51 10/01/25 01:19 Ondansetron Inj 2 Mg/Ml Inj 2 Ml IVP 10/28/25 20:59 4 mg Q6H PRN Administration nausea Protocol Pantoprazole Sodium 20 mg 09/29/25 09:00 10/01/25 08:05 Pantoprazole 20 Mg Tablet PO 10/29/25 08:59 20 mg QDAY AMITA Administration Polyethylene Glycol 17 gm 09/29/25 09:00 10/01/25 09:49 Polyethylene Glycol 17 Gm Packet PO 10/29/25 08:59 Not Given QDAY [facility] Sennosides 1 tab 09/29/25 09:00 10/01/25 09:49 Senna Tablet PO 10/29/25 08:59 Not Given QDAY [facility] Protocol Plan 59-year-old female with a history of HTN, HLD, CVA, and fibromyalgia, discharged from the hospital last night, presents with confusion and lower abdominal pain. Patient admitted for hypertensive emergency and possible pyelonephritis. #Acute encephalopathy 2/2, resolved #Hypertensive emergency, resolved #History of refractory hypertension Alert and oriented x 3 Patient complains of dizziness, no headache, blurry vision, chest pain, shortness of breath Patient was discharged on the following blood pressure medications yesterday: valsartan 160 mg PO BID, nifedipine 60 mg PO QDAY, hydralazine 100 mg PO TID In ED patient received labetalol 20 mg IV, followed by 10 mg IV, and ultimately started on nicardipine drip for blood pressure control. Blood pressure improved to 168/99 and nicardipine drip was discontinued Lactic acid 2.9 with improvement to 2 after blood pressure was well-controlled Dx: -09/29 renal artery study ordered, inconclusive -09/29 urine metanephrines ordered, showed ___ -10/02 morning PRA and PAC ordered, showed ___ Rx: -Nifedipine 60 mg PO qD -Hydralazine 100 mg PO q8HR -Metoprolol succinate XL 100 mg PO BID #Possible left pyelonephritis Afebrile, no leukocytosis CVA tenderness on physical exam, particularly on the left UA clear Dx: -09/28 UCx showed no growth Rx: ?Rocephin 2 g IV qD [09/29--] ?Follow-up on urine culture, if negative may discontinue antibiotics #Intractable nausea and vomiting Patient complains of nausea and vomiting that has been ongoing since last admission and has been refractory to Zofran and Reglan Apparently started about 2 weeks ago at the same time that she started taking chlorthalidone Dx: -09/28 gastric emptying study ordered, showed ___ -10/01 colonoscopy completed, showed ___ Rx: -GoLytely preparation -Consider switching Cymbalta to Effexor as Cymbalta is known for causing nausea -Zofran IV or Reglan IV prn for nausea -GI consulted, appreciate recommendations #Refractory hypokalemia Patient has been noted to be hypokalemic both this admission and last admission despite continuous potassium repletion May possibly be 2/2 primary aldosteronism or diarrhea from GoLytely prep Dx: -10/02 morning PRA and PAC as mentioned above #Constipation, resolved Patient initially reported that her last bowel movement was 10 days ago Now resolved Rx: ?Senna + MiraLAX scheduled DAILY #NSTEMI, likely type II Troponin 0.143 on admission, likely demand ischemia. She denies chest pain. No relevant EKG changes. Plan ? On previous admission, Dr. Mireles (cardiology) was consulted and believed the event was Type II, patient underwent extensive cardiac workup in the last three months #Urinary retention, resolved CT abdomen showing urinary retention Patient is no longer having difficulty urinating Rx: ?Jordan catheter inserted - discontinued as of 09/30 ?Oxybutynin 5 mg daily #Fibromyalgia Patient takes home duloxetine 60 mg daily and [place] Rx: -Duloxetine 60 mg PO qD -[place] 7.5/325 q6HR prn #Insomnia On 10/01, patient requested that her home Ambien be restarted due to difficulty sleeping Rx: -Ambien 10 mg PO HS prn #Barbiturate (+) on UDS Patient was positive for barbiturates on 09/28 UDS but denies taking any barbiturate medications Health Maintenance: Diet: Cardiac GI prophylaxis: Protonix 20 mg daily DVT prophylaxis: Heparin 5000u SC every 8 hours Antibiotics: Ceftriaxone 2 g IV daily CODE STATUS: DNR Disposition: Telemetry Patient plan of care was discussed with the attending physician, Dr. Juli Young, DO PGY-1 Attending Provider Attestation/Addendum I have examined the patient, reviewed labs and imaging findings, discussed the case with the resident(s), and reviewed entered orders. I agree with the plan of care as outlined in this note, with these additional summaries/recommendations: Patient seen at bedside. No acute overnight events. Patient seen receiving her second jug of GoLytely and will plan for colonoscopy once cleared.. She still endorses postprandial nausea and vomiting. In-house gastroenterology following. Patient's blood pressure continues to significantly improve and SBP currently trending in the 140s 150s. Renal artery ultrasound to rule out renal artery stenosis was nondiagnostic and patient can follow-up for MRA outpatient. Patient would also benefit from additional workup for secondary hypertension outpatient. We will continue to adjust antihypertensive regimen as needed. There was suspicion for pyelonephritis on admission and we will continue IV Rocephin. Urine culture showed no growth although likely not reliable as patient received antibiotics prior to collection. Troponin elevated on admission most likely secondary to demand ischemia unrelated to ACS or plaque rupture. Troponin down trended and no further interventions needed at this time. Continue home aspirin. Patient updated on the plan and agreement. All questions answered satisfaction. Please see residents note for additional details and management. Dr. Juli MD
--- NOTE | 2025-10-01 17:05 | SUR.PHASEI ---
1705: Pt. AAOx4, vitals stable, breathing unlabored, no complaint of pain or nausea, no dressing in place, no active bleed noted, report received from Chiquita GIRALDO.
--- NOTE | 2025-10-01 17:29 | SUR.PHASEI ---
1729: Pt. AAOx4, vitals stable, breathing unlabored, no complaint of pain or nausea, no dressing in place, no active bleed noted, pt. able to pass gas, gave report to Charlotte GIRALDO prior to transfer to room. Pt. stated she will notify her dad of transfer to room later today and told me not to worry about updating family.
[2025-10-01] MEDS: ZOLPIDEM 5 MG TABLET 10 MG PO (20:36)
[2025-10-02] VITALS (12 sets, daily range): BP systolic 112–179; BP diastolic 65–95; PULSE 67–88; RESP 12–20; TEMP 36.2–36.5; O2SAT 96–99; BMI 33.3
[2025-10-02] MEDS: HEPARIN SOD INJ 5000 UNIT/ML VIAL SC ×2 (05:23→15:35)
[2025-10-02] MEDS: HYDROcodone/APAP 7.5/325 TABLET 1 TAB PO ×3 (07:21→22:00)
[2025-10-02 07:56] LABS: Basophils # (Auto) 0.1 Thou/mm3 (0.0-0.2); Basophils % (Auto) 1 % (0-2.5); Eosinophils # (Auto) 0.4 Thou/mm3 (0.0-0.5); Eosinophils % (Auto) 4 % (0-10); Hematocrit 45.0 % (36.0-46.0); Hemoglobin 14.6 g/dL (12.0-16.0); Immature Granulocytes Auto 0.06 Thou/mm3 (0.00-0.00); Lymphocytes # (Auto) 1.9 Thou/mm3 (1.0-4.8); Lymphocytes % (Auto) 18 % (10-50); Mean Corpuscular HGB Conc 32.4 g/dl (31.0-37.0); Mean Corpuscular Hemoglobin 26.9 pg (25.0-35.0); Mean Corpuscular Volume 83 fL (80-100); Monocytes # (Auto) 0.9 Thou/mm3 (0.0-0.8); Monocytes % (Auto) 8 % (0-12); Neutrophils # (Auto) 7.4 Thou/mm3 (1.8-7.7); Neutrophils % (Auto) 70 % (37-80); Nucleated Red Blood Cell # 0.00 Thou/mm3 (0.00-0.00); Nucleated Red Blood Cell % 0 /100 WBC (0); Platelet Count 464 Thou/mm3 (140-440); RDW Standard Deviation 53.1 fL (36.4-46.3); Red Blood Count 5.42 Miln/mm3 (4.00-5.20); White Blood Count 10.7 Thou/mm3 (3.6-11.0)
[2025-10-02 08:12] LABS: Alanine Aminotransferase 25 U/L (10-49); Albumin, Serum 4.0 gm/dL (3.5-5.0); Albumin/Globulin Ratio 2.5 (1.2-2.2); Alkaline Phosphatase 86 U/L (46-116); Anion Gap 12 (7-16); Aspartate Amino Transferase 22 U/L (0-34); BUN/Creatinine Ratio 9 Ratio (12-20); Bilirubin,Total 0.3 mg/dL (0.3-1.2); Blood Urea Nitrogen 7 mg/dL (9-23); Calcium 9.4 mg/dL (8.3-10.6); Calcium (Corrected) 9.4 mg/dL (8.5-10.1); Carbon Dioxide 25.2 mMol/L (20.0-31.0); Chloride 103 mMol/L (98-107); Creatinine (Component) 0.8 mg/dL (0.6-1.3); Estimated Creatinine Clearance 82.6 mL/min (>60); Globulin 1.6 gm/dL (2.3-3.5); Glucose 271 mg/dL (74-106); Osmolality,Calculated 287 (275-295); Potassium 3.7 mMol/L (3.4-5.1); Sodium 140 mMol/L (136-145); Total Protein 5.6 gm/dL (5.7-8.2); eGFR > 60 See Note
[2025-10-02] MEDS: DULoxetine HCL 30 MG CAPSULE 60 MG PO (08:32)
[2025-10-02] MEDS: cefTRIAXone 2 GM in SODIUM CHLORIDE 0.9% (Popper) 50 ML IV (08:32)
[2025-10-02] MEDS: METOPROLOL SUCCINATE XL 25 MG TABCR 100 MG PO ×2 (08:33→20:29)
[2025-10-02] MEDS: PANTOPRAZOLE 20 MG TABLET PO (08:33)
[2025-10-02] MEDS: NIFEdipine XL 30 MG TABCR 60 MG PO (08:33)
--- NOTE | 2025-10-02 10:00 | ESPR_ITS ---
<Statement entered by Ricarda Benavides MD - 10/02/25 14:58> Patient was seen and examined by me personally. I have directly supervised and reviewed documentation by the team resident and agree with its findings with any exceptions or additional findings as below. Plan of care was discussed with the attending, Dr. Bustos. Patient had colonoscopy completed which showed internal hemorrhoids, moderate diverticulosis in the sigmoid and descending colon, and no evidence of diverticular bleeding. GI recommended bowel regimen including Miralax BID and Senna BID. Patient is planned for an EGD tonight. Patient is NPO except for meds and otherwise denies any further episodes of nausea or vomiting while here in the hospital. BP is normalized today on the current regimen: nifedipine 60 mg qday, hydralazine 100 mg TID, metoprolol succinate 100 mg BID, and valsartan 160 mg BID. Ricarda Benavides, PGY-3 Documentation for date of: 10/02/25 Subjective Subjective Interval history: No overnight events. Patient was examined at bedside; they appear A&Ox3 and in NAD. Vitals/labs today significant for BP 164/65, blood glucose 271. Physical exam was non-contributory. Patient is s/p 10/01 colonoscopy which showed Grade II internal hemorrhoids and moderate diverticulosis in the sigmoid and descending colon without diverticular bleeding. GI has recommended a bowel regimen of Miralax BID and Senna BID. Patient's main complaint has been constant nausea and vomiting but she has strangely not vomited once during either her last admission nor this one. She was originally planned for upper endoscopy this evening to evaluate for etiologies that could be underlying patient's reported symptoms but will instead be undergoing gastric emptying study instead with her EGD possibly occurring at some point in the future. Blood pressures today have been surprisingly well- controlled on the current regimen of nifedipine 60 mg qD, hydralazine 100 mg TID, metoprolol succinate 100 mg BID, and valsartan 160 mg BID. Otherwise, patient will continue receiving Rocephin IV for treatment of her possible left pyelonephritis (day 4 of antibiotic course). Exam Vital Signs Temp Pulse Resp BP Pulse Ox O2 Del Method O2 Flow Rate 97.6 F 88 12 112/70 96 Room Air 2 10/02/25 08:00 10/02/25 08:33 10/02/25 08:00 10/02/25 08:33 10/02/25 08:00 10/02/25 08:00 10/01/25 17:10 Narrative Exam General: Awake. HEENT: Normocephalic, atraumatic, mucous membranes moist. Heart: Regular rate and rhythm, no murmurs. Lungs: Clear to auscultation with no wheezing or crackles. Abdomen: Soft, nondistended, nontender, positive bowel sounds. ?No guarding or rebound tenderness. Neurologic: Alert and oriented x3, no gross neurological deficit, and patient able to move all 4 extremities. Extremities: No edema. Skin: No rash or ecchymoses. Objective Labs 10/02/25 05:26 10/02/25 05:26 Labs: Laboratory Results - last 24 hr 10/02/25 05:26 WBC 10.7 RBC 5.42 H Hgb 14.6 Hct 45.0 MCV 83 MCH 26.9 MCHC 32.4 RDW Std Deviation 53.1 H Plt Count 464 H D Neut % (Auto) 70 Lymph % (Auto) 18 [place] % (Auto) 8 Eos % (Auto) 4 Baso % (Auto) 1 Neut # (Auto) 7.4 Lymph # (Auto) 1.9 [place] # (Auto) 0.9 H Eos # (Auto) 0.4 Baso # (Auto) 0.1 Immature Gran # (Auto) 0.06 H Absolute Nucleated RBC 0.00 Immature Gran % 1 H Nucleated RBC % 0 Sodium 140 Potassium 3.7 D Chloride 103 Carbon Dioxide 25.2 Anion Gap 12 BUN 7 L Creatinine 0.8 Estim Creat Clear Calc 82.6 eGFR > 60 BUN/Creatinine Ratio 9 L Glucose 271 H D Calculated Osmolality 287 Calcium 9.4 Corrected Calcium 9.4 Total Bilirubin 0.3 AST 22 ALT 25 Alkaline Phosphatase 86 Total Protein 5.6 L Albumin 4.0 Globulin 1.6 L Albumin/Globulin Ratio 2.5 H Quality Measures Quality Measures VTE prophylaxis Assessment & Plan Assessment Current Active Medications: Generic Name Dose Route Start Last Admin Trade Name Freq PRN Reason Stop Dose Admin Acetaminophen 650 mg 09/29/25 08:22 09/30/25 06:22 Acetaminophen 325 Mg Tablet PO 10/29/25 08:21 650 mg Q6HR PRN Administration pain 1-3 Hydrocodone Bitart/Acetaminophen 1 tab 09/30/25 09:58 10/02/25 07:21 Hydrocodone/Apap 7.5/325 Tablet PO 10/05/25 09:57 1 tab Q6H PRN Administration Pain (Scale Score 7-10) Dextrose 25 ml 09/29/25 03:14 Dextrose 50%-Water Inj 50 Ml Syringe IV 10/29/25 03:13 Q15MIN PRN BG 50-70 responsive npo pt Dextrose 50 ml 09/29/25 03:14 Dextrose 50%-Water Inj 50 Ml Syringe IV 10/29/25 03:13 Q15MIN PRN BG <50 OR BG <70 & pt unresponsive Duloxetine HCl 60 mg 09/29/25 00:30 10/02/25 08:32 Duloxetine Hcl 30 Mg Capsule PO 10/29/25 00:29 60 mg QDAY AMITA Administration Estradiol 1 mg 09/30/25 10:00 10/02/25 08:33 Estradiol 1 Mg Tablet PO 10/30/25 09:59 1 mg QDAY AMITA Administration Glucagon 1 mg 09/29/25 03:14 Glucagon Inj 1 Mg Vial IM Q15MIN PRN BG <70, and no IV access Heparin Sodium (Porcine) 5,000 unit 09/28/25 22:00 10/02/25 05:23 Heparin Sod Inj 5000 Unit/Ml Vial SC 10/12/25 21:59 5,000 unit Q8HR AMITA Administration Hydralazine HCl 100 mg 09/29/25 14:00 10/02/25 05:23 Hydralazine Hcl 25 Mg Tablet PO 10/29/25 02:29 100 mg Q8HR AMITA Administration Ceftriaxone Sodium 2 gm/ 50 mls @ 100 mls/hr 09/28/25 20:47 10/02/25 08:32 Sodium Chloride IV 10/05/25 20:46 100 mls/hr QDAY AMITA Administration Insulin Human Lispro 0 unit 09/29/25 07:30 10/02/25 07:18 Insulin Lispro (Admelog) 1 Unit/0.01 Ml Unit SC 10/29/25 07:29 Not Given AC [facility] Protocol Metoprolol Succinate 100 mg 09/30/25 10:00 10/02/25 08:33 Metoprolol Succinate Xl 25 Mg Tabcr PO 10/30/25 09:59 100 mg BID AMITA Administration Nifedipine 60 mg 09/29/25 09:00 10/02/25 08:33 Nifedipine Xl 30 Mg Tabcr PO 10/29/25 08:59 60 mg QDAY AMITA Administration Ondansetron HCl 4 mg 09/28/25 20:51 10/01/25 20:39 Ondansetron Inj 2 Mg/Ml Inj 2 Ml IVP 10/28/25 20:59 4 mg Q6H PRN Administration nausea Protocol Pantoprazole Sodium 20 mg 09/29/25 09:00 10/02/25 08:33 Pantoprazole 20 Mg Tablet PO 10/29/25 08:59 20 mg QDAY AMITA Administration Polyethylene Glycol 17 gm 10/01/25 21:00 10/02/25 08:29 Polyethylene Glycol 17 Gm Packet PO 10/31/25 20:59 Not Given BID AMITA Sennosides 1 tab 10/01/25 21:00 10/02/25 08:29 Senna Tablet PO 10/31/25 20:59 Not Given BID AMITA Protocol Valsartan 160 mg 10/02/25 09:30 Valsartan 80 Mg Tablet PO 11/01/25 09:29 BID AMITA Zolpidem Tartrate 10 mg 10/01/25 13:33 10/01/25 20:36 Zolpidem 5 Mg Tablet PO 10/31/25 13:32 10 mg HS PRN Administration INSOMNIA Plan 59-year-old female with a history of HTN, HLD, CVA, and fibromyalgia, discharged from the hospital last night, presents with confusion and lower abdominal pain. Patient admitted for hypertensive emergency and possible pyelonephritis. #Acute encephalopathy 2/2, resolved #Hypertensive emergency, resolved #History of refractory hypertension Alert and oriented x 3 Patient complains of dizziness, no headache, blurry vision, chest pain, shortness of breath Patient was discharged on the following blood pressure medications yesterday: valsartan 160 mg PO BID, nifedipine 60 mg PO QDAY, hydralazine 100 mg PO TID In ED patient received labetalol 20 mg IV, followed by 10 mg IV, and ultimately started on nicardipine drip for blood pressure control. Blood pressure improved to 168/99 and nicardipine drip was discontinued Lactic acid 2.9 with improvement to 2 after blood pressure was well-controlled Dx: -09/29 renal artery study ordered, inconclusive -09/29 urine metanephrines ordered, showed ___ -10/02 morning PRA and PAC ordered, showed ___ Rx: -Nifedipine 60 mg PO qD -Hydralazine 100 mg PO TID -Metoprolol succinate XL 100 mg PO BID -Valsartan 160 mg PO BID RRx: -As of 10/02, patient's BP has seemed better controlled with the last BP reading being 112/70 #Possible left pyelonephritis Afebrile, no leukocytosis CVA tenderness on physical exam, particularly on the left UA clear Dx: -09/28 UCx showed no growth Rx: ?Rocephin 2 g IV qD [09/29--] #Intractable nausea and vomiting Patient complains of nausea and vomiting that has been ongoing since last admission and has been refractory to Zofran and Reglan Apparently started about 2 weeks ago at the same time that she started taking chlorthalidone Dx: -09/28 gastric emptying study ordered, showed ___ -10/01 colonoscopy completed, showed Grade II internal hemorrhoids and moderate diverticulosis in the sigmoid and descending colon without diverticular bleeding Rx: -Pending possible upper endoscopy to evaluate for underlying etiology of nausea and vomiting symptoms -Consider switching Cymbalta to Effexor as Cymbalta is known for causing nausea -Zofran IV or Reglan IV prn for nausea -GI consulted, appreciate recommendations #Refractory hypokalemia Patient has been noted to be hypokalemic both this admission and last admission despite continuous potassium repletion May possibly be 2/2 primary aldosteronism or diarrhea from GoLytely prep Dx: -10/02 morning PRA and PAC as mentioned above #Constipation, resolved Patient initially reported that her last bowel movement was 10 days ago Now resolved Rx: -Miralax BID -Senna BID #NSTEMI, likely type II Troponin 0.143 on admission, likely demand ischemia. She denies chest pain. No relevant EKG changes. Plan ? On previous admission, Dr. Mireles (cardiology) was consulted and believed the event was Type II, patient underwent extensive cardiac workup in the last three months #Urinary retention, resolved CT abdomen showing urinary retention Patient is no longer having difficulty urinating Rx: ?[place] catheter inserted - discontinued as of 09/30 ?Oxybutynin 5 mg daily #Fibromyalgia Patient takes home duloxetine 60 mg daily and [place] Rx: -Duloxetine 60 mg PO qD -[place] 7.5/325 q6HR prn #Insomnia On 10/01, patient requested that her home Ambien be restarted due to difficulty sleeping Rx: -Ambien 10 mg PO HS prn #Barbiturate (+) on UDS Patient was positive for barbiturates on 09/28 UDS but denies taking any barbiturate medications Health Maintenance: Diet: Cardiac GI prophylaxis: Protonix 20 mg daily DVT prophylaxis: Heparin 5000u SC every 8 hours Antibiotics: Ceftriaxone 2 g IV daily CODE STATUS: DNR Disposition: Telemetry Patient plan of care was discussed with the attending physician, Dr. Juli Young, DO PGY-1 Attending Provider Attestation/Addendum I have examined the patient, reviewed labs and imaging findings, discussed the case with the resident(s), and reviewed entered orders. I agree with the plan of care as outlined in this note, with these additional summaries/recommendations: Patient seen at bedside. No acute overnight events. Patient underwent colonoscopy yesterday which revealed internal hemorrhoids, moderate diverticulosis with no evidence of recent bleeding. Patient will need repeat colonoscopy in 10 years for surveillance, daily MiraLAX, senna coat, and patient was placed n.p.o. after midnight for EGD to evaluate intractable nausea and vomiting. Patient's blood pressure continues to significantly improve and SBP currently trending in the 130s 140s. Renal artery ultrasound to rule out renal artery stenosis was nondiagnostic and patient can follow-up for MRA outpatient. Patient would also benefit from additional workup for secondary hypertension outpatient as her hypertensive appears more intermittent at times. We will continue to adjust antihypertensive regimen as needed. There was suspicion for pyelonephritis on admission and we will continue IV Rocephin. Urine culture showed no growth although likely not reliable as patient received antibiotics prior to collection. Troponin elevated on admission most likely secondary to demand ischemia unrelated to ACS or plaque rupture. Troponin down trended and no further interventions needed at this time. Continue home aspirin. Patient updated on the plan and agreement. All questions answered satisfaction. Please see residents note for additional details and management. Dr. Juli MD
[2025-10-02] MEDS: VALSARTAN 80 MG TABLET 160 MG PO ×2 (12:09→20:30)
[2025-10-02] MEDS: ONDANSETRON INJ 2 MG/ML INJ 2 ML 4 MG IVP ×2 (15:38→22:00)
--- NOTE | 2025-10-02 17:41 | ESPR_ITS ---
Documentation for date of: 10/02/25 Subjective Subjective Interval history: Patient evaluated upper endoscopy canceled because patient was Heading for a nuclear medicine gastric emptying study Exam Vital Signs Temp Pulse Resp BP Pulse Ox O2 Del Method O2 Flow Rate 97.1 F 72 15 179/94 H 97 Room Air 2 10/02/25 16:00 10/02/25 16:00 10/02/25 16:00 10/02/25 16:00 10/02/25 16:00 10/02/25 16:00 10/01/25 17:10 Objective Labs 10/02/25 05:26 10/02/25 05:26 Labs: Laboratory Results - last 24 hr 10/02/25 05:26 WBC 10.7 RBC 5.42 H Hgb 14.6 Hct 45.0 MCV 83 MCH 26.9 MCHC 32.4 RDW Std Deviation 53.1 H Plt Count 464 H D Neut % (Auto) 70 Lymph % (Auto) 18 [place] % (Auto) 8 Eos % (Auto) 4 Baso % (Auto) 1 Neut # (Auto) 7.4 Lymph # (Auto) 1.9 [place] # (Auto) 0.9 H Eos # (Auto) 0.4 Baso # (Auto) 0.1 Immature Gran # (Auto) 0.06 H Absolute Nucleated RBC 0.00 Immature Gran % 1 H Nucleated RBC % 0 Sodium 140 Potassium 3.7 D Chloride 103 Carbon Dioxide 25.2 Anion Gap 12 BUN 7 L Creatinine 0.8 Estim Creat Clear Calc 82.6 eGFR > 60 BUN/Creatinine Ratio 9 L Glucose 271 H D Calculated Osmolality 287 Calcium 9.4 Corrected Calcium 9.4 Total Bilirubin 0.3 AST 22 ALT 25 Alkaline Phosphatase 86 Total Protein 5.6 L Albumin 4.0 Globulin 1.6 L Albumin/Globulin Ratio 2.5 H Impressions Impression: Nausea vomiting Pain abdomen Upper endoscopy postponed to tomorrow Assessment & Plan A&P Narrative # Pain abdomen left flank left mid quadrant and left lower quadrant along with lower abdominal pain Complicated by pyelonephritis pattern on the left side on his CT scan imaging but no evidence of any diverticulitis and patient is postcholecystectomy Previous imaging of the abdomen had shown stool impaction Plan Clear liquid diet GoLytely prep Consent obtained for fiberoptic colonoscopy with possible biopsy possible therapeutic intervention under intravenous moderate sedation Clear liquid diet to continue as long as the patient is drinking GoLytely Prior to discharge I might consider upper endoscopy Other medical problems include Essential hypertension difficult to control hyperlipidemia CVA Fibromyalgia Left pyelonephritis Thank you very much for the opportunity to participate in care of this patient Time Spent With Patient Time: Total time spent is greater than 50% in coordination of care (as documented) at patient's floor/unit and/or counseling patient:
[2025-10-02] MEDS: ZOLPIDEM 5 MG TABLET 10 MG PO (20:31)
[2025-10-03] VITALS (22 sets, daily range): BP systolic 136–183; BP diastolic 62–99; PULSE 69–96; RESP 16–24; TEMP 36.1–37.1; O2SAT 94–98; BMI 33.0
[2025-10-03 08:22] LABS: Alanine Aminotransferase 19 U/L (10-49); Albumin, Serum 4.4 gm/dL (3.5-5.0); Albumin/Globulin Ratio 2.8 (1.2-2.2); Alkaline Phosphatase 91 U/L (46-116); Anion Gap 13 (7-16); Aspartate Amino Transferase 17 U/L (0-34); BUN/Creatinine Ratio 7 Ratio (12-20); Bilirubin,Total 0.3 mg/dL (0.3-1.2); Blood Urea Nitrogen 5 mg/dL (9-23); Calcium 9.3 mg/dL (8.3-10.6); Calcium (Corrected) 9.3 mg/dL (8.5-10.1); Carbon Dioxide 25.1 mMol/L (20.0-31.0); Chloride 104 mMol/L (98-107); Creatinine (Component) 0.7 mg/dL (0.6-1.3); Estimated Creatinine Clearance 93.9 mL/min (>60); Globulin 1.6 gm/dL (2.3-3.5); Glucose 151 mg/dL (74-106); Osmolality,Calculated 283 (275-295); Potassium 3.6 mMol/L (3.4-5.1); Sodium 142 mMol/L (136-145); Total Protein 6.0 gm/dL (5.7-8.2); eGFR > 60 See Note
[2025-10-03] MEDS: cefTRIAXone 2 GM in SODIUM CHLORIDE 0.9% (Popper) 50 ML IV (08:32)
[2025-10-03] MEDS: METOPROLOL SUCCINATE XL 25 MG TABCR 100 MG PO ×2 (08:33→18:32)
[2025-10-03] MEDS: DULoxetine HCL 30 MG CAPSULE 60 MG PO (08:35)
[2025-10-03] MEDS: NIFEdipine XL 30 MG TABCR 60 MG PO (08:35)
[2025-10-03] MEDS: VALSARTAN 80 MG TABLET 160 MG PO ×2 (08:36→18:34)
[2025-10-03] MEDS: HYDROcodone/APAP 7.5/325 TABLET 1 TAB PO ×3 (08:36→21:44)
[2025-10-03] MEDS: PANTOPRAZOLE 20 MG TABLET PO (08:36)
--- NOTE | 2025-10-03 12:00 | PD.RESDS ---
Planned Discharge Date 10/03/25 DS: Providers Provider Date of admission: 09/28/25 20:44 Primary care physician: Ara Bal MD Admitting Provider: Tuan Riddle MD Attending Provider on Admission: Tuan Riddle MD Consults: 09/29/25 10:16 Consult to Gastroenterology Routine Comment: intractable nausea and vomiting Consulting Provider: Rivera Galdamez Attending Provider on DC: Nadeem Nj DO Discharging Provider: Kemar Young DO DS: Diagnosis Problem List Completed Was Problem List Reviewed/Reconciled?: Yes Hospital Course Hospital Course Hospital course: Summary: Patient is a -year-old with a past medical history of who was admitted on with a chief complaint of . Hospital: During patient's hospital course, the main medical diagnoses addressed were . In terms of (medical diagnosis #1), patient had ___ performed. In terms of (medical diagnosis #2), patient had ___ performed. Patient is safe to discharge. Further discharge instructions below. Discharge Instructions: -Please follow up with your PCP within 1 week after discharge date Take the following medications for blood pressure: -Please take metoprolol succinate XR 100 mg by mouth twice per day -Please take hydralazine 100 mg by mouth three times per day -Please take nifedipine 60 mg by mouth twice per day -Please take valsartan 160 mg by mouth twice per day -Taking the medications on time is very important to prevent extremely elevated blood pressure which may cause confusion, nausea, and vomiting -Stop taking these blood pressure medications: amlodipine, Hemichlor/chlorthalidone, telmisartan, and clonidine -We have continued Cymbalta but this psychiatric medication is known for causing nausea and vomiting so you may consider following up with a psychiatrist and possibly swapping to a similar medication known as Effexor which has similar effects but is less known for nausea and vomiting symptoms (but this decision should ultimately be made with the input of a psychiatrist who has specialized knowledge regarding these medications) -Please take ondansetron 4 mg by mouth as needed every 8 hours for nausea and vomiting symptoms -Continue taking all of your prescribed medications as directed Hospital Diagnoses: # # # Status at Discharge Cognitive/Behavioral Status at Discharge: stable Functional Status at Discharge: independent ambulation Overall Status at Discharge: patient is back to baseline Patient's care plan was discussed with my attending, Dr. Nj, and senior resident, Dr. Benavides. Kemar Young, DO Internal Medicine, PGY-1 Time Spent with Patient Time attestation: Total time spent providing and/or coordinating discharge services: Exam Vital Signs Temp Pulse Resp BP Pulse Ox O2 Del Method O2 Flow Rate 98.8 F 88 18 153/86 H 96 Room Air 2 10/03/25 08:00 10/03/25 08:36 10/03/25 08:00 10/03/25 08:36 10/03/25 08:00 10/03/25 08:00 10/01/25 17:10 Discharge Plan Plan Patient Disposition: HOME (Self Care) Patient condition on transfer: Stable Care Plan Goals: Discharge Instructions: -Please follow up with your PCP within 1 week after discharge date Take the following medications for blood pressure: -Please take metoprolol succinate XR 100 mg by mouth twice per day -Please take hydralazine 100 mg by mouth three times per day -Please take nifedipine 90 mg by mouth once per day -Please take valsartan 160 mg by mouth twice per day -Taking the medications on time is very important to prevent extremely elevated blood pressure which may cause confusion, nausea, and vomiting -Stop taking these blood pressure medications: amlodipine, Hemichlor/chlorthalidone, telmisartan, and clonidine -We have continued Cymbalta but this psychiatric medication is known for causing nausea and vomiting so you may consider following up with a psychiatrist and possibly swapping to a similar medication known as Effexor which has similar effects but is less known for nausea and vomiting symptoms (but this decision should ultimately be made with the input of a psychiatrist who has specialized knowledge regarding these medications) -Please take ondansetron 4 mg by mouth as needed every 8 hours for nausea and vomiting symptoms -Continue taking all of your prescribed medications as directed Prescriptions/Referrals Prescriptions/Med Rec: New ondansetron 4 mg tablet,disintegrating 4 mg PO Q8H PRN (Reason: nausea and vomiting) Qty: 30 0RF duloxetine 30 mg Capsule,Delayed Release(Dr/Ec) 60 mg PO QDAY Qty: 30 0RF Continued metoprolol succinate 100 mg Tablet Extended Release 24 Hr 100 mg PO BID hydrocodone-acetaminophen 7.5-325 mg Tablet 1 tab PO Q6H PRN (Reason: Pain (Scale Score 7-10)) zolpidem 10 mg tablet 10 mg PO QHSPRN PRN (Reason: insomnia) Patient Comments: TAKE 1 TABLET BY MOUTH NIGHTLY AT BEDTIME NEEDED multivitamin [Daily Multi-Vitamin] Tablet 1 tab PO QDAY tizanidine 4 mg tablet 4 mg PO TID Patient Comments: TAKE 1 TABLET BY MOUTH 3 TIMES A DAY meclizine 25 mg tablet 25 mg PO BID PRN (Reason: dizziness or vertigo) trazodone 100 mg tablet 100 mg PO HS PRN (Reason: sleep) metformin 500 mg Tablet 500 mg PO QDAY aspirin 81 mg Tablet,Delayed Release (Dr/Ec) 81 mg PO QDAY estradiol 0.5 mg Tablet 1 mg PO QDAY Changed hydralazine 100 mg tablet 100 mg PO TID Qty: 30 0RF hydroxyzine HCl 10 mg tablet 10 mg PO PRN PRN (Reason: itching) Qty: 10 0RF valsartan 160 mg tablet 160 mg PO BID Qty: 30 0RF nifedipine 60 mg tablet extended release 90 mg PO QDAY Qty: 30 0RF Discontinued Hemiclor 12.5 mg tablet 12.5 mg PO QDAY amlodipine 10 mg tablet 10 mg PO QDAY clonidine HCl 0.2 mg tablet 0.2 mg PO BID Patient Comments: TAKE 1 TABLET BY MOUTH TWICE A DAY ondansetron HCl 8 mg tablet 8 mg PO Q8H PRN (Reason: nausea and vomiting) chlorthalidone 25 mg tablet 25 mg PO BID telmisartan 80 mg tablet 80 mg PO QDAY duloxetine [Cymbalta] 60 mg Capsule,Delayed Release(Dr/Ec) 60 mg PO QDAY Referrals: Ara Bal MD [Primary Care Provider, Family Practice] Patient/Caregiver Discharge Instructions Education Materials: Your High Blood Pressure Risk Factors, Self-Care for Vomiting and Diarrhea, Hypertension Dc, ED Vomiting (Adult) Print Language: Amharic Stand Alone Forms: Janay Award Info., Patient Portal Info Letter Attestestation Attestation Patient not discharged today as expected, gastroenterology does in fact will to perform an endoscopy prior to discharge
[2025-10-03] MEDS: HEPARIN SOD INJ 5000 UNIT/ML VIAL SC ×2 (14:23→21:18)
[2025-10-03] MEDS: POLYETHYLENE GLYCOL 17 GM PACKET PO (21:18)
[2025-10-03] MEDS: ZOLPIDEM 5 MG TABLET 10 MG PO (21:44)
[2025-10-03 23:50] LABS: Misc Send Out* See Sep Rpt
[2025-10-04] VITALS (7 sets, daily range): BP systolic 144–166; BP diastolic 90–99; PULSE 67–95; RESP 14–19; TEMP 36.1–36.8; O2SAT 95–98; BMI 30.7
--- NOTE | 2025-10-04 01:57 | ESPR_ITS ---
<Statement entered by Ricarda Benavides MD - 10/04/25 07:48> Patient was seen and examined by me personally. I have directly supervised and reviewed documentation by the team resident and agree with its findings with any exceptions or additional findings as below. Plan of care was discussed with the attending, Dr. Nj. Patient had EGD at 5 pm. Was initially going to discharge the patient however patient did not have a ride available. Will advance to PUD bland diet in the morning and discharge. Ricarda Benavides, PGY-3 Documentation for date of: 10/03/25 Subjective Subjective Interval history: No overnight events. Patient was examined at bedside; they appear A&Ox3 and in NAD. Vitals/labs today significant for BP 156/84. Physical exam was non- contributory. 10/01 gastric emptying study was performed last night and found to be negative for remarkable findings. Patient was originally planned to be discharged today after upper endoscopy (which found Winnie esophagitis) but due to being unable to locate a ride home she did not end up leaving the hospital by the evening time. Rocephin IV has been discontinued as patient already received more than a full course of antibiotic treatment for her pyelonephritis and she will be discharged tomorrow with Reglan for treatment of her nausea and vomiting symptoms in the outpatient setting. Exam Vital Signs Temp Pulse Resp BP Pulse Ox O2 Del Method O2 Flow Rate 98.2 F 86 14 157/95 H 96 Room Air 3 10/04/25 00:00 10/04/25 00:00 10/04/25 00:00 10/04/25 00:00 10/04/25 00:00 10/04/25 00:00 10/03/25 17:15 Narrative Exam General: Awake. HEENT: Normocephalic, atraumatic, mucous membranes moist. Heart: Regular rate and rhythm, no murmurs. Lungs: Clear to auscultation with no wheezing or crackles. Abdomen: Soft, nondistended, nontender, positive bowel sounds. ?No guarding or rebound tenderness. Neurologic: Alert and oriented x3, no gross neurological deficit, and patient able to move all 4 extremities. Extremities: No edema. Skin: No rash or ecchymoses. Objective Labs 10/02/25 05:26 10/03/25 07:42 Labs: Laboratory Results - last 24 hr 10/03/25 07:42 Sodium 142 Potassium 3.6 Chloride 104 Carbon Dioxide 25.1 Anion Gap 13 BUN 5 L Creatinine 0.7 Estim Creat Clear Calc 93.9 eGFR > 60 BUN/Creatinine Ratio 7 L Glucose 151 H D Calculated Osmolality 283 Calcium 9.3 Corrected Calcium 9.3 Total Bilirubin 0.3 AST 17 ALT 19 Alkaline Phosphatase 91 Total Protein 6.0 Albumin 4.4 Globulin 1.6 L Albumin/Globulin Ratio 2.8 H Quality Measures Quality Measures VTE prophylaxis Assessment & Plan Assessment Current Active Medications: Generic Name Dose Route Start Last Admin Trade Name Freq PRN Reason Stop Dose Admin Acetaminophen 650 mg 09/29/25 08:22 09/30/25 06:22 Acetaminophen 325 Mg Tablet PO 10/29/25 08:21 650 mg Q6HR PRN Administration pain 1-3 Hydrocodone Bitart/Acetaminophen 1 tab 09/30/25 09:58 10/03/25 21:44 Hydrocodone/Apap 7.5/325 Tablet PO 10/05/25 09:57 1 tab Q6H PRN Administration Pain (Scale Score 7-10) Dextrose 25 ml 09/29/25 03:14 Dextrose 50%-Water Inj 50 Ml Syringe IV 10/29/25 03:13 Q15MIN PRN BG 50-70 responsive npo pt Dextrose 50 ml 09/29/25 03:14 Dextrose 50%-Water Inj 50 Ml Syringe IV 10/29/25 03:13 Q15MIN PRN BG <50 OR BG <70 & pt unresponsive Duloxetine HCl 60 mg 09/29/25 00:30 10/03/25 08:35 Duloxetine Hcl 30 Mg Capsule PO 10/29/25 00:29 60 mg QDAY AMITA Administration Estradiol 1 mg 09/30/25 10:00 10/03/25 08:44 Estradiol 1 Mg Tablet PO 10/30/25 09:59 1 mg QDAY AMITA Administration Glucagon 1 mg 09/29/25 03:14 Glucagon Inj 1 Mg Vial IM Q15MIN PRN BG <70, and no IV access Heparin Sodium (Porcine) 5,000 unit 09/28/25 22:00 10/03/25 21:18 Heparin Sod Inj 5000 Unit/Ml Vial SC 10/12/25 21:59 5,000 unit Q8HR AMITA Administration Hydralazine HCl 100 mg 09/29/25 14:00 10/03/25 21:17 Hydralazine Hcl 25 Mg Tablet PO 10/29/25 02:29 100 mg Q8HR AMITA Administration Ceftriaxone Sodium 2 gm/ 50 mls @ 100 mls/hr 09/28/25 20:47 10/03/25 08:32 Sodium Chloride IV 10/05/25 20:46 100 mls/hr QDAY AMITA Administration Insulin Human Lispro 0 unit 09/29/25 07:30 10/03/25 17:34 Insulin Lispro (Admelog) 1 Unit/0.01 Ml Unit SC 10/29/25 07:29 Not Given AC AMITA Protocol Metoprolol Succinate 100 mg 09/30/25 10:00 10/03/25 18:32 Metoprolol Succinate Xl 25 Mg Tabcr PO 10/30/25 09:59 100 mg BID AMITA Administration Nifedipine 60 mg 09/29/25 09:00 10/03/25 08:35 Nifedipine Xl 30 Mg Tabcr PO 10/29/25 08:59 60 mg QDAY AMITA Administration Ondansetron HCl 4 mg 09/28/25 20:51 10/02/25 22:00 Ondansetron Inj 2 Mg/Ml Inj 2 Ml IVP 10/28/25 20:59 4 mg Q6H PRN Administration nausea Protocol Pantoprazole Sodium 20 mg 09/29/25 09:00 10/03/25 08:36 Pantoprazole 20 Mg Tablet PO 10/29/25 08:59 20 mg QDAY AMITA Administration Polyethylene Glycol 17 gm 10/01/25 21:00 10/03/25 21:18 Polyethylene Glycol 17 Gm Packet PO 10/31/25 20:59 17 gm BID AMITA Administration Sennosides 1 tab 10/01/25 21:00 10/03/25 21:17 Senna Tablet PO 10/31/25 20:59 1 tab BID AMITA Administration Protocol Valsartan 160 mg 10/02/25 09:30 10/03/25 18:34 Valsartan 80 Mg Tablet PO 11/01/25 09:29 160 mg BID AMITA Administration Zolpidem Tartrate 10 mg 10/01/25 13:33 10/03/25 21:44 Zolpidem 5 Mg Tablet PO 10/31/25 13:32 10 mg HS PRN Administration INSOMNIA Plan 59-year-old female with a history of HTN, HLD, CVA, and fibromyalgia, discharged from the hospital last night, presents with confusion and lower abdominal pain. Patient admitted for hypertensive emergency and possible pyelonephritis. #Acute encephalopathy 2/2, resolved #Hypertensive emergency, resolved #History of refractory hypertension Alert and oriented x 3 Patient complains of dizziness, no headache, blurry vision, chest pain, shortness of breath Patient was discharged on the following blood pressure medications yesterday: valsartan 160 mg PO BID, nifedipine 60 mg PO QDAY, hydralazine 100 mg PO TID In ED patient received labetalol 20 mg IV, followed by 10 mg IV, and ultimately started on nicardipine drip for blood pressure control. Blood pressure improved to 168/99 and nicardipine drip was discontinued Lactic acid 2.9 with improvement to 2 after blood pressure was well-controlled Dx: -09/29 renal artery study ordered, inconclusive -09/29 urine metanephrines ordered, showed ___ -10/02 morning PRA and PAC ordered, showed ___ Rx: -Nifedipine 60 mg PO qD -Hydralazine 100 mg PO TID -Metoprolol succinate XL 100 mg PO BID -Valsartan 160 mg PO BID RRx: -As of 10/02, patient's BP has seemed better controlled with the last BP reading being 112/70 #Possible left pyelonephritis Afebrile, no leukocytosis CVA tenderness on physical exam, particularly on the left UA clear Dx: -09/28 UCx showed no growth Rx: ?s/p Rocephin 2 g IV qD [09/29-10/03] #Intractable nausea and vomiting #Winnie esophagitis Patient complains of nausea and vomiting that has been ongoing since last admission and has been refractory to Zofran and Reglan Apparently started about 2 weeks ago at the same time that she started taking chlorthalidone Dx: -09/28 gastric emptying study ordered, negative for remarkable findings -10/01 colonoscopy completed, showed Grade II internal hemorrhoids and moderate diverticulosis in the sigmoid and descending colon without diverticular bleeding -10/03 upper endoscopy completed, showed Winnie esophagitis Rx: -Will discharge with Reglan to be taken in the outpatient setting -May also consider discharging with an antifungal medication for Winnie esophagitis -Consider switching Cymbalta to Effexor as Cymbalta is known for causing nausea -Zofran IV or Reglan IV prn for nausea -GI consulted, appreciate recommendations #Refractory hypokalemia Patient has been noted to be hypokalemic both this admission and last admission despite continuous potassium repletion May possibly be 2/2 primary aldosteronism or diarrhea from GoLytely prep Dx: -10/02 morning PRA and PAC as mentioned above #Constipation, resolved Patient initially reported that her last bowel movement was 10 days ago Now resolved Rx: -Miralax BID -Senna BID #NSTEMI, likely type II Troponin 0.143 on admission, likely demand ischemia. She denies chest pain. No relevant EKG changes. Plan ? On previous admission, Dr. Mireles (cardiology) was consulted and believed the event was Type II, patient underwent extensive cardiac workup in the last three months #Urinary retention, resolved CT abdomen showing urinary retention Patient is no longer having difficulty urinating Rx: ?Jordan catheter inserted - discontinued as of 09/30 ?Oxybutynin 5 mg daily #Fibromyalgia Patient takes home duloxetine 60 mg daily and [place] Rx: -Duloxetine 60 mg PO qD -[place] 7.5/325 q6HR prn #Insomnia On 10/01, patient requested that her home Ambien be restarted due to difficulty sleeping Rx: -Ambien 10 mg PO HS prn #Barbiturate (+) on UDS Patient was positive for barbiturates on 09/28 UDS but denies taking any barbiturate medications Health Maintenance: Diet: Cardiac GI prophylaxis: Protonix 20 mg daily DVT prophylaxis: Heparin 5000u SC every 8 hours Antibiotics: Ceftriaxone 2 g IV daily CODE STATUS: DNR Disposition: Telemetry, anticipate discharge on 10/04 Patient plan of care was discussed with the attending physician, Dr. Clem Young DO PGY-1 Attending Provider Attestation/Addendum I have discussed and was present for the essential components of the history, physical examination, diagnosis, and treatment plan with the resident. I agree with the patient's care as documented by the resident and amended herein by me. Declan Nj DO. Although this document has been carefully reviewed, there may still be some phonetic and other typographical errors. These errors are purely grammatical due to imperfections in the software program and should not be construed in any way to compromise the substance of the patient's medical care during this visit.
[2025-10-04] MEDS: HYDROcodone/APAP 7.5/325 TABLET 1 TAB PO (05:02)
[2025-10-04] MEDS: HEPARIN SOD INJ 5000 UNIT/ML VIAL SC (05:02)
[2025-10-04] MEDS: NIFEdipine XL 30 MG TABCR 60 MG PO (08:12)
[2025-10-04] MEDS: cefTRIAXone 2 GM in SODIUM CHLORIDE 0.9% (Popper) 50 ML IV (08:12)
[2025-10-04] MEDS: VALSARTAN 80 MG TABLET 160 MG PO (08:13)
[2025-10-04] MEDS: PANTOPRAZOLE 20 MG TABLET PO (08:13)
[2025-10-04] MEDS: DULoxetine HCL 30 MG CAPSULE 60 MG PO (08:13)
[2025-10-04] MEDS: METOPROLOL SUCCINATE XL 25 MG TABCR 100 MG PO (08:13)
[2025-10-04] MEDS: ONDANSETRON INJ 2 MG/ML INJ 2 ML 4 MG IVP (08:14)
[2025-10-04] MEDS: INSULIN LISPRO (AdmeLOG) 1 UNIT/0.01 ML UNIT SC (08:28)
[2025-10-04] MEDS: FLUCONAZOLE 100 MG TABLET 400 MG PO (08:28)
[2025-10-04] MEDS: ACETAMINOPHEN 325 MG TABLET 650 MG PO (10:31)
--- NOTE | 2025-10-04 13:36 | ESDS_ITS ---
<Statement entered by Ricarda Benavides MD - 10/04/25 13:53> Patient was seen and examined by me personally. I have reviewed the below documentation by the team resident and agree with its findings with any exceptions as below. Discharge plan was discussed with the attending, Dr. Nj. Patient denied all symptoms including nausea, vomiting, or abdominal pain. Patient understood instructions to comply with BP medications. She tolerated diet this morning. Patient is safe for discharge home. Ricarda Benavides, PGY-3 Planned Discharge Date 10/04/25 DS: Providers Provider Date of admission: 09/28/25 20:44 Primary care physician: Ara Bal MD Admitting Provider: Tuan Riddle MD Attending Provider on Admission: Tuan Riddle MD Consults: 09/29/25 10:16 Consult to Gastroenterology Routine Comment: intractable nausea and vomiting Consulting Provider: Rivera Galdamez Attending Provider on DC: Nadeem Nj DO Discharging Provider: Kemar Young DO DS: Diagnosis Problem List Completed Was Problem List Reviewed/Reconciled?: Yes Hospital Course Hospital Course Hospital course: Summary: 59-year-old female with a history of HTN, HLD, CVA, and fibromyalgia, discharged from the hospital last night, presents with confusion and lower abdominal pain. Patient admitted for hypertensive emergency and possible pyelonephritis. Hospital: During patient's hospital course, she was treated with nifedipine PO, hydralazine PO, metoprolol succinate XR PO, and valsartan PO for her hypertensive emergency and general history of hypertension. Work-up for the underlying etiology of her hypertension was also initiated to rule out renal artery stenosis, pheochromocytoma, and primary aldosteronism. Patient was treated with Rocephin IV for her possible left pyelonephritis that had been seen on 09/28 CTAP (of note, UA was clear this admission and she had just received a full course of antibiotics on her previous admission that ended 2 days ago). Patient's intractable nausea was treated with Zofran IV and Reglan IV but was refractory. She underwent a barrage of work-up including upper and lower endoscopy and gastric emptying study which were all unremarkable except for some possible Winnie esophagitis noticed on upper endoscopy. By 10/04, patient was deemed clinically stabilized and discharged home. Patient is safe to discharge. Further discharge instructions below. Discharge Instructions: -Please follow up with your PCP within 1 week after discharge date Take the following medications for blood pressure: -Please take metoprolol succinate XR 100 mg by mouth twice per day -Please take hydralazine 100 mg by mouth three times per day -Please take nifedipine 90 mg by mouth once per day -Please take valsartan 160 mg by mouth twice per day -Taking the medications on time is very important to prevent extremely elevated blood pressure which may cause confusion, nausea, and vomiting -Stop taking these blood pressure medications: amlodipine, Hemichlor/chlorthalidone, telmisartan, and clonidine -We have continued Cymbalta but this psychiatric medication is known for causing nausea and vomiting so you may consider following up with a psychiatrist and possibly swapping to a similar medication known as Effexor which has similar effects but is less known for nausea and vomiting symptoms (but this decision should ultimately be made with the input of a psychiatrist who has specialized knowledge regarding these medications) -Please take ondansetron 4 mg by mouth as needed every 8 hours for nausea and vomiting symptoms -Continue taking all of your prescribed medications as directed Hospital Diagnoses: #Acute encephalopathy 2/2, resolved #Hypertensive emergency, resolved #History of refractory hypertension #Possible left pyelonephritis #Intractable nausea and vomiting #??Winnie esophagitis #Refractory hypokalemia #Constipation, resolved #NSTEMI, likely type II #Urinary retention, resolved #Fibromyalgia #Insomnia #Barbiturate (+) on UDS Status at Discharge Cognitive/Behavioral Status at Discharge: stable Functional Status at Discharge: independent ambulation Overall Status at Discharge: patient is back to baseline Patient's care plan was discussed with my attending, Dr. Nj, and senior resident, Dr. Benavides. Kemar Young, DO Internal Medicine, PGY-1 Time Spent with Patient Time attestation: Total time spent providing and/or coordinating discharge services: Time spent: Greater than 30 minutes Exam Vital Signs Temp Pulse Resp BP Pulse Ox O2 Del Method O2 Flow Rate 97 F 79 18 155/99 H 98 Room Air 3 10/04/25 10:30 10/04/25 10:30 10/04/25 10:30 10/04/25 10:30 10/04/25 10:30 10/04/25 10:30 10/03/25 17:15 Narrative Exam General: Awake. HEENT: Normocephalic, atraumatic, mucous membranes moist. Heart: Regular rate and rhythm, no murmurs. Lungs: Clear to auscultation with no wheezing or crackles. Abdomen: Soft, nondistended, nontender, positive bowel sounds. ?No guarding or rebound tenderness. Neurologic: Alert and oriented x3, no gross neurological deficit, and patient able to move all 4 extremities. Extremities: No edema. Skin: No rash or ecchymoses. Discharge Plan Plan Patient Disposition: HOME (Self Care) Patient condition on transfer: Stable Care Plan Goals: Discharge Instructions: -Please follow up with your PCP within 1 week after discharge date Take the following medications for blood pressure: -Please take metoprolol succinate XR 100 mg by mouth twice per day -Please take hydralazine 100 mg by mouth three times per day -Please take nifedipine 90 mg by mouth once per day -Please take valsartan 160 mg by mouth twice per day -Taking the medications on time is very important to prevent extremely elevated blood pressure which may cause confusion, nausea, and vomiting -Stop taking these blood pressure medications: amlodipine, Hemichlor/chlorthalidone, telmisartan, and clonidine -We have continued Cymbalta but this psychiatric medication is known for causing nausea and vomiting so you may consider following up with a psychiatrist and possibly swapping to a similar medication known as Effexor which has similar effects but is less known for nausea and vomiting symptoms (but this decision should ultimately be made with the input of a psychiatrist who has specialized knowledge regarding these medications) -Please take ondansetron 4 mg by mouth as needed every 8 hours for nausea and vomiting symptoms -Continue taking all of your prescribed medications as directed Prescriptions/Referrals Prescriptions/Med Rec: New ondansetron 4 mg tablet,disintegrating 4 mg PO Q8H PRN (Reason: nausea and vomiting) Qty: 30 0RF duloxetine 30 mg Capsule,Delayed Release(Dr/Ec) 60 mg PO QDAY Qty: 30 0RF nifedipine 90 mg tablet extended release 90 mg PO QDAY 30 Days Qty: 30 2RF Continued metoprolol succinate 100 mg Tablet Extended Release 24 Hr 100 mg PO BID hydrocodone-acetaminophen 7.5-325 mg Tablet 1 tab PO Q6H PRN (Reason: Pain (Scale Score 7-10)) zolpidem 10 mg tablet 10 mg PO QHSPRN PRN (Reason: insomnia) Patient Comments: TAKE 1 TABLET BY MOUTH NIGHTLY AT BEDTIME NEEDED multivitamin [Daily Multi-Vitamin] Tablet 1 tab PO QDAY tizanidine 4 mg tablet 4 mg PO TID Patient Comments: TAKE 1 TABLET BY MOUTH 3 TIMES A DAY meclizine 25 mg tablet 25 mg PO BID PRN (Reason: dizziness or vertigo) trazodone 100 mg tablet 100 mg PO HS PRN (Reason: sleep) metformin 500 mg Tablet 500 mg PO QDAY aspirin 81 mg Tablet,Delayed Release (Dr/Ec) 81 mg PO QDAY estradiol 0.5 mg Tablet 1 mg PO QDAY Changed hydralazine 100 mg tablet 100 mg PO TID Qty: 30 0RF hydroxyzine HCl 10 mg tablet 10 mg PO PRN PRN (Reason: itching) Qty: 10 0RF valsartan 160 mg tablet 160 mg PO BID Qty: 30 2RF Discontinued Hemiclor 12.5 mg tablet 12.5 mg PO QDAY amlodipine 10 mg tablet 10 mg PO QDAY clonidine HCl 0.2 mg tablet 0.2 mg PO BID Patient Comments: TAKE 1 TABLET BY MOUTH TWICE A DAY ondansetron HCl 8 mg tablet 8 mg PO Q8H PRN (Reason: nausea and vomiting) chlorthalidone 25 mg tablet 25 mg PO BID telmisartan 80 mg tablet 80 mg PO QDAY nifedipine 60 mg tablet extended release 60 mg PO BID duloxetine [Cymbalta] 60 mg Capsule,Delayed Release(Dr/Ec) 60 mg PO QDAY Referrals: Ara Bal MD [Primary Care Provider, Family Practice] Patient/Caregiver Discharge Instructions Education Materials: Your High Blood Pressure Risk Factors, Self-Care for Vomiting and Diarrhea, Hypertension Dc, ED Pyelonephritis, Female (Adult), ED Vomiting (Adult) Print Language: Estonian Stand Alone Forms: Janay Award Info., Patient Portal Info Letter Discharge Order Discharge Orders: Discharge (Routine); Ordered 10/04/25 Ordered By: Daniel Romano Quality Discharge Quality Measures VTE prophylaxis Attestestation Attestation I have discussed and was present for the essential components of the discharge history, physical examination, diagnosis, and discharge treatment plan with the resident. I agree with the patient's discharge care as documented by the resident and amended herein by me. Declan Nj DO. The patient understood all discharge instructions, all questions were answered satisfactorily. The patient was instructed to return to the Emergency Department is symptoms worsened or persisted. Patient was stable, afebrile tolerating p.o. intake at time of discharge home Although this document has been carefully reviewed, there may still be some phonetic and other typographical errors. These errors are purely grammatical due to imperfections in the software program and should not be construed in any way to compromise the substance of the patient's medical care during this visit.
--- NOTE | 2025-10-04 21:46 | PD.IMPROG ---
Documentation for date of: 10/04/25 Subjective Subjective Interval history: Late entry for the note Findings discussed with the patient of the fiberoptic upper endoscopy No need for any GI follow-up Patient can be followed by the PCP Exam Vital Signs Temp Pulse Resp BP Pulse Ox O2 Del Method O2 Flow Rate 97 F 79 18 155/99 H 98 Room Air 3 10/04/25 10:30 10/04/25 10:30 10/04/25 10:30 10/04/25 10:30 10/04/25 10:30 10/04/25 10:30 10/03/25 17:15 Objective Labs 10/02/25 05:26 10/03/25 07:42 Impressions Impression: Gastritis Esophagitis Okay to discharge patient home to be followed by the PCP Assessment & Plan A&P Narrative # Pain abdomen left flank left mid quadrant and left lower quadrant along with lower abdominal pain Complicated by pyelonephritis pattern on the left side on his CT scan imaging but no evidence of any diverticulitis and patient is postcholecystectomy Previous imaging of the abdomen had shown stool impaction Plan Clear liquid diet GoLytely prep Consent obtained for fiberoptic colonoscopy with possible biopsy possible therapeutic intervention under intravenous moderate sedation Clear liquid diet to continue as long as the patient is drinking GoLytely Prior to discharge I might consider upper endoscopy Other medical problems include Essential hypertension difficult to control hyperlipidemia CVA Fibromyalgia Left pyelonephritis Thank you very much for the opportunity to participate in care of this patient Time Spent With Patient Time: Total time spent is greater than 50% in coordination of care (as documented) at patient's floor/unit and/or counseling patient:
[2025-10-06 06:44] LABS: Aldosterone* 3 ng/dL
[2025-10-09 06:47] LABS: Renin Activity, Plasma* 0.25 ng/mL/h (0.25-5.82)
== END 2025-10-04 11:07 | disposition home or self-care (01) | DRG 199 ==
LOC: SERX 20:50 → SERHOLD 21:15 → S2NX 23:25
PROVIDERS: Nurse Practitioner Family; Specialist; Admitting Provider Student in an Organized Health Care Education/Training Program; Emergency Provider Family Medicine; PCP Family Medicine; Visit Provider Student in an Organized Health Care Education/Training Program
PROC: 0DJD8ZZ Inspection of Lower Intestinal Tract, Via Natural or Artificial Opening Endoscopic (ICD-10-PCS; CPT 45378; principal; 2025-10-01 16:15)
PROC: 0DB38ZX Excision of Lower Esophagus, Via Natural or Artificial Opening Endoscopic, Diagnostic (ICD-10-PCS; CPT 43239; principal; 2025-10-03 15:30)
DX: I16.1 Hypertensive emergency (principal); I48.91 Unspecified atrial fibrillation; I10 Essential (primary) hypertension; E78.5 Hyperlipidemia, unspecified; M79.7 Fibromyalgia; G93.40 Encephalopathy, unspecified; K29.70 Gastritis, unspecified, without bleeding; E87.6 Hypokalemia; G47.00 Insomnia, unspecified; K59.00 Constipation, unspecified; I21.A1 Myocardial infarction type 2; R33.9 Retention of urine, unspecified; K64.1 Second degree hemorrhoids; Z66 Do not resuscitate; B37.81 Candidal esophagitis; K57.30 Diverticulosis of large intestine without perforation or abscess without bleeding; N12 Tubulo-interstitial nephritis, not specified as acute or chronic; N20.0 Calculus of kidney; Z79.82 Long term (current) use of aspirin; Z79.84 Long term (current) use of oral hypoglycemic drugs; Z79.899 Other long term (current) drug therapy; Z86.73 Personal history of transient ischemic attack (TIA), and cerebral infarction without residual deficits
CPT/HCPCS: 36415; 51702; 70450; 71045; 74177; 78264; 80053; 80307; 81001; 82088; 82140; 82570; 83036; 83605; 83690; 83735; 83835; 83880; 84100; 84145; 84244; 84484; 85025; 85610; 85730; 87040; 87081; 87086; 87635; 93005; 93975; 96365; 96366; 96375; 96376; 99284; A4314; A4649; A9541; J0131; J0360; J0696; J1200; J1644; J1815; J2250; J2270; J2404; J2405; J2765; J3010; J3480; J3490; J7050; J7120; Q9967; A9270; J1920